=== PATIENT | male | born 1935 | race Caucasian/White ===

== ENCOUNTER 2016-06-04 06:52 | Inpatient (IN) | payer MEDICARE, BC ==
--- NOTE | 2016-06-04 07:16 | ED ---
General Adult HPI - General Chief complaint: Recheck/Abnormal Lab/Rx Stated complaint: Pacemaker going off Time Seen by Provider: 06/04/16 07:00 Source: patient, RN notes reviewed Mode of arrival: ambulatory Limitations: no limitations - History of Present Illness Initial comments: This is a 80-year-old male who presents emergency Department complaining that his pacemaker defibrillator to 3 seconds 3 times earlier this morning. Patient denies any symptoms. Patient remains symptomatically. Patient denies headache patient denies numbness weakness. Patient denies any recent fever chills or cough per patient denies chest pain palpitations difficulty breathing or shortness of breath per patient denies abdominal pain patient denies nausea vomiting diarrhea. Patient denies any recent injury or trauma. - Related Data Home Medications Medication Instructions Recorded Confirmed Atorvastatin [Lipitor] 20 mg PO DAILY 07/07/15 06/04/16 Dorzolamide HCl/Timolol Maleat 1 drop BOTH EYES BID 07/07/15 06/04/16 [Cosopt Eye Drops] Insulin Detemir [Levemir] 22 unit SQ HS 07/07/15 06/04/16 Isosorbide Mononitrate ER [Imdur] 60 mg PO BID 07/07/15 06/04/16 amLODIPine [Norvasc] 10 mg PO BID 07/07/15 06/04/16 metFORMIN HCL 1,000 mg PO BID 07/07/15 06/04/16 Brimonidine Tartrate [Alphagan P 1 drops BOTH EYES BID 06/04/16 06/04/16 0.1% Ophth Soln] Carvedilol [Coreg] 25 mg PO BID 06/04/16 06/04/16 Donepezil [Aricept] 10 mg PO DAILY 06/04/16 06/04/16 Flecainide [Tambocor] 50 mg PO Q12HR 06/04/16 06/04/16 Lisinopril-Hctz 20-25 mg 1 tab PO DAILY 06/04/16 06/04/16 [Zestoretic 20-25] Pantoprazole Sodium 40 mg PO DAILY 06/04/16 06/04/16 Allergies Allergy/AdvReac Type Severity Reaction Status Date / Time No Known Allergies Allergy Verified 06/04/16 09:34 Review of Systems ROS Statement: Those systems with pertinent positive or pertinent negative responses have been documented in the HPI. ROS Other: All systems not noted in ROS Statement are negative. Past Medical History Past Medical History: Diabetes Mellitus, Eye Disorder Additional Past Medical History / Comment(s): SEE DR CELIS'S H&P History of Any Multi-Drug Resistant Organisms: None Reported Past Surgical History: Cholecystectomy, Coronary Bypass/CABG, Hernia Repair Additional Past Surgical History / Comment(s): CABG X2, STATES TOTAL OF 5 BYPASSES, BIBI LEGS "VEIN SX" BIBI CATARACT, pacemaker/defib Past Anesthesia/Blood Transfusion Reactions: No Reported Reaction Past Psychological History: No Psychological Hx Reported Smoking Status: Former smoker Past Alcohol Use History: None Reported Additional Past Alcohol Use History / Comment(s): STARTED SMOKING AGE 18 (1951) , QUIT SMOKING 1978, SMOKED 1PPD Past Drug Use History: None Reported - Past Family History Son(s) Family Medical History: Cancer Additional Family Medical History / Comment(s): LUNG General Exam - General Exam Comments Initial Comments: GENERAL: Patient is well-developed and well-nourished. Patient is nontoxic and well- hydrated and is in no acute distress. ENT: Neck is soft and supple. No significant lymphadenopathy is noted. Oropharynx is clear. Moist mucous membranes. Neck has full range of motion without eliciting any pain. EYES: The sclera were anicteric and conjunctiva were pink and moist. Extraocular movements were intact and pupils were equal round and reactive to light. Eyelids were unremarkable. PULMONARY: Unlabored respirations. Good breath sounds bilaterally. No audible rales rhonchi or wheezing was noted. CARDIOVASCULAR: There is a regular rate and rhythm without any murmurs gallops or rubs. ABDOMEN: Soft and nontender with normal bowel sounds. No palpable organomegaly was noted. There is no palpable pulsatile mass. SKIN: Skin is clear with no lesions or rashes and otherwise unremarkable. NEUROLOGIC: Patient is alert and oriented x3. Cranial nerves II through XII are grossly intact. Motor and sensory are also intact. Normal speech, volume and content. Symmetrical smile. MUSCULOSKELETAL: Normal extremities with adequate strength and full range of motion. No lower extremity swelling or edema. No calf tenderness. LYMPHATICS: No significant lymphadenopathy is noted PSYCHIATRIC: Normal psychiatric evaluation. Limitations: no limitations Course Vital Signs 06/04/16 06/04/16 06:54 08:48 Temperature 98.0 F Pulse Rate 61 55 L Respiratory 18 18 Rate Blood Pressure 131/75 130/60 O2 Sat by Pulse 98 99 Oximetry Medical Decision Making - Medical Decision Making EKG shows sinus bradycardia with first-degree AV block at 53 bpm. It was 216 QRS is 148 QT interval 490 QTC is 459. Patient's EKG shows no ST segment elevation. Patient's potassium came back elevated so I repeated it was elevated secondary to give the patient Kayexalate and D50 and insulin sodium bicarb and calcium chloride. Because he elevated potassium as well as a pacemaker malfunction I admitted the patient spoke with .he agreed to admission I consult cardiology - Lab Data Result diagrams: 06/04/16 07:35 06/04/16 08:45 Lab Results 06/04/16 06/04/16 06/04/16 Range/Units 07:35 07:35 07:35 WBC 12.3 H (3.8-10.6) k/uL RBC 4.21 L (4.30-5.90) m/uL Hgb 12.6 L (13.0-17.5) gm/dL Hct 38.6 L (39.0-53.0) % MCV 91.5 (80.0-100.0) fL MCH 29.9 (25.0-35.0) pg MCHC 32.7 (31.0-37.0) g/dL RDW 13.1 (11.5-15.5) % Plt Count 326 (150-450) k/uL Neutrophils % 89 % Lymphocytes % 7 % Monocytes % 3 % Eosinophils % 0 % Basophils % 0 % Neutrophils # 11.0 H (1.3-7.7) k/uL Lymphocytes # 0.8 L (1.0-4.8) k/uL Monocytes # 0.4 (0-1.0) k/uL Eosinophils # 0.0 (0-0.7) k/uL Basophils # 0.0 (0-0.2) k/uL PT (9.0-12.0) sec INR (<1.1) APTT (22.0-30.0) sec Sodium 141 (137-145) mmol/L Potassium 6.1 H (3.5-5.1) mmol/L Chloride 105 (98-107) mmol/L Carbon Dioxide 18 L (22-30) mmol/L Anion Gap 18 mmol/L BUN 37 H (9-20) mg/dL Creatinine 2.10 H (0.66-1.25) mg/dL Est GFR (MDRD) Af Amer 37 (>60 ml/min/1.73 sqM) Est GFR (MDRD) Non-Af 31 (>60 ml/min/1.73 sqM) Glucose 255 H (74-99) mg/dL Calcium 9.8 (8.4-10.2) mg/dL Magnesium 1.6 (1.6-2.3) mg/dL Total Bilirubin 0.5 (0.2-1.3) mg/dL AST 27 (17-59) U/L ALT 31 (21-72) U/L Alkaline Phosphatase 84 (38-126) U/L Total Creatine Kinase 170 (55-170) U/L CK-MB (CK-2) 4.1 H* (0.0-2.4) ng/mL CK-MB (CK-2) Rel Index 2.4 Troponin I 0.115 H* (0.000-0.034) ng/mL Total Protein 7.9 (6.3-8.2) g/dL Albumin 4.6 (3.5-5.0) g/dL 06/04/16 06/04/16 Range/Units 07:35 08:45 WBC (3.8-10.6) k/uL RBC (4.30-5.90) m/uL Hgb (13.0-17.5) gm/dL Hct (39.0-53.0) % MCV (80.0-100.0) fL MCH (25.0-35.0) pg MCHC (31.0-37.0) g/dL RDW (11.5-15.5) % Plt Count (150-450) k/uL Neutrophils % % Lymphocytes % % Monocytes % % Eosinophils % % Basophils % % Neutrophils # (1.3-7.7) k/uL Lymphocytes # (1.0-4.8) k/uL Monocytes # (0-1.0) k/uL Eosinophils # (0-0.7) k/uL Basophils # (0-0.2) k/uL PT 11.2 (9.0-12.0) sec INR 1.1 (<1.1) APTT 23.3 (22.0-30.0) sec Sodium (137-145) mmol/L Potassium 6.2 H* (3.5-5.1) mmol/L Chloride (98-107) mmol/L Carbon Dioxide (22-30) mmol/L Anion Gap mmol/L BUN (9-20) mg/dL Creatinine (0.66-1.25) mg/dL Est GFR (MDRD) Af Amer (>60 ml/min/1.73 sqM) Est GFR (MDRD) Non-Af (>60 ml/min/1.73 sqM) Glucose (74-99) mg/dL Calcium (8.4-10.2) mg/dL Magnesium (1.6-2.3) mg/dL Total Bilirubin (0.2-1.3) mg/dL AST (17-59) U/L ALT (21-72) U/L Alkaline Phosphatase (38-126) U/L Total Creatine Kinase (55-170) U/L CK-MB (CK-2) (0.0-2.4) ng/mL CK-MB (CK-2) Rel Index Troponin I (0.000-0.034) ng/mL Total Protein (6.3-8.2) g/dL Albumin (3.5-5.0) g/dL Critical Care Time Critical Care Time: Yes Total Critical Care Time: 35 Disposition Clinical Impression: Hyperkalemia, Pacemaker malfunction, Elevated troponin Disposition: ADMITTED IP TO THIS HOSP Referrals: Guillaume Plascencia DO [Primary Care Provider] - 1-2 days Time of Disposition: 09:23
[2016-06-04 07:53] LABS: Basophils % (A) 0 %; CH 30.6; CHCM 33.6; Eosinophils % (A) 0 %; HCT 38.6 % (39.0-53.0); HDW 2.76; HGB 12.6 gm/dL (13.0-17.5); Luc % (Auto) 1; Lymphocytes # (A) 0.8 k/uL (1.0-4.8); Lymphocytes % (A) 7 %; MCH 29.9 pg (25.0-35.0); MCHC 32.7 g/dL (31.0-37.0); MCV 91.5 fL (80.0-100.0); Mean Platelet Volume 6.7; Monocytes # (A) 0.4 k/uL (0-1.0); Monocytes % (A) 3 %; Neutrophils % (A) 89 %; RBC 4.21 m/uL (4.30-5.90); RDW 13.1 % (11.5-15.5); WBC 12.3 k/uL (3.8-10.6); WBC (Perox) 12.66
[2016-06-04 08:02] LABS: INR 1.1 (<1.1); Partial Thromboplastin Time 23.3 sec (22.0-30.0); Prothrombin Time 11.2 sec (9.0-12.0)
[2016-06-04 08:12] LABS: Calcium 9.8 mg/dL (8.4-10.2); Magnesium 1.6 mg/dL (1.6-2.3); Total Bilirubin 0.5 mg/dL (0.2-1.3); Total Protein 7.9 g/dL (6.3-8.2)
[2016-06-04 08:15] LABS: Potassium 6.1 mmol/L (3.5-5.1)
--- NOTE | 2016-06-04 08:27 | XR ---
EXAMINATION TYPE: XR chest 2V DATE OF EXAM: 06/04/2016 8:15 AM COMPARISON: 07/13/2015 HISTORY: 80-year-old male with chest pain, pacemaker malfunctioning TECHNIQUE: PA and lateral views FINDINGS: Left anterior chest wall AICD generator with right atrial and right ventricular leads. Prosthetic car diac valve. Heart is normal size. Atherosclerotic arch calcifications with tortuosity of the lower descending aor ta. Pulmonary vasculature within normal limits. Some strandy atelectasis in the lower lungs. Nodular density at the right base suggests nipple shadow. Tiny high density nodule left apex suggests calcifi ed granuloma. No consolidation or pleural effusion. IMPRESSION: 1. No acute cardiopulmonary process. 2. Nodular density at the right base suspected to represent nipple shadow. Recommend short-term follo w-up with the placement of nipple markers.
[2016-06-04 08:29] LABS: Creatine Kinase MB 4.1 ng/mL (0.0-2.4); Troponin I 0.115 ng/mL (0.000-0.034)
[2016-06-04] MEDS ORDERED: SODIUM POLYSTYRENE SULFONATE 15 GM/60 ML BOTTLE PO STA (09:14)
[2016-06-04] MEDS ORDERED: INSULIN REGULAR 100 UNIT/ML VIAL IV ONE (09:18)
[2016-06-04] MEDS ORDERED: SODIUM BICARB 8.4% 50 ML SYR (1 MEQ/ML) IV STA (09:18)
[2016-06-04] MEDS ORDERED: DEXTROSE 50%-WATER 50 ML SYRINGE IVP STA (09:18)
[2016-06-04] MEDS ORDERED: CALCIUM CHLORIDE 100 MG/ML 10 ML SYRINGE IVP STA (09:19)
[2016-06-04] MEDS ORDERED: SODIUM CHLORIDE 0.9% 1,000 ML IV ONE (09:46)
--- NOTE | 2016-06-04 16:38 | CONS ---
DATE OF CONSULTATION: Mr. Gudino is a 80-year-old male with known history of coronary artery disease, history of ischemic cardiomyopathy, status post coronary artery bypass grafting and redo bypass in 2010 when he received an aortic valve and repeat bypass and he underwent an ICD implantation performed in July of this year. He noted fluttering over the pacemaker device and that he why he came in. He did not feel any shock. He denies any chest pain. His breathing has been stable. He has dyspnea on exertion without change. No PND. No orthopnea. No peripheral edema. No syncope or palpitations. His level of activity is unchanged. He is not very active physically, but does not feel any different than before. His coronary risk factors are remarkable negative for smoking. He is diabetic, hypertensive and hyperlipidemic. His medications include: 1. Metformin 1 gram twice a day. 2. Amlodipine 10 mg daily. 3. Protonix 40 mg daily. 4. Lisinopril HCT 20/25 mg daily. 5. Isosorbide mononitrate 60 mg twice a day. 6. Insulin. 7. Flecainide 50 mg twice a day. 8. Coreg 25 mg twice a day. 9. Aricept. 10. Lipitor 20 mg daily. REVIEW OF SYSTEMS: RESPIRATORY SYSTEM: He has no recent wheezing. No cough. He has history of mild dyspnea on exertion. GI system: No recent GI bleeding. No peptic ulcer disease. system: No dysuria or hematuria. Nervous system: No stroke or seizure. Past surgical history is remarkable for the coronary artery bypass grafting as noted. PHYSICAL EXAMINATION: Blood pressure 132/50 with a heart rate in the 60s. HEAD: Normocephalic. EYES: Sclerae anicteric. NECK: Good upstroke. No bruit. No jugular venous distention. LUNGS: Clear to auscultation. HEART: Regular rate and rhythm. S1, S2, no S3, with systolic murmur, ejection type, heard at the base. No diastolic murmur. No rub. ABDOMEN: Soft, nontender, positive bowel sounds. No organomegaly. EXTREMITIES: No edema. Decreased distal pulses. Lab data: Potassium of 6.1. It was 4.5 during his last admission. BUN and creatinine 37 and 2.1. It is slightly higher than it was during his last admission. His troponin 0.115. Hemoglobin 12.6. White blood cells 12.3. EKG revealed a sinus mechanism, rate of 53, left axis deviation, intraventricular conduction delay. Chest x-ray revealed nodular density at the right base could represent nipple shadow. IMPRESSION: 1. Fluttering at the site of the device. No clear evidence to suggest discharge. I will interrogate the device. 2. History of ischemic cardiomyopathy. 3. History of redo coronary artery bypass grafting and aortic valve replacement. 4. Renal failure. 5. Hyperkalemia. 6. Minimal elevation of troponin. I doubt that it reflects a primary ischemic event. The patient is asymptomatic. RECOMMENDATIONS: From the cardiac standpoint, I will reviewed the interrogation of his device. I will review his medications at home to see if the patient was on Aldactone that could be causing his hyperkalemia. I will hold his flecainide at this time. I will stop his amlodipine and switch him to hydralazine and nitrate in view of his impaired systolic function. We will continue the rest of his medical regimen and depending on his progress, further recommendation will be made. Thank you for this consult. We will follow with you.
[2016-06-04] MEDS ORDERED: HYDROcodone/APAP 5-325MG 1 EACH TAB PO PRN (17:09)
[2016-06-04] MEDS ORDERED: ALPRAZolam 0.25 MG TAB PO PRN (17:09)
[2016-06-04] MEDS ORDERED: TEMAZEPAM 15 MG CAP PO PRN (17:09)
[2016-06-04 17:15] VITALS: BMI 26.6
[2016-06-04 18:15] LABS: Calcium 9.9 mg/dL (8.4-10.2); Potassium 4.9 mmol/L (3.5-5.1)
[2016-06-04] MEDS ORDERED: MAG HYDROX/AL HYDROX/SIMETH 30 ML CUP PO PRN (18:49)
[2016-06-04] MEDS: hydrALAZINE HCL 25 MG TAB PO SCH ×2 (18:56→20:59)
[2016-06-04] MEDS: CARVEDILOL 12.5 MG TAB PO SCH (18:56)
[2016-06-04] MEDS: INSULIN LISPRO (humaLOG) 300 UNIT/3 ML VIAL SQ SCH ×2 (20:59→22:59)
[2016-06-04] MEDS ORDERED: INSULIN DETEMIR 100 UNIT/ML 10 ML VIAL SQ SCH (21:00)
[2016-06-04 21:10] LABS: Glucose,Whole Blood 240 mg/dL (75-99)
[2016-06-04] MEDS: BRIMONIDINE TARTRATE 0.2% DROPS 5 ML BTL BOTH EYES SCH (22:59)
[2016-06-04] MEDS: DORZOLAMIDE-TIMOLOL 2-0.5% DROPS 10 ML BTL BOTH EYES SCH (22:59)
[2016-06-04] MEDS: ISOSORBIDE MONONITRATE ER 60 MG TAB.ER.24H PO SCH (23:00)
[2016-06-05 06:05] VITALS: RESP 18
[2016-06-05 06:14] LABS: Glucose,Whole Blood 50 mg/dL (75-99)
[2016-06-05 06:40] LABS: Glucose,Whole Blood 83 mg/dL (75-99)
[2016-06-05] MEDS: INSULIN LISPRO (humaLOG) 300 UNIT/3 ML VIAL SQ SCH ×2 (06:41→12:11)
[2016-06-05] MEDS: CARVEDILOL 12.5 MG TAB PO SCH (06:47)
[2016-06-05 07:50] LABS: Basophils # (A) 0.1 k/uL (0-0.2); Basophils % (A) 1 %; CH 30.4; Eosinophils # (A) 0.2 k/uL (0-0.7); Eosinophils % (A) 2 %; HCT 36.8 % (39.0-53.0); HDW 2.65; HGB 11.9 gm/dL (13.0-17.5); Luc # (Auto) 0.32; Luc % (Auto) 4; Lymphocytes # (A) 1.8 k/uL (1.0-4.8); Lymphocytes % (A) 20 %; MCHC 32.4 g/dL (31.0-37.0); MCV 92.8 fL (80.0-100.0); Mean Platelet Volume 6.8; Monocytes # (A) 0.8 k/uL (0-1.0); Monocytes % (A) 9 %; Neutrophils # (A) 5.8 k/uL (1.3-7.7); Neutrophils % (A) 65 %; RBC 3.97 m/uL (4.30-5.90); RDW 13.2 % (11.5-15.5); WBC 8.9 k/uL (3.8-10.6); WBC (Perox) 9.55
[2016-06-05 07:54] LABS: Calcium 9.5 mg/dL (8.4-10.2)
--- NOTE | 2016-06-05 08:20 | HP ---
DATE OF ADMISSION: 06/04/2016 CHIEF COMPLAINT: Pacemaker discharge. HISTORY OF PRESENT ILLNESS: This 80-year-old gentleman with a past medical history of multiple medical problems, including diabetes, history of CAD, CABG, ischemic cardiomyopathy, AICD being followed by Dr. Guillaume Plascencia in the outpatient setting was complaining of flutter sensation over the pacemaker area, about 3 seconds three times. The patient came to [facility] and admitted for further evaluation and treatment. There is no history of fever, rigors. No history of headache, loss of consciousness or seizures. Cardiology is evaluating the patient. Pacemaker interrogation also being planned. PAST MEDICAL HISTORY: History of ischemic cardiomyopathy, diabetes mellitus type 2, history of coronary artery disease, coronary artery bypass grafting, cholecystectomy. Medications prior to admission include: 1. Metformin 1000 mg p.o. b.i.d. 2. Norvasc 10 mg p.o. b.i.d. 3. Protonix 40 mg daily. 4. Lisinopril hydrochlorothiazide 1 tablet p.o. b.i.d. 5. Imdur ER 60 mg p.o. b.i.d. 6. Levemir 22 units subcu q.h.s. 7. Tambocor 50 mg p.o. b.i.d. 8. Cosopt one drop both eyes b.i.d. 9. Aricept 10 mg daily. 11. Alphagan 0.1% one drop both eyes b.i.d. 12. Lipitor 20 mg daily. ALLERGIES: None. FAMILY HISTORY: History of lung cancer in the family. SOCIAL HISTORY: Previous history of smoking. No history of current smoking. No alcohol intake. REVIEW OF SYSTEMS: ENT: No diminished hearing or diminished vision. CARDIOVASCULAR: As mentioned earlier. RESPIRATORY: As mentioned earlier. GI: No nausea. : No dysuria. NERVOUS SYSTEM: No numbness. ALLERGY/IMMUNOLOGY: No asthma. MUSCULOSKELETAL: As mentioned earlier. HEMATOLOGY: No history of anemia. ENDOCRINE: As mentioned earlier. CONSTITUTIONAL: As mentioned earlier. DERMATOLOGY: Negative. RHEUMATOLOGY: Negative. PSYCHIATRY: As mentioned earlier. PHYSICAL EXAMINATION: Patient is alert and oriented x3. Pulse 55, blood pressure 136/60, respirations 18, temperature 98 degrees, pulse ox 99% on 2 liters. HEENT: Conjunctivae normal. Oral mucosa moist. NECK: No jugular venous distention. No carotid bruit. No lymph node enlargement. CARDIOVASCULAR: S1 and S2, muffled. No S3, no S4. No murmur. RESPIRATORY: Breath sounds diminished at the bases. No rhonchi, no crackles. ABDOMEN: Soft, nontender. No mass palpable. LEGS: No edema, no swelling. NERVOUS SYSTEM: Higher function as mentioned. Moves all four limbs. No focal motor deficits. LYMPHATIC: No lymphadenopathy in the neck, axillae or groin. SKIN: No ulcer, rash or bleeding. LABS: WBC 12.3, hemoglobin 12.6 and potassium 6.1, creatinine is 2.10, troponin 0.115. ASSESSMENT: 1. Fluttering over pacemaker site, rule out pacemaker discharge and cardiac arrhythmia 2. Hyperkalemia. 3. Acute on chronic renal failure. 4. Troponin 0.115, indeterminate, rule out acute non-ST segment elevation myocardial infarction. 5. Increased WBC, possibly reactive. 6. Anemia, normocytic, possibly anemia of chronic disease. 7. History of diabetes mellitus type 2. 8. History of coronary artery disease, coronary artery bypass grafting. 9. History of ischemic cardiomyopathy. 10. History of cholecystectomy. 11. History of hernia repair. 12. Remote history of nicotine dependence. 13. FULL CODE. RECOMMENDATIONS AND DISCUSSION: In this 80-year-old gentleman who presented with multiple complex medical issues, will monitor the patient closely. Continue the current medications and symptomatic treatment. Otherwise at this time I recommend continue with the current medications. Repeat electrolytes. Otherwise, closely follow with Cardiology. Monitor telemetry. Nephrology consultation. Repeat labs. Prognosis guarded because of multiple complex medical issues. Further recommendations to follow. Copy of dictation forwarded to Dr. Guillaume Plascencia who is the primary physician. F F [facility] HOSPITALSamantha
[2016-06-05] MEDS: hydrALAZINE HCL 25 MG TAB PO SCH (08:54)
[2016-06-05] MEDS: ISOSORBIDE MONONITRATE ER 60 MG TAB.ER.24H PO SCH (08:55)
[2016-06-05] MEDS: DORZOLAMIDE-TIMOLOL 2-0.5% DROPS 10 ML BTL BOTH EYES SCH (08:55)
[2016-06-05] MEDS: BRIMONIDINE TARTRATE 0.2% DROPS 5 ML BTL BOTH EYES SCH (08:56)
[2016-06-05] MEDS ORDERED: ATORVASTATIN 40 MG TAB PO SCH (09:00)
[2016-06-05] MEDS ORDERED: LISINOPRIL-HCTZ 20-25 MG 1 EACH TAB PO SCH (09:00)
[2016-06-05] MEDS ORDERED: DONEPEZIL 10 MG TAB PO SCH (09:00)
[2016-06-05] MEDS ORDERED: PANTOPRAZOLE 40 MG TABLET PO SCH (09:00)
[2016-06-05 11:39] LABS: Glucose,Whole Blood 144 mg/dL (75-99)
[2016-06-05 12:17] VITALS: BP 147/72; PULSE 77; TEMP 97
[2016-06-05 12:23] LABS: Hemoglobin A1C 7.5 % (4.2-6.1)
--- NOTE | 2016-06-05 20:21 | CONS ---
DATE OF CONSULTATION: REASON FOR CONSULTATION: Renal failure. HISTORY OF PRESENT ILLNESS: Patient is a 80-year-old white male who was admitted to the hospital with abnormal function of his pacemaker/AICD. Patient's pacemaker was checked. He denies any prior history of kidney diseases. He has also been evaluated by Cardiology. Serum creatinine was at 2.1 mg/dL on initial admission. It is down to 1.6 now. Review of previous labs shows a serum creatinine of 1.5 on 07/12/2015. No history of use of NSAIDs. Blood pressure has been within range. PAST MEDICAL HISTORY: Hypertension, ischemic cardiomyopathy, type 2 diabetes, coronary artery disease. PAST SURGICAL HISTORY: Coronary artery bypass surgery, cholecystectomy. Medications are reviewed. ALLERGIES: None. SOCIAL HISTORY: Negative for smoking, drug abuse or alcohol abuse. The patient is an ex-smoker. REVIEW OF SYSTEMS: As per HPI. Other systems negative. On examination, blood pressure is 132/61, heart rate 62 per minute. The patient is afebrile. Examination of the heart: S1, S2. Examination of the lungs: Bilateral breath sounds are heard. Abdomen is soft, nontender. Examination of lower extremities shows no evidence of edema. DIRECTOR [employer]KEEPING exam is grossly intact. Labs show sodium 142, potassium 4.0, BUN 29, serum creatinine 1.6. Hemoglobin 11.9 g/dL. ASSESSMENT: 1. Acute kidney injury, most likely prerenal currently improved. Patient's baseline creatinine is about 1.5 in July 2005; therefore, currently he not far from his baseline. 2. 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 Patient is advised to follow up as outpatient for chronic kidney disease. 3. Coronary artery disease and ischemic cardiomyopathy with a pacemaker/AICD placement. 4. Hyperkalemia on initial admission, status post Kayexalate. Serum potassium has now improved. Etiology is acute kidney injury. Patient had been on MILLIE inhibitors prior to admission. PLAN: Follow up as outpatient for chronic kidney disease monitoring. We will need to adjust the dose of MILLIE inhibitors and perhaps use loop diuretics along with MILLIE inhibitors to help with the hyperkalemia. Patient should also be maintained on low potassium diet.
--- NOTE | 2016-06-05 21:59 | PN ---
Mr. Gudino is a 80-year-old male with known history of coronary artery disease, status post redo coronary artery bypass grafting and aortic valve replacement as well history of ischemic cardiomyopathy and ICD implantation, who felt fluttering over the pacemaker device site. He had interrogation of the device that revealed no evident of malfunction. He is doing well this morning. He has no chest pain. His breathing has been stable. He denies any dizziness, palpitation. He denies any nausea. On the monitor, he is in sinus mechanism with no evidence of tachy or bradyarrhythmia. He continues to be at this time on Lipitor 40 mg daily, Coreg 25 mg twice a day, Aricept, insulin, isosorbide mononitrate 60 mg twice a day, Lisinopril HCT 20/25 mg daily, hydralazine 25 mg twice a day. PHYSICAL EXAMINATION: Blood pressure running in the 120s with a heart in the 60s. LUNGS: Clear. HEART: Regular rate rhythm. S1, S2, no S3, no rub with a systolic murmur. ABDOMEN: Soft, nontender. EXTREMITIES: No edema. Lab data revealed BUN and creatinine 29 and1.6. Potassium 4.0. IMPRESSION: 1. Feeling of fluttering covert the device with no evidence of discharge or malfunction. 2. History of ischemic cardiomyopathy. 3. Status post redo coronary artery bypass grafting and aortic valve replacement. 4. Renal failure. RECOMMENDATION: From the cardiac standpoint, he should be able to be discharged home today and followed as an outpatient with Dr. Ayers.
--- NOTE | 2016-06-06 20:30 | DS ---
DATE OF ADMISSION: 06/04/2016 DATE OF DISCHARGE: 06/05/2016 FINAL DIAGNOSES: 1. Fluttering over the pacemaker site with no evidence of pacemaker discharge or any cardiac arrhythmia. 2. Hyperkalemia, improved. 3. Acute on chronic renal failure. 4. Troponin 0.115, indeterminate. 5. Increased white count, possibly reactive. 6. Anemia, normocytic, possibly anemia of chronic disease. 7. History of diabetes mellitus, type 2. 8. History of coronary artery disease, coronary artery bypass graft. 9. History of ischemic cardiomyopathy. 10. History of cholecystectomy. 11. History of hernia repair. 12. Remote history of nicotine dependence. 13. FULL CODE. DISCHARGE DISPOSITION: The patient will be discharged in stable condition with guarded prognosis. Discharge cleared by Cardiology and Nephrology. HISTORY OF PRESENT ILLNESS: This 80-year-old gentleman with a past medical history of multiple medical problems, as mentioned above, had fluttering over the pacemaker, and the patient was monitored closely. Cardiology cleared the patient for discharge. Interrogation revealed no evidence of malfunction. Dr. Stewart saw the patient and medications were adjusted. Potassium is 4 at this time. The patient will be discharged in stable condition with following advice and medications: On exam, vitals are stable. CARDIOVASCULAR SYSTEM: S1, S2 muffled. RESPIRATORY SYSTEM: Breath sounds diminished at the bases. ABDOMEN: Soft. NERVOUS SYSTEM: No focal deficit. DISCHARGE ADVICE AND MEDICATIONS: 1. Diet is cardiac. 2. Activity limited until followup. 3. Follow up with Dr. Abdelrahman Ledesma in 2 to 3 days. 4. Follow up with Cardiology as recommended. 5. Lipitor 20 mg p.o. daily. 6. Alphagan eyedrops drop both eyes daily. 7. Coreg 25 mg p.o. b.i.d. 8. Aricept 10 mg p.o. daily. 9. Dorzolamide/Timolol eye drops 1 drop both eyes daily. 10. Levemir 22 units subcutaneously at bedtime. 11. Imdur ER 60 mg p.o. b.i.d. 12. Zestoretic 1 tablet p.o. daily. 13. Protonix 40 mg p.o. daily. 14. Apresoline 25 mg p.o. b.i.d.
== END 2016-06-05 16:15 | disposition home or self-care (01) | DRG 641 ==
LOC: EC 06:52 → 6SEL 09:48
PROVIDERS: ADMIT Internal Medicine; ATTEND Internal Medicine
PROC: 4A02XFZ Measurement of Cardiac Rhythm, External Approach (ICD-10-PCS; principal; 2016-06-04)
DX: E87.5 Hyperkalemia (principal); N17.9 Acute kidney failure, unspecified; E11.22 Type 2 diabetes mellitus with diabetic chronic kidney disease; I25.5 Ischemic cardiomyopathy; D63.8 Anemia in other chronic diseases classified elsewhere; I25.10 Atherosclerotic heart disease of native coronary artery without angina pectoris; N18.3 Chronic kidney disease, stage 3 (moderate); I44.0 Atrioventricular block, first degree; E78.5 Hyperlipidemia, unspecified; I12.9 Hypertensive chronic kidney disease with stage 1 through stage 4 chronic kidney disease, or unspecified chronic kidney disease; Z95.810 Presence of automatic (implantable) cardiac defibrillator; Z95.1 Presence of aortocoronary bypass graft; Z90.49 Acquired absence of other specified parts of digestive tract; Z87.891 Personal history of nicotine dependence; Z95.2 Presence of prosthetic heart valve; Z98.42 Cataract extraction status, left eye; Z98.41 Cataract extraction status, right eye; Z79.4 Long term (current) use of insulin; Z79.899 Other long term (current) drug therapy
CPT/HCPCS: 36415; 71020; 80048; 80053; 82550; 82553; 83036; 83735; 84132; 84484; 85025; 85610; 85730; 93005; 94760; 96374; 96375; 99291

== ENCOUNTER 2016-09-14 10:38 | Emergency (ER) | payer MEDICARE, BC ==
[2016-09-14 11:01] VITALS: RESP 16
[2016-09-14 12:02] VITALS: PULSE 60
--- NOTE | 2016-09-14 12:10 | ED ---
General Adult HPI - General Chief complaint: Upper Respiratory Infection Stated complaint: Congestion Time Seen by Provider: 09/14/16 11:56 Source: patient, RN notes reviewed Mode of arrival: wheelchair Limitations: no limitations - History of Present Illness Initial comments: Patient is a pleasant 81-year-old male presenting to the emergency Department with complaints of congestion. Patient has had nasal drainage and congestion for several days. Patient feels he also has congestion in his chest. Patient states he may be somewhat short of breath however treats this to the congestion. No chest pain. Mild cough. No fevers. - Related Data Home Medications Medication Instructions Recorded Confirmed Atorvastatin [Lipitor] 20 mg PO DAILY 07/07/15 09/14/16 Dorzolamide HCl/Timolol Maleat 1 drop BOTH EYES BID 07/07/15 09/14/16 [Cosopt Eye Drops] Insulin Detemir [Levemir] 22 unit SQ HS 07/07/15 09/14/16 Isosorbide Mononitrate ER [Imdur] 60 mg PO BID 07/07/15 09/14/16 Brimonidine Tartrate [Alphagan P 1 drops BOTH EYES BID 06/04/16 09/14/16 0.1% Ophth Soln] Carvedilol [Coreg] 25 mg PO BID 06/04/16 09/14/16 Donepezil [Aricept] 10 mg PO DAILY 06/04/16 09/14/16 Pantoprazole Sodium 40 mg PO BID 06/04/16 09/14/16 Flecainide [Tambocor] 50 mg PO BID 09/14/16 09/14/16 hydrALAZINE HCL [Apresoline] 25 mg PO DAILY 09/14/16 09/14/16 metFORMIN HCL 1,000 mg PO BID 09/14/16 09/14/16 Previous Rx's Medication Instructions Recorded Amoxicillin 500 mg PO Q8H #30 capsule 09/14/16 Allergies Allergy/AdvReac Type Severity Reaction Status Date / Time prednisone AdvReac SUGAR GOES Verified 09/14/16 12:14 UP Review of Systems ROS Statement: Those systems with pertinent positive or pertinent negative responses have been documented in the HPI. ROS Other: All systems not noted in ROS Statement are negative. Constitutional: Denies: fever Eyes: Denies: eye pain ENT: Reports: congestion. Denies: ear pain Respiratory: Reports: cough (Mild), dyspnea (Congestion) Cardiovascular: Denies: chest pain, palpitations Endocrine: Denies: fatigue Gastrointestinal: Denies: abdominal pain Genitourinary: Denies: dysuria Musculoskeletal: Denies: back pain Skin: Denies: rash Neurological: Denies: weakness Past Medical History Past Medical History: Diabetes Mellitus, Eye Disorder Additional Past Medical History / Comment(s): SEE DR CELIS'S H&P History of Any Multi-Drug Resistant Organisms: None Reported Past Surgical History: Cholecystectomy, Coronary Bypass/CABG, Hernia Repair, Pacemaker Additional Past Surgical History / Comment(s): CABG X2, STATES TOTAL OF 5 BYPASSES, BIBI LEGS "VEIN SX" BIBI CATARACT, pacemaker/defib Past Anesthesia/Blood Transfusion Reactions: No Reported Reaction Type of Cardiac Device: Permanent Pacemaker Device Placement Date:: JUL 2015 Past Psychological History: No Psychological Hx Reported Smoking Status: Former smoker Past Alcohol Use History: None Reported Additional Past Alcohol Use History / Comment(s): STARTED SMOKING AGE 18 (1951) , QUIT SMOKING 1978, SMOKED 1PPD Past Drug Use History: None Reported - Past Family History Son(s) Family Medical History: Cancer Additional Family Medical History / Comment(s): LUNG Mother Family Medical History: Chest Pain / Angina, Congestive Heart Failure (CHF), Diabetes Mellitus General Exam Limitations: no limitations General appearance: alert, in no apparent distress Head exam: Present: atraumatic Eye exam: Present: normal appearance, PERRL ENT exam: Present: other (Mild pharyngeal cobblestoning. Tenderness over the frontal and ethmoid and maxillary sinuses.) Neck exam: Present: normal inspection Respiratory exam: Present: normal lung sounds bilaterally. Absent: respiratory distress, wheezes, rales, rhonchi, decreased breath sounds Cardiovascular Exam: Present: bradycardia GI/Abdominal exam: Present: soft. Absent: tenderness Extremities exam: Present: normal inspection. Absent: pedal edema, calf tenderness Neurological exam: Present: alert Psychiatric exam: Present: normal affect, normal mood Skin exam: Absent: rash Course Vital Signs 09/14/16 09/14/16 10:58 12:00 Temperature 97.4 F L 97.5 F L Pulse Rate 53 L 60 Respiratory 16 16 Rate Blood Pressure 185/77 171/80 O2 Sat by Pulse 98 99 Oximetry - Reevaluation(s) Reevaluation #1: 09/14/16 12:09 Patient was offered blood work however does not feels symptoms are bad enough for this and refuses this. Medical Decision Making - Radiology Data Radiology results: image reviewed (Chest x-ray shows no acute process) Disposition Clinical Impression: Sinusitis Disposition: HOME SELF-CARE Condition: Stable Instructions: Sinusitis (ED) Additional Instructions: Please follow-up with primary care physician in the next day or 2 for recheck. Return for difficulty breathing, chest pain, fevers, worsening symptoms or other concerns. Prescriptions: Amoxicillin 500 mg PO Q8H #30 capsule Referrals: Guillaume Plascencia DO [Primary Care Provider] - 1-2 days
--- NOTE | 2016-09-14 12:34 | XR ---
EXAMINATION TYPE: XR chest 2V DATE OF EXAM: 09/14/2016 12:30 PM COMPARISON: 06/04/2016 HISTORY: Shortness of breath TECHNIQUE: Frontal and lateral views of the chest are obtained. FINDINGS: Scattered senescent parenchymal changes noted. Hyperinflation compatible with COPD. No evidence for infiltrate. No evidence for atelectasis. Heart size is stable. Mediastinal structures are stable and grossly unremarkable. No evidence for hilar prominence. Degenerative changes dorsal spine. IMPRESSION: 1. No evidence for acute pulmonary disease.
[2016-09-14 14:27] VITALS: BP 192/88; TEMP 97.7
== END 2016-09-14 14:32 | disposition home or self-care (01) ==
LOC: EC 10:38
DX: J32.9 Chronic sinusitis, unspecified (principal); E11.9 Type 2 diabetes mellitus without complications; Z87.891 Personal history of nicotine dependence; Z79.4 Long term (current) use of insulin; Z79.899 Other long term (current) drug therapy; Z88.8 Allergy status to other drugs, medicaments and biological substances
CPT/HCPCS: 71020; 99283

== ENCOUNTER 2017-01-10 02:50 | Inpatient (IN) | payer MEDICARE, BC ==
[2017-01-10] MEDS ORDERED: SODIUM CHLORIDE 0.9% 1,000 ML IV STA (03:00)
[2017-01-10 03:26] LABS: Basophils % (A) 0 %; CH 28.6; CHCM 32.6; Eosinophils % (A) 0 %; HCT 41.7 % (39.0-53.0); HDW 2.65; HGB 13.7 gm/dL (13.0-17.5); Luc # (Auto) 0.08; Luc % (Auto) 1; Lymphocytes # (A) 0.8 k/uL (1.0-4.8); Lymphocytes % (A) 9 %; MCH 29.1 pg (25.0-35.0); MCV 88.3 fL (80.0-100.0); Mean Platelet Volume 7.3; Monocytes # (A) 0.4 k/uL (0-1.0); Monocytes % (A) 5 %; Neutrophils # (A) 8.2 k/uL (1.3-7.7); Neutrophils % (A) 86 %; RBC 4.72 m/uL (4.30-5.90); RDW 14.8 % (11.5-15.5); WBC 9.6 k/uL (3.8-10.6); WBC (Perox) 9.56
[2017-01-10 03:31] LABS: INR 1.1 (<1.2); Prothrombin Time 11.4 sec (9.0-12.0)
[2017-01-10 03:34] LABS: Calcium 9.9 mg/dL (8.4-10.2); Magnesium 1.5 mg/dL (1.6-2.3); Potassium 5.3 mmol/L (3.5-5.1); Total Bilirubin 0.7 mg/dL (0.2-1.3)
--- NOTE | 2017-01-10 03:42 | XR ---
EXAM: XR Chest, 2 Views CLINICAL HISTORY: Reason: Chest Pain TECHNIQUE: Frontal and lateral views of the chest. COMPARISON: 09/14/16 FINDINGS: Lungs: Stable chronic changes in the lung bases. No focal consolidation. Pleural space: Unremarkable. No pneumothorax. Heart: Unremarkable. No cardiomegaly. Mediastinum: Unremarkable. Bones/joints: Degenerative changes of the spine. Other: Stable left chest wall pacemaker, sternotomy, prosthetic heart valve. IMPRESSION: No evidence of acute cardiopulmonary disease. No significant interval change
--- NOTE | 2017-01-10 03:43 | ED ---
General Adult HPI - General Chief complaint: Chest Pain Stated complaint: chest pain Time Seen by Provider: 01/10/17 02:57 Source: patient, RN notes reviewed, old records reviewed Mode of arrival: ambulatory Limitations: no limitations - History of Present Illness Initial comments: This is a 81-year-old male to the ER for evaluation. Patient is today for evaluation regarding testing. Chest changes a prior heart attack. Patient does have history of heart disease history of prior heart attacks. Patient's pain started earlier today was mowing the grass, patient has pain is persistent tonight unable to sleep and coming here for evaluation. No diaphoresis no shortness of breath - Related Data Home Medications Medication Instructions Recorded Confirmed Atorvastatin [Lipitor] 20 mg PO DAILY 07/07/15 09/14/16 Dorzolamide HCl/Timolol Maleat 1 drop BOTH EYES BID 07/07/15 09/14/16 [Cosopt Eye Drops] Insulin Detemir [Levemir] 22 unit SQ HS 07/07/15 09/14/16 Isosorbide Mononitrate ER [Imdur] 60 mg PO BID 07/07/15 09/14/16 Brimonidine Tartrate [Alphagan P 1 drops BOTH EYES BID 06/04/16 09/14/16 0.1% Ophth Soln] Carvedilol [Coreg] 25 mg PO BID 06/04/16 09/14/16 Donepezil [Aricept] 10 mg PO DAILY 06/04/16 09/14/16 Pantoprazole Sodium 40 mg PO BID 06/04/16 09/14/16 Flecainide [Tambocor] 50 mg PO BID 09/14/16 09/14/16 hydrALAZINE HCL [Apresoline] 25 mg PO DAILY 09/14/16 09/14/16 metFORMIN HCL 1,000 mg PO BID 09/14/16 09/14/16 Previous Rx's Medication Instructions Recorded Amoxicillin 500 mg PO Q8H #30 capsule 09/14/16 Allergies Allergy/AdvReac Type Severity Reaction Status Date / Time prednisone AdvReac SUGAR GOES Verified 09/14/16 12:14 UP Review of Systems ROS Statement: Those systems with pertinent positive or pertinent negative responses have been documented in the HPI. ROS Other: All systems not noted in ROS Statement are negative. Past Medical History Past Medical History: Diabetes Mellitus, Eye Disorder Additional Past Medical History / Comment(s): SEE DR CELIS'S H&P History of Any Multi-Drug Resistant Organisms: None Reported Past Surgical History: Cholecystectomy, Coronary Bypass/CABG, Hernia Repair, Pacemaker Additional Past Surgical History / Comment(s): CABG X2, STATES TOTAL OF 5 BYPASSES, BIBI LEGS "VEIN SX" BIBI CATARACT, pacemaker/defib Past Anesthesia/Blood Transfusion Reactions: No Reported Reaction Type of Cardiac Device: Permanent Pacemaker Device Placement Date:: JUL 2015 Past Psychological History: No Psychological Hx Reported Smoking Status: Former smoker Past Alcohol Use History: None Reported Past Drug Use History: None Reported - Past Family History Son(s) Family Medical History: Cancer Additional Family Medical History / Comment(s): LUNG Mother Family Medical History: Chest Pain / Angina, Congestive Heart Failure (CHF), Diabetes Mellitus General Exam Limitations: no limitations General appearance: alert, in no apparent distress Head exam: Present: atraumatic, normocephalic, normal inspection Eye exam: Present: normal appearance, PERRL, EOMI. Absent: scleral icterus, conjunctival injection, periorbital swelling ENT exam: Present: normal exam, mucous membranes moist Neck exam: Present: normal inspection. Absent: tenderness, meningismus, lymphadenopathy Respiratory exam: Present: normal lung sounds bilaterally. Absent: respiratory distress, wheezes, rales, rhonchi, stridor Cardiovascular Exam: Present: regular rate, normal rhythm, normal heart sounds. Absent: systolic murmur, diastolic murmur, rubs, gallop, clicks GI/Abdominal exam: Present: soft, normal bowel sounds. Absent: distended, tenderness, guarding, rebound, rigid Extremities exam: Present: normal inspection, full ROM, normal capillary refill. Absent: tenderness, pedal edema, joint swelling, calf tenderness Back exam: Present: normal inspection Neurological exam: Present: alert, oriented X3, CN II-XII intact Psychiatric exam: Present: normal affect, normal mood Skin exam: Present: warm, dry, intact, normal color. Absent: rash Course Vital Signs 01/10/17 01/10/17 02:59 03:58 Temperature 97.2 F L 98.0 F Pulse Rate 88 90 Respiratory 20 18 Rate Blood Pressure 186/88 189/97 O2 Sat by Pulse 99 91 L Oximetry - Reevaluation(s) Reevaluation #1: 01/10/17 04:12 Patient remains chest pain EKG Findings - EKG Comments: EKG Findings:: EKG shows sinus of 86, pO2 42, QRS 174, QTC 514 Medical Decision Making - Medical Decision Making Phenergan really chest pain, elevated troponin not non-ST elevated MA, patient will be admitted for cardiac observation, serial troponins, cardiac evaluation - Lab Data Result diagrams: 01/10/17 03:11 01/10/17 03:11 Lab Results 01/10/17 01/10/17 01/10/17 Range/Units 03:11 03:11 03:11 WBC 9.6 (3.8-10.6) k/uL RBC 4.72 (4.30-5.90) m/uL Hgb 13.7 (13.0-17.5) gm/dL Hct 41.7 (39.0-53.0) % MCV 88.3 (80.0-100.0) fL MCH 29.1 (25.0-35.0) pg MCHC 33.0 (31.0-37.0) g/dL RDW 14.8 (11.5-15.5) % Plt Count 291 (150-450) k/uL Neutrophils % 86 % Lymphocytes % 9 % Monocytes % 5 % Eosinophils % 0 % Basophils % 0 % Neutrophils # 8.2 H (1.3-7.7) k/uL Lymphocytes # 0.8 L (1.0-4.8) k/uL Monocytes # 0.4 (0-1.0) k/uL Eosinophils # 0.0 (0-0.7) k/uL Basophils # 0.0 (0-0.2) k/uL PT (9.0-12.0) sec INR (<1.2) APTT (22.0-30.0) sec Sodium 136 L (137-145) mmol/L Potassium 5.3 H (3.5-5.1) mmol/L Chloride 102 (98-107) mmol/L Carbon Dioxide 16 L (22-30) mmol/L Anion Gap 18 mmol/L BUN 38 H (9-20) mg/dL Creatinine 2.10 H (0.66-1.25) mg/dL Est GFR (MDRD) Af Amer 37 (>60 ml/min/1.73 sqM) Est GFR (MDRD) Non-Af 31 (>60 ml/min/1.73 sqM) Glucose 412 H (74-99) mg/dL Calcium 9.9 (8.4-10.2) mg/dL Magnesium 1.5 L (1.6-2.3) mg/dL Total Bilirubin 0.7 (0.2-1.3) mg/dL AST 20 (17-59) U/L ALT 34 (21-72) U/L Alkaline Phosphatase 100 (38-126) U/L Total Creatine Kinase 96 (55-170) U/L CK-MB (CK-2) 3.6 H* (0.0-2.4) ng/mL CK-MB (CK-2) Rel Index 3.8 Troponin I 0.113 H* (0.000-0.034) ng/mL Total Protein 8.0 (6.3-8.2) g/dL Albumin 4.8 (3.5-5.0) g/dL Lipase 160 (23-300) U/L 01/10/17 Range/Units 03:11 WBC (3.8-10.6) k/uL RBC (4.30-5.90) m/uL Hgb (13.0-17.5) gm/dL Hct (39.0-53.0) % MCV (80.0-100.0) fL MCH (25.0-35.0) pg MCHC (31.0-37.0) g/dL RDW (11.5-15.5) % Plt Count (150-450) k/uL Neutrophils % % Lymphocytes % % Monocytes % % Eosinophils % % Basophils % % Neutrophils # (1.3-7.7) k/uL Lymphocytes # (1.0-4.8) k/uL Monocytes # (0-1.0) k/uL Eosinophils # (0-0.7) k/uL Basophils # (0-0.2) k/uL PT 11.4 (9.0-12.0) sec INR 1.1 (<1.2) APTT 23.0 (22.0-30.0) sec Sodium (137-145) mmol/L Potassium (3.5-5.1) mmol/L Chloride (98-107) mmol/L Carbon Dioxide (22-30) mmol/L Anion Gap mmol/L BUN (9-20) mg/dL Creatinine (0.66-1.25) mg/dL Est GFR (MDRD) Af Amer (>60 ml/min/1.73 sqM) Est GFR (MDRD) Non-Af (>60 ml/min/1.73 sqM) Glucose (74-99) mg/dL Calcium (8.4-10.2) mg/dL Magnesium (1.6-2.3) mg/dL Total Bilirubin (0.2-1.3) mg/dL AST (17-59) U/L ALT (21-72) U/L Alkaline Phosphatase (38-126) U/L Total Creatine Kinase (55-170) U/L CK-MB (CK-2) (0.0-2.4) ng/mL CK-MB (CK-2) Rel Index Troponin I (0.000-0.034) ng/mL Total Protein (6.3-8.2) g/dL Albumin (3.5-5.0) g/dL Lipase (23-300) U/L - Radiology Data Radiology results: report reviewed (Chest x-ray is negative for acute disease), image reviewed Critical Care Time Critical Care Time: Yes Total Critical Care Time: 31 Disposition Clinical Impression: Acute non-ST segment elevation myocardial infarction (STEMI) following previous myocardial infarction Disposition: ADMITTED IP TO THIS [facility] Condition: Serious Referrals: Vince Jane MD [Primary Care Provider] - 1-2 days
[2017-01-10] MEDS ORDERED: MORPHINE SULFATE 4 MG/ML SYRINGE IVP STA (03:54)
[2017-01-10 03:55] LABS: Creatine Kinase MB 3.6 ng/mL (0.0-2.4); Troponin I 0.113 ng/mL (0.000-0.034)
[2017-01-10] MEDS ORDERED: NITROGLYCERIN SL TABS 0.4 MG TAB SUBLINGUAL PRN (04:04)
[2017-01-10] MEDS ORDERED: HEPARIN SODIUM,PORCINE 5,000 UNIT/ML 1 ML VIAL IV PRN (04:04)
[2017-01-10] MEDS ORDERED: ASPIRIN 81 MG CHEW PO STA (04:04)
[2017-01-10] MEDS ORDERED: HEPARIN SODIUM,PORCINE 5,000 UNIT/ML 1 ML VIAL IV ONE (04:04)
[2017-01-10] MEDS: HEPARIN SODIUM,PORCINE/D5W PMX 25,000 UNIT in DEXTROSE/WATER 1 500ML.BAG IV SCH (05:04)
[2017-01-10] MEDS: MORPHINE SULFATE 4 MG/ML SYRINGE IV PRN ×2 (06:50→08:24)
[2017-01-10] MEDS: SODIUM CHLORIDE 0.9% 1,000 ML IV SCH (08:59)
--- NOTE | 2017-01-10 09:54 | P.CRDCN ---
History of Present Illness Consult date: 01/10/17 Chief complaint: Chest pain History of present illness: This is a pleasant 81-year-old gentleman with a past medical history significant for CAD with a prior CABG and redo CABG along with aortic valve replacement as well as multiple comorbid conditions including diabetes, hypertension, dyslipidemia presented to the hospital complaining of chest discomfort The patient was in his usual state of health where he was mowing the lawn yesterday when he started experiencing chest discomfort over the left side of the chest with radiation to left arm. The discomfort was severe enough for the patient to come to the emergency room. No associated symptoms of shortness of breath, dizziness or lightheadedness, or sweating. The EKG showed sinus rhythm with LBBB. The cardiac enzymes were checked and came in to be slightly abnormal with only 1 set of troponin. I will obtain the previous medical records from the office. Follow-up with the serial cardiac enzymes. Obtain echocardiogram was Doppler. On follow-up with the patient. Past Medical History Past Medical History: Diabetes Mellitus, Eye Disorder Additional Past Medical History / Comment(s): SEE DR CELIS'S H&P History of Any Multi-Drug Resistant Organisms: None Reported Past Surgical History: Cholecystectomy, Coronary Bypass/CABG, Hernia Repair, Pacemaker Additional Past Surgical History / Comment(s): CABG X2, STATES TOTAL OF 5 BYPASSES, BIBI LEGS "VEIN SX" BIBI CATARACT, pacemaker/defib Past Anesthesia/Blood Transfusion Reactions: No Reported Reaction Type of Cardiac Device: Permanent Pacemaker Device Placement Date:: JUL 2015 Past Psychological History: No Psychological Hx Reported Smoking Status: Former smoker Past Alcohol Use History: None Reported Past Drug Use History: None Reported - Past Family History Son(s) Family Medical History: Cancer Additional Family Medical History / Comment(s): LUNG Mother Family Medical History: Chest Pain / Angina, Congestive Heart Failure (CHF), Diabetes Mellitus Medications and Allergies Home Medications Medication Instructions Recorded Confirmed Type Atorvastatin [Lipitor] 20 mg PO DAILY 07/07/15 01/10/17 History Dorzolamide HCl/Timolol Maleat 1 drop BOTH EYES BID 07/07/15 01/10/17 History [Cosopt Eye Drops] Insulin Detemir [Levemir] 22 unit SQ HS 07/07/15 01/10/17 History Brimonidine Tartrate [Alphagan P 1 drops BOTH EYES BID 06/04/16 01/10/17 History 0.1% Ophth Soln] Carvedilol [Coreg] 25 mg PO BID 06/04/16 01/10/17 History Pantoprazole Sodium 40 mg PO DAILY 06/04/16 01/10/17 History Flecainide [Tambocor] 50 mg PO BID 09/14/16 01/10/17 History hydrALAZINE HCL [Apresoline] 25 mg PO BID 09/14/16 01/10/17 History metFORMIN HCL 1,000 mg PO DAILY 09/14/16 01/10/17 History Isosorbide Mononitrate ER [Imdur] 30 mg PO BID 01/10/17 01/10/17 History Lisinopril-Hctz 20-25 mg 1 tab PO DAILY 01/10/17 01/10/17 History [Zestoretic 20-25] Allergies Allergy/AdvReac Type Severity Reaction Status Date / Time prednisone AdvReac SUGAR GOES Verified 01/10/17 07:18 UP Physical Exam Vitals: Vital Signs Temp Pulse Pulse Resp BP Pulse Ox 01/10/17 08:14 71 01/10/17 07:24 81 18 186/86 96 01/10/17 06:52 83 20 192/96 94 L 01/10/17 05:06 101 H 20 197/97 91 L 01/10/17 04:48 90 L 01/10/17 04:39 95 22 167/86 94 L 01/10/17 03:58 98.0 F 90 18 189/97 91 L 01/10/17 02:59 97.2 F L 88 20 186/88 99 Intake and Output 01/09/17 01/10/17 01/10/17 22:59 06:59 14:59 Other: Weight 77.111 kg - Constitutional General appearance: no acute distress - Respiratory Respiratory: bilateral: diminished - Cardiovascular Rhythm: regular Heart sounds: normal: S1, S2 Abnormal Heart Sounds: systolic murmur Results 01/10/17 03:11 01/10/17 03:11 Cardiac Enzymes 01/10/17 01/10/17 Range/Units 03:11 03:11 AST 20 (17-59) U/L CK-MB (CK-2) 3.6 H* (0.0-2.4) ng/mL Troponin I 0.113 H* (0.000-0.034) ng/mL Coagulation 01/10/17 Range/Units 03:11 PT 11.4 (9.0-12.0) sec APTT 23.0 (22.0-30.0) sec CBC 01/10/17 Range/Units 03:11 WBC 9.6 (3.8-10.6) k/uL RBC 4.72 (4.30-5.90) m/uL Hgb 13.7 (13.0-17.5) gm/dL Hct 41.7 (39.0-53.0) % Plt Count 291 (150-450) k/uL Comprehensive Metabolic Panel 01/10/17 Range/Units 03:11 Sodium 136 L (137-145) mmol/L Potassium 5.3 H (3.5-5.1) mmol/L Chloride 102 (98-107) mmol/L Carbon Dioxide 16 L (22-30) mmol/L BUN 38 H (9-20) mg/dL Creatinine 2.10 H (0.66-1.25) mg/dL Glucose 412 H (74-99) mg/dL Calcium 9.9 (8.4-10.2) mg/dL AST 20 (17-59) U/L ALT 34 (21-72) U/L Alkaline Phosphatase 100 (38-126) U/L Total Protein 8.0 (6.3-8.2) g/dL Albumin 4.8 (3.5-5.0) g/dL Current Medications Generic Name Dose Route Start Last Admin Trade Name Freq PRN Reason Stop Dose Admin Aspirin 325 mg 01/11/17 09:00 Aspirin PO DAILY TEDDY Heparin Sodium (Porcine) 0 unit 01/10/17 04:04 Heparin IV Q6HR PRN Low PTT Protocol Sodium Chloride 1,000 mls @ 100 mls/hr 01/10/17 03:00 01/10/17 03:18 Saline 0.9% IV 01/10/17 12:59 100 mls/hr .Q10H STA Administration Heparin Sodium/Dextrose 25,000 500 mls @ 18.5 mls/hr 01/10/17 04:15 01/10/17 05:04 unit/ IV Solution IV 12 units/kg/hr .Q24H TEDDY 18.5 mls/hr Protocol Administration 12 UNITS/KG/HR Sodium Chloride 1,000 mls @ 20 mls/hr 01/10/17 04:15 01/10/17 08:59 Saline 0.9% IV 20 mls/hr .Q24H TEDDY Administration Morphine Sulfate 4 mg 01/10/17 04:04 01/10/17 08:24 Morphine Sulfate (Inj) IV 4 mg Q5M PRN Administration Chest Pain Nitroglycerin 0.4 mg 01/10/17 04:04 01/10/17 05:03 Nitrostat SUBLINGUAL 0.4 mg Q5M PRN Administration Chest Pain Intake and Output 01/09/17 01/10/17 01/10/17 22:59 06:59 14:59 Other: Weight 77.111 kg 01/10/17 03:11 01/10/17 03:11 Assessment and Plan Plan: This is a pleasant 81-year-old gentleman with a known CAD and prior revascularization who presented to the hospital was a chest discomfort. Currently he is pain-free. One set of cardiac enzymes came in to be abnormal. The EKG showed sinus rhythm with LBBB. We'll follow-up with the serial cardiac enzymes. Obtain echocardiogram was Doppler. And follow-up with the patient. Thank you for allowing us but spitting his care
[2017-01-10 10:26] LABS: Mean Platelet Volume 7.7
[2017-01-10] MEDS ORDERED: HEPARIN SODIUM 1,000 UN/ML (10ML VL) ONE (11:13)
[2017-01-10 11:24] LABS: Glucose,Whole Blood 216 mg/dL (75-99)
[2017-01-10 11:29] LABS: Creatine Kinase MB 46.3 ng/mL (0.0-2.4); Troponin I 46.8 ng/mL (0.000-0.034)
--- NOTE | 2017-01-10 11:36 | NM ---
EXAMINATION TYPE: NM pul vent and perfuse DATE OF EXAM: 01/10/2017 COMPARISON: Chest radiograph same day HISTORY: 81-year-old male evaluate for PE. Patient with chest pain and difficulty breathing TECHNIQUE: Utilizing inhalation of 66.8 mCi Tc 99m DTPA aerosol and intravenous injection of 5.5 mCi of Tc 99m MAA, ventilation and perfusion images are acquired post injection in multiple projections. FINDINGS: There is mild heterogeneity of ventilation and perfusion. No mismatched perfusion defects seen. IMPRESSION: Low probability for pulmonary embolus.
[2017-01-10] MEDS: INSULIN LISPRO (humaLOG) 300 UNIT/3 ML VIAL SQ SCH ×2 (12:02→17:07)
[2017-01-10] MEDS: metFORMIN 500 MG TAB PO SCH ×2 (12:13→17:08)
[2017-01-10] MEDS: FLECAINIDE 50 MG TAB PO SCH ×2 (12:13→21:23)
[2017-01-10] MEDS: CARVEDILOL 12.5 MG TAB PO SCH ×2 (12:13→17:08)
[2017-01-10] MEDS: ISOSORBIDE MONONITRATE ER 30 MG TAB.ER.24H PO SCH ×2 (12:13→21:23)
[2017-01-10] MEDS: hydrALAZINE HCL 25 MG TAB PO SCH ×2 (12:13→21:23)
[2017-01-10 13:55] LABS: Hemoglobin A1C 8.6 % (4.2-6.1)
[2017-01-10] MEDS: INSULIN DETEMIR 100 UNIT/ML 10 ML VIAL SQ SCH ×3 (14:50→21:24)
[2017-01-10 16:20] LABS: Creatine Kinase MB 51.8 ng/mL (0.0-2.4)
[2017-01-10 17:04] LABS: Glucose,Whole Blood 191 mg/dL (75-99)
--- NOTE | 2017-01-10 17:53 | P.HPIM ---
History of Present Illness H&P Date: 01/10/17 Chief Complaint: Chest pain History of presenting complaint: This is a 81-year-old patient of Dr. Jane. Other extensive medical history including coronary artery disease, CHF, dementia, diabetes, GERD, hyperlipidemia , hypertension, or stroke status, ischemic artery myopathy, chronic kidney disease. As patient presents with chest pressure going across the chest for some time no shortness of breath no perspiration. This happened while patient is mowing grass felt tired and run down and presented to the hospital. Since presentation patient has rolled into an acute myocardial infarction. Feels a bit weak and tired GEN.: Tired EYES: None HEENT: Decreased hearing] NECK: None RESPIRATORY: Mild shortness of breath] CARDIOVASCULAR: As above GASTROINTESTINAL: None GENITOURINARY: None MUSCULOSKELETAL: Pain in some joints LYMPHATICS: None HEMATOLOGICAL: None PSYCHIATRY: [Bit forgetful NEUROLOGICAL: None Past medical history: Coronary artery disease, CHF, dementia, diabetes, GERD, hyperlipidemia, hypertension, osteoarthritis, ischemic cardio myopathy, chronic kidney disease Past surgical history: AICD, cholecystectomy, coronary bypass, hernia repair, pacemaker, bilateral fem- pop bypass, permanent pacemaker Social history: Lives alone. Smoked for 25 years stop in [id number] alcohol rarely Family history: Lung cancer and a son who was a smoker Home medications, R: Reviewed in the computer ALLERGIES: Prednisone VITAL SIGNS: 97.2, 88, 20, 186/88, 99% room air upon presentation GENERAL: Average built, sitting up, eating. EYES: Pupils equal. Conjunctiva normal. HEENT: External appearance of nose and ears normal, oral cavity grossly normal. Decreased hearing NECK: JVD not raised; masses not palpable. HEART: First and second heart sounds are normal; no edema. LUNGS: Respiratory rate normal; clear to auscultation. ABDOMEN: Soft, nontender, liver spleen not palpable, no masses palpable. LYMPHATICS: No lymph nodes palpable in the axilla and neck. PSYCH: Alert and oriented x3; mood and affect normal. NEUROLOGICAL: Cranial nerves grossly intact; no facial asymmetry, power and sensation grossly intact. Investigations: White count 9.6, hemoglobin 30.7, platelets 291, potassium 5.3, BNP 38, creatinine 2.10. 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 Cardiology was consulted. Care was discussed with the patient Past Medical History Past Medical History: Coronary Artery Disease (CAD), Heart Failure, COPD, Dementia, Diabetes Mellitus, Eye Disorder, GERD/Reflux, Hyperlipidemia, Hypertension, Osteoarthritis (OA), Pneumonia, Renal Disease, Vascular Disorder Additional Past Medical History / Comment(s): Ischemic cardiomyopathy, cardiac murmur, glaucoma bilateral eyes, CKD, normocytic anemia, PVD, past R great toe wound, past R upper leg cellulitis, varicosities, DJD. History of Any Multi-Drug Resistant Organisms: None Reported Past Surgical History: AICD, Cholecystectomy, Coronary Bypass/CABG, Hernia Repair, Pacemaker Additional Past Surgical History / Comment(s): CABG performed twice STATES TOTAL OF 5 BYPASSES, bilateral fempop bypasses, BIBI CATARACT, EGD/COLONOSCOPY, picc line insertion/removed. Past Anesthesia/Blood Transfusion Reactions: No Reported Reaction Type of Cardiac Device: Permanent Pacemaker, AICD Device Placement Date:: JUL 2015 Smoking Status: Former smoker - Past Family History Son(s) Family Medical History: Cancer Additional Family Medical History / Comment(s): LUNG CANCER. SON WAS A SMOKER. Mother Family Medical History: Chest Pain / Angina, Congestive Heart Failure (CHF), Diabetes Mellitus Additional Family Medical History / Comment(s): Mother in her 70's Medications and Allergies Home Medications Medication Instructions Recorded Confirmed Type Atorvastatin [Lipitor] 20 mg PO DAILY 07/07/15 01/10/17 History Dorzolamide HCl/Timolol Maleat 1 drop BOTH EYES BID 07/07/15 01/10/17 History [Cosopt Eye Drops] Insulin Detemir [Levemir] 22 unit SQ HS 07/07/15 01/10/17 History Brimonidine Tartrate [Alphagan P 1 drops BOTH EYES BID 06/04/16 01/10/17 History 0.1% Ophth Soln] Carvedilol [Coreg] 25 mg PO BID 06/04/16 01/10/17 History Pantoprazole Sodium 40 mg PO DAILY 06/04/16 01/10/17 History Flecainide [Tambocor] 50 mg PO BID 09/14/16 01/10/17 History hydrALAZINE HCL [Apresoline] 25 mg PO BID 09/14/16 01/10/17 History metFORMIN HCL 1,000 mg PO DAILY 09/14/16 01/10/17 History Isosorbide Mononitrate ER [Imdur] 30 mg PO BID 01/10/17 01/10/17 History Lisinopril-Hctz 20-25 mg 1 tab PO DAILY 01/10/17 01/10/17 History [Zestoretic 20-25] Allergies Allergy/AdvReac Type Severity Reaction Status Date / Time prednisone AdvReac SUGAR GOES Verified 01/10/17 07:18 UP Results CBC & Chem 7: 01/10/17 09:43 01/10/17 03:11
[2017-01-10 20:40] LABS: Glucose,Whole Blood 224 mg/dL (75-99)
[2017-01-10] MEDS: CLOBETASOL PROP 0.05% CR 15GM TOPICAL SCH (21:23)
[2017-01-10] MEDS: DONEPEZIL 10 MG TAB PO SCH (21:23)
[2017-01-10] MEDS: ATORVASTATIN 20 MG TAB PO SCH (21:23)
[2017-01-10] MEDS: DORZOLAMIDE-TIMOLOL 2-0.5% DROPS 10 ML BTL BOTH EYES SCH (23:13)
[2017-01-10] MEDS: BRIMONIDINE TARTRATE 0.2% DROPS 5 ML BTL BOTH EYES SCH (23:13)
[2017-01-11] MEDS: HEPARIN SODIUM,PORCINE/D5W PMX 25,000 UNIT in DEXTROSE/WATER 1 500ML.BAG IV SCH (03:27)
[2017-01-11 05:44] LABS: Glucose,Whole Blood 107 mg/dL (75-99)
[2017-01-11] MEDS: SODIUM CHLORIDE 0.9% 1,000 ML IV SCH ×3 (05:47→20:13)
[2017-01-11] MEDS: INSULIN LISPRO (humaLOG) 300 UNIT/3 ML VIAL SQ SCH ×3 (05:47→17:40)
[2017-01-11 05:48] LABS: Mean Platelet Volume 7.6
[2017-01-11 06:05] LABS: Cholesterol 135 mg/dL (<200); HDL Cholesterol 47 mg/dL (40-60)
[2017-01-11] MEDS: PANTOPRAZOLE 40 MG TABLET PO SCH (06:34)
[2017-01-11] MEDS: CARVEDILOL 12.5 MG TAB PO SCH ×2 (06:34→17:38)
--- NOTE | 2017-01-11 07:32 | ECHOF ---
Referral Reason:elevTrop MEASUREMENTS -------- HEIGHT: 170.2 cm WEIGHT: 77.1 kg BP: 192/96 RVIDd: 3.7 cm (< 3.3) IVSd: 1.5 cm (0.6 - 1.1) LVIDd: 4.5 cm (3.9 - 5.3) LVPWd: 1.4 cm (0.6 - 1.1) IVSs: 1.9 cm LVIDs: 4.2 cm LVPWs: 1.9 cm LA Diam: 4.5 cm (2.7 - 3.8) LAESV Index (A-L): 27.49 ml/m Ao Diam: 3.8 cm (2.0 - 3.7) AV Cusp: 1.7 cm (1.5 - 2.6) MV EXCURSION: 12.148 mm (> 18.000) MV EF SLOPE: 25 mm/s (70 - 150) EPSS: 1.5 cm MV E Negrito: 0.87 m/s MV DecT: 148 ms MV A Negrito: 1.32 m/s MV E/A Ratio: 0.66 AV maxP.25 mmHg AV meanP.02 mmHg RAP: 5.00 mmHg RVSP: 56.83 mmHg FINDINGS -------- Sinus rhythm. This was a technically good study. The left ventricular size is normal. There is moderate concentric left ventricular hypertrophy. Overall left ventricular systolic function is severely impaired with, an EF between 20 - 25 %. Apical anterior LV wall motion is hypokinetic. Apical lateral LV wall motion is hypokinetic. Apical inferior LV wall motion is hypokinetic. Apical septum LV wall motion is hypokinetic. The right ventricle is mildly enlarged. Normal LA size by volume 22+/-6 ml/m2. The right atrium is normal in size. Peak/mean gradient across the Aortic Valve is 10.25mmHg / 4.02mmHg. Normally functioning bioprosthetic valve. Mild mitral annular calcification present. Mild mitral regurgitation is present. Mild tricuspid regurgitation present. There is moderate to severe pulmonary hypertension. The right ventricular systolic pressure, as measured by Doppler, is 56.83mmHg. Trace/mild (physiologic) pulmonic regurgitation. The aortic root is dilated measuring 3.8cm. Normal inferior vena cava with normal inspiratory collapse consistent with estimated right atrial pressure of 5 mmHg. There is no pericardial effusion. CONCLUSIONS -------- 1. Sinus rhythm. 2. Normal LA size by volume 22+/-6 ml/m2. 3. The right atrium is normal in size. 4. Peak/mean gradient across the Aortic Valve is 10.25mmHg / 4.02mmHg. 5. Normally functioning bioprosthetic valve. 6. Mild mitral annular calcification present. 7. Mild mitral regurgitation is present. 8. Mild tricuspid regurgitation present. 9. There is moderate to severe pulmonary hypertension. 10. The right ventricular systolic pressure, as measured by Doppler, is 56.83mmHg. 11. Trace/mild (physiologic) pulmonic regurgitation. 12. This was a technically good study. 13. The aortic root is dilated measuring 3.8cm. 14. Normal inferior vena cava with normal inspiratory collapse consistent with estimated right atrial pressure of 5 mmHg. 15. There is no pericardial effusion. 16. The left ventricular size is normal. 17. There is moderate concentric left ventricular hypertrophy. 18. Apical anterior LV wall motion is hypokinetic. 19. Apical lateral LV wall motion is hypokinetic. 20. Apical inferior LV wall motion is hypokinetic. 21. Apical septum LV wall motion is hypokinetic. 22. The right ventricle is mildly enlarged. COURT SUPERVISOR: Malou Harman RDCS
[2017-01-11] MEDS: CLOBETASOL PROP 0.05% CR 15GM TOPICAL SCH ×2 (09:12→20:02)
[2017-01-11] MEDS: DORZOLAMIDE-TIMOLOL 2-0.5% DROPS 10 ML BTL BOTH EYES SCH ×2 (09:12→20:09)
[2017-01-11] MEDS: ASPIRIN 325 MG TAB PO SCH (09:12)
[2017-01-11] MEDS: BRIMONIDINE TARTRATE 0.2% DROPS 5 ML BTL BOTH EYES SCH ×2 (09:12→20:02)
[2017-01-11] MEDS: ISOSORBIDE MONONITRATE ER 30 MG TAB.ER.24H PO SCH ×2 (09:13→20:08)
[2017-01-11] MEDS: metFORMIN 500 MG TAB PO SCH ×2 (09:13→17:38)
[2017-01-11] MEDS: FLECAINIDE 50 MG TAB PO SCH ×2 (09:13→20:08)
[2017-01-11] MEDS: hydrALAZINE HCL 25 MG TAB PO SCH ×2 (09:13→20:08)
--- NOTE | 2017-01-11 09:15 | P.PN ---
Subjective Principal diagnosis: Acute non-STEMI This is a pleasant 81-year-old gentleman with a past medical history significant for CAD with a prior CABG and redo CABG along with aortic valve replacement as well as multiple comorbid conditions including diabetes, hypertension, dyslipidemia presented to the hospital complaining of chest discomfort The patient was in his usual state of health where he was mowing the lawn yesterday when he started experiencing chest discomfort over the left side of the chest with radiation to left arm. The discomfort was severe enough for the patient to come to the emergency room. No associated symptoms of shortness of breath, dizziness or lightheadedness, or sweating. The EKG showed sinus rhythm with LBBB. the cardiac enzymes were checked and came in to be significantly abnormal with troponin of 100. The patient was ruled in for acute non-ST elevation myocardial infarction. Objective - Vital Signs Vital signs: Vital Signs Temp 97.7 F 01/11/17 03:47 Pulse 61 01/11/17 03:47 Resp 20 01/11/17 03:47 BP 126/94 01/11/17 03:47 Pulse Ox 94 L 01/11/17 03:47 Intake & Output 01/10/17 01/11/17 01/11/17 18:59 06:59 18:59 Intake Total 496.990 377.908 Balance 496.990 377.908 Weight 76.4 kg Intake: Intake, IV Titration 256.990 377.908 Amount Heparin Sodium,Porcine/ 256.990 177.908 D5w Pmx 25,000 unit In Dextrose/Water 1 500ml. bag @ 12 UNITS/KG/HR 18.5 mls/hr IV .Q24H [facility] Rx#: [id number] Sodium Chloride 0.9% 1, 100 000 ml @ 100 mls/hr IV . Q10H [facility] Rx#:[id number] Sodium Chloride 0.9% 1, 100 000 ml @ 20 mls/hr IV . Q24H [facility] Rx#:[id number] Oral 240 Other: Voiding Method Toilet Urinal # Voids 1 1 - Constitutional General appearance: Present: no acute distress - Respiratory Respiratory: bilateral: CTA - Cardiovascular Rhythm: regular Heart sounds: normal: S1, S2 - Labs CBC & Chem 7: 01/11/17 05:31 01/10/17 03:11 Labs: Abnormal Lab Results - Last 24 Hours (Table) 01/10/17 01/10/17 01/10/17 Range/Units 03:11 09:43 09:43 APTT 43.9 H (22.0-30.0) sec POC Glucose (mg/dL) (75-99) mg/dL Hemoglobin A1c 8.6 H (4.2-6.1) % Total Creatine Kinase 1041 H (55-170) U/L CK-MB (CK-2) 46.3 H* (0.0-2.4) ng/mL Troponin I 46.800 H* (0.000-0.034) ng/mL 01/10/17 01/10/17 01/10/17 Range/Units 11:21 14:56 16:48 APTT (22.0-30.0) sec POC Glucose (mg/dL) 216 H 191 H (75-99) mg/dL Hemoglobin A1c (4.2-6.1) % Total Creatine Kinase 1020 H (55-170) U/L CK-MB (CK-2) 51.8 H* (0.0-2.4) ng/mL Troponin I 102.000 H* (0.000-0.034) ng/mL 01/10/17 01/10/17 01/10/17 Range/Units 16:53 20:39 23:45 APTT 83.5 H 55.5 H (22.0-30.0) sec POC Glucose (mg/dL) 224 H (75-99) mg/dL Hemoglobin A1c (4.2-6.1) % Total Creatine Kinase (55-170) U/L CK-MB (CK-2) (0.0-2.4) ng/mL Troponin I (0.000-0.034) ng/mL 01/11/17 01/11/17 Range/Units 05:31 05:41 APTT 51.8 H (22.0-30.0) sec POC Glucose (mg/dL) 107 H (75-99) mg/dL Hemoglobin A1c (4.2-6.1) % Total Creatine Kinase (55-170) U/L CK-MB (CK-2) (0.0-2.4) ng/mL Troponin I (0.000-0.034) ng/mL Assessment and Plan Plan: This is a pleasant 81-year-old gentleman with a known CAD and prior revascularization who presented to the hospital was a chest discomfort. Currently he is pain-free. He was ruled in for acute non-ST patient myocardial infarction. The patient needs to have a coronary angiogram. Unfortunately the creatinine is a slightly worse yesterday and we will obtain repeat kidney function today. Continue the current medical treatment with aspirin and statin and beta [place]. Add Plavix to the current medical treatment. Obtain echocardiogram was Doppler.
[2017-01-11 09:43] LABS: Calcium 9.1 mg/dL (8.4-10.2); Potassium 4.8 mmol/L (3.5-5.1)
[2017-01-11] MEDS ORDERED: SODIUM CHLORIDE 0.9% 1,000 ML in EMPTY BAG 1 BAG IV ONE (10:05)
[2017-01-11] MEDS ORDERED: NITROGLYCERIN SL TABS 0.4 MG TAB SUBLINGUAL PRN (10:05)
[2017-01-11] MEDS ORDERED: ALPRAZolam 0.5 MG TAB PO PRN (10:05)
[2017-01-11] MEDS ORDERED: ASPIRIN 325 MG TAB PO STA (10:05)
[2017-01-11] MEDS ORDERED: ATORVASTATIN 80 MG TAB PO STA (10:05)
[2017-01-11] MEDS ORDERED: ALPRAZolam 0.25 MG TAB PO PRN (10:05)
[2017-01-11 11:53] LABS: Glucose,Whole Blood 167 mg/dL (75-99)
[2017-01-11] MEDS ORDERED: LIDOCAINE 2% INJ 20 MG/ML (20 ML MDV) ONE (14:27)
[2017-01-11] MEDS ORDERED: MIDAZOLAM 2 MG/2 ML VIAL ONE (14:27)
[2017-01-11] MEDS ORDERED: MIDAZOLAM 2 MG/2 ML VIAL IV ONE (14:40)
[2017-01-11] MEDS ORDERED: hydrALAZINE HCL 20 MG/ML 1 ML VIAL ONE (14:40)
[2017-01-11] MEDS ORDERED: hydrALAZINE HCL 20 MG/ML 1 ML VIAL IV ONE (14:42)
[2017-01-11] MEDS ORDERED: LIDOCAINE 2% INJ 20 MG/ML SQ ONE (14:44)
[2017-01-11] MEDS ORDERED: SODIUM CHLORIDE 0.9% 1,000 ML IV ONE (14:45)
[2017-01-11] MEDS ORDERED: IODIXANOL 320 MG/ML 100 ML INTRAARTER ONE (15:27)
[2017-01-11] MEDS ORDERED: RX INFO: IV CONTRAST WAS GIVEN 1 EACH MISC MISCELLANE PRN (15:37)
[2017-01-11] MEDS ORDERED: SODIUM CHLORIDE 0.9% 1,000 ML IV SCH (15:45)
[2017-01-11 17:03] LABS: Glucose,Whole Blood 150 mg/dL (75-99)
[2017-01-11] MEDS: ATORVASTATIN 20 MG TAB PO SCH (20:08)
[2017-01-11] MEDS: DONEPEZIL 10 MG TAB PO SCH (20:08)
--- NOTE | 2017-01-11 20:44 | P.PN ---
Subjective pt was admitted with chest pressure, was noted to have some typical features, due to kidney dysfunction, pt was being monitered Pt had a troponin in excess of 100, and hence taken back for a angiogram symptom free at this time, take back for intervention stephanie. Objective - Vital Signs Vital signs: Vital Signs Temp 97 F L 01/11/17 11:42 Pulse 58 L 01/11/17 11:42 Resp 16 01/11/17 18:22 BP 109/62 01/11/17 18:22 Pulse Ox 95 01/11/17 18:22 Intake & Output 01/11/17 01/11/17 01/12/17 06:59 18:59 06:59 Intake Total 377.908 100 Output Total 400 Balance 377.908 100 -400 Weight 76.4 kg Intake: IV 100 Intake, IV Titration 377.908 Amount Heparin Sodium,Porcine/ 177.908 D5w Pmx 25,000 unit In Dextrose/Water 1 500ml. bag @ 12 UNITS/KG/HR 18.5 mls/hr IV .Q24H [facility] Rx#: [id number] Sodium Chloride 0.9% 1, 100 000 ml @ 100 mls/hr IV . Q10H [facility] Rx#:[id number] Sodium Chloride 0.9% 1, 100 000 ml @ 50 mls/hr IV . Q20H [facility] Rx#:[id number] Output: Urine 400 Other: Voiding Method Toilet Toilet Urinal Urinal # Voids 1 1 - Constitutional General appearance: Present: no acute distress - EENT Eyes: Present: PERRLA - Respiratory Respiratory: bilateral: CTA, negative: dullness, rales, rhonchi - Cardiovascular Rhythm: regular Heart sounds: normal: S1, S2 Abnormal Heart Sounds: Absent: systolic murmur - Gastrointestinal General gastrointestinal: Present: normal bowel sounds, soft. Absent: organomegaly - Neurologic Neurologic: Present: CNII-XII intact. Absent: focal deficits - Psychiatric Psychiatric: Present: A&O x's 3 - Labs CBC & Chem 7: 01/11/17 05:31 01/11/17 05:31 Labs: Abnormal Lab Results - Last 24 Hours (Table) 01/10/17 01/11/17 01/11/17 Range/Units 23:45 05:31 05:31 APTT 55.5 H 51.8 H (22.0-30.0) sec BUN 38 H (9-20) mg/dL Creatinine 1.85 H (0.66-1.25) mg/dL POC Glucose (mg/dL) (75-99) mg/dL 01/11/17 01/11/17 01/11/17 Range/Units 05:41 11:38 16:45 APTT (22.0-30.0) sec BUN (9-20) mg/dL Creatinine (0.66-1.25) mg/dL POC Glucose (mg/dL) 107 H 167 H 150 H (75-99) mg/dL Assessment and Plan Plan: -Acute non-Q-wave myocardial infarction in a pt with previous CAD and CABG -Chronic congestive heart failure EF not known -Alzheimer's dementia late onset type -Diabetes mellitus type 2 on oral hypoglycemic -GERD -Hyperlipidemia -Essential hypertension with urgency -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
[2017-01-11 21:03] LABS: Glucose,Whole Blood 185 mg/dL (75-99)
[2017-01-12 05:55] LABS: Glucose,Whole Blood 171 mg/dL (75-99)
[2017-01-12 06:03] LABS: Mean Platelet Volume 7.8
[2017-01-12] MEDS: ISOSORBIDE MONONITRATE ER 30 MG TAB.ER.24H PO SCH ×2 (06:12→19:40)
[2017-01-12] MEDS: INSULIN LISPRO (humaLOG) 300 UNIT/3 ML VIAL SQ SCH ×3 (06:12→17:11)
[2017-01-12] MEDS: hydrALAZINE HCL 25 MG TAB PO SCH ×2 (06:12→19:40)
[2017-01-12] MEDS: PANTOPRAZOLE 40 MG TABLET PO SCH (06:13)
[2017-01-12] MEDS: FLECAINIDE 50 MG TAB PO SCH ×2 (06:13→19:40)
[2017-01-12] MEDS: ASPIRIN 325 MG TAB PO SCH (06:13)
[2017-01-12] MEDS: CARVEDILOL 12.5 MG TAB PO SCH ×2 (06:13→17:10)
[2017-01-12] MEDS: BRIMONIDINE TARTRATE 0.2% DROPS 5 ML BTL BOTH EYES SCH ×2 (06:16→19:40)
[2017-01-12] MEDS: DORZOLAMIDE-TIMOLOL 2-0.5% DROPS 10 ML BTL BOTH EYES SCH ×2 (06:16→19:40)
[2017-01-12] MEDS: CLOBETASOL PROP 0.05% CR 15GM TOPICAL SCH ×2 (06:16→19:40)
[2017-01-12 08:10] LABS: Calcium 8.6 mg/dL (8.4-10.2); Potassium 4.7 mmol/L (3.5-5.1)
[2017-01-12] MEDS: metFORMIN 500 MG TAB PO SCH ×2 (08:19→17:00)
[2017-01-12] MEDS: CLOPIDOGREL 75 MG TAB PO SCH (08:21)
[2017-01-12 12:10] LABS: Glucose,Whole Blood 166 mg/dL (75-99)
--- NOTE | 2017-01-12 14:42 | P.PN ---
Subjective Principal diagnosis: Non-STEMI This is 81-year-old gentleman with known history of coronary artery disease and prior bypass surgery, as well as redo bypass with aortic valve replacement, ischemic cardiomyopathy with prior AICD implantation, hypertension , diabetes, hyperlipidemia, who presented to the hospital with a non-ST elevation myocardial infarction. Taken to the cardiac catheterization lab yesterday by Dr. Strong and was found to have 80% left main, 100% RCA, 100% circumflex, 80% proximal LAD, saphenous vein graft to the RCA was patent, medical therapy is advised at this time, patient will undergo a redo cardiac catheterization next week after being gently hydrated for the next days. Patient seen and examined this morning, denies any chest pain or difficulty in breathing. Hemodynamically stable. Objective - Vital Signs Vital signs: Vital Signs Temp 97 F L 01/12/17 08:00 Pulse 58 L 01/12/17 12:00 Resp 16 01/12/17 12:00 BP 123/58 01/12/17 12:00 Pulse Ox 96 01/12/17 12:00 Intake & Output 01/11/17 01/12/17 01/12/17 18:59 06:59 18:59 Intake Total 100 0 Output Total 400 200 Balance 100 -400 -200 Weight 75.1 kg Intake: IV 100 Oral 0 Output: Urine 400 200 Other: Voiding Method Toilet Toilet Urinal Urinal # Voids 1 1 - Exam PHYSICAL EXAMINATION: HEENT: Head is atraumatic, normocephalic. Pupils equal, round. Neck is supple. There is no elevated jugular venous pressure. HEART EXAMINATION: Heart S1 and S2 systolic murmur is heard. CHEST EXAMINATION: Lungs reveal diminished air entry to bilateral bases. ABDOMEN: Soft, nontender. Bowel sounds are heard. No organomegaly noted. Right groin soft, no evidence of any hematoma. EXTREMITIES: 2+ peripheral pulses with no evidence of peripheral edema and no calf tenderness noted. NEUROLOGIC patient is awake, alert and oriented -3. . - Labs CBC & Chem 7: 01/12/17 05:23 01/12/17 05:23 Labs: Abnormal Lab Results - Last 24 Hours (Table) 01/11/17 01/11/17 01/12/17 Range/Units 16:45 21:00 05:23 Carbon Dioxide (22-30) mmol/L BUN (9-20) mg/dL Creatinine (0.66-1.25) mg/dL Glucose (74-99) mg/dL POC Glucose (mg/dL) 150 H 185 H (75-99) mg/dL Magnesium 1.5 L (1.6-2.3) mg/dL 01/12/17 01/12/17 01/12/17 Range/Units 05:23 05:53 11:39 Carbon Dioxide 21 L (22-30) mmol/L BUN 32 H (9-20) mg/dL Creatinine 1.62 H (0.66-1.25) mg/dL Glucose 165 H (74-99) mg/dL POC Glucose (mg/dL) 171 H 166 H (75-99) mg/dL Magnesium (1.6-2.3) mg/dL Assessment and Plan (1) S/P cardiac cath Status: Acute (2) HTN (hypertension) Status: Acute (3) Hyperlipemia Status: Acute (4) Diabetes Status: Acute (5) Hx of CABG Status: Acute (6) History of automatic internal cardiac defibrillator (AICD) Status: Acute (7) Ischemic cardiomyopathy Status: Acute (8) Acute non-ST segment elevation myocardial infarction (STEMI) following previous myocardial infarction Status: Acute Plan: From cardiology's perspective, at this point we will continue current maximal medical therapy. Patient may undergo repeat cardiac catheterization next week after being gently hydrated next few days. DNP note has been reviewed, I agree with a documented findings and plan of care. Patient was seen and examined.
[2017-01-12 17:07] LABS: Glucose,Whole Blood 163 mg/dL (75-99)
[2017-01-12] MEDS ORDERED: Magnesium Replacement Protocol 1 EACH MISC MISCELLANE PRN (19:16)
[2017-01-12] MEDS: MAGNESIUM SULFATE-D5W PMX 1 GM in DEXTROSE/WATER 1 100ML.BAG IVPB SCH ×2 (19:39→20:58)
[2017-01-12] MEDS: SODIUM CHLORIDE 0.9% 1,000 ML IV SCH (19:39)
[2017-01-12] MEDS: DONEPEZIL 10 MG TAB PO SCH (19:40)
[2017-01-12] MEDS: ATORVASTATIN 20 MG TAB PO SCH (19:40)
[2017-01-12 20:58] LABS: Glucose,Whole Blood 179 mg/dL (75-99)
[2017-01-12] MEDS: INSULIN DETEMIR 100 UNIT/ML 10 ML VIAL SQ SCH (20:58)
[2017-01-13 05:30] LABS: Glucose,Whole Blood 132 mg/dL (75-99)
[2017-01-13] MEDS: CARVEDILOL 12.5 MG TAB PO SCH ×2 (06:18→16:33)
[2017-01-13] MEDS: INSULIN LISPRO (humaLOG) 300 UNIT/3 ML VIAL SQ SCH ×3 (06:19→17:55)
[2017-01-13] MEDS: PANTOPRAZOLE 40 MG TABLET PO SCH (06:19)
[2017-01-13] MEDS: ISOSORBIDE MONONITRATE ER 30 MG TAB.ER.24H PO SCH ×2 (08:00→22:26)
[2017-01-13] MEDS: CLOBETASOL PROP 0.05% CR 15GM TOPICAL SCH ×2 (08:00→22:20)
[2017-01-13] MEDS: BRIMONIDINE TARTRATE 0.2% DROPS 5 ML BTL BOTH EYES SCH ×2 (08:00→22:20)
[2017-01-13] MEDS: FLECAINIDE 50 MG TAB PO SCH ×2 (08:00→22:18)
[2017-01-13] MEDS: hydrALAZINE HCL 25 MG TAB PO SCH ×3 (08:00→22:18)
[2017-01-13] MEDS: CLOPIDOGREL 75 MG TAB PO SCH (08:00)
[2017-01-13] MEDS: ASPIRIN 325 MG TAB PO SCH (08:00)
[2017-01-13] MEDS: DORZOLAMIDE-TIMOLOL 2-0.5% DROPS 10 ML BTL BOTH EYES SCH ×2 (08:00→22:17)
[2017-01-13 11:49] LABS: Glucose,Whole Blood 157 mg/dL (75-99)
--- NOTE | 2017-01-13 12:39 | P.PN ---
Subjective Principal diagnosis: Acute non-STEMI This is a pleasant 81-year-old gentleman with a past medical history significant for CAD with a prior CABG and redo CABG along with aortic valve replacement as well as multiple comorbid conditions including diabetes, hypertension, dyslipidemia presented to the hospital complaining of chest discomfort The patient was in his usual state of health where he was mowing the lawn yesterday when he started experiencing chest discomfort over the left side of the chest with radiation to left arm. The discomfort was severe enough for the patient to come to the emergency room. No associated symptoms of shortness of breath, dizziness or lightheadedness, or sweating. The EKG showed sinus rhythm with LBBB. the cardiac enzymes were checked and came in to be significantly abnormal with troponin of 100. The patient was ruled in for acute non-ST elevation myocardial infarction. He underwent a heart catheterization and I was unable to opacify the graft to left circumflex which is likely closed which is likely the culprit for him. The echocardiogram showed severe cardiomyopathy. Objective - Vital Signs Vital signs: Vital Signs Temp 97.2 F L 01/13/17 11:45 Pulse 54 L 01/13/17 11:45 Resp 16 01/13/17 11:45 BP 154/78 01/13/17 11:45 Pulse Ox 95 01/13/17 11:45 Intake & Output 01/12/17 01/13/17 01/13/17 18:59 06:59 18:59 Intake Total 360 300 Output Total 200 575 Balance 160 -275 Weight 74.9 kg Intake: Intake, IV Titration 300 Amount Sodium Chloride 0.9% 1, 300 000 ml @ 50 mls/hr IV . Q20H [facility] Rx#:[id number] Oral 360 Output: Urine 200 575 Other: Voiding Method Toilet Urinal # Voids 1 - Constitutional General appearance: Present: no acute distress - Respiratory Respiratory: bilateral: CTA - Cardiovascular Rhythm: regular Heart sounds: normal: S1, S2 Abnormal Heart Sounds: Present: systolic murmur - Labs CBC & Chem 7: 01/12/17 05:23 01/12/17 05:23 Labs: Abnormal Lab Results - Last 24 Hours (Table) 01/12/17 01/12/17 01/13/17 Range/Units 16:45 20:57 05:28 POC Glucose (mg/dL) 163 H 179 H 132 H (75-99) mg/dL 01/13/17 Range/Units 11:42 POC Glucose (mg/dL) 157 H (75-99) mg/dL Assessment and Plan Plan: This is a pleasant 81-year-old gentleman with a known CAD and prior revascularization who presented to the hospital was a chest discomfort. Currently he is pain-free. The patient continues to be asymptomatic from the cardiovascular standpoint of view. The echocardiogram showed severe cardiomyopathy. I will continue the current medical treatment. Add lisinopril and Aldactone. Follow-up with the patient.
[2017-01-13] MEDS: SODIUM CHLORIDE 0.9% 1,000 ML IV SCH (12:46)
--- NOTE | 2017-01-13 14:28 | PN ---
DATE OF SERVICE: 01/12/2017 This 81-year-old gentleman admitted with chest pressure underwent cardiac catheterization with showed features of acute non-Q wave ST segment elevation myocardial infarction. The official cardiac cath report is not available. Patient also had pulmonary perfusion imaging which showed low probability for pulmonary embolism. The Cardiology is recommending repeat cardiac cath. SVG to RCA was found to be patent. Patient also had ischemic cardiomyopathy as well. PAST MEDICAL HISTORY: Reviewed. REVIEW OF SYSTEMS: CARDIOVASCULAR: No angina. RESPIRATORY: As mentioned earlier. GI: As mentioned. : No dysuria. NERVOUS SYSTEM: No numbness or weakness. Medications prior to admission include home medications: 1. Xanax 0.5 q.6 p.r.n 2. Aspirin 325 mg daily. 3. Lipitor 20 mg q.h.s 4. Alphagan 5. Coreg 25 mg. 6. Plavix. 7. Aricept 8. Cosopt. 9. Tambocor. 10. Apresoline. 11. Levemir. 12. Imdur. 13. Glucophage. 14. Nitrostat. PHYSICAL EXAMINATION: The patient is alert and oriented x3. Pulse 64, blood pressure 150/86, respirations 16, temperature is normal, pulse ox 98% on room air. HEENT: Conjunctivae normal. NECK: No jugular venous distention. CARDIOVASCULAR: S1, S2. RESPIRATORY: Breath sounds diminished at the bases. A few scattered rhonchi and crackles. ABDOMEN: Soft, nontender. LEGS: No edema, no swelling. NERVOUS SYSTEM: No focal deficits. LABS: Creatinine 1.62. Troponin 102. ASSESSMENT: 1. Chest pain, possibly acute non-ST elevation myocardial infarction, status post cardiac catheterization. 2. Ischemic cardiomyopathy. 3. Increased creatinine with chronic kidney disease stage III. 4. Hypertension. 5. Hyperlipidemia. 6. History of gastroesophageal reflux disease. 7. History of dementia. 8. Primary DJD in multiple joints. RECOMMENDATIONS AND DISCUSSION: I recommend to continue the current medications, continue monitoring, continue symptomatic treatment. Otherwise closely follow with cardiology. Antiplatelet agents. Monitor creatinine closely. Hydration. See orders for details. Guarded prognosis. Further recommendations to follow. MTDD
[2017-01-13 17:03] LABS: Glucose,Whole Blood 184 mg/dL (75-99)
[2017-01-13 21:09] LABS: Glucose,Whole Blood 229 mg/dL (75-99)
[2017-01-13] MEDS: ATORVASTATIN 20 MG TAB PO SCH (22:18)
[2017-01-13] MEDS: INSULIN DETEMIR 100 UNIT/ML 10 ML VIAL SQ SCH (22:18)
[2017-01-13] MEDS: DONEPEZIL 10 MG TAB PO SCH (22:18)
[2017-01-14 06:17] LABS: Glucose,Whole Blood 117 mg/dL (75-99)
[2017-01-14] MEDS: INSULIN LISPRO (humaLOG) 300 UNIT/3 ML VIAL SQ SCH ×3 (06:23→17:05)
[2017-01-14] MEDS: CARVEDILOL 12.5 MG TAB PO SCH ×2 (06:39→17:06)
[2017-01-14] MEDS: PANTOPRAZOLE 40 MG TABLET PO SCH (06:39)
[2017-01-14 06:49] LABS: Basophils % (A) 0 %; CH 28.9; CHCM 32.6; Eosinophils # (A) 0.3 k/uL (0-0.7); Eosinophils % (A) 3 %; HCT 36.9 % (39.0-53.0); HDW 2.65; Luc % (Auto) 3; Lymphocytes # (A) 1.2 k/uL (1.0-4.8); Lymphocytes % (A) 13 %; MCHC 32.6 g/dL (31.0-37.0); Mean Platelet Volume 7.4; Monocytes # (A) 0.6 k/uL (0-1.0); Monocytes % (A) 7 %; Neutrophils # (A) 6.3 k/uL (1.3-7.7); Neutrophils % (A) 72 %; RBC 4.14 m/uL (4.30-5.90); RDW 14.8 % (11.5-15.5); WBC 8.7 k/uL (3.8-10.6)
[2017-01-14 06:56] LABS: Anion Gap 8 mmol/L; Blood Urea Nitrogen 18 mg/dL (9-20); Calcium 8.8 mg/dL (8.4-10.2); Carbon Dioxide 24 mmol/L (22-30); Chloride 109 mmol/L (98-107); Glucose 100 mg/dL (74-99); Non-African American GFR(MDRD) 50 (>60 ml/min/1.73 sqM); Potassium 4.2 mmol/L (3.5-5.1); Sodium 141 mmol/L (137-145)
[2017-01-14] MEDS: DORZOLAMIDE-TIMOLOL 2-0.5% DROPS 10 ML BTL BOTH EYES SCH ×2 (07:55→22:01)
[2017-01-14] MEDS: ASPIRIN 325 MG TAB PO SCH (07:55)
[2017-01-14] MEDS: BRIMONIDINE TARTRATE 0.2% DROPS 5 ML BTL BOTH EYES SCH ×2 (07:55→22:00)
[2017-01-14] MEDS: LISINOPRIL 2.5 MG TAB PO SCH (07:56)
[2017-01-14] MEDS: ISOSORBIDE MONONITRATE ER 30 MG TAB.ER.24H PO SCH ×2 (07:56→22:01)
[2017-01-14] MEDS: hydrALAZINE HCL 25 MG TAB PO SCH (07:56)
[2017-01-14] MEDS: CLOBETASOL PROP 0.05% CR 15GM TOPICAL SCH ×2 (07:56→22:00)
[2017-01-14] MEDS: SPIRONOLACTONE 25 MG TAB PO SCH (07:56)
[2017-01-14] MEDS: FLECAINIDE 50 MG TAB PO SCH ×2 (07:56→22:01)
[2017-01-14] MEDS: SODIUM CHLORIDE 0.9% 1,000 ML IV SCH (07:56)
[2017-01-14] MEDS: CLOPIDOGREL 75 MG TAB PO SCH (07:56)
--- NOTE | 2017-01-14 12:00 | P.PN ---
Subjective Principal diagnosis: Acute non-STEMI This is a pleasant 81-year-old gentleman with a past medical history significant for CAD with a prior CABG and redo CABG along with aortic valve replacement as well as multiple comorbid conditions including diabetes, hypertension, dyslipidemia presented to the hospital complaining of chest discomfort The patient was in his usual state of health where he was mowing the lawn yesterday when he started experiencing chest discomfort over the left side of the chest with radiation to left arm. The discomfort was severe enough for the patient to come to the emergency room. No associated symptoms of shortness of breath, dizziness or lightheadedness, or sweating. The EKG showed sinus rhythm with LBBB. the cardiac enzymes were checked and came in to be significantly abnormal with troponin of 100. The patient was ruled in for acute non-ST elevation myocardial infarction. He underwent a heart catheterization and I was unable to opacify the graft to left circumflex which is likely closed which is likely the culprit for him. The echocardiogram showed severe cardiomyopathy. Objective - Vital Signs Vital signs: Vital Signs Temp 96.8 F L 01/14/17 08:00 Pulse 55 L 01/14/17 08:00 Resp 16 01/14/17 08:00 BP 187/81 01/14/17 08:00 Pulse Ox 97 01/14/17 08:00 Intake & Output 01/13/17 01/14/17 01/14/17 18:59 06:59 18:59 Intake Total 240 Output Total 300 625 200 Balance -60 -625 -200 Weight 74.9 kg Intake: Oral 240 Output: Urine 300 625 200 Other: # Voids 2 1 - Constitutional General appearance: Present: no acute distress - Respiratory Respiratory: bilateral: CTA - Cardiovascular Rhythm: regular Heart sounds: normal: S1, S2 - Labs CBC & Chem 7: 01/14/17 06:04 01/14/17 06:04 Labs: Abnormal Lab Results - Last 24 Hours (Table) 01/13/17 01/13/17 01/14/17 Range/Units 16:51 21:07 06:04 RBC 4.14 L (4.30-5.90) m/uL Hgb 12.0 L (13.0-17.5) gm/dL Hct 36.9 L (39.0-53.0) % Chloride (98-107) mmol/L Creatinine (0.66-1.25) mg/dL Glucose (74-99) mg/dL POC Glucose (mg/dL) 184 H 229 H (75-99) mg/dL 01/14/17 01/14/17 Range/Units 06:04 06:16 RBC (4.30-5.90) m/uL Hgb (13.0-17.5) gm/dL Hct (39.0-53.0) % Chloride 109 H (98-107) mmol/L Creatinine 1.37 H (0.66-1.25) mg/dL Glucose 100 H (74-99) mg/dL POC Glucose (mg/dL) 117 H (75-99) mg/dL Assessment and Plan Plan: This is a pleasant 81-year-old gentleman with a known CAD and prior revascularization who presented to the hospital was a chest discomfort. Currently he is pain-free. The patient continues to be asymptomatic from the cardiovascular standpoint of view. The echocardiogram showed severe cardiomyopathy. The blood pressure continues to be not well-controlled. I will continue the current medical treatment, increase the dose of hydralazine for better blood pressure control, and follow-up with the patient. Possible discharge home tomorrow morning.
[2017-01-14 12:16] LABS: Glucose,Whole Blood 134 mg/dL (75-99)
[2017-01-14 17:04] LABS: Glucose,Whole Blood 195 mg/dL (75-99)
[2017-01-14] MEDS: hydrALAZINE HCL 50 MG TAB PO SCH ×2 (17:06→22:11)
[2017-01-14 21:57] LABS: Glucose,Whole Blood 227 mg/dL (75-99)
[2017-01-14] MEDS: INSULIN DETEMIR 100 UNIT/ML 10 ML VIAL SQ SCH (21:59)
[2017-01-14] MEDS: ATORVASTATIN 20 MG TAB PO SCH (22:00)
[2017-01-14] MEDS: DONEPEZIL 10 MG TAB PO SCH (22:01)
--- NOTE | 2017-01-14 22:34 | PN ---
DATE OF SERVICE: 01/13/17 This 81-year-old gentleman who was admitted with chest pain, also had cardiac catheterization. Dr. Pierson has recommended medical treatment. Repeat cardiac catheterization is not being planned at this time. No chest pain. No palpitations. No fever. REVIEW OF SYSTEMS: .Cardiology: No angina or palpitations. Respiratory: As mentioned earlier. GI: As mentioned earlier. : No dysuria. Nervous system: No numbness, weakness. The current medications are reviewed and include: Current medications include: 1. Xanax 0.5 q.i.d. 2. Aspirin 320 mg. 3. Lipitor 20 mg. 4. Alphagan. 5. Coreg. 6. Temovate. 7. Plavix. 8. Tambocor. 9. Levemir. 10. Imdur. 11. Zestril. 12. Glucophage. 13. Nitrostat. PHYSICAL EXAMINATION: On exam, the patient is alert and oriented times three. Pulse 54. Blood pressure 150/78. Respiratory rate 16. Temperature 97.24. Pulse ox 94% on room air. HEENT: Conjunctivae normal. NECK: no JVD. No carotid bruit. No lymph node enlargement. CARDIOVASCULAR: S1, S2 muffled. RESPIRATORY: Breath sounds diminished at the bases. A few scattered rhonchi and crackles. Abdomen is soft. Nontender. No mass palpable. Legs no edema. No swelling. Nervous system: Higher functions as mentioned earlier. Moves all four limbs. Lymphatics: No lymph nodes palpable in the neck, axilla or groin. Skin: No ulcer, rash or bleeding. LABS: Accu-Cheks 157, 184, Creatinine 1.62. ASSESSMENT: 1. Chest pain, possible acute non-ST segment myocardial infarction status post cardiac catheterization and diffuse coronary artery disease. 2. Ischemic cardiomyopathy. 3. Increased creatinine with chronic kidney disease Stage III. 4. Hypertension. 5. Hyperlipidemia. RECOMMENDATIONS AND DISCUSSION: Recommend to continue the current medications. Continue with monitoring and symptomatic treatment. I had fa detailed discussion with the patient and family as well as Dr. Pierson. Dr. Pierson recommended continue the medical treatment. Monitor blood sugars closely. Extremely guarded prognosis because of multiple medical problems. Discussed with the patient. See orders for further details. Further recommendations to follow. MTDD
[2017-01-15 06:12] LABS: Glucose,Whole Blood 154 mg/dL (75-99)
[2017-01-15 06:18] LABS: Basophils % (A) 0 %; CH 29.8; Eosinophils # (A) 0.2 k/uL (0-0.7); Eosinophils % (A) 2 %; HCT 38.2 % (39.0-53.0); HGB 12.4 gm/dL (13.0-17.5); Luc # (Auto) 0.29; Luc % (Auto) 3; Lymphocytes # (A) 1.1 k/uL (1.0-4.8); Lymphocytes % (A) 11 %; MCH 29.5 pg (25.0-35.0); MCHC 32.5 g/dL (31.0-37.0); MCV 90.8 fL (80.0-100.0); Mean Platelet Volume 8.1; Monocytes # (A) 0.7 k/uL (0-1.0); Monocytes % (A) 7 %; Neutrophils # (A) 7.5 k/uL (1.3-7.7); Neutrophils % (A) 76 %; RBC 4.21 m/uL (4.30-5.90); RDW 15.7 % (11.5-15.5); WBC 9.9 k/uL (3.8-10.6); WBC (Perox) 10.28
[2017-01-15 06:19] VITALS: RESP 17
[2017-01-15 06:31] LABS: Anion Gap 11 mmol/L; Blood Urea Nitrogen 21 mg/dL (9-20); Calcium 9.4 mg/dL (8.4-10.2); Carbon Dioxide 22 mmol/L (22-30); Chloride 106 mmol/L (98-107); Glucose 168 mg/dL (74-99); Magnesium 1.4 mg/dL (1.6-2.3); Non-African American GFR(MDRD) 51 (>60 ml/min/1.73 sqM); Potassium 4.3 mmol/L (3.5-5.1); Sodium 139 mmol/L (137-145)
[2017-01-15] MEDS: CARVEDILOL 12.5 MG TAB PO SCH (06:33)
[2017-01-15] MEDS: PANTOPRAZOLE 40 MG TABLET PO SCH (06:33)
[2017-01-15] MEDS: INSULIN LISPRO (humaLOG) 300 UNIT/3 ML VIAL SQ SCH ×2 (06:33→12:59)
[2017-01-15] MEDS ORDERED: Magnesium Replacement Protocol 1 EACH MISC MISCELLANE PRN (06:57)
[2017-01-15] MEDS: MAGNESIUM SULFATE-D5W PMX 1 GM in DEXTROSE/WATER 1 100ML.BAG IVPB SCH ×3 (08:33→15:00)
[2017-01-15] MEDS: ASPIRIN 325 MG TAB PO SCH (08:33)
[2017-01-15] MEDS: BRIMONIDINE TARTRATE 0.2% DROPS 5 ML BTL BOTH EYES SCH (08:33)
[2017-01-15] MEDS: DORZOLAMIDE-TIMOLOL 2-0.5% DROPS 10 ML BTL BOTH EYES SCH (08:34)
[2017-01-15] MEDS: FLECAINIDE 50 MG TAB PO SCH (08:34)
[2017-01-15] MEDS: hydrALAZINE HCL 50 MG TAB PO SCH (08:34)
[2017-01-15] MEDS: CLOBETASOL PROP 0.05% CR 15GM TOPICAL SCH (08:34)
[2017-01-15] MEDS: CLOPIDOGREL 75 MG TAB PO SCH (08:34)
[2017-01-15] MEDS: ISOSORBIDE MONONITRATE ER 30 MG TAB.ER.24H PO SCH (08:35)
[2017-01-15] MEDS: LISINOPRIL 2.5 MG TAB PO SCH (08:35)
[2017-01-15] MEDS: SPIRONOLACTONE 25 MG TAB PO SCH (08:35)
[2017-01-15 08:41] VITALS: TEMP 97
--- NOTE | 2017-01-15 11:14 | PN ---
DATE OF SERVICE: 01/14/2017 This 81-year-old gentleman who was admitted with coronary artery disease is to have medical treatment per cardiology. Blood pressure is elevated. No chest pain, no palpitation, no fever. On exam, alert and oriented x3, pulse 55, blood pressure 187/81, respirations 16 , temperature 97.8, pulse ox 97% on room air. HEENT: Conjunctivae normal. NECK: No JVD. CARDIOVASCULAR: S1/S2. RESPIRATORY: Diminished breath sounds, especially at the bases. A few scattered rhonchi. ABDOMEN: Soft, nontender . LEGS: No edema. NERVOUS: No focal deficits. LABS: White count 8.6, hemoglobin 12. ASSESSMENT: 1. Chest pain, possible acute non ST elevation myocardial infarction status post cardiac catheterization on medical treatment. 2. Ischemic cardiomyopathy. 3. Hypertension. 4. Increased creatinine with chronic kidney disease, stage 3. RECOMMENDATIONS AND DISCUSSION: Recommend to continue current medication, continue to monitor, continue symptomatic treatment. Otherwise, at this time closely follow with cardiology. Guarded prognosis because of multiple complex medical issues. Guarded prognosis because of multiple complex medical issues. Further recommendations to follow. MTDD
[2017-01-15 12:24] LABS: Glucose,Whole Blood 176 mg/dL (75-99)
--- NOTE | 2017-01-15 12:46 | P.PN ---
Subjective Principal diagnosis: Non-STEMI This is 81-year-old gentleman with known history of coronary artery disease and prior bypass surgery, as well as redo bypass with aortic valve replacement, ischemic cardiomyopathy with prior AICD implantation, hypertension , diabetes, hyperlipidemia, who presented to the hospital with a non-ST elevation myocardial infarction. Taken to the cardiac catheterization lab yesterday by Dr. Strong and was found to have 80% left main, 100% RCA, 100% circumflex, 80% proximal LAD, saphenous vein graft to the RCA was patent, medical therapy is advised at this time, patient will undergo a redo cardiac catheterization next week after being gently hydrated for the next days. Patient seen and examined this morning, denies any chest pain or difficulty in breathing. Hemodynamically stable. 01/15/2017 Patient seen and examined this morning, denies chest pain, no shortness of breath. Blood pressure 150/70 this morning prior to his medication administration. Recheck of his blood pressure came back to be 180 systolic. We will increase his nitrates to 60 twice a day. He may be able to be discharged home today from cardiology's perspective. We will make him a follow- up appointment to see Dr. Strong in the office post discharge. Objective - Vital Signs Vital signs: Vital Signs Temp 97.0 F L 01/15/17 08:00 Pulse 57 L 01/15/17 08:00 Resp 17 01/15/17 04:00 BP 151/74 01/15/17 08:00 Pulse Ox 97 01/15/17 08:00 Intake & Output 01/14/17 01/15/17 01/15/17 18:59 06:59 18:59 Intake Total 240 960 240 Output Total 200 1025 Balance 40 -65 240 Weight 74.8 kg Intake: Oral 240 960 240 Output: Urine 200 1025 Other: Voiding Method Toilet Urinal # Voids 2 1 1 - Exam PHYSICAL EXAMINATION: HEENT: Head is atraumatic, normocephalic. Pupils equal, round. Neck is supple. There is no elevated jugular venous pressure. HEART EXAMINATION: Heart S1 and S2 systolic murmur is heard. CHEST EXAMINATION: Lungs reveal diminished air entry to bilateral bases. ABDOMEN: Soft, nontender. Bowel sounds are heard. No organomegaly noted. Right groin soft, no evidence of any hematoma. EXTREMITIES: 2+ peripheral pulses with no evidence of peripheral edema and no calf tenderness noted. NEUROLOGIC patient is awake, alert and oriented -3. . - Labs CBC & Chem 7: 01/15/17 05:17 01/15/17 05:17 Labs: Abnormal Lab Results - Last 24 Hours (Table) 01/14/17 01/14/17 01/15/17 Range/Units 16:56 21:55 05:17 RBC 4.21 L (4.30-5.90) m/uL Hgb 12.4 L (13.0-17.5) gm/dL Hct 38.2 L (39.0-53.0) % RDW 15.7 H (11.5-15.5) % BUN (9-20) mg/dL Creatinine (0.66-1.25) mg/dL Glucose (74-99) mg/dL POC Glucose (mg/dL) 195 H 227 H (75-99) mg/dL Magnesium (1.6-2.3) mg/dL 01/15/17 01/15/17 01/15/17 Range/Units 05:17 06:09 12:02 RBC (4.30-5.90) m/uL Hgb (13.0-17.5) gm/dL Hct (39.0-53.0) % RDW (11.5-15.5) % BUN 21 H (9-20) mg/dL Creatinine 1.35 H (0.66-1.25) mg/dL Glucose 168 H (74-99) mg/dL POC Glucose (mg/dL) 154 H 176 H (75-99) mg/dL Magnesium 1.4 L (1.6-2.3) mg/dL Assessment and Plan (1) S/P cardiac cath Status: Acute (2) HTN (hypertension) Status: Acute (3) Hyperlipemia Status: Acute (4) Diabetes Status: Acute (5) Hx of CABG Status: Acute (6) History of automatic internal cardiac defibrillator (AICD) Status: Acute (7) Ischemic cardiomyopathy Status: Acute (8) Acute non-ST segment elevation myocardial infarction (STEMI) following previous myocardial infarction Status: Acute Plan: From cardiology's perspective, at this point we will continue current maximal medical therapy. He may be able to be discharged home today from cardiology's perspective and we will make him a follow-up appointment to see Dr. Strong in the office post discharge. DNP note has been reviewed, I agree with a documented findings and plan of care. Patient was seen and examined.
--- NOTE | 2017-01-15 14:38 | CDI ---
In responding to this query, please exercise your independent professional judgment. The [facility] Coding Staff and Clinical Documentation Specialists appreciate your assistance in clarifying documentation, maintaining compliance with coding guidelines, accurately documenting patients condition and capturing severity of illness. The fact that a question is asked does not imply that any particular answer is desired or expected. Communication forms are a method of clarifying documentation and are not made part of the Legal Health Record. Thank you in advance for your clarification. Last Revision, August 2016 Kaitlin Silver [address] [place] [address] Documentation Clarification Form Date: 01/15/2017 2:29:00 PM From: Re Leung RN, CCDS Admit Date: 01/10/2017 4:04:00 AM Patient Name: Dakotah Gudino Visit Number: [id number] Dr. Kelsey Chronic CHF, EF unknown is documented in the H&P and Attending Progress Notes. History/Risk Factors: Ischemic cardiomyopathy, NSTEMI this admission, CKD stage 3 Clinical Indicators: VS/Pulse OX: temp 97.2, HR 88, RR 20, B/P 186/88, Spo2 99% ra BNP: not done 01/10 Echocardiogram Results: 20-25%, severe pulmonary HTN, Anterior LV Wall Hypokinesis Chest X Ray: - Treatment: Consults: Cardiology Aldactone 25 mg PO QD In your professional opinion, can you please clarify the acuity and type of CHF if known? Systolic Heart Failure: Acute Chronic Acute on Chronic Diastolic Heart Failure: Acute Chronic Acute on Chronic Systolic & Diastolic Heart Failure: Acute Chronic Acute on Chronic Unable to determine Other, please specify Please document in your progress notes and discharge summary in order to capture severity of illness and risk of mortality. Include clinical findings that support your diagnosis. FYI: Press F11 to launch patient chart. Place X here if this finding has no clinical significance, is not applicable or if you are not able to provide any additional documentation. ENDERD
[2017-01-15 15:22] VITALS: BP 183/88; PULSE 58
--- NOTE | 2017-01-15 19:20 | P.DS ---
Providers Date of admission: 01/10/17 04:04 Attending physician: Guy Noriega Consults: 01/10/17 04:04 Consult Physician Urgent Consulting Provider: Milan Louis Consult Reason/Comments: nstemi Do you want consulting provider notified?: Yes Primary care physician: [facility] Course: This 81-year-old gentleman was admitted with the chest pain and possibly acute non-ST segment elevation myocardial infarction to [facility]. Cardiology performed a cardiac cath. Cardiac showed diffuse coronary disease. Medications are adjusted. Patient also had ischemic cardiomyopathy. On exam vitals are stable S1-S2 normal. Breath sounds normal. Abdomen soft nontender. Nervous system no focal deficit. Final diagnosis 1. Chest pain possible acute non-ST segment elevation myocardial infarction status post cardiac On medical treatment 2. Ischemic cardiomyopathy 3. Hypertension 4. Increased creatinine with chronic kidney disease stage III Total time taken 35 minutes cardiology. The patient will discharge recommended close follow-up with the primary physician and as well as cardiology. Prognosis extremely guarded because of the above-mentioned multiple complex medical issues. Patient Condition at Discharge: Serious Plan - Discharge Summary New Discharge Prescriptions: New Aspirin 325 mg PO DAILY #30 tab Clopidogrel [Plavix] 75 mg PO DAILY #30 tab Donepezil [Aricept] 10 mg PO HS #30 tab hydrALAZINE HCL [Apresoline] 50 mg PO TID #90 tab Isosorbide Mononitrate ER [Imdur] 60 mg PO BID #60 tab Lisinopril [Zestril] 2.5 mg PO DAILY #30 tab Nitroglycerin Sl Tabs [Nitrostat] 0.4 mg SUBLINGUAL Q5M PRN #20 tab PRN Reason: Chest Pain Spironolactone [Aldactone] 25 mg PO DAILY #30 tab Continue Insulin Detemir [Levemir] 22 unit SQ HS Dorzolamide HCl/Timolol Maleat [Cosopt Eye Drops] 1 drop BOTH EYES BID Atorvastatin [Lipitor] 20 mg PO DAILY Pantoprazole Sodium 40 mg PO DAILY Carvedilol [Coreg] 25 mg PO BID Brimonidine Tartrate [Alphagan P 0.1% Ophth Soln] 1 drops BOTH EYES BID Flecainide [Tambocor] 50 mg PO BID Changed metFORMIN HCL 1,000 mg PO BID #60 Discontinued hydrALAZINE HCL [Apresoline] 25 mg PO BID Lisinopril-Hctz 20-25 mg [Zestoretic 20-25] 1 tab PO DAILY Isosorbide Mononitrate ER [Imdur] 30 mg PO BID Discharge Medication List Atorvastatin [Lipitor] 20 mg PO DAILY 07/07/15 [History] Dorzolamide HCl/Timolol Maleat [Cosopt Eye Drops] 1 drop BOTH EYES BID 07/07/15 [History] Insulin Detemir [Levemir] 22 unit SQ HS 07/07/15 [History] Brimonidine Tartrate [Alphagan P 0.1% Ophth Soln] 1 drops BOTH EYES BID [History] Carvedilol [Coreg] 25 mg PO BID 06/04/16 [History] Pantoprazole Sodium 40 mg PO DAILY 06/04/16 [History] Flecainide [Tambocor] 50 mg PO BID 09/14/16 [History] Aspirin 325 mg PO DAILY #30 tab 01/15/17 [Rx] Clopidogrel [Plavix] 75 mg PO DAILY #30 tab 01/15/17 [Rx] Donepezil [Aricept] 10 mg PO HS #30 tab 01/15/17 [Rx] Isosorbide Mononitrate ER [Imdur] 60 mg PO BID #60 tab 01/15/17 [Rx] Lisinopril [Zestril] 2.5 mg PO DAILY #30 tab 01/15/17 [Rx] Nitroglycerin Sl Tabs [Nitrostat] 0.4 mg SUBLINGUAL Q5M PRN #20 tab 01/15/17 [Rx ] Spironolactone [Aldactone] 25 mg PO DAILY #30 tab 01/15/17 [Rx] hydrALAZINE HCL [Apresoline] 50 mg PO TID #90 tab 01/15/17 [Rx] metFORMIN HCL 1,000 mg PO BID #60 01/15/17 [Rx] Follow up Appointment(s)/Referral(s): Bruce Pierson MD [STAFF PHYSICIAN] - 01/23/17 3:00 pm Vince Jane MD [Primary Care Provider] - 1-2 days Ambulatory/Diagnostic Orders: Complete Blood Count w/diff [LAB.AMB] Location: Determined By Patient Patient Instructions/Handouts: *Surgery [facility] - After Heart Catheterization - Equal Opportunity Assistant Instructions Activity/Diet/Wound Care/Special Instructions: diet cardiac act limited till f/u Discharge Disposition: HOME SELF-CARE
[2017-01-15] MEDS ORDERED: ISOSORBIDE MONONITRATE ER 60 MG TAB.ER.24H PO SCH (21:00)
[2017-01-17] MEDS ORDERED: metFORMIN 500 MG TAB PO SCH (08:00)
--- NOTE | 2017-01-19 18:34 | DS ---
ADDENDUM: Please add to FINAL DIAGNOSIS: Congestive heart failure with chronic systolic dysfunction with ejection fraction 20-25%. MTDD
--- NOTE | 2017-01-28 13:41 | PN ---
ADDENDUM: CHF with chronic systolic dysfunction, ejection fraction 20 to 25%. MTDD
== END 2017-01-15 16:40 | disposition home or self-care (01) | DRG 281 ==
LOC: EC 02:50 → 6SEL 04:04 → 2CATHESU 09:56 → 6SEL 13:48
PROVIDERS: ADMIT Hospitalist; ATTEND Hospitalist
DX: I21.4 Non-ST elevation (NSTEMI) myocardial infarction (principal); I13.0 Hypertensive heart and chronic kidney disease with heart failure and stage 1 through stage 4 chronic kidney disease, or unspecified chronic kidney disease; E11.21 Type 2 diabetes mellitus with diabetic nephropathy; I50.22 Chronic systolic (congestive) heart failure; G30.1 Alzheimer's disease with late onset; F02.80 Dementia in other diseases classified elsewhere, unspecified severity, without behavioral disturbance, psychotic disturbance, mood disturbance, and anxiety; E11.22 Type 2 diabetes mellitus with diabetic chronic kidney disease; E78.5 Hyperlipidemia, unspecified; H40.9 Unspecified glaucoma; I25.10 Atherosclerotic heart disease of native coronary artery without angina pectoris; I25.2 Old myocardial infarction; I25.5 Ischemic cardiomyopathy; I44.7 Left bundle-branch block, unspecified; I73.9 Peripheral vascular disease, unspecified; J44.9 Chronic obstructive pulmonary disease, unspecified; K21.9 Gastro-esophageal reflux disease without esophagitis; M15.9 Polyosteoarthritis, unspecified; N18.3 Chronic kidney disease, stage 3 (moderate); Z79.4 Long term (current) use of insulin; Z79.899 Other long term (current) drug therapy; Z80.1 Family history of malignant neoplasm of trachea, bronchus and lung; Z82.49 Family history of ischemic heart disease and other diseases of the circulatory system; Z83.3 Family history of diabetes mellitus; Z87.891 Personal history of nicotine dependence; Z95.1 Presence of aortocoronary bypass graft; Z95.2 Presence of prosthetic heart valve; Z95.810 Presence of automatic (implantable) cardiac defibrillator; I16.0 Hypertensive urgency
CPT/HCPCS: 36415; 71020; 78582; 80048; 80053; 80061; 82550; 82553; 83036; 83690; 83735; 84484; 85025; 85049; 85610; 85730; 93005; 93306; 93455; 94760

== ENCOUNTER 2017-01-28 17:28 | Inpatient (IN) | payer MEDICARE, BC ==
[2017-01-28 18:12] LABS: Basophils # (A) 0.1 k/uL (0-0.2); Basophils % (A) 1 %; CH 29.1; CHCM 33.3; Eosinophils # (A) 0.2 k/uL (0-0.7); Eosinophils % (A) 3 %; HCT 40.1 % (39.0-53.0); HGB 13.5 gm/dL (13.0-17.5); Luc # (Auto) 0.29; Luc % (Auto) 4; Lymphocytes # (A) 1.7 k/uL (1.0-4.8); Lymphocytes % (A) 21 %; MCH 29.6 pg (25.0-35.0); MCHC 33.8 g/dL (31.0-37.0); MCV 87.8 fL (80.0-100.0); Mean Platelet Volume 7.3; Monocytes # (A) 0.6 k/uL (0-1.0); Monocytes % (A) 7 %; Neutrophils # (A) 5.2 k/uL (1.3-7.7); Neutrophils % (A) 65 %; RBC 4.56 m/uL (4.30-5.90); RDW 14.8 % (11.5-15.5); WBC (Perox) 8.01
[2017-01-28 18:17] LABS: Appearance,Urine Clear (Clear); Bilirubin,Urine Negative (Negative); Glucose,Urine (UA) Negative (Negative); Ketones,Urine Negative (Negative); Leukocyte Esterase,Urine Negative (Negative); Nitrite,Urine Negative (Negative); Particle Count 638; Protein,Urine 1+ (Negative); UA Billing (MACRO vs. MICRO) MICRO; Urobilinogen,Urine <2.0 mg/dL (<2.0); WBC,Urine <1 /hpf (0-5)
--- NOTE | 2017-01-28 18:17 | XR ---
EXAMINATION TYPE: XR chest 2V DATE OF EXAM: 01/28/2017 COMPARISON: NONE HISTORY: Weakness TECHNIQUE: Frontal and lateral views of the chest are obtained. FINDINGS: There is no focal air space opacity, pleural effusion, or pneumothorax seen. Minimal left basilar subsegmental atelectasis is noted. Multi lead left-sided cardiac device, sternotomy, and pro sthetic cardiac valve are again seen. The cardiac silhouette size is within normal limits. The osse ous structures are intact. Mild degenerative changes are appreciated of the osseous structures. IMPRESSION: Minimal subsegmental left basilar atelectasis with no focal consolidation.
[2017-01-28 18:23] LABS: Calcium 10.3 mg/dL (8.4-10.2); Magnesium 1.7 mg/dL (1.6-2.3); Phosphorous 5.3 mg/dL (2.5-4.5); Potassium 5.5 mmol/L (3.5-5.1); Total Bilirubin 0.4 mg/dL (0.2-1.3); Total Protein 7.8 g/dL (6.3-8.2)
--- NOTE | 2017-01-28 18:30 | ED ---
General Adult HPI - General Chief complaint: Chest Pain Stated complaint: chest pain Time Seen by Provider: 01/28/17 17:48 Source: patient, RN notes reviewed, old records reviewed Mode of arrival: wheelchair Limitations: no limitations - History of Present Illness Initial comments: This is a 81-year-old male to the ED for chest pain. Patient has significant history of heart disease, chest. This pain since this morning. Progressively worsening. Patient has significant chest pain to today, recent hospital admission for chest pain cardiac disease. No modifying factors for. Home, no fevers cough or congestion, does admit to shortness of breath - Related Data Home Medications Medication Instructions Recorded Confirmed Atorvastatin [Lipitor] 20 mg PO DAILY 07/07/15 01/28/17 Dorzolamide HCl/Timolol Maleat 1 drop BOTH EYES BID 07/07/15 01/28/17 [Cosopt Eye Drops] Insulin Detemir [Levemir] 22 unit SQ HS 07/07/15 01/28/17 Brimonidine Tartrate [Alphagan P 1 drops BOTH EYES BID 06/04/16 01/28/17 0.1% Ophth Soln] Carvedilol [Coreg] 25 mg PO BID 06/04/16 01/28/17 Pantoprazole Sodium 40 mg PO DAILY 06/04/16 01/28/17 Flecainide [Tambocor] 50 mg PO BID 09/14/16 01/28/17 Previous Rx's Medication Instructions Recorded Aspirin 325 mg PO DAILY #30 tab 01/15/17 Clopidogrel [Plavix] 75 mg PO DAILY #30 tab 01/15/17 Donepezil [Aricept] 10 mg PO HS #30 tab 01/15/17 Isosorbide Mononitrate ER [Imdur] 60 mg PO BID #60 tab 01/15/17 Lisinopril [Zestril] 2.5 mg PO DAILY #30 tab 01/15/17 Nitroglycerin Sl Tabs [Nitrostat] 0.4 mg SUBLINGUAL Q5M PRN #20 tab 01/15/17 Spironolactone [Aldactone] 25 mg PO DAILY #30 tab 01/15/17 hydrALAZINE HCL [Apresoline] 50 mg PO TID #90 tab 01/15/17 metFORMIN HCL 1,000 mg PO BID #60 01/15/17 Allergies Allergy/AdvReac Type Severity Reaction Status Date / Time prednisone AdvReac SUGAR GOES Verified 01/28/17 17:33 UP Review of Systems ROS Statement: Those systems with pertinent positive or pertinent negative responses have been documented in the HPI. ROS Other: All systems not noted in ROS Statement are negative. Past Medical History Past Medical History: Coronary Artery Disease (CAD), Heart Failure, COPD, Dementia, Diabetes Mellitus, Eye Disorder, GERD/Reflux, Hyperlipidemia, Hypertension, Osteoarthritis (OA), Pneumonia, Renal Disease, Vascular Disorder Additional Past Medical History / Comment(s): Ischemic cardiomyopathy, cardiac murmur, glaucoma bilateral eyes, CKD, normocytic anemia, PVD, past R great toe wound, past R upper leg cellulitis, varicosities, DJD. History of Any Multi-Drug Resistant Organisms: None Reported Past Surgical History: AICD, Cholecystectomy, Coronary Bypass/CABG, Heart Catheterization With Stent, Hernia Repair, Pacemaker Additional Past Surgical History / Comment(s): CABG performed twice STATES TOTAL OF 5 BYPASSES, bilateral fempop bypasses, BIBI CATARACT, EGD/COLONOSCOPY, picc line insertion/removed. Past Anesthesia/Blood Transfusion Reactions: No Reported Reaction Type of Cardiac Device: Permanent Pacemaker, AICD Device Placement Date:: JUL 2015 Past Psychological History: No Psychological Hx Reported Smoking Status: Former smoker Past Alcohol Use History: None Reported Past Drug Use History: None Reported - Past Family History Son(s) Family Medical History: Cancer Additional Family Medical History / Comment(s): LUNG CANCER. SON WAS A SMOKER. Mother Family Medical History: Chest Pain / Angina, Congestive Heart Failure (CHF), Diabetes Mellitus Additional Family Medical History / Comment(s): Mother in her 70's General Exam Limitations: no limitations General appearance: alert, in no apparent distress Head exam: Present: atraumatic, normocephalic, normal inspection Eye exam: Present: normal appearance, PERRL, EOMI. Absent: scleral icterus, conjunctival injection, periorbital swelling ENT exam: Present: normal exam, mucous membranes moist Neck exam: Present: normal inspection. Absent: tenderness, meningismus, lymphadenopathy Respiratory exam: Present: normal lung sounds bilaterally. Absent: respiratory distress, wheezes, rales, rhonchi, stridor Cardiovascular Exam: Present: regular rate, normal rhythm, normal heart sounds. Absent: systolic murmur, diastolic murmur, rubs, gallop, clicks GI/Abdominal exam: Present: soft, normal bowel sounds. Absent: distended, tenderness, guarding, rebound, rigid Extremities exam: Present: normal inspection, full ROM, normal capillary refill. Absent: tenderness, pedal edema, joint swelling, calf tenderness Back exam: Present: normal inspection Neurological exam: Present: alert, oriented X3, CN II-XII intact Psychiatric exam: Present: normal affect, normal mood Skin exam: Present: warm, dry, intact, normal color. 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 ] Respiratory 18 18 Rate Blood Pressure 228/96 217/98 O2 Sat by Pulse 96 96 Oximetry - Reevaluation(s) Reevaluation #1: 01/28/17 18:51 Patient's chest at this time, blood pressure is improving EKG Findings - EKG Comments: EKG Findings:: EKG shows sinus rhythm at 62, pO2 12, QRS 168, QTC 475 Medical Decision Making - Medical Decision Making 81 female to the Er for evaluation for chest pain patient's continued chest pain recent cardiac catheterization and non-ST elevated VT, patient be admitted for cardiac observation and anticoagulation - Lab Data Result diagrams: 01/28/17 17:57 01/28/17 17:57 Lab Results 01/28/17 01/28/17 01/28/17 Range/Units 17:57 17:57 17:57 WBC 8.0 (3.8-10.6) k/uL RBC 4.56 (4.30-5.90) m/uL Hgb 13.5 (13.0-17.5) gm/dL Hct 40.1 (39.0-53.0) % MCV 87.8 (80.0-100.0) fL MCH 29.6 (25.0-35.0) pg MCHC 33.8 (31.0-37.0) g/dL RDW 14.8 (11.5-15.5) % Plt Count 418 (150-450) k/uL Neutrophils % 65 % Lymphocytes % 21 % Monocytes % 7 % Eosinophils % 3 % Basophils % 1 % Neutrophils # 5.2 (1.3-7.7) k/uL Lymphocytes # 1.7 (1.0-4.8) k/uL Monocytes # 0.6 (0-1.0) k/uL Eosinophils # 0.2 (0-0.7) k/uL Basophils # 0.1 (0-0.2) k/uL Sodium 137 (137-145) mmol/L Potassium 5.5 H (3.5-5.1) mmol/L Chloride 106 (98-107) mmol/L Carbon Dioxide 16 L (22-30) mmol/L Anion Gap 15 mmol/L BUN 37 H (9-20) mg/dL Creatinine 2.00 H (0.66-1.25) mg/dL Est GFR (MDRD) Af Amer 39 (>60 ml/min/1.73 sqM) Est GFR (MDRD) Non-Af 32 (>60 ml/min/1.73 sqM) Glucose 170 H (74-99) mg/dL Calcium 10.3 H (8.4-10.2) mg/dL Phosphorus 5.3 H (2.5-4.5) mg/dL Magnesium 1.7 (1.6-2.3) mg/dL Total Bilirubin 0.4 (0.2-1.3) mg/dL AST 25 (17-59) U/L ALT 42 (21-72) U/L Alkaline Phosphatase 91 (38-126) U/L Total Creatine Kinase 56 (55-170) U/L CK-MB (CK-2) 1.8 (0.0-2.4) ng/mL CK-MB (CK-2) Rel Index 3.2 Troponin I 0.040 H* (0.000-0.034) ng/mL Total Protein 7.8 (6.3-8.2) g/dL Albumin 4.6 (3.5-5.0) g/dL Urine Color Urine Appearance (Clear) Urine pH (5.0-8.0) Ur Specific [place] (1.001-1.035) Urine Protein (Negative) Urine Glucose (UA) (Negative) Urine Ketones (Negative) Urine Blood (Negative) Urine Nitrite (Negative) Urine Bilirubin (Negative) Urine Urobilinogen (<2.0) mg/dL Ur Leukocyte Esterase (Negative) Urine WBC (0-5) /hpf 01/28/17 Range/Units 17:57 WBC (3.8-10.6) k/uL RBC (4.30-5.90) m/uL Hgb (13.0-17.5) gm/dL Hct (39.0-53.0) % MCV (80.0-100.0) fL MCH (25.0-35.0) pg MCHC (31.0-37.0) g/dL RDW (11.5-15.5) % Plt Count (150-450) k/uL Neutrophils % % Lymphocytes % % Monocytes % % Eosinophils % % Basophils % % Neutrophils # (1.3-7.7) k/uL Lymphocytes # (1.0-4.8) k/uL Monocytes # (0-1.0) k/uL Eosinophils # (0-0.7) k/uL Basophils # (0-0.2) k/uL Sodium (137-145) mmol/L Potassium (3.5-5.1) mmol/L Chloride (98-107) mmol/L Carbon Dioxide (22-30) mmol/L Anion Gap mmol/L BUN (9-20) mg/dL Creatinine (0.66-1.25) mg/dL Est GFR (MDRD) Af Amer (>60 ml/min/1.73 sqM) Est GFR (MDRD) Non-Af (>60 ml/min/1.73 sqM) Glucose (74-99) mg/dL Calcium (8.4-10.2) mg/dL Phosphorus (2.5-4.5) mg/dL Magnesium (1.6-2.3) mg/dL Total Bilirubin (0.2-1.3) mg/dL AST (17-59) U/L ALT (21-72) U/L Alkaline Phosphatase (38-126) U/L Total Creatine Kinase (55-170) U/L CK-MB (CK-2) (0.0-2.4) ng/mL CK-MB (CK-2) Rel Index Troponin I (0.000-0.034) ng/mL Total Protein (6.3-8.2) g/dL Albumin (3.5-5.0) g/dL Urine Color Yellow Urine Appearance Clear (Clear) Urine pH 5.0 (5.0-8.0) Ur Specific [place] 1.010 (1.001-1.035) Urine Protein 1+ H (Negative) Urine Glucose (UA) Negative (Negative) Urine Ketones Negative (Negative) Urine Blood Negative (Negative) Urine Nitrite Negative (Negative) Urine Bilirubin Negative (Negative) Urine Urobilinogen <2.0 (<2.0) mg/dL Ur Leukocyte Esterase Negative (Negative) Urine WBC <1 (0-5) /hpf - Radiology Data Radiology results: report reviewed (Chest x-ray is negative for acute disease), image reviewed Critical Care Time Critical Care Time: Yes Total Critical Care Time: 31 Disposition Clinical Impression: Chest pain, Acute non-ST segment elevation myocardial infarction (STEMI) following previous myocardial infarction, Elevated troponin Disposition: ADMITTED IP TO THIS [facility] Condition: Serious Referrals: Vince Jane MD [Primary Care Provider] - 1-2 days
[2017-01-28 18:35] LABS: Creatine Kinase MB 1.8 ng/mL (0.0-2.4)
[2017-01-28 18:39] LABS: Troponin I 0.04 ng/mL (0.000-0.034)
[2017-01-28] MEDS ORDERED: LABETALOL 5 MG/ML VIAL MDV IVP STA (18:44)
[2017-01-28] MEDS ORDERED: ASPIRIN 81 MG CHEW PO STA (18:44)
[2017-01-28] MEDS ORDERED: MORPHINE SULFATE 4 MG/ML SYRINGE IV PRN (18:44)
[2017-01-28] MEDS ORDERED: HEPARIN SODIUM,PORCINE 5,000 UNIT/ML 1 ML VIAL IV ONE (18:44)
[2017-01-28] MEDS ORDERED: MORPHINE SULFATE 4 MG/ML SYRINGE IVP STA (18:44)
[2017-01-28] MEDS ORDERED: HEPARIN SODIUM,PORCINE 5,000 UNIT/ML 1 ML VIAL IV PRN (18:44)
[2017-01-28] MEDS ORDERED: HEPARIN SODIUM,PORCINE/D5W PMX 25,000 UNIT in DEXTROSE/WATER 1 500ML.BAG IV SCH (18:45)
[2017-01-28] MEDS: SODIUM CHLORIDE 0.9% 1,000 ML IV SCH (18:49)
[2017-01-28] MEDS ORDERED: NITROGLYCERIN SL TABS 0.4 MG TAB SUBLINGUAL PRN (19:16)
[2017-01-28] MEDS: ISOSORBIDE MONONITRATE ER 60 MG TAB.ER.24H PO SCH (20:25)
[2017-01-28] MEDS: hydrALAZINE HCL 50 MG TAB PO SCH (20:25)
[2017-01-28] MEDS: FLECAINIDE 50 MG TAB PO SCH (20:25)
[2017-01-28] MEDS: DONEPEZIL 10 MG TAB PO SCH (20:25)
[2017-01-28] MEDS: CARVEDILOL 12.5 MG TAB PO SCH (20:25)
[2017-01-28] MEDS: INSULIN DETEMIR 100 UNIT/ML 10 ML VIAL SQ SCH (20:31)
[2017-01-28] MEDS: DORZOLAMIDE-TIMOLOL 2-0.5% DROPS 10 ML BTL BOTH EYES SCH (20:32)
[2017-01-28] MEDS: BRIMONIDINE TARTRATE 0.2% DROPS 5 ML BTL BOTH EYES SCH (20:32)
[2017-01-28] MEDS ORDERED: METOPROLOL TARTRATE 50 MG TAB PO SCH (21:00)
[2017-01-28 21:06] LABS: Glucose,Whole Blood 166 mg/dL (75-99)
[2017-01-29 01:48] LABS: Creatine Kinase MB 1.7 ng/mL (0.0-2.4)
[2017-01-29 01:54] LABS: Troponin I 0.064 ng/mL (0.000-0.034)
[2017-01-29 05:47] LABS: Glucose,Whole Blood 84 mg/dL (75-99)
[2017-01-29] MEDS: PANTOPRAZOLE 40 MG TABLET PO SCH (06:35)
[2017-01-29] MEDS: hydrALAZINE HCL 50 MG TAB PO SCH ×3 (06:46→20:38)
[2017-01-29 06:59] LABS: Basophils # (A) 0.1 k/uL (0-0.2); Basophils % (A) 1 %; CH 29.7; CHCM 32.6; Eosinophils # (A) 0.2 k/uL (0-0.7); Eosinophils % (A) 2 %; HCT 42.3 % (39.0-53.0); HDW 2.63; HGB 13.3 gm/dL (13.0-17.5); Luc # (Auto) 0.25; Luc % (Auto) 3; Lymphocytes # (A) 1.4 k/uL (1.0-4.8); Lymphocytes % (A) 18 %; MCH 28.8 pg (25.0-35.0); MCHC 31.5 g/dL (31.0-37.0); MCV 91.5 fL (80.0-100.0); Mean Platelet Volume 7.2; Monocytes # (A) 0.5 k/uL (0-1.0); Monocytes % (A) 6 %; Neutrophils # (A) 5.6 k/uL (1.3-7.7); Neutrophils % (A) 70 %; RBC 4.62 m/uL (4.30-5.90); RDW 15.4 % (11.5-15.5); WBC (Perox) 8.25
[2017-01-29 07:48] LABS: Creatine Kinase MB 2.3 ng/mL (0.0-2.4)
[2017-01-29] MEDS: NITROGLYCERIN SL TABS 0.4 MG TAB SUBLINGUAL PRN ×2 (07:50→07:55)
[2017-01-29 07:55] LABS: Troponin I 0.063 ng/mL (0.000-0.034)
[2017-01-29] MEDS: ISOSORBIDE MONONITRATE ER 60 MG TAB.ER.24H PO SCH ×2 (08:00→20:37)
[2017-01-29] MEDS: ATORVASTATIN 20 MG TAB PO SCH (08:01)
[2017-01-29] MEDS: CLOPIDOGREL 75 MG TAB PO SCH (08:01)
[2017-01-29] MEDS: FLECAINIDE 50 MG TAB PO SCH (08:01)
[2017-01-29] MEDS: CARVEDILOL 12.5 MG TAB PO SCH ×2 (08:01→17:23)
[2017-01-29] MEDS: TERBINAFINE 250 MG TAB PO SCH (08:02)
[2017-01-29] MEDS: BRIMONIDINE TARTRATE 0.2% DROPS 5 ML BTL BOTH EYES SCH ×2 (08:02→20:36)
[2017-01-29 08:14] LABS: Calcium 9.8 mg/dL (8.4-10.2)
--- NOTE | 2017-01-29 08:52 | P.CRDCN ---
History of Present Illness Consult date: 01/29/17 Requesting physician: Guy Noriega Consult reason: chest pain, hypertension Chief complaint: Chest pain History of present illness: This is a pleasant 81-year-old gentleman who follows regularly with Dr. Strong in the office. He has a known history of coronary artery disease with prior coronary artery bypass grafting surgery as well as redo bypass, patient also had aortic valve replacement and underwent AICD for ischemic cardiomyopathy. Patient has history of diabetes, hypertension, hyperlipidemia, acute on chronic renal insufficiency, paroxysmal atrial fibrillation he is a nonsmoker. He was in the hospital earlier this month ruled in for non-Q-wave myocardial infarction. The decision at that time was made to maximize medical therapy, primarily because of his abnormal renal function. He presents to the hospital on this occasion with symptoms of midsternal chest pressure and heaviness. He also states that his blood pressure has been significantly elevated at home. He did have another episode of chest discomfort this morning , relieved with 2 sublingual nitroglycerin. His EKG on arrival here showed a normal sinus rhythm with a left bundle-branch block pattern and ST-T wave changes in the lateral leads. EKG performed this morning showed a normal sinus rhythm with left bundle branch block pattern and lateral ST-T wave changes. Chest x-ray revealed minimal subsegmental left basilar atelectasis. Blood pressure on arrival 228/96, heart rate in the 50s. Blood pressure this morning 194/80 with a heart rate in the 60s. CBC normal. Potassium on admission 5.5, 5.0 this morning. BUN 37 and 2.0 creatinine on admission, 37 and 2.3 this morning. Magnesium level I.7. Troponins 0.040, 0.064, 0.063. At the time of my examination this morning, patient is currently chest pain-free after receiving 2 sublingual nitroglycerin. His home medications include Lipitor 20 mg daily, Coreg 25 mg twice a day, Plavix 75 mg daily, flecainide 50 mg twice a day, Imdur 60 twice a day, Zestril 2-1/2 mg daily, Aldactone 25 mg daily, and hydralazine 50 mg one tablet by mouth 3 times a day. We will hold the patient' s Aldactone and MILLIE inhibitor because of the elevated potassium and abnormal renal function. Past Medical History Past Medical History: Coronary Artery Disease (CAD), Heart Failure, COPD, Dementia, Diabetes Mellitus, Eye Disorder, GERD/Reflux, Hyperlipidemia, Hypertension, Osteoarthritis (OA), Pneumonia, Renal Disease, Vascular Disorder Additional Past Medical History / Comment(s): Ischemic cardiomyopathy, cardiac murmur, glaucoma bilateral eyes, CKD, normocytic anemia, PVD, past R great toe wound, past R upper leg cellulitis, varicosities, DJD. History of Any Multi-Drug Resistant Organisms: None Reported Past Surgical History: AICD, Cholecystectomy, Coronary Bypass/CABG, Heart Catheterization With Stent, Hernia Repair, Pacemaker Additional Past Surgical History / Comment(s): CABG performed twice STATES TOTAL OF 5 BYPASSES, bilateral fempop bypasses, BIBI CATARACT, EGD/COLONOSCOPY, picc line insertion/removed. Past Anesthesia/Blood Transfusion Reactions: No Reported Reaction Date of Last Stent Placement:: unknow Type of Cardiac Device: Permanent Pacemaker, AICD Device Placement Date:: JUL 2015 Past Psychological History: No Psychological Hx Reported Additional Psychological History / Comment(s): Pt resides alone. He is independent. Smoking Status: Former smoker Past Alcohol Use History: None Reported Additional Past Alcohol Use History / Comment(s): STARTED SMOKING AGE 18 (1951) , QUIT SMOKING 1978, SMOKED 1PPD Past Drug Use History: None Reported - Past Family History Son(s) Family Medical History: Cancer Additional Family Medical History / Comment(s): LUNG CANCER. SON WAS A SMOKER. Mother Family Medical History: Chest Pain / Angina, Congestive Heart Failure (CHF), Diabetes Mellitus Additional Family Medical History / Comment(s): Mother in her 70's Medications and Allergies Home Medications Medication Instructions Recorded Confirmed Type Atorvastatin [Lipitor] 20 mg PO DAILY 07/07/15 01/28/17 History Dorzolamide HCl/Timolol Maleat 1 drop BOTH EYES BID 07/07/15 01/28/17 History [Cosopt Eye Drops] Insulin Detemir [Levemir] 22 unit SQ HS 07/07/15 01/28/17 History Brimonidine Tartrate [Alphagan P 1 drops BOTH EYES BID 06/04/16 01/28/17 History 0.1% Ophth Soln] Carvedilol [Coreg] 25 mg PO BID 06/04/16 01/28/17 History Pantoprazole Sodium 40 mg PO DAILY 06/04/16 01/28/17 History Flecainide [Tambocor] 50 mg PO BID 09/14/16 01/28/17 History Allergies Allergy/AdvReac Type Severity Reaction Status Date / Time prednisone AdvReac SUGAR GOES Verified 01/28/17 17:33 UP Physical Exam Vitals: Vital Signs Temp Pulse Pulse Resp BP BP Pulse Ox 01/29/17 08:28 194/81 01/29/17 08:00 97 F L 69 18 230/95 97 01/29/17 06:48 193/86 01/29/17 04:00 98.0 F 54 L 17 193/87 98 01/29/17 00:00 97.7 F 51 L 18 107/56 97 01/28/17 20:00 98.3 F 52 L 16 175/79 96 01/28/17 19:02 97.7 F 01/28/17 18:59 98.3 F 52 L 16 175/79 96 01/28/17 18:58 60 18 198/85 98 01/28/17 18:23 61 18 217/98 96 01/28/17 17:54 68 01/28/17 17:31 98.2 F 58 L 18 228/96 96 Intake and Output 01/28/17 01/29/17 01/29/17 22:59 06:59 14:59 Intake Total 308 Output Total 500 Balance -192 Intake: IV 308 Heparin Sodium,Porcine/ 148 D5w Pmx 25,000 unit In Dextrose/Water 1 500ml. bag @ 12 UNITS/KG/HR 18.5 mls/hr IV .Q24H TEDDY Rx#: [id number] Sodium Chloride 0.9% 1, 160 000 ml @ 20 mls/hr IV . Q24H TEDDY Rx#:[id number] Output: Urine 500 Other: Voiding Method Toilet Toilet # Voids 1 Weight 77.111 kg 73.2 kg PHYSICAL EXAMINATION: HEENT: Head is atraumatic, normocephalic. Pupils equal, round. Neck is supple. There is no elevated jugular venous pressure. HEART EXAMINATION: Heart S1 and S2 systolic murmur is heard. CHEST EXAMINATION: Lungs are clear to auscultation and precussion. No chest wall tenderness is noted on palpation or with deep breathing. ABDOMEN: Soft, nontender. Bowel sounds are heard. No organomegaly noted. EXTREMITIES: 1+ peripheral pulses with no evidence of peripheral edema and no calf tenderness noted. NEUROLOGIC patient is awake, alert and oriented -3. . Results 01/29/17 06:41 01/29/17 06:41 Cardiac Enzymes 01/28/17 01/28/17 01/29/17 Range/Units 17:57 17:57 00:29 AST 25 (17-59) U/L CK-MB (CK-2) 1.8 1.7 (0.0-2.4) ng/mL Troponin I 0.040 H* 0.064 H* (0.000-0.034) ng/mL 01/29/17 Range/Units 06:41 AST (17-59) U/L CK-MB (CK-2) 2.3 (0.0-2.4) ng/mL Troponin I 0.063 H* (0.000-0.034) ng/mL Coagulation 01/29/17 01/29/17 Range/Units 00:29 06:41 APTT 51.7 H 58.9 H (22.0-30.0) sec Lipids 01/29/17 Range/Units 06:41 Triglycerides 126 (<150) mg/dL Cholesterol 157 (<200) mg/dL HDL Cholesterol 44 (40-60) mg/dL CBC 01/28/17 01/29/17 Range/Units 17:57 06:41 WBC 8.0 8.0 (3.8-10.6) k/uL RBC 4.56 4.62 (4.30-5.90) m/uL Hgb 13.5 13.3 (13.0-17.5) gm/dL Hct 40.1 42.3 (39.0-53.0) % Plt Count 418 411 (150-450) k/uL Comprehensive Metabolic Panel 01/28/17 01/29/17 Range/Units 17:57 06:41 Sodium 137 141 (137-145) mmol/L Potassium 5.5 H 5.0 (3.5-5.1) mmol/L Chloride 106 105 (98-107) mmol/L Carbon Dioxide 16 L 22 (22-30) mmol/L BUN 37 H 37 H (9-20) mg/dL Creatinine 2.00 H 2.30 H (0.66-1.25) mg/dL Glucose 170 H 71 L (74-99) mg/dL Calcium 10.3 H 9.8 (8.4-10.2) mg/dL AST 25 (17-59) U/L ALT 42 (21-72) U/L Alkaline Phosphatase 91 (38-126) U/L Total Protein 7.8 (6.3-8.2) g/dL Albumin 4.6 (3.5-5.0) g/dL Current Medications Generic Name Dose Route Start Last Admin Trade Name Freq PRN Reason Stop Dose Admin Aspirin 325 mg 01/29/17 09:00 01/29/17 08:01 Aspirin PO 325 mg DAILY TEDDY Administration Atorvastatin Calcium 20 mg 01/29/17 09:00 01/29/17 08:01 Lipitor PO 20 mg DAILY TEDDY Administration Brimonidine Tartrate 1 drops 01/28/17 21:00 01/29/17 08:02 Alphagan P 0.2% Ophth Soln BOTH EYES 1 drops BID TEDDY Administration Carvedilol 25 mg 01/28/17 21:00 01/29/17 08:01 Coreg PO 25 mg BID TEDDY Administration Clopidogrel Bisulfate 75 mg 01/29/17 09:00 01/29/17 08:01 Plavix PO 75 mg DAILY TEDDY Administration Donepezil HCl 10 mg 01/28/17 21:00 01/28/17 20:25 Aricept PO 10 mg HS TEDDY Administration Dorzolamide/Timolol 1 drops 01/28/17 21:00 01/28/17 20:32 Cosopt BOTH EYES 1 drops BID TEDDY Administration Flecainide Acetate 50 mg 01/28/17 21:00 01/29/17 08:01 Tambocor PO 50 mg BID TEDDY Administration Heparin Sodium (Porcine) 0 unit 01/28/17 18:44 Heparin IV Q6HR PRN Low PTT Protocol Hydralazine HCl 50 mg 01/28/17 22:00 01/29/17 06:46 Apresoline PO 50 mg TID TEDDY Administration Heparin Sodium/Dextrose 25,000 500 mls @ 18.5 mls/hr 01/28/17 18:45 01/28/17 18:54 unit/ IV Solution IV 12 units/kg/hr .Q24H TEDDY 18.5 mls/hr Protocol Administration 12 UNITS/KG/HR Sodium Chloride 1,000 mls @ 20 mls/hr 01/28/17 18:45 01/28/17 18:49 Saline 0.9% IV 20 mls/hr .Q24H TEDDY Administration Insulin Detemir 22 unit 01/28/17 21:00 01/28/17 20:31 Levemir SQ 22 unit HS TEDDY Administration Isosorbide Mononitrate 60 mg 01/28/17 21:00 01/29/17 08:00 Imdur PO 60 mg BID TEDDY Administration Lisinopril 2.5 mg 01/29/17 09:00 01/29/17 08:00 Zestril PO 2.5 mg DAILY TEDDY Administration Morphine Sulfate 4 mg 01/28/17 18:44 Morphine Sulfate (Inj) IV Q5M PRN Chest Pain Nitroglycerin 0.4 mg 01/28/17 18:44 01/29/17 07:55 Nitrostat SUBLINGUAL 0.4 mg Q5M PRN Administration Chest Pain Pantoprazole Sodium 40 mg 01/29/17 07:30 01/29/17 06:35 Protonix PO 40 mg [id number] TEDDY Administration Spironolactone 25 mg 01/29/17 09:00 01/29/17 08:01 Aldactone PO 25 mg DAILY TEDDY Administration Terbinafine HCl 250 mg 01/29/17 09:00 01/29/17 08:02 Lamisil PO 01/31/17 09:01 250 mg DAILY TEDDY Administration Intake and Output 01/28/17 01/29/17 01/29/17 22:59 06:59 14:59 Intake Total 308 Output Total 500 Balance -192 Intake: IV 308 Heparin Sodium,Porcine/ 148 D5w Pmx 25,000 unit In Dextrose/Water 1 500ml. bag @ 12 UNITS/KG/HR 18.5 mls/hr IV .Q24H TEDDY Rx#: [id number] Sodium Chloride 0.9% 1, 160 000 ml @ 20 mls/hr IV . Q24H TEDDY Rx#:[id number] Output: Urine 500 Other: Voiding Method Toilet Toilet # Voids 1 Weight 77.111 kg 73.2 kg 01/29/17 06:41 01/29/17 06:41 EKG Interpretations (text) EKG shows a normal sinus rhythm with left bundle branch block pattern and nonspecific ST-T wave changes in the lateral leads. Assessment and Plan Plan: Assessment and plan #1 chest discomfort, suggestive of angina. Patient was in the hospital earlier this month with a non-Q-wave myocardial infarction, axilla medical therapy advised at that time. Troponins 0.04, 0.06, 0.06. Not consistent with acute coronary syndrome. EKG shows a normal sinus rhythm with left bundle branch block pattern and nonspecific ST-T wave changes #2 accelerated hypertension #3 known history of coronary artery disease with prior bypass surgery and stent placements #4 ischemic cardiomyopathy with prior AICD # 5 acute on chronic renal failure #6 hyperkalemia #7 hypertension #8 diabetes #9 hyperlipidemia Plan We will discontinue the MILLIE inhibitor and Aldactone because of the elevated potassium and creatinine. We will increase the patient's dose of Coreg to 50 mg one tablet by mouth twice a day. Decrease aspirin to 81 mg daily. Discontinue flecainide as the patient has an ejection fraction of 20%. Add Norvasc. Continue hydralazine, Imdur 60 twice a day, discontinue when necessary labetalol. Maximize the patient's medication for optimal blood pressure control. Further recommendations we've a 70s findings and the patient' s clinical course. Most recent echocardiogram with Doppler study was performed earlier this month which revealed an ejection fraction of 20-25%. Moderate to severe pulmonary hypertension. Apical anterior, lateral, inferior, and septal hypokinesia. We'll not repeat an echo on this admission. DNP note has been reviewed, I agree with a documented findings and plan of care. Patient was seen and examined.
[2017-01-29] MEDS ORDERED: LISINOPRIL 2.5 MG TAB PO SCH (09:00)
[2017-01-29] MEDS ORDERED: SPIRONOLACTONE 25 MG TAB PO SCH (09:00)
[2017-01-29] MEDS ORDERED: CARVEDILOL 12.5 MG TAB PO ONE (09:00)
[2017-01-29] MEDS ORDERED: ASPIRIN 325 MG TAB PO SCH (09:00)
[2017-01-29] MEDS ORDERED: amLODIPine 5 MG TAB PO SCH (09:15)
[2017-01-29] MEDS: DORZOLAMIDE-TIMOLOL 2-0.5% DROPS 10 ML BTL BOTH EYES SCH ×2 (09:46→20:37)
[2017-01-29] MEDS: amLODIPine 10 MG TAB PO SCH (09:55)
[2017-01-29 11:44] LABS: Glucose,Whole Blood 115 mg/dL (75-99)
--- NOTE | 2017-01-29 13:09 | P.CRDCN ---
History of Present Illness History of present illness: Please see full dictation by Dr. barraza. Patient interviewed and examined Patient admitted with chest discomfort, medical management for multivessel CAD, patient Dr. Pierson. Hypertensive. Elevated potassium and increasing BUN and creatinine hence agenesis of the blockers and spironolactone were discontinued. Coreg was increased to 50 g twice daily and Norvasc 10 mg by mouth daily for hypertension management Past Medical History Past Medical History: Coronary Artery Disease (CAD), Heart Failure, COPD, Dementia, Diabetes Mellitus, Eye Disorder, GERD/Reflux, Hyperlipidemia, Hypertension, Osteoarthritis (OA), Pneumonia, Renal Disease, Vascular Disorder Additional Past Medical History / Comment(s): Ischemic cardiomyopathy, cardiac murmur, glaucoma bilateral eyes, CKD, normocytic anemia, PVD, past R great toe wound, past R upper leg cellulitis, varicosities, DJD. History of Any Multi-Drug Resistant Organisms: None Reported Past Surgical History: AICD, Cholecystectomy, Coronary Bypass/CABG, Heart Catheterization With Stent, Hernia Repair, Pacemaker Additional Past Surgical History / Comment(s): CABG performed twice STATES TOTAL OF 5 BYPASSES, bilateral fempop bypasses, BIBI CATARACT, EGD/COLONOSCOPY, picc line insertion/removed. Past Anesthesia/Blood Transfusion Reactions: No Reported Reaction Date of Last Stent Placement:: unknow Type of Cardiac Device: Permanent Pacemaker, AICD Device Placement Date:: JUL 2015 Past Psychological History: No Psychological Hx Reported Additional Psychological History / Comment(s): Pt resides alone. He is independent. Smoking Status: Former smoker Past Alcohol Use History: None Reported Additional Past Alcohol Use History / Comment(s): STARTED SMOKING AGE 18 (1951) , QUIT SMOKING 1978, SMOKED 1PPD Past Drug Use History: None Reported - Past Family History Son(s) Family Medical History: Cancer Additional Family Medical History / Comment(s): LUNG CANCER. SON WAS A SMOKER. Mother Family Medical History: Chest Pain / Angina, Congestive Heart Failure (CHF), Diabetes Mellitus Additional Family Medical History / Comment(s): Mother in her 70's Medications and Allergies Home Medications Medication Instructions Recorded Confirmed Type Atorvastatin [Lipitor] 20 mg PO DAILY 07/07/15 01/28/17 History Dorzolamide HCl/Timolol Maleat 1 drop BOTH EYES BID 07/07/15 01/28/17 History [Cosopt Eye Drops] Insulin Detemir [Levemir] 22 unit SQ HS 07/07/15 01/28/17 History Brimonidine Tartrate [Alphagan P 1 drops BOTH EYES BID 06/04/16 01/28/17 History 0.1% Ophth Soln] Carvedilol [Coreg] 25 mg PO BID 06/04/16 01/28/17 History Pantoprazole Sodium 40 mg PO DAILY 06/04/16 01/28/17 History Flecainide [Tambocor] 50 mg PO BID 09/14/16 01/28/17 History Allergies Allergy/AdvReac Type Severity Reaction Status Date / Time prednisone AdvReac SUGAR GOES Verified 01/28/17 17:33 UP Physical Exam Vitals: Vital Signs Temp Pulse Pulse Pulse Resp BP BP 01/29/17 11:52 53 L 17 101/50 01/29/17 08:28 194/81 01/29/17 08:00 97 F L 69 18 230/95 01/29/17 06:48 193/86 01/29/17 04:00 98.0 F 54 L 17 193/87 01/29/17 00:00 97.7 F 51 L 18 107/56 01/28/17 20:00 98.3 F 52 L 16 175/79 01/28/17 19:02 97.7 F 01/28/17 18:59 98.3 F 52 L 16 175/79 01/28/17 18:58 60 18 198/85 01/28/17 18:23 61 18 217/98 01/28/17 17:54 68 01/28/17 17:31 98.2 F 58 L 18 228/96 Pulse Ox 01/29/17 11:52 98 01/29/17 08:28 01/29/17 08:00 97 01/29/17 06:48 01/29/17 04:00 98 01/29/17 00:00 97 01/28/17 20:00 96 01/28/17 19:02 01/28/17 18:59 96 01/28/17 18:58 98 01/28/17 18:23 96 01/28/17 17:54 01/28/17 17:31 96 Intake and Output 01/28/17 01/29/17 01/29/17 22:59 06:59 14:59 Intake Total 308 160 Output Total 500 500 Balance -192 -340 Intake: IV 308 160 Heparin Sodium,Porcine/ 148 60 D5w Pmx 25,000 unit In Dextrose/Water 1 500ml. bag @ 12 UNITS/KG/HR 18.5 mls/hr IV .Q24H [facility] Rx#: [id number] Sodium Chloride 0.9% 1, 160 100 000 ml @ 20 mls/hr IV . Q24H [facility] Rx#:[id number] Oral 0 Output: Urine 500 500 Other: Voiding Method Toilet Toilet # Voids 1 Weight 77.111 kg 73.2 kg Results 01/29/17 06:41 01/29/17 06:41 Cardiac Enzymes 01/28/17 01/28/17 01/29/17 Range/Units 17:57 17:57 00:29 AST 25 (17-59) U/L CK-MB (CK-2) 1.8 1.7 (0.0-2.4) ng/mL Troponin I 0.040 H* 0.064 H* (0.000-0.034) ng/mL 01/29/17 Range/Units 06:41 AST (17-59) U/L CK-MB (CK-2) 2.3 (0.0-2.4) ng/mL Troponin I 0.063 H* (0.000-0.034) ng/mL Coagulation 01/29/17 01/29/17 Range/Units 00:29 06:41 APTT 51.7 H 58.9 H (22.0-30.0) sec Lipids 01/29/17 Range/Units 06:41 Triglycerides 126 (<150) mg/dL Cholesterol 157 (<200) mg/dL HDL Cholesterol 44 (40-60) mg/dL CBC 01/28/17 01/29/17 Range/Units 17:57 06:41 WBC 8.0 8.0 (3.8-10.6) k/uL RBC 4.56 4.62 (4.30-5.90) m/uL Hgb 13.5 13.3 (13.0-17.5) gm/dL Hct 40.1 42.3 (39.0-53.0) % Plt Count 418 411 (150-450) k/uL Comprehensive Metabolic Panel 01/28/17 01/29/17 Range/Units 17:57 06:41 Sodium 137 141 (137-145) mmol/L Potassium 5.5 H 5.0 (3.5-5.1) mmol/L Chloride 106 105 (98-107) mmol/L Carbon Dioxide 16 L 22 (22-30) mmol/L BUN 37 H 37 H (9-20) mg/dL Creatinine 2.00 H 2.30 H (0.66-1.25) mg/dL Glucose 170 H 71 L (74-99) mg/dL Calcium 10.3 H 9.8 (8.4-10.2) mg/dL AST 25 (17-59) U/L ALT 42 (21-72) U/L Alkaline Phosphatase 91 (38-126) U/L Total Protein 7.8 (6.3-8.2) g/dL Albumin 4.6 (3.5-5.0) g/dL Current Medications Generic Name Dose Route Start Last Admin Trade Name Freq PRN Reason Stop Dose Admin Amlodipine Besylate 10 mg 01/29/17 09:15 01/29/17 09:55 Norvasc PO 10 mg DAILY [facility] Administration Aspirin 81 mg 01/30/17 09:00 Aspirin PO DAILY [facility] Atorvastatin Calcium 20 mg 01/29/17 09:00 01/29/17 08:01 Lipitor PO 20 mg DAILY [facility] Administration Brimonidine Tartrate 1 drops 01/28/17 21:00 01/29/17 08:02 Alphagan P 0.2% Ophth Soln BOTH EYES 1 drops BID [facility] Administration Carvedilol 50 mg 01/29/17 17:30 Coreg PO BID-W/MEALS [facility] Clopidogrel Bisulfate 75 mg 01/29/17 09:00 01/29/17 08:01 Plavix PO 75 mg DAILY [facility] Administration Donepezil HCl 10 mg 01/28/17 21:00 01/28/17 20:25 Aricept PO 10 mg HS [facility] Administration Dorzolamide/Timolol 1 drops 01/28/17 21:00 01/29/17 09:46 Cosopt BOTH EYES 1 drops BID [facility] Administration Hydralazine HCl 50 mg 01/28/17 22:00 01/29/17 06:46 Apresoline PO 50 mg TID [facility] Administration Sodium Chloride 1,000 mls @ 20 mls/hr 01/28/17 18:45 01/28/17 18:49 Saline 0.9% IV 20 mls/hr .Q24H [facility] Administration Insulin Detemir 22 unit 01/28/17 21:00 01/28/17 20:31 Levemir SQ 22 unit HS [facility] Administration Isosorbide Mononitrate 60 mg 01/28/17 21:00 01/29/17 08:00 Imdur PO 60 mg BID [facility] Administration Morphine Sulfate 4 mg 01/28/17 18:44 Morphine Sulfate (Inj) IV Q5M PRN Chest Pain Nitroglycerin 0.4 mg 01/28/17 18:44 01/29/17 07:55 Nitrostat SUBLINGUAL 0.4 mg Q5M PRN Administration Chest Pain Pantoprazole Sodium 40 mg 01/29/17 07:30 01/29/17 06:35 Protonix PO 40 mg AC-BRKFST [facility] Administration Terbinafine HCl 250 mg 01/29/17 09:00 01/29/17 08:02 Lamisil PO 01/31/17 09:01 250 mg DAILY [facility] Administration Intake and Output 01/28/17 01/29/17 01/29/17 22:59 06:59 14:59 Intake Total 308 160 Output Total 500 500 Balance -192 -340 Intake: IV 308 160 Heparin Sodium,Porcine/ 148 60 D5w Pmx 25,000 unit In Dextrose/Water 1 500ml. bag @ 12 UNITS/KG/HR 18.5 mls/hr IV .Q24H [facility] Rx#: [id number] Sodium Chloride 0.9% 1, 160 100 000 ml @ 20 mls/hr IV . Q24H [facility] Rx#:[id number] Oral 0 Output: Urine 500 500 Other: Voiding Method Toilet Toilet # Voids 1 Weight 77.111 kg 73.2 kg 01/29/17 06:41 01/29/17 06:41
[2017-01-29 17:01] LABS: Glucose,Whole Blood 149 mg/dL (75-99)
[2017-01-29] MEDS: SODIUM CHLORIDE 0.9% 1,000 ML IV SCH (17:33)
[2017-01-29 20:30] LABS: Glucose,Whole Blood 185 mg/dL (75-99)
[2017-01-29] MEDS: INSULIN DETEMIR 100 UNIT/ML 10 ML VIAL SQ SCH (20:37)
[2017-01-29] MEDS: DONEPEZIL 10 MG TAB PO SCH (20:37)
--- NOTE | 2017-01-29 21:56 | HP ---
DATE OF ADMISSION: 01/28/2017 PRESENTING COMPLAINT: Chest pain. HISTORY OF PRESENTING COMPLAINT: This is a 81-year-old patient of Dr. Jane with extensive medical history including coronary artery disease with recent stent showing severe disease, CHF with EF 20%, dementia, diabetes, GERD, hyperlipidemia, hypertension, chronic kidney disease. Patient presents with chest pain central, off and on, dull in nature. Nitro did help. No sweating, no perspiration, no radiation. Appetite is fair. Patient's recent admission earlier in the month, patient had an acute WI. REVIEW OF SYSTEMS: CONSTITUTIONAL: Tired. EYES: None. HENT: Decreased hearing. RESPIRATORY: Some shortness of breath. CARDIOVASCULAR: As above. GASTROINTESTINAL: None. GENITOURINARY: None. MUSCULOSKELETAL: Pain in the joints. LYMPHATICS: None. HEMATOLOGIC: None. PSYCHIATRIC: Sometimes forgetful. NEUROLOGIC: None. PAST MEDICAL HISTORY: Coronary artery disease, CHF, EF 20%, secondary pulmonary hypertension, dementia, diabetes, GERD, hyperlipidemia, hypertension, osteoarthritis, chronic kidney disease. PAST SURGICAL HISTORY: AICD, cholecystectomy, coronary bypass, hernia repair, pacemaker, bilateral fem-pop bypass, permanent pacemaker. SOCIAL HISTORY: Lives alone, smoked for 25 years, stopped in 1978. Alcohol rarely. FAMILY HISTORY: Lung cancer in a son who was a smoker. HOME MEDICATIONS: 1. Metformin 1000 mg p.o. b.i.d. 2. Hydralazine 50 mg p.o. t.i.d. 3. Melatonin 25 mg daily. 4. Protonix 40 mg p.o. daily. 5. Nitrostat 0.4 sublingual q5 p.r.n. 6. Zestril 2.5 mg p.o. daily. 7. Imdur ER 50 mg p.o. b.i.d. 8. Levemir 22 units subcu q h.s. 9. Flecainide 50 mg p.o. b.i.d. 10. Cosopt eye drops, one drop to both eyes b.i.d. 11. Aricept 10 mg p.o. q.h.s. 12. Plavix 75 mg p.o. daily. 13. Coreg 25 mg p.o. b.i.d. 14. Alphagan 0.1% drop, one drop to both eyes b.i.d. 15. Lipitor 20 mg p.o. daily. 16. Aspirin 325 p.o. daily. ALLERGIES: PREDNISONE, no true allergy. On examination, vital signs on presentation: Temperature 98.2, pulse 58, respirations 18, blood pressure 228/76, pulse ox 96% on room air. GENERAL APPEARANCE: Elderly, lying in bed, tired appearing. EYES: Pupils equal. Conjunctivae normal. HEENT: Oral cavity normal. NECK: JVD not raised. Mass not palpable. RESPIRATORY EFFORT: Prolonged. LUNGS: Diminished breath sounds. CARDIOVASCULAR: First and second normal. No edema. ABDOMEN: Soft, nontender. Liver and spleen not palpable. LYMPHATICS: No lymph node in neck or axilla. PSYCHIATRY: Alert and oriented x3. Mood and affect are normal. NEUROLOGIC: Power and sensation grossly intact. INVESTIGATIONS: Troponin 0.04, 0.06. EKG - left bundle branch block pattern. ASSESSMENT: 1. Unstable angina in a patient with known triple vessel coronary artery disease with prior history of bypass. 2. Chronic congestive heart failure from systolic dysfunction, ejection fraction 20-25% with additional diastolic dysfunction, underlying coronary artery disease. 3. Coronary artery disease with diffuse disease and a prior bypass. 4. Accelerated malignant hypertension present on admission. 5. Alzheimer's dementia, late onset type. 6. Diabetes mellitus type 2, chronically on oral hypoglycemic. 7. Hyperlipidemia. 8. Primary osteoarthritis in multiple joints bilaterally. 9. Chronic kidney disease, stage 3 from diabetic nephropathy and hypertensive nephrosclerosis. 10. Pacemaker in place. 11. Peripheral arterial disease. PLAN: Home medications resumed. Cardiology was consulted. Accu-Cheks will be followed. Given that the patient's GFR is hovering close to 30, we will discontinue the patient's metformin for right now. Overall prognosis is guarded. Blood pressure medications will be adjusted. MTDD
[2017-01-30 05:58] LABS: Mean Platelet Volume 7.8
[2017-01-30 06:16] LABS: Calcium 9.3 mg/dL (8.4-10.2); Potassium 5.4 mmol/L (3.5-5.1)
[2017-01-30 06:24] LABS: Glucose,Whole Blood 119 mg/dL (75-99)
[2017-01-30] MEDS: CARVEDILOL 12.5 MG TAB PO SCH ×2 (06:28→17:15)
[2017-01-30] MEDS: PANTOPRAZOLE 40 MG TABLET PO SCH (06:28)
[2017-01-30] MEDS: BRIMONIDINE TARTRATE 0.2% DROPS 5 ML BTL BOTH EYES SCH ×2 (08:40→20:46)
[2017-01-30] MEDS: TERBINAFINE 250 MG TAB PO SCH (08:40)
[2017-01-30] MEDS: DORZOLAMIDE-TIMOLOL 2-0.5% DROPS 10 ML BTL BOTH EYES SCH ×2 (08:40→20:45)
[2017-01-30] MEDS: CLOPIDOGREL 75 MG TAB PO SCH (08:40)
[2017-01-30] MEDS: amLODIPine 10 MG TAB PO SCH (08:41)
[2017-01-30] MEDS: ISOSORBIDE MONONITRATE ER 60 MG TAB.ER.24H PO SCH ×2 (08:41→20:46)
[2017-01-30] MEDS: hydrALAZINE HCL 50 MG TAB PO SCH ×3 (08:41→20:46)
[2017-01-30] MEDS: ASPIRIN 81 MG CHEW PO SCH (08:41)
[2017-01-30] MEDS: ATORVASTATIN 20 MG TAB PO SCH (08:42)
[2017-01-30 12:07] LABS: Glucose,Whole Blood 168 mg/dL (75-99)
--- NOTE | 2017-01-30 14:28 | P.PN ---
Subjective This is a pleasant 81-year-old gentleman who follows regularly with Dr. Strong in the office. He has a known history of coronary artery disease with prior coronary artery bypass grafting surgery as well as redo bypass, patient also had aortic valve replacement and underwent AICD for ischemic cardiomyopathy. Patient has history of diabetes, hypertension, hyperlipidemia, acute on chronic renal insufficiency, paroxysmal atrial fibrillation he is a nonsmoker. He was in the hospital earlier this month ruled in for non-Q-wave myocardial infarction. The decision at that time was made to maximize medical therapy, primarily because of his abnormal renal function. He presents to the hospital on this occasion with symptoms of midsternal chest pressure and heaviness. He also states that his blood pressure has been significantly elevated at home. He did have another episode of chest discomfort this morning , relieved with 2 sublingual nitroglycerin. His EKG on arrival here showed a normal sinus rhythm with a left bundle-branch block pattern and ST-T wave changes in the lateral leads. EKG performed this morning showed a normal sinus rhythm with left bundle branch block pattern and lateral ST-T wave changes. Chest x-ray revealed minimal subsegmental left basilar atelectasis. Blood pressure on arrival 228/96, heart rate in the 50s. Blood pressure this morning 194/80 with a heart rate in the 60s. CBC normal. Potassium on admission 5.5, 5.0 this morning. BUN 37 and 2.0 creatinine on admission, 37 and 2.3 this morning. Magnesium level I.7. Troponins 0.040, 0.064, 0.063. At the time of my examination this morning, patient is currently chest pain-free after receiving 2 sublingual nitroglycerin. His home medications include Lipitor 20 mg daily, Coreg 25 mg twice a day, Plavix 75 mg daily, flecainide 50 mg twice a day, Imdur 60 twice a day, Zestril 2-1/2 mg daily, Aldactone 25 mg daily, and hydralazine 50 mg one tablet by mouth 3 times a day. We will hold the patient' s Aldactone and MILLIE inhibitor because of the elevated potassium and abnormal renal function. 01/30/2017 Patient seen and examined this morning, denies any further chest discomfort. Overall he states he is feeling better today. Creatinine today is 2.9 potassium 5.4. We will continue to hold the Aldactone and MILLIE inhibitor. Recommend consultation with nephrology. Objective - Vital Signs Vital signs: Vital Signs Temp 96.8 F L 01/30/17 08:00 Pulse 50 L 01/30/17 12:00 Resp 17 01/30/17 12:00 BP 104/55 01/30/17 12:00 Pulse Ox 98 01/30/17 12:00 Intake & Output 01/29/17 01/30/17 01/30/17 18:59 06:59 18:59 Intake Total 460 330 360 Output Total 500 Balance -40 330 360 Weight 73.6 kg Intake: IV 160 120 Heparin Sodium,Porcine/ 60 D5w Pmx 25,000 unit In Dextrose/Water 1 500ml. bag @ 12 UNITS/KG/HR 18.5 mls/hr IV .Q24H [facility] Rx#: [id number] Sodium Chloride 0.9% 1, 100 120 000 ml @ 20 mls/hr IV . Q24H [facility] Rx#:[id number] Oral 300 210 360 Output: Urine 500 Other: Voiding Method Toilet # Voids 2 - Exam PHYSICAL EXAMINATION: HEENT: Head is atraumatic, normocephalic. Pupils equal, round. Neck is supple. There is no elevated jugular venous pressure. HEART EXAMINATION: S1 and S2 systolic murmur is heard. CHEST EXAMINATION: Lungs are clear to auscultation and precussion. No chest wall tenderness is noted on palpation or with deep breathing.] ABDOMEN: [ Soft, nontender. Bowel sounds are heard. No organomegaly noted]. EXTREMITIES:[1+ peripheral pulses with no evidence of peripheral edema and no calf tenderness noted]. NEUROLOGIC [patient is awake, alert and oriented -3.] . - Labs CBC & Chem 7: 01/30/17 05:37 01/30/17 05:37 Labs: Abnormal Lab Results - Last 24 Hours (Table) 01/29/17 01/29/17 01/30/17 Range/Units 16:41 20:28 05:37 Sodium 136 L (137-145) mmol/L Potassium 5.4 H (3.5-5.1) mmol/L Carbon Dioxide 21 L (22-30) mmol/L BUN 43 H (9-20) mg/dL Creatinine 2.90 H (0.66-1.25) mg/dL Glucose 117 H (74-99) mg/dL POC Glucose (mg/dL) 149 H 185 H (75-99) mg/dL 01/30/17 01/30/17 Range/Units 06:22 11:42 Sodium (137-145) mmol/L Potassium (3.5-5.1) mmol/L Carbon Dioxide (22-30) mmol/L BUN (9-20) mg/dL Creatinine (0.66-1.25) mg/dL Glucose (74-99) mg/dL POC Glucose (mg/dL) 119 H 168 H (75-99) mg/dL Assessment and Plan Plan: Assessment and plan #1 chest discomfort, suggestive of angina. Patient was in the hospital earlier this month with a non-Q-wave myocardial infarction, axilla medical therapy advised at that time. Troponins 0.04, 0.06, 0.06. Not consistent with acute coronary syndrome. EKG shows a normal sinus rhythm with left bundle branch block pattern and nonspecific ST-T wave changes #2 accelerated hypertension #3 known history of coronary artery disease with prior bypass surgery and stent placements #4 ischemic cardiomyopathy with prior AICD # 5 acute on chronic renal failure #6 hyperkalemia #7 hypertension #8 diabetes #9 hyperlipidemia Plan We will continue to hold the MILLIE inhibitor and Aldactone. We have also requested that nephrology see the patient. If creatinine improves and patient remained stable he may be able to be discharged within the next 24 hours. DNP note has been reviewed, I agree with a documented findings and plan of care. Patient was seen and examined.
--- NOTE | 2017-01-30 14:34 | P.PN ---
<Vickie Mathur - Last Filed: 01/30/17 15:01> Progress Note - Text DATE OF SERVICE: 01/30/2017 PRESENTING COMPLAINT: Chest pain HISTORY OF PRESENT ILLNESS: 81-year-old patient with coronary artery disease recent stent placement showed severe disease, CHF with an EF 20% presented with central chest pain, history significant for acute NM earlier this month. INTERVAL HISTORY: 01/30/2017: Patient lying in bed appears comfortable. No complaints of any further chest pain. IV heparin infusing. Kidney function is on the rise BUN and creatinine today 43/2.90 respectively and potassium is 5.4. MILLIE inhibitor and Aldactone have both been stopped. Cardiology making adjustments to his cardiac for optimal function. Nephrology has been consulted. REVIEW OF SYSTEMS: Done for constitutional ,cardiovascular, GI, pulmonary with relevant findings as above. CURRENT MEDICATIONS Aspirin, Lipitor, Coreg, Plavix, Aricept, hydralazine, Levemir, Protonix, Imdur. PHYSICAL EXAM VITAL SIGNS: Temperature 96.8, pulse 56, respiratory rate 18, blood pressure 110/51, oxygen saturation 98% on room air. GENERAL APPEARANCE: Lying in bed, not in distress. EYES: Pupils equal. Conjunctiva normal. NECK: JVD not raised. Mass not palpable. RESPIRATORY: Respiratory effort normal. Lungs diminished to auscultation. CARDIOVASCULAR: First and second sounds normal. No edema. ABDOMEN: Soft. Liver and spleen not palpable. No tenderness. No mass palpable. PSYCHIATRY: Alert and oriented x3. Mood and affect normal. INVESTIGATIONS: Sodium 136, potassium 5.4, BUN 43, creatinine 2.90. Accu-Cheks noted. ASSESSMENT: -Unstable angina patient with known triple-vessel coronary artery disease with prior history of bypass. -Chronic congestive heart failure from systolic dysfunction ejection fraction 20 -25% with additional diastolic dysfunction underlying coronary artery disease. -Coronary artery disease with diffuse disease and prior bypass. 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 -Alzheimer's dementia, late onset type. -Diabetes mellitus type 2 chronically on oral hypoglycemics. -Hyperlipidemia. -Primary osteoarthritis of multiple joints bilaterally. 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 -Pacemaker in place. -Peripheral arterial disease. PLAN: Cardiology adjusting medications for greater optimization nephrology consulted for rising BUN and creatinine. Metformin MILLIE inhibitor and Aldactone AND stopped in light of rising labs. Plan of care discussed with the patient at the bedside he is in agreement. We'll continue to follow closely. ON LINE CSR statement: Patient was seen and examined by nurse practitioner Vickie Mathur and all elements of the case discussed with attending Dr. Noriega <Guy Noriega - Last Filed: 01/30/17 20:57> Progress Note - Text Attending note. Date of service-January 30: This patient was seen and examined by me . Discussed the patient with my nurse practitioner Ms. Mathur. Feeling would better. Tired. Has known triple-vessel disease. Admitted with unstable angina. On examination: Lungs-decreased breath sounds, cardio vascular first seconds are normal Investigations: BUN 43, creatinine 2.90 Assessment and plan: Acute renal failure-could be ATN with a component of prerenal/drug-induced Unstable angina in a patient with known carotid artery disease/blood pressure controlled Nephrology was consulted. MILLIE inhibitor and Aldactone held off. Keep a close and electrolytes
[2017-01-30 16:56] LABS: Glucose,Whole Blood 181 mg/dL (75-99)
[2017-01-30] MEDS: SODIUM CHLORIDE 0.9% 1,000 ML IV SCH (18:04)
[2017-01-30] MEDS: DONEPEZIL 10 MG TAB PO SCH (20:46)
[2017-01-30] MEDS: INSULIN DETEMIR 100 UNIT/ML 10 ML VIAL SQ SCH (20:51)
[2017-01-30 20:59] LABS: Glucose,Whole Blood 163 mg/dL (75-99)
[2017-01-31 06:01] LABS: Glucose,Whole Blood 131 mg/dL (75-99)
[2017-01-31 06:23] LABS: Mean Platelet Volume 7.5
[2017-01-31 06:28] LABS: Calcium 9.5 mg/dL (8.4-10.2); Potassium 5.4 mmol/L (3.5-5.1)
[2017-01-31] MEDS: CARVEDILOL 12.5 MG TAB PO SCH ×2 (06:28→15:15)
[2017-01-31] MEDS: PANTOPRAZOLE 40 MG TABLET PO SCH (06:28)
[2017-01-31] MEDS: hydrALAZINE HCL 50 MG TAB PO SCH ×3 (08:32→19:53)
[2017-01-31] MEDS: ASPIRIN 81 MG CHEW PO SCH (08:33)
[2017-01-31] MEDS: TERBINAFINE 250 MG TAB PO SCH (08:33)
[2017-01-31] MEDS: CLOPIDOGREL 75 MG TAB PO SCH (08:33)
[2017-01-31] MEDS: amLODIPine 10 MG TAB PO SCH (08:33)
[2017-01-31] MEDS: ISOSORBIDE MONONITRATE ER 60 MG TAB.ER.24H PO SCH ×2 (08:33→19:53)
[2017-01-31] MEDS: DORZOLAMIDE-TIMOLOL 2-0.5% DROPS 10 ML BTL BOTH EYES SCH ×2 (08:33→19:52)
[2017-01-31] MEDS: ATORVASTATIN 20 MG TAB PO SCH (08:33)
[2017-01-31] MEDS: BRIMONIDINE TARTRATE 0.2% DROPS 5 ML BTL BOTH EYES SCH ×2 (08:33→19:52)
--- NOTE | 2017-01-31 09:47 | CONS ---
REASON FOR CONSULT: Renal failure. HISTORY OF PRESENT ILLNESS Patient is a 81-year-old who was admitted to the hospital with complaints of chest pain, which started a few hours prior to admission. Patient states he recently had a cardiac catheterization and did not need any intervention. Upon review of his records, it appears that he may have had the cath on 01/22/2017, the notes are not available at this time. Patient denies any prior history of kidney diseases. His serum creatinine was 1.35 on 01/15/2017. It was at 2.3 and it did go up to 2.9 mg/dL yesterday. Today, it is down to 2.1. Apparently, the patient had been on MILLIE inhibitors. he was also on Aldactone. Potassium was elevated at 5.4 and currently MILLIE inhibitors and spironolactone are on hold. Patient is currently not on any IV fluids. He has been voiding well. His blood pressure has been slightly on a lower side with systolic around 110 and 104 mmHg yesterday. On initial admission, it was as high as 175 mmHg systolic. PAST MEDICAL HISTORY Hypertension, coronary artery disease, some degree of dementia, COPD, diabetes, osteoarthritis, peripheral vascular disease, hyperlipidemia, ischemic cardiomyopathy with ejection fraction on echocardiogram on 01/10/2017 to not noted to be low. Patient had moderate concentric LVH. He has moderate to severe hypertension as well. PAST SURGICAL HISTORY Recent cardiac catheterization, surgery for wound on right great toe, coronary artery bypass surgery, cholecystectomy, hernia repair, pacemaker placement, EGD , colonoscopy, cataract surgery. SOCIAL HISTORY Patient is a former smoker. No history of drug abuse or alcohol abuse. REVIEW OF SYSTEMS As per HPI, other systems negative. MEDICATIONS Medications at home prior to admission include Lipitor, insulin, Coreg, pantoprazole, Tambocor. ALLERGIES: Allergies include PREDNISONE. PHYSICAL EXAMINATION On examination, the patient is comfortable, awake, alert, oriented x3, not in any acute distress. Blood pressure is 117/53 earlier this morning and the 150/69 , heart rate 94 per minute. He is afebrile. EXAMINATION OF THE HEART: S1 and S2. EXAMINATION OF THE LUNGS: Bilateral breath sounds are heard. Abdomen is soft, nontender. Examination of the lower extremities shows no significant edema. [employer]ER exam is grossly intact. LABS Labs show sodium 138, potassium 5.4, BUN 38, serum creatinine 2.1. ASSESSMENT: 1. Acute kidney injury most likely acute tubular necrosis from contrast nephropathy. UA is completely benign except for 1+ protein. Serum creatinine is decreasing. Patient is off of MILLIE inhibitors and there are no other nephrotoxic agents noted on board. 2. Hyperkalemia associated with acute kidney injury and use of MILLIE inhibitors and potassium sparing diuretics. Spironolactone is currently on hold. Potassium is at 5.4. Patient will be maintained on a low potassium diet. He is advised to avoid use of NSAIDs and we will continue to hold off on MILLIE inhibitors/ angiotensin receptor blockers for now. 3. Hypertension, currently controlled. Continue with Norvasc and hydralazine. Avoid hypotension. 4. Rule out chronic kidney disease. Patient does have proteinuria and he will need further workup and evaluation down the road. This can be done as outpatient as well. Need to rule out underlying diabetic nephropathy. PLAN: Maintain patient on low potassium diet and continue off of MILLIE inhibitor/ angiotensin receptor blockers and spironolactone and repeat labs in a.m. Possible discharge by tomorrow. Thank you for this consultation. Will continue to follow the patient with you during his hospitalization. JEREMY
--- NOTE | 2017-01-31 12:30 | P.PN ---
Subjective This is a pleasant 81-year-old gentleman who follows regularly with Dr. Strong in the office. He has a known history of coronary artery disease with prior coronary artery bypass grafting surgery as well as redo bypass, patient also had aortic valve replacement and underwent AICD for ischemic cardiomyopathy. Patient has history of diabetes, hypertension, hyperlipidemia, acute on chronic renal insufficiency, paroxysmal atrial fibrillation he is a nonsmoker. He was in the hospital earlier this month ruled in for non-Q-wave myocardial infarction. The decision at that time was made to maximize medical therapy, primarily because of his abnormal renal function. He presents to the hospital on this occasion with symptoms of midsternal chest pressure and heaviness. He also states that his blood pressure has been significantly elevated at home. He did have another episode of chest discomfort this morning , relieved with 2 sublingual nitroglycerin. His EKG on arrival here showed a normal sinus rhythm with a left bundle-branch block pattern and ST-T wave changes in the lateral leads. EKG performed this morning showed a normal sinus rhythm with left bundle branch block pattern and lateral ST-T wave changes. Chest x-ray revealed minimal subsegmental left basilar atelectasis. Blood pressure on arrival 228/96, heart rate in the 50s. Blood pressure this morning 194/80 with a heart rate in the 60s. CBC normal. Potassium on admission 5.5, 5.0 this morning. BUN 37 and 2.0 creatinine on admission, 37 and 2.3 this morning. Magnesium level I.7. Troponins 0.040, 0.064, 0.063. At the time of my examination this morning, patient is currently chest pain-free after receiving 2 sublingual nitroglycerin. His home medications include Lipitor 20 mg daily, Coreg 25 mg twice a day, Plavix 75 mg daily, flecainide 50 mg twice a day, Imdur 60 twice a day, Zestril 2-1/2 mg daily, Aldactone 25 mg daily, and hydralazine 50 mg one tablet by mouth 3 times a day. We will hold the patient' s Aldactone and MILLIE inhibitor because of the elevated potassium and abnormal renal function. 01/30/2017 Patient seen and examined this morning, denies any further chest discomfort. Overall he states he is feeling better today. Creatinine today is 2.9 potassium 5.4. We will continue to hold the Aldactone and MILLIE inhibitor. Recommend consultation with nephrology. 01/31/2017 Patient seen and examined this morning, blood pressure 118/54, heart rate in the 80s. Feeling much better overall. Potassium 5.4, BUN 38, creatinine 2.1. Mary was 2.9 yesterday. MILLIE inhibitor and Aldactone continue to be on hold. Objective - Vital Signs Vital signs: Vital Signs Temp 97.4 F L 01/31/17 12:00 Pulse 80 01/31/17 12:00 Resp 16 01/31/17 12:00 BP 118/54 01/31/17 12:00 Pulse Ox 95 01/31/17 12:00 Intake & Output 01/30/17 01/31/17 01/31/17 18:59 06:59 18:59 Intake Total 500 180 Output Total 250 300 Balance 250 -300 180 Weight 73.2 kg Intake: IV 140 Sodium Chloride 0.9% 1, 140 000 ml @ 20 mls/hr IV . Q24H TEDDY Rx#:[id number] Oral 360 180 Output: Urine 250 300 Other: Voiding Method Toilet Urinal # Voids 0 1 - Exam PHYSICAL EXAMINATION: HEENT: Head is atraumatic, normocephalic. Pupils equal, round. Neck is supple. There is no elevated jugular venous pressure. HEART EXAMINATION: S1 and S2 systolic murmur is heard. CHEST EXAMINATION: Lungs are clear to auscultation and precussion. No chest wall tenderness is noted on palpation or with deep breathing.] ABDOMEN: [ Soft, nontender. Bowel sounds are heard. No organomegaly noted]. EXTREMITIES:[1+ peripheral pulses with no evidence of peripheral edema and no calf tenderness noted]. NEUROLOGIC [patient is awake, alert and oriented -3.] . - Labs CBC & Chem 7: 01/31/17 05:22 01/31/17 05:22 Labs: Abnormal Lab Results - Last 24 Hours (Table) 01/30/17 01/30/17 01/31/17 Range/Units 16:45 20:51 05:22 Potassium 5.4 H (3.5-5.1) mmol/L Carbon Dioxide 21 L (22-30) mmol/L BUN 38 H (9-20) mg/dL Creatinine 2.10 H (0.66-1.25) mg/dL Glucose 127 H (74-99) mg/dL POC Glucose (mg/dL) 181 H 163 H (75-99) mg/dL 01/31/17 Range/Units 06:00 Potassium (3.5-5.1) mmol/L Carbon Dioxide (22-30) mmol/L BUN (9-20) mg/dL Creatinine (0.66-1.25) mg/dL Glucose (74-99) mg/dL POC Glucose (mg/dL) 131 H (75-99) mg/dL Assessment and Plan Plan: Assessment and plan #1 chest discomfort, suggestive of angina. Patient was in the hospital earlier this month with a non-Q-wave myocardial infarction, axilla medical therapy advised at that time. Troponins 0.04, 0.06, 0.06. Not consistent with acute coronary syndrome. EKG shows a normal sinus rhythm with left bundle branch block pattern and nonspecific ST-T wave changes #2 accelerated hypertension #3 known history of coronary artery disease with prior bypass surgery and stent placements #4 ischemic cardiomyopathy with prior AICD # 5 acute on chronic renal failure #6 hyperkalemia #7 hypertension #8 diabetes #9 hyperlipidemia Plan We will continue to hold the MILLIE inhibitor and Aldactone. Appreciate nephrology consultation. Creatinine is improving. Possible discharge home in the morning. DNP note has been reviewed, I agree with a documented findings and plan of care. Patient was seen and examined.
[2017-01-31 14:07] LABS: Glucose,Whole Blood 185 mg/dL (75-99)
[2017-01-31] MEDS: SODIUM CHLORIDE 0.9% 1,000 ML IV SCH (15:18)
[2017-01-31 16:39] LABS: Glucose,Whole Blood 186 mg/dL (75-99)
--- NOTE | 2017-01-31 16:59 | P.PN ---
<Vickie Mathur - Last Filed: 01/31/17 16:37> Progress Note - Text DATE OF SERVICE: 01/31/2017 PRESENTING COMPLAINT: Chest pain HISTORY OF PRESENT ILLNESS: 81-year-old patient with coronary artery disease recent stent placement showed severe disease, CHF with an EF 20% presented with central chest pain, history significant for acute AK earlier this month. INTERVAL HISTORY: 01/31/2017: Patient lying in bed appears comfortable. No further complaints of chest pain. IV heparin infusing. Kidney function improving. Nephrology to see the patient. Cardiology adjusting medication in light of the increased to his kidney function. Tolerating his diet eating 50-75% of his meals, ambulatory in the room, moving his bowels. 01/30/2017: Patient lying in bed appears comfortable. No complaints of any further chest pain. IV heparin infusing. Kidney function is on the rise BUN and creatinine today 43/2.90 respectively and potassium is 5.4. MILLIE inhibitor and Aldactone have both been stopped. Cardiology making adjustments to his cardiac for optimal function. Nephrology has been consulted. REVIEW OF SYSTEMS: Done for constitutional ,cardiovascular, GI, pulmonary with relevant findings as above. CURRENT MEDICATIONS Aspirin, Lipitor, Coreg, Plavix, Aricept, hydralazine, Levemir, Protonix, Imdur. PHYSICAL EXAM VITAL SIGNS: Temperature 97.2 pulse 74 respiratory rate 16, blood pressure 123/58, oxygen saturation 96% on room air. GENERAL APPEARANCE: Lying in bed, not in distress. EYES: Pupils equal. Conjunctiva normal. NECK: JVD not raised. Mass not palpable. RESPIRATORY: Respiratory effort normal. Lungs diminished to auscultation. CARDIOVASCULAR: First and second sounds normal. No edema. ABDOMEN: Soft. Liver and spleen not palpable. No tenderness. No mass palpable. PSYCHIATRY: Alert and oriented x3. Mood and affect normal. INVESTIGATIONS: Sodium 138, potassium 5.4, BUN 38, creatinine 2.10, Accu-Cheks noted. ASSESSMENT: -Unstable angina patient with known triple-vessel coronary artery disease with prior history of bypass. -Acute Non-Q wave myocardial infarction on 01/10/2017, not this admission -Chronic congestive heart failure from systolic dysfunction ejection fraction 20 -25% with additional diastolic dysfunction underlying coronary artery disease. -Acute kidney injury most likely acute tubular necrosis from contrast nephropathy -Hyperkalemia associated with acute kidney injury and MILLIE inhibitor use, potassium sparing diuretics. -Coronary artery disease with diffuse disease and prior bypass. 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 -Alzheimer's dementia, late onset type. -Diabetes mellitus type 2 chronically on oral hypoglycemics. -Hyperlipidemia. -Primary osteoarthritis of multiple joints bilaterally. 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 -Pacemaker in place. -Peripheral arterial disease. PLAN: Serum creatinine improving, per nephrology, off MILLIE inhibitor as well as his Aldactone held, maintain on a low potassium diet. Has proteinuria for which he can follow-up with nephrology outpatient. Discharge planning in the next 24-48 hours. Plan of care discussed with the patient at the bedside is in agreement. We'll follow closely [facility] statement: Patient was seen and examined by nurse practitioner Vickie Mathur and all elements of the case discussed with attending Dr. Noriega <Guy Noriega - Last Filed: 01/31/17 18:22> Progress Note - Text Attending note. Date of service-01/31/2017 This patient was seen and examined by me . Discussed the patient with my nurse practitioner Ms. Mathur. Feeling better. Been up in the hallway. No more chest pain. Renal function has been off. Awaiting input from nephrology. On examination: Lungs-creased breath sounds, cardiovascular first seconds are normal. Blood pressure 102/51 Investigations: BUN 38, creatinine 2.10 Assessment and plan: Acute renal failure likely ATN could be drug-induced/contrast nephropathy, improving Unstable angina improved. Repeat labs in the morning. Hopefully can be discharged tomorrow care discussed with the patient.
[2017-01-31] MEDS: NITROGLYCERIN SL TABS 0.4 MG TAB SUBLINGUAL PRN ×3 (18:14→18:25)
[2017-01-31] MEDS ORDERED: NITROGLYCERIN-D5W PMX 50 MG in DEXTROSE/WATER 1 250ML.BAG IV SCH (18:45)
[2017-01-31] MEDS ORDERED: HYDROmorphone 1 MG/ML 1 ML SYRINGE IVP STA (18:46)
[2017-01-31] MEDS: DONEPEZIL 10 MG TAB PO SCH (19:53)
[2017-01-31] MEDS: ACETAMINOPHEN TAB 325 MG TAB PO PRN (20:21)
[2017-01-31 21:10] LABS: Glucose,Whole Blood 261 mg/dL (75-99)
[2017-01-31] MEDS: INSULIN DETEMIR 100 UNIT/ML 10 ML VIAL SQ SCH (21:20)
[2017-02-01 06:04] LABS: Glucose,Whole Blood 137 mg/dL (75-99)
[2017-02-01] MEDS: PANTOPRAZOLE 40 MG TABLET PO SCH (06:16)
[2017-02-01] MEDS: CARVEDILOL 12.5 MG TAB PO SCH ×2 (06:16→17:11)
[2017-02-01 06:59] LABS: Basophils % (A) 1 %; CH 29.7; CHCM 33.7; Eosinophils % (A) 0 %; HCT 37.3 % (39.0-53.0); HGB 12.1 gm/dL (13.0-17.5); Luc # (Auto) 0.09; Luc % (Auto) 2; Lymphocytes # (A) 0.3 k/uL (1.0-4.8); Lymphocytes % (A) 8 %; MCH 28.8 pg (25.0-35.0); MCHC 32.5 g/dL (31.0-37.0); MCV 88.5 fL (80.0-100.0); Mean Platelet Volume 7.7; Monocytes # (A) 0.3 k/uL (0-1.0); Monocytes % (A) 6 %; Neutrophils # (A) 3.4 k/uL (1.3-7.7); Neutrophils % (A) 82 %; RBC 4.22 m/uL (4.30-5.90); RDW 15.4 % (11.5-15.5); WBC 4.1 k/uL (3.8-10.6); WBC (Perox) 4.17
[2017-02-01 07:09] LABS: Potassium 5.1 mmol/L (3.5-5.1)
[2017-02-01] MEDS: ATORVASTATIN 20 MG TAB PO SCH (08:12)
[2017-02-01] MEDS: amLODIPine 10 MG TAB PO SCH (08:12)
[2017-02-01] MEDS: ASPIRIN 81 MG CHEW PO SCH (08:12)
[2017-02-01] MEDS: hydrALAZINE HCL 50 MG TAB PO SCH ×2 (08:13→17:10)
[2017-02-01] MEDS: DORZOLAMIDE-TIMOLOL 2-0.5% DROPS 10 ML BTL BOTH EYES SCH ×2 (08:13→21:23)
[2017-02-01] MEDS: BRIMONIDINE TARTRATE 0.2% DROPS 5 ML BTL BOTH EYES SCH ×2 (08:13→21:23)
[2017-02-01] MEDS: CLOPIDOGREL 75 MG TAB PO SCH (08:13)
[2017-02-01] MEDS: ISOSORBIDE MONONITRATE ER 60 MG TAB.ER.24H PO SCH ×2 (08:13→21:26)
--- NOTE | 2017-02-01 11:10 | P.PN ---
Subjective This is a pleasant 81-year-old gentleman who follows regularly with Dr. Strong in the office. He has a known history of coronary artery disease with prior coronary artery bypass grafting surgery as well as redo bypass, patient also had aortic valve replacement and underwent AICD for ischemic cardiomyopathy. Patient has history of diabetes, hypertension, hyperlipidemia, acute on chronic renal insufficiency, paroxysmal atrial fibrillation he is a nonsmoker. He was in the hospital earlier this month ruled in for non-Q-wave myocardial infarction. The decision at that time was made to maximize medical therapy, primarily because of his abnormal renal function. He presents to the hospital on this occasion with symptoms of midsternal chest pressure and heaviness. He also states that his blood pressure has been significantly elevated at home. He did have another episode of chest discomfort this morning , relieved with 2 sublingual nitroglycerin. His EKG on arrival here showed a normal sinus rhythm with a left bundle-branch block pattern and ST-T wave changes in the lateral leads. EKG performed this morning showed a normal sinus rhythm with left bundle branch block pattern and lateral ST-T wave changes. Chest x-ray revealed minimal subsegmental left basilar atelectasis. Blood pressure on arrival 228/96, heart rate in the 50s. Blood pressure this morning 194/80 with a heart rate in the 60s. CBC normal. Potassium on admission 5.5, 5.0 this morning. BUN 37 and 2.0 creatinine on admission, 37 and 2.3 this morning. Magnesium level I.7. Troponins 0.040, 0.064, 0.063. At the time of my examination this morning, patient is currently chest pain-free after receiving 2 sublingual nitroglycerin. His home medications include Lipitor 20 mg daily, Coreg 25 mg twice a day, Plavix 75 mg daily, flecainide 50 mg twice a day, Imdur 60 twice a day, Zestril 2-1/2 mg daily, Aldactone 25 mg daily, and hydralazine 50 mg one tablet by mouth 3 times a day. We will hold the patient' s Aldactone and MILLIE inhibitor because of the elevated potassium and abnormal renal function. 01/30/2017 Patient seen and examined this morning, denies any further chest discomfort. Overall he states he is feeling better today. Creatinine today is 2.9 potassium 5.4. We will continue to hold the Aldactone and MILLIE inhibitor. Recommend consultation with nephrology. 01/31/2017 Patient seen and examined this morning, blood pressure 118/54, heart rate in the 80s. Feeling much better overall. Potassium 5.4, BUN 38, creatinine 2.1. Creatinine was 2.9 yesterday. MILLIE inhibitor and Aldactone continue to be on hold. 02/01/2017 Patient seen and examined this morning, he did have an episode of chest discomfort through the night last night relieved with 3 sublingual nitroglycerin and is currently on nitroglycerin drip. EKG shows a sinus bradycardia with right bundle branch block pattern and nonspecific ST-T wave changes. At the time of our examination this morning, he is currently chest pain-free. Dr. Nuñez did have a lengthy discussion with the patient and the family regarding the risk of injuring the kidneys by doing cardiac catheterization. We will repeat the troponin, if there is a rise in troponin, we will discuss with Dr. Strong regarding possible cardiac catheterization. Patient and family do understand the risks with the kidneys. Blood pressure this morning 98/58, heart rate in the 70s. Potassium 5.1, creatinine 1.9 today. Objective - Vital Signs Vital signs: Vital Signs Temp 97.6 F 02/01/17 08:19 Pulse 76 02/01/17 08:19 Resp 16 02/01/17 08:19 BP 99/58 02/01/17 08:19 Pulse Ox 97 02/01/17 08:19 Intake & Output 01/31/17 02/01/17 02/01/17 18:59 06:59 18:59 Intake Total 180 420 120 Output Total 600 200 Balance 180 -180 -80 Weight 73 kg Intake: Oral 180 420 120 Output: Urine 600 200 Other: Voiding Method Toilet Urinal # Voids 1 - Exam PHYSICAL EXAMINATION: HEENT: Head is atraumatic, normocephalic. Pupils equal, round. Neck is supple. There is no elevated jugular venous pressure. HEART EXAMINATION: S1 and S2 systolic murmur is heard. CHEST EXAMINATION: Lungs are clear w fine crackles to the bases. No chest wall tenderness is noted on palpation or with deep breathing.] ABDOMEN: [ Soft, nontender. Bowel sounds are heard. No organomegaly noted]. EXTREMITIES:[1+ peripheral pulses with no evidence of peripheral edema and no calf tenderness noted]. NEUROLOGIC [patient is awake, alert and oriented -3.] . - Labs CBC & Chem 7: 02/01/17 06:11 02/01/17 06:11 Labs: Abnormal Lab Results - Last 24 Hours (Table) 01/31/17 01/31/17 01/31/17 Range/Units 11:39 16:27 21:09 RBC (4.30-5.90) m/uL Hgb (13.0-17.5) gm/dL Hct (39.0-53.0) % Lymphocytes # (1.0-4.8) k/uL BUN (9-20) mg/dL Creatinine (0.66-1.25) mg/dL Glucose (74-99) mg/dL POC Glucose (mg/dL) 185 H 186 H 261 H (75-99) mg/dL 02/01/17 02/01/17 02/01/17 Range/Units 06:02 06:11 06:11 RBC 4.22 L (4.30-5.90) m/uL Hgb 12.1 L (13.0-17.5) gm/dL Hct 37.3 L (39.0-53.0) % Lymphocytes # 0.3 L (1.0-4.8) k/uL BUN 33 H (9-20) mg/dL Creatinine 1.94 H (0.66-1.25) mg/dL Glucose 134 H (74-99) mg/dL POC Glucose (mg/dL) 137 H (75-99) mg/dL Assessment and Plan Plan: Assessment and plan #1 chest discomfort, suggestive of angina. Patient was in the hospital earlier this month with a non-Q-wave myocardial infarction, axilla medical therapy advised at that time. Troponins 0.04, 0.06, 0.06. Not consistent with acute coronary syndrome. EKG shows a normal sinus rhythm with left bundle branch block pattern and nonspecific ST-T wave changes #2 accelerated hypertension #3 known history of coronary artery disease with prior bypass surgery and stent placements #4 ischemic cardiomyopathy with prior AICD # 5 acute on chronic renal failure #6 hyperkalemia #7 hypertension #8 diabetes #9 hyperlipidemia Plan We will continue to hold the MILLIE inhibitor and Aldactone. Patient did have an episode of chest discomfort through the night, relieved with 3 sublingual nitroglycerin. He is currently on IV nitroglycerin drip. We will obtain a stat troponin, it is been explained to the patient and family in detail that he may need to undergo cardiac catheterization in spite of the wrist to his kidneys. Further recommendations to follow. DNP note has been reviewed, I agree with a documented findings and plan of care. Patient was seen and examined.
[2017-02-01 11:44] LABS: Glucose,Whole Blood 133 mg/dL (75-99)
--- NOTE | 2017-02-01 14:30 | CDI ---
In responding to this query, please exercise your independent professional judgment. The [facility] Coding Staff and Clinical Documentation Specialists appreciate your assistance in clarifying documentation, maintaining compliance with coding guidelines, accurately documenting patients condition and capturing severity of illness. The fact that a question is asked does not imply that any particular answer is desired or expected. Communication forms are a method of clarifying documentation and are not made part of the Legal Health Record. Thank you in advance for your clarification. Last Revision, April 2015 Kaitlin Silver [address] [place] [address] Documentation Clarification Form Date: 02/01/2017 1:41:00 PM From: Denita Fairbanks Admit Date: 01/28/2017 6:44:00 PM Patient Name: Dakotah Gudino Visit Number: [id number] Discharge Date: Dr. Guy Noriega/Vickie Mathur NP-C Accelerated malignant hypertension is documented in your H&P and progress notes, Patient history/risk factors: Coronary artery disease Systolic CHF, Pulmonary hypertension Diabetes, Chronic kidney disease stage III, [place] 01/10/17 Clinical Indicators: Patient presents with chest pain central, off and on dull in nature Lab findings: BUN 37, CR 2.00, Troponin 0.040, 0.064, 0.063 Vital Signs on admission: 228/96 58 18 98.2, 217/98 61 18, 198.85 60 18 Treatment Nitrostat SL Lopressor PO Labetalol HCL IVP x1 Apresoline PO Morphine IV PRN In your professional opinion, can you please further clarify if the accelerated malignant hypertension (Essential Hypertension) meets the criteria for? Hypertensive Urgency Hypertensive Crisis Hypertensive Emergency Other Unable to determine Please document in your progress notes and discharge summary in order to capture severity of illness and risk of mortality. Include clinical findings that support your diagnosis. FYI: Press F11 to launch patient chart. JEREMY
--- NOTE | 2017-02-01 16:04 | P.PN ---
<Vickie Mathur - Last Filed: 02/01/17 15:48> Progress Note - Text DATE OF SERVICE: 02/01/2017 PRESENTING COMPLAINT: Chest pain HISTORY OF PRESENT ILLNESS: 81-year-old patient with coronary artery disease recent stent placement showed severe disease, CHF with an EF 20% presented with central chest pain, history significant for acute AR earlier this month. INTERVAL HISTORY: 02/01/2017: Patient sitting up at the bedside appears anxious. Had an episode of chest pain yesterday during the late afternoon and was relieved with sublingual nitroglycerin. Cardiology placed patient on nitroglycerin drip. Continues on nitroglycerin drip and MILLIE inhibitor and Aldactone on hold. Troponin drawn and was elevated. May need to undergo cardiac catheterization to obtain relief. BUN and creatinine have returned to admission levels. Potassium level improved Continues on low potassium diet. 01/31/2017: Patient lying in bed appears comfortable. No further complaints of chest pain. IV heparin infusing. Kidney function improving. Nephrology to see the patient. Cardiology adjusting medication in light of the increased to his kidney function. Tolerating his diet eating 50-75% of his meals, ambulatory in the room, moving his bowels. 01/30/2017: Patient lying in bed appears comfortable. No complaints of any further chest pain. IV heparin infusing. Kidney function is on the rise BUN and creatinine today 43/2.90 respectively and potassium is 5.4. MILLIE inhibitor and Aldactone have both been stopped. Cardiology making adjustments to his cardiac for optimal function. Nephrology has been consulted. REVIEW OF SYSTEMS: Done for constitutional ,cardiovascular, GI, pulmonary with relevant findings as above. CURRENT MEDICATIONS Aspirin, Lipitor, Coreg, Plavix, Aricept, hydralazine, Levemir, Protonix, Imdur. PHYSICAL EXAM VITAL SIGNS: Temperature 97.6, pulse 76, respiratory rate 16, blood pressure 106/55, oxygen saturation 97% on room air. GENERAL APPEARANCE: Lying in bed, anxious appearing. EYES: Pupils equal. Conjunctiva normal. NECK: JVD not raised. Mass not palpable. RESPIRATORY: Respiratory effort normal. Lungs diminished to auscultation. CARDIOVASCULAR: First and second sounds normal. No edema. ABDOMEN: Soft. Liver and spleen not palpable. No tenderness. No mass palpable. PSYCHIATRY: Alert and oriented x3. Mood and affect anxious appearing. INVESTIGATIONS: Hemoglobin 12.1, BUN 33, creatinine 1.94, troponin 0.049. Accu-Cheks noted. ASSESSMENT: -Unstable angina patient with known triple-vessel coronary artery disease with prior history of bypass. -Acute Non-Q wave myocardial infarction on 01/10/2017, not this admission -Chronic congestive heart failure from systolic dysfunction ejection fraction 20 -25% with additional diastolic dysfunction underlying coronary artery disease. -Acute kidney injury most likely acute tubular necrosis from contrast nephropathy/drug-induced, improving -Hyperkalemia associated with acute kidney injury and MILLIE inhibitor use, potassium sparing diuretics. -Coronary artery disease with diffuse disease and prior bypass. 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 -Alzheimer's dementia, late onset type. -Diabetes mellitus type 2 chronically on oral hypoglycemics. -Hyperlipidemia. -Primary osteoarthritis of multiple joints bilaterally. 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 -Pacemaker in place. -Peripheral arterial disease. PLAN: Serum creatinine improving, off MILLIE inhibitor as well as his Aldactone held, maintain on a low potassium diet. Potassium level improved today. Had an episode of chest pain lately day yesterday relieved with nitro currently on a nitro drip cardiology is evaluating the possibility of doing a cardiac catheterization although concerns for damage done from contrast. Will await input from cardiology. Discussion had with the patient at the bedside regarding CODE STATUS as patient is currently full code, patient agreement that he does not want to be resuscitated or placed on the ventilator should his heart stop. CODE STATUS will be changed to DO NOT RESUSCITATE Plan of care discussed with the patient at the bedside is in agreement. We'll follow closely PRICING ANALYST statement: Patient was seen and examined by nurse practitioner Vickie Mathur and all elements of the case discussed with attending Dr. Noriega <Guy Noriega - Last Filed: 02/01/17 17:54> Progress Note - Text Attending note. Date of service-02/01/2017 This patient was seen and examined by me . Discussed the patient with my nurse practitioner Ms. Mathur. Patient had further episodes of chest pain. Put on nitroglycerin drip by cardiology. Eating his meals. On examination: Lungs-decreased breath sounds, cardiovascular first seconds are normal Investigations: Troponin 0.049 Assessment and plan: Unstable angina in a patient with known coronary artery disease and chronic kidney disease. Patient really does not want to have a cardiac Cause of his renal function. He is not a good surgical candidate. Advanced care planning: Had a talk to the patient about his end-of-life care. Discussed regarding his poor cardiac status and multiple other problems that he has. Patient was to be a DO NOT RESUSCITATE. We will continue to treat the patient. This in addition to the progress note took about 20 minutes
[2017-02-01 16:48] LABS: Glucose,Whole Blood 152 mg/dL (75-99)
[2017-02-01] MEDS: ACETAMINOPHEN TAB 325 MG TAB PO PRN (17:10)
[2017-02-01] MEDS: RANOLAZINE 500 MG TAB.ER.12H PO SCH (17:10)
[2017-02-01] MEDS: SODIUM CHLORIDE 0.9% 1,000 ML IV SCH (17:12)
[2017-02-01 20:57] LABS: Glucose,Whole Blood 158 mg/dL (75-99)
[2017-02-01] MEDS: DONEPEZIL 10 MG TAB PO SCH (21:23)
[2017-02-01] MEDS: INSULIN DETEMIR 100 UNIT/ML 10 ML VIAL SQ SCH (21:32)
[2017-02-02] MEDS: hydrALAZINE HCL 50 MG TAB PO SCH ×3 (02:21→21:05)
[2017-02-02] MEDS: RANOLAZINE 500 MG TAB.ER.12H PO SCH ×3 (02:23→21:05)
[2017-02-02 03:28] LABS: Appearance,Urine Clear (Clear); Bilirubin,Urine Negative (Negative); Glucose,Urine (UA) Negative (Negative); Ketones,Urine Negative (Negative); Leukocyte Esterase,Urine Negative (Negative); Mucus,Urine Rare /hpf; Nitrite,Urine Negative (Negative); Particle Count 2434; Protein,Urine 1+ (Negative); RBC,Urine 1 /hpf (0-5); Specific Gravity,Urine 1.012 (1.001-1.035); Squamous Epithelial Cell,Urine <1 /hpf (0-4); UA Billing (MACRO vs. MICRO) MICRO; Urobilinogen,Urine <2.0 mg/dL (<2.0); WBC,Urine <1 /hpf (0-5)
[2017-02-02 06:10] LABS: Glucose,Whole Blood 126 mg/dL (75-99)
[2017-02-02 06:59] LABS: Calcium 8.9 mg/dL (8.4-10.2); Potassium 4.9 mmol/L (3.5-5.1)
[2017-02-02] MEDS: CARVEDILOL 12.5 MG TAB PO SCH ×2 (07:24→17:12)
[2017-02-02] MEDS: PANTOPRAZOLE 40 MG TABLET PO SCH (07:25)
[2017-02-02] MEDS ORDERED: AMINOPHYLLINE 500 MG/20 ML VIAL IV PRN (08:07)
[2017-02-02] MEDS ORDERED: REGADENOSON 0.4 MG/5 ML SYRINGE IV ONE (08:07)
[2017-02-02] MEDS: ASPIRIN 81 MG CHEW PO SCH (08:20)
[2017-02-02] MEDS: ISOSORBIDE MONONITRATE ER 60 MG TAB.ER.24H PO SCH ×2 (08:20→21:06)
[2017-02-02] MEDS: amLODIPine 10 MG TAB PO SCH (08:20)
[2017-02-02] MEDS: BRIMONIDINE TARTRATE 0.2% DROPS 5 ML BTL BOTH EYES SCH ×2 (08:21→21:04)
[2017-02-02] MEDS: DORZOLAMIDE-TIMOLOL 2-0.5% DROPS 10 ML BTL BOTH EYES SCH ×2 (08:21→21:05)
[2017-02-02] MEDS: ATORVASTATIN 20 MG TAB PO SCH (08:21)
[2017-02-02] MEDS: CLOPIDOGREL 75 MG TAB PO SCH (08:22)
--- NOTE | 2017-02-02 08:58 | PN ---
PROGRESS NOTE Date of Service: HISTORY: The patient is seen for followup for acute kidney injury which appears to be mainly ATN from contrast nephropathy. The patient's previous creatinine was 1.35 on 01/15/2017, it went up to 2.0 and 2.9 mg/dL. Creatinine is down to 1.9, however, he had chest pains last night and is consideration for possible repeat cardiac catheterization. Currently patient denies any chest pain. PHYSICAL EXAMINATION: Blood pressure is 106/55, heart rate 70 per minute. He is afebrile. Examination of the heart S1 and S2. No S3. Lungs bilateral breath sounds decreased. Heart sounds are heard. Abdomen is soft, nontender. No edema is noted in the lower extremities. LABS: Serum creatinine 1.94, sodium 137, potassium 5.1. ASSESSMENT: 1. Acute kidney injury, acute tubular necrosis, from contrast nephropathy as well as possibly related to hypotension, hypoperfusion. Currently off of MILLIE inhibitors. Renal function slightly improved, however, there is increased risk of further injury if the patient has a repeat cardiac catheterization. The patient has had recurrent chest pain and therefore I have discussed with the patient and his that if we need to proceed with cardiac catheterization, we will need to go ahead and we will maintain him on IV fluids. He is currently not on any other nephrotoxic agents. I will discuss this further with Cardiology. 2. Hypertension, currently controlled. Blood pressure is not elevated. The patient is maintained on Norvasc. 3. Rule out chronic kidney disease from diabetic nephropathy. 4. Hyperkalemia, currently improved. PLAN: We will discuss with Cardiology. If cardiac cath is absolutely indicated we will need to proceed with consideration for increased risk of further kidney injury. We will maintain him on IV fluids if the catheterization is planned. MMODL / IJN: [id number] /
--- NOTE | 2017-02-02 11:41 | NM ---
EXAMINATION TYPE: NM stress lexiscan cardiolite DATE OF EXAM: 02/02/2017 COMPARISON: NONE HISTORY: Chest pain TECHNIQUE: After the intravenous administration of 10.89 mCi Tc 99m Sestamibi - Cardiolite resting S PECT images acquired 45 minutes post injection. The patient received 0.4mg Lexiscan, 27.1 mCi Tc 99m Sestamibi - Stress images obtained [address] injection FINDINGS: Gated analysis shows normal wall motion with an estimated left ventricular ejection fraction of 29 %. This is very low, normal greater than 50%, wall motion is severely hypokinetic. There is diminished radiotracer accumulation along the anterior wall and along the lateral wall on th e stress images. The anterior wall has some improvement radiotracer compared to the stress images. Po lar maps suggest the lateral wall reversibility as well. IMPRESSION: 1. Severe stress-induced ischemic changes anterior and lateral claudio with a low ejection fraction 29% . 2. Fixed defect infarct not identified.
[2017-02-02 11:55] LABS: Glucose,Whole Blood 138 mg/dL (75-99)
[2017-02-02] MEDS ORDERED: ATORVASTATIN 80 MG TAB PO STA (12:25)
[2017-02-02] MEDS ORDERED: NITROGLYCERIN SL TABS 0.4 MG TAB SUBLINGUAL PRN (12:25)
[2017-02-02] MEDS ORDERED: ALPRAZolam 0.25 MG TAB PO PRN (12:25)
[2017-02-02] MEDS ORDERED: ASPIRIN 325 MG TAB PO STA (12:25)
[2017-02-02] MEDS ORDERED: SODIUM CHLORIDE 0.9% 1,000 ML in EMPTY BAG 1 BAG IV ONE (12:25)
--- NOTE | 2017-02-02 14:24 | P.PN ---
Subjective This is a pleasant 81-year-old gentleman who follows regularly with Dr. Strong in the office. He has a known history of coronary artery disease with prior coronary artery bypass grafting surgery as well as redo bypass, patient also had aortic valve replacement and underwent AICD for ischemic cardiomyopathy. Patient has history of diabetes, hypertension, hyperlipidemia, acute on chronic renal insufficiency, paroxysmal atrial fibrillation he is a nonsmoker. He was in the hospital earlier this month ruled in for non-Q-wave myocardial infarction. The decision at that time was made to maximize medical therapy, primarily because of his abnormal renal function. He presents to the hospital on this occasion with symptoms of midsternal chest pressure and heaviness. He also states that his blood pressure has been significantly elevated at home. He did have another episode of chest discomfort this morning , relieved with 2 sublingual nitroglycerin. His EKG on arrival here showed a normal sinus rhythm with a left bundle-branch block pattern and ST-T wave changes in the lateral leads. EKG performed this morning showed a normal sinus rhythm with left bundle branch block pattern and lateral ST-T wave changes. Chest x-ray revealed minimal subsegmental left basilar atelectasis. Blood pressure on arrival 228/96, heart rate in the 50s. Blood pressure this morning 194/80 with a heart rate in the 60s. CBC normal. Potassium on admission 5.5, 5.0 this morning. BUN 37 and 2.0 creatinine on admission, 37 and 2.3 this morning. Magnesium level I.7. Troponins 0.040, 0.064, 0.063. At the time of my examination this morning, patient is currently chest pain-free after receiving 2 sublingual nitroglycerin. His home medications include Lipitor 20 mg daily, Coreg 25 mg twice a day, Plavix 75 mg daily, flecainide 50 mg twice a day, Imdur 60 twice a day, Zestril 2-1/2 mg daily, Aldactone 25 mg daily, and hydralazine 50 mg one tablet by mouth 3 times a day. We will hold the patient' s Aldactone and MILLIE inhibitor because of the elevated potassium and abnormal renal function. 01/30/2017 Patient seen and examined this morning, denies any further chest discomfort. Overall he states he is feeling better today. Creatinine today is 2.9 potassium 5.4. We will continue to hold the Aldactone and MILLIE inhibitor. Recommend consultation with nephrology. 01/31/2017 Patient seen and examined this morning, blood pressure 118/54, heart rate in the 80s. Feeling much better overall. Potassium 5.4, BUN 38, creatinine 2.1. Creatinine was 2.9 yesterday. MILLIE inhibitor and Aldactone continue to be on hold. 02/01/2017 Patient seen and examined this morning, he did have an episode of chest discomfort through the night last night relieved with 3 sublingual nitroglycerin and is currently on nitroglycerin drip. EKG shows a sinus bradycardia with right bundle branch block pattern and nonspecific ST-T wave changes. At the time of our examination this morning, he is currently chest pain-free. Dr. Nuñez did have a lengthy discussion with the patient and the family regarding the risk of injuring the kidneys by doing cardiac catheterization. We will repeat the troponin, if there is a rise in troponin, we will discuss with Dr. Strong regarding possible cardiac catheterization. Patient and family do understand the risks with the kidneys. Blood pressure this morning 98/58, heart rate in the 70s. Potassium 5.1, creatinine 1.9 today. 02/02/2017 Patient seen and examined this morning, no further chest pain. Lexiscan performed today revealed severe stress-induced ischemia in the anterior and lateral claudio with a low ejection fraction of 29%. Creatinine 2.09 today, BUN 34, potassium 4.9. Because of the abnormality of the stress test along with the non-Q wave myocardial infarction patient has been advised to undergo cardiac catheterization tomorrow. He does understand the risks to his kidneys. We will speak with Dr. Stewart as well prior. Objective - Vital Signs Vital signs: Vital Signs Temp 97.0 F L 02/02/17 08:00 Pulse 63 02/02/17 08:00 Resp 16 02/02/17 08:00 BP 108/48 02/02/17 08:00 Pulse Ox 97 02/02/17 08:00 Intake & Output 02/01/17 02/02/17 02/02/17 18:59 06:59 18:59 Intake Total 310 336 Output Total 600 350 Balance -290 -350 336 Weight 72.5 kg Intake: Oral 310 336 Output: Urine 600 350 Other: Voiding Method Toilet Urinal # Voids 1 1 1 - Exam PHYSICAL EXAMINATION: HEENT: Head is atraumatic, normocephalic. Pupils equal, round. Neck is supple. There is no elevated jugular venous pressure. HEART EXAMINATION: S1 and S2 systolic murmur is heard. CHEST EXAMINATION: Lungs are clear w fine crackles to the bases. No chest wall tenderness is noted on palpation or with deep breathing.] ABDOMEN: [ Soft, nontender. Bowel sounds are heard. No organomegaly noted]. EXTREMITIES:[1+ peripheral pulses with no evidence of peripheral edema and no calf tenderness noted]. NEUROLOGIC [patient is awake, alert and oriented -3.] . - Labs CBC & Chem 7: 02/01/17 06:11 02/02/17 06:02 Labs: Abnormal Lab Results - Last 24 Hours (Table) 02/01/17 02/01/17 02/01/17 Range/Units 03:00 16:46 20:54 Sodium (137-145) mmol/L Carbon Dioxide (22-30) mmol/L BUN (9-20) mg/dL Creatinine (0.66-1.25) mg/dL Glucose (74-99) mg/dL POC Glucose (mg/dL) 152 H 158 H (75-99) mg/dL Urine Protein 1+ H (Negative) Urine Mucus Rare H (None) /hpf 02/02/17 02/02/17 02/02/17 Range/Units 06:02 06:08 11:52 Sodium 136 L (137-145) mmol/L Carbon Dioxide 21 L (22-30) mmol/L BUN 34 H (9-20) mg/dL Creatinine 2.09 H (0.66-1.25) mg/dL Glucose 135 H (74-99) mg/dL POC Glucose (mg/dL) 126 H 138 H (75-99) mg/dL Urine Protein (Negative) Urine Mucus (None) /hpf Assessment and Plan Plan: Assessment and plan #1 chest discomfort, suggestive of angina. Patient was in the hospital earlier this month on January 10 2017, with a non-Q-wave myocardial infarction, axilla medical therapy advised at that time. Troponins 0.04, 0.06, 0.06. Not consistent with acute coronary syndrome. EKG shows a normal sinus rhythm with left bundle branch block pattern and nonspecific ST-T wave changes #2 accelerated hypertension #3 known history of coronary artery disease with prior bypass surgery and stent placements #4 ischemic cardiomyopathy with prior AICD # 5 acute on chronic renal failure #6 hyperkalemia #7 hypertension #8 diabetes #9 hyperlipidemia Plan Patient has been advised to undergo cardiac catheterization tomorrow. The risks and the benefits were explained to the patient in detail as well as a significant risk to his kidneys. He is willing to proceed. Further recommendations will be based on these findings. DNP note has been reviewed, I agree with a documented findings and plan of care. Patient was seen and examined.
[2017-02-02] MEDS ORDERED: SODIUM CHLORIDE 0.9% 1,000 ML IV SCH (15:00)
[2017-02-02] MEDS: LOPERAMIDE 2 MG CAP PO SCH ×2 (15:54→21:05)
[2017-02-02 16:46] LABS: Glucose,Whole Blood 155 mg/dL (75-99)
--- NOTE | 2017-02-02 18:08 | P.PN ---
<Vickie Mathur Chriss - Last Filed: 02/02/17 17:32> Progress Note - Text DATE OF SERVICE: 02/02/2017 PRESENTING COMPLAINT: Chest pain HISTORY OF PRESENT ILLNESS: 81-year-old patient with coronary artery disease recent stent placement showed severe disease, CHF with an EF 20% presented with central chest pain, history significant for acute CT earlier this month. INTERVAL HISTORY: 02/02/2017: Lying in the bed appears comfortable. No further episodes chest pain. Medication changes include nitroglycerin IV stopped and Ranexa was added per cardiology. Stress test completed today with severe stress-induced ischemic changes anterior and lateral claudio with a low ejection fraction 29% BUN and creatinine elevated. Patient will undergo cardiac catheterization tomorrow and patient is aware of the risk to his kidneys. Tolerating his diet eating about 50-60% of his meals, ambulatory to and from the bathroom, last BM 02/02/2017. 02/01/2017: Patient sitting up at the bedside appears anxious. Had an episode of chest pain yesterday during the late afternoon and was relieved with sublingual nitroglycerin. Cardiology placed patient on nitroglycerin drip. Continues on nitroglycerin drip and MILLIE inhibitor and Aldactone on hold. Troponin drawn and was elevated. May need to undergo cardiac catheterization to obtain relief. BUN and creatinine have returned to admission levels. Potassium level improved Continues on low potassium diet. 01/31/2017: Patient lying in bed appears comfortable. No further complaints of chest pain. IV heparin infusing. Kidney function improving. Nephrology to see the patient. Cardiology adjusting medication in light of the increased to his kidney function. Tolerating his diet eating 50-75% of his meals, ambulatory in the room, moving his bowels. 01/30/2017: Patient lying in bed appears comfortable. No complaints of any further chest pain. IV heparin infusing. Kidney function is on the rise BUN and creatinine today 43/2.90 respectively and potassium is 5.4. MILLIE inhibitor and Aldactone have both been stopped. Cardiology making adjustments to his cardiac for optimal function. Nephrology has been consulted. REVIEW OF SYSTEMS: Done for constitutional ,cardiovascular, GI, pulmonary with relevant findings as above. CURRENT MEDICATIONS Aspirin, Lipitor, Coreg, Plavix, Aricept, hydralazine, Levemir, Protonix, Imdur , Ranexa. PHYSICAL EXAM VITAL SIGNS: Temperature 97.0, pulse 63, respiratory rate 16, blood pressure 108/48, oxygen saturation 97% on room air. GENERAL APPEARANCE: Lying in bed, anxious appearing. EYES: Pupils equal. Conjunctiva normal. NECK: JVD not raised. Mass not palpable. RESPIRATORY: Respiratory effort normal. Lungs diminished to auscultation. CARDIOVASCULAR: First and second sounds normal. No edema. ABDOMEN: Soft. Liver and spleen not palpable. No tenderness. No mass palpable. PSYCHIATRY: Alert and oriented x3. Mood and affect anxious appearing. INVESTIGATIONS: Sodium 136, potassium 4.9, BUN 34, creatinine 2.09. ASSESSMENT: -Unstable angina patient with known triple-vessel coronary artery disease and chronic kidney disease with prior history of bypass. -Acute Non-Q wave myocardial infarction on 01/10/2017, not this admission -Chronic congestive heart failure from systolic dysfunction ejection fraction 20 -25% with additional diastolic dysfunction underlying coronary artery disease. -Acute kidney injury most likely acute tubular necrosis from contrast nephropathy/drug-induced, improving -Hyperkalemia associated with acute kidney injury and MILLIE inhibitor use, potassium sparing diuretics. -Coronary artery disease with diffuse disease and prior bypass. 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 -Alzheimer's dementia, late onset type. -Diabetes mellitus type 2 chronically on oral hypoglycemics. -Hyperlipidemia. -Primary osteoarthritis of multiple joints bilaterally. 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 -Pacemaker in place. -Peripheral arterial disease. -CODE STATUS: DO NOT RESUSCITATE PLAN: Serum creatinine improving, off MILLIE inhibitor as well as his Aldactone held, maintain on a low potassium diet. Underwent a stress test positive for ischemic changes, will be taken to the cardiac [facility] tomorrow and patient understands there is a risk for damage to his kidneys and wishes to proceed. Plan of care discussed with the patient at the bedside is in agreement. We'll follow closely. STERNMAN statement: Patient was seen and examined by nurse practitioner Vickie Mathur and all elements of the case discussed with attending Dr. Noriega <Guy Noriega - Last Filed: 02/02/17 21:40> Progress Note - Text Attending note. Date of service-02/02/2017 This patient was seen and examined by me . Discussed the patient with my nurse practitioner Ms. Mathur. Patient had another episode of chest pain. On examination: Lungs-decreased breath sounds, cardiovascular-first seconds are normal Investigations: Nuclear stress test-reversible ischemia seen, creatinine 2.79 Assessment and plan: Unstable angina in a patient with known coronary artery disease-uncontrolled. Cardiology is proceeding with a cardiac cath. Nephrology is on the case. Patient does understand is a renal risk involved with a cardiac cath.
--- NOTE | 2017-02-02 19:09 | CONS ---
CONSULTATION The patient is seen for followup for acute kidney injury. Renal function has been improving. There was concern for possible repeat cardiac catheterization. However it does not appear that this is being planned. Patient is chest pain-free. His creatinine is pending from today. On examination, blood pressure is 109/62, heart rate 62 per minute. He is afebrile. Examination of the heart S1 and S2. Examination of the lungs bilateral breath sounds are heard. Her abdomen is soft, nontender. Examination of lower extremities shows no significant edema. [employer] exam is grossly intact. Patient moving all 4 extremities. LAB: Pending from today. Serum creatinine was 1.94 yesterday. ASSESSMENT: 1. Acute kidney injury. Most likely acute tubular necrosis from contrast nephropathy from recent cardiac catheterization. Slowly improving. Blood pressure is on the lower side. I will decrease the hydralazine to twice a day. 2. Coronary artery disease. Currently chest pain free. 3. Hypertension. Maintained on Norvasc and hydralazine. 4. Hyperkalemia currently improved. PLAN: Decrease hydralazine. Repeat labs. MMODL / IJN: [id number] /
--- NOTE | 2017-02-02 20:16 | EST ---
EXERCISE STRESS The test is being done to evaluate cardiac status. Baseline EKG showed sinus rhythm with evidence of left bundle branch block pattern with poor R wave progression anteriorly suggestive of possible anteroseptal VT. Blood pressure at rest is 108/51, pulse rate of 52. A standard dose of Lexiscan was infused. EKG was taken during and after and did not reveal any significant changes from baseline. The patient had a hypertensive response to infusion but came down to normal range in the post exercise period. FINAL IMPRESSION: 1. Nondiagnostic Lexiscan stress test. 2 Report on nuclear portion to be given by radiologist.. MMODL / IJN: [id number] / MTDD
[2017-02-02 20:51] LABS: Glucose,Whole Blood 229 mg/dL (75-99)
[2017-02-02] MEDS: DONEPEZIL 10 MG TAB PO SCH (21:04)
[2017-02-02] MEDS: INSULIN DETEMIR 100 UNIT/ML 10 ML VIAL SQ SCH (21:11)
[2017-02-02] MEDS: NITROGLYCERIN SL TABS 0.4 MG TAB SUBLINGUAL PRN ×2 (22:05→22:14)
[2017-02-03] MEDS: ASPIRIN 81 MG CHEW PO SCH (06:01)
[2017-02-03] MEDS: ATORVASTATIN 20 MG TAB PO SCH (06:01)
[2017-02-03] MEDS: CARVEDILOL 12.5 MG TAB PO SCH ×2 (06:03→17:07)
[2017-02-03] MEDS: hydrALAZINE HCL 50 MG TAB PO SCH ×2 (06:03→21:24)
[2017-02-03] MEDS: ISOSORBIDE MONONITRATE ER 60 MG TAB.ER.24H PO SCH ×2 (06:03→21:24)
[2017-02-03] MEDS: LOPERAMIDE 2 MG CAP PO SCH ×4 (06:04→21:24)
[2017-02-03] MEDS: CLOPIDOGREL 75 MG TAB PO SCH (06:04)
[2017-02-03] MEDS: RANOLAZINE 500 MG TAB.ER.12H PO SCH ×2 (06:04→21:24)
[2017-02-03] MEDS: PANTOPRAZOLE 40 MG TABLET PO SCH (06:04)
[2017-02-03] MEDS: amLODIPine 10 MG TAB PO SCH (06:04)
[2017-02-03 06:10] LABS: Glucose,Whole Blood 113 mg/dL (75-99)
[2017-02-03 06:20] LABS: Calcium 9.2 mg/dL (8.4-10.2); Potassium 4.1 mmol/L (3.5-5.1)
[2017-02-03] MEDS: BRIMONIDINE TARTRATE 0.2% DROPS 5 ML BTL BOTH EYES SCH ×2 (08:39→21:25)
[2017-02-03] MEDS: DORZOLAMIDE-TIMOLOL 2-0.5% DROPS 10 ML BTL BOTH EYES SCH ×2 (08:40→21:25)
--- NOTE | 2017-02-03 10:05 | P.PN ---
Subjective This is a 81-year-old male seen in consultation because of acute kidney injury and chronic kidney disease. He has severe coronary artery disease has had bypass graft in the past and multiple stents. He has an ejection fraction of 20 %. He came in with chest pain and had been recently admitted for acute MN and discharged with the an attempt at maximizing medical treatment. His most recent stress test is positive for ischemic changes. On today's exam he is comfortable pain free denies any shortness of breath on lying down but minimally short of breath on walking. Denies any dizziness He has some loose stools yesterday about 4-5 but none today. Appetite is fair. He is scheduled for cardiac catheterization this morning and is waiting for this. Currently on IV normal saline 50 mL an hour. Objective - Vital Signs Vital signs: Vital Signs Temp 96.7 F L 02/03/17 08:00 Pulse 54 L 02/03/17 08:00 Resp 18 02/03/17 08:00 BP 85/54 02/03/17 08:00 Pulse Ox 97 02/03/17 08:54 Intake & Output 02/02/17 02/03/17 02/03/17 18:59 06:59 18:59 Intake Total 556 725 Output Total 850 Balance 556 -125 Weight 72.5 kg 73.4 kg Intake: Intake, IV Titration 725 Amount Sodium Chloride 0.9% 1, 725 000 ml @ 50 mls/hr IV . Q20H [facility] Rx#:[id number] Oral 556 Output: Urine 850 Other: Voiding Method Toilet Urinal # Voids 1 1 # Bowel Movements 5 On examination he is comfortable lying down and sitting up HEENT exam no JVP neck is supple no facial asymmetry Lungs are clear to auscultation percussion good air entry bilaterally Heart sounds are unremarkable for any murmur rub gallop Abdomen soft nontender Extremity exam was no edema Awake alert oriented warm to touch no focal motor deficit - Labs CBC & Chem 7: 02/01/17 06:11 02/03/17 05:37 Labs: Abnormal Lab Results - Last 24 Hours (Table) 02/02/17 02/02/17 02/02/17 Range/Units 11:52 16:43 20:49 Sodium (137-145) mmol/L Carbon Dioxide (22-30) mmol/L BUN (9-20) mg/dL Creatinine (0.66-1.25) mg/dL Glucose (74-99) mg/dL POC Glucose (mg/dL) 138 H 155 H 229 H (75-99) mg/dL 02/03/17 02/03/17 Range/Units 05:37 06:08 Sodium 136 L (137-145) mmol/L Carbon Dioxide 21 L (22-30) mmol/L BUN 32 H (9-20) mg/dL Creatinine 2.10 H (0.66-1.25) mg/dL Glucose 112 H (74-99) mg/dL POC Glucose (mg/dL) 113 H (75-99) mg/dL Assessment and Plan Plan: Impression 1. Acute kidney injury, secondary to prerenal, creatinine creatinine peaked at 2.9 as of 01/30/2017, improved to 1.94 as of 02/01/2017 2 days ago and currently is 2.1 this morning. 2. chronic kidney disease, nephrosclerosis with baseline creatinine of 1.35 as of 01/15/2017. He has 1+ proteinuria on urinalysis this admission. 3. Recent acute MN earlier last month. 4. Severe coronary artery disease status post CABG in the past and stents in the past. 5. Not sure of the recent cardiac catheterization 6. Mild non-gap acidosis. Bicarb 21. Etiology is acute kidney injury 7. Mild hyponatremia sodium is 136 Recommendation. I'll increase IV fluids to 75 an hour and check orthostatic changes. On room ensure adequate hydration given his acute kidney injury is not completely resolved and the creatinine is not back to baseline. Given the urgency for cardiac cath is cleared with the qualification that there is risk for acute kidney injury with exposure to dye. We'll keep a close watch on his eyes and O' s and hydration status, he has poor ejection fraction and might go into heart failure.
[2017-02-03 11:49] LABS: Glucose,Whole Blood 118 mg/dL (75-99)
[2017-02-03] MEDS: SODIUM CHLORIDE 0.9% 1,000 ML IV SCH ×2 (12:31→22:41)
--- NOTE | 2017-02-03 15:52 | P.PN ---
<Vickie Mathur Chriss - Last Filed: 02/03/17 15:39> Progress Note - Text DATE OF SERVICE: 02/02/2017 PRESENTING COMPLAINT: Chest pain HISTORY OF PRESENT ILLNESS: 81-year-old patient with coronary artery disease recent stent placement showed severe disease, CHF with an EF 20% presented with central chest pain, history significant for acute WI earlier this month. INTERVAL HISTORY: 02/03/2017: Lying in bed appears comfortable yet somewhat anxious, no further episodes of chest pain, nephrology saw the patient today in follow-up and addressed concerns regarding cardiac catheterization and the effect on its his kidneys. Patient is cleared by nephrology for cardiac catheterization with the caveat regarding the risk for Acute kidney injury and exposure to dye. Catheterization is expected today or possibly tomorrow. Tolerating his diet eating roughly 50-75% of his meals, ambulatory to and from the bathroom, last BM 02/02/2017. 02/02/2017: Lying in the bed appears comfortable. No further episodes chest pain. Medication changes include nitroglycerin IV stopped and Ranexa was added per cardiology. Stress test completed today with severe stress-induced ischemic changes anterior and lateral claudio with a low ejection fraction 29% BUN and creatinine elevated. Patient will undergo cardiac catheterization tomorrow and patient is aware of the risk to his kidneys. Tolerating his diet eating about 50-60% of his meals, ambulatory to and from the bathroom, last BM 02/02/2017. 02/01/2017: Patient sitting up at the bedside appears anxious. Had an episode of chest pain yesterday during the late afternoon and was relieved with sublingual nitroglycerin. Cardiology placed patient on nitroglycerin drip. Continues on nitroglycerin drip and MILLIE inhibitor and Aldactone on hold. Troponin drawn and was elevated. May need to undergo cardiac catheterization to obtain relief. BUN and creatinine have returned to admission levels. Potassium level improved Continues on low potassium diet. 01/31/2017: Patient lying in bed appears comfortable. No further complaints of chest pain. IV heparin infusing. Kidney function improving. Nephrology to see the patient. Cardiology adjusting medication in light of the increased to his kidney function. Tolerating his diet eating 50-75% of his meals, ambulatory in the room, moving his bowels. 01/30/2017: Patient lying in bed appears comfortable. No complaints of any further chest pain. IV heparin infusing. Kidney function is on the rise BUN and creatinine today 43/2.90 respectively and potassium is 5.4. MILLIE inhibitor and Aldactone have both been stopped. Cardiology making adjustments to his cardiac for optimal function. Nephrology has been consulted. REVIEW OF SYSTEMS: Done for constitutional ,cardiovascular, GI, pulmonary with relevant findings as above. CURRENT MEDICATIONS Aspirin, Lipitor, Coreg, Plavix, Aricept, hydralazine, Levemir, Protonix, Imdur , Ranexa. PHYSICAL EXAM VITAL SIGNS: Temperature 97.5, pulse 52, blood pressure 87/40, oxygen saturation 96% on room air. GENERAL APPEARANCE: Lying in bed, anxious appearing. EYES: Pupils equal. Conjunctiva normal. NECK: JVD not raised. Mass not palpable. RESPIRATORY: Respiratory effort normal. Lungs diminished to auscultation. CARDIOVASCULAR: First and second sounds normal. No edema. ABDOMEN: Soft. Liver and spleen not palpable. No tenderness. No mass palpable. PSYCHIATRY: Alert and oriented x3. Mood and affect anxious appearing. INVESTIGATIONS: Sodium 136 potassium 4.1, BUN 32, creatinine 2.10, Accu-Cheks noted. ASSESSMENT: -Unstable angina patient with known triple-vessel coronary artery disease and chronic kidney disease with prior history of bypass. -Acute Non-Q wave myocardial infarction on 01/10/2017, not this admission -Chronic congestive heart failure from systolic dysfunction ejection fraction 20 -25% with additional diastolic dysfunction underlying coronary artery disease. -Acute kidney injury most likely acute tubular necrosis from contrast nephropathy/drug-induced, improving -Hyperkalemia associated with acute kidney injury and MILLIE inhibitor use, potassium sparing diuretics. -Coronary artery disease with diffuse disease and prior bypass. 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 -Alzheimer's dementia, late onset type. -Diabetes mellitus type 2 chronically on oral hypoglycemics. -Hyperlipidemia. -Primary osteoarthritis of multiple joints bilaterally. 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 -Pacemaker in place. -Peripheral arterial disease. -CODE STATUS: DO NOT RESUSCITATE PLAN: Serum creatinine improving, nephrology provided risk assessment for cardiac catheterization for this patient. Cardiac catheterization plan for either today or tomorrow. Plan of care discussed with the patient at the bedside he is in agreement. We'll follow closely. GEAR REPAIRER statement: Patient was seen and examined by nurse practitioner Vickie Mathur and all elements of the case discussed with attending Dr. Noriega <Guy Noriega - Last Filed: 02/03/17 21:41> Progress Note - Text Attending note. Date of service-02/03/2017 This patient was seen and examined by me . Discussed the patient with my nurse practitioner Ms. aMthur. Patient unstable angina. Headache due to the episode of chest pain. Patient was scheduled for cardiac cath today.-Not being done today. On examination: Lungs-increased breath sounds, cardiovascular-first seconds are normal Investigations: (32, creatinine 2.10 Assessment and plan: Unstable angina in a patient with known coronary artery disease awaiting cardiac catheterization. Chronic kidney disease. Continue current medication treatment plan. Cardiac cath per cardiology. Care discussed with the patient.
[2017-02-03 17:15] LABS: Glucose,Whole Blood 148 mg/dL (75-99)
[2017-02-03 21:12] LABS: Glucose,Whole Blood 137 mg/dL (75-99)
[2017-02-03] MEDS: DONEPEZIL 10 MG TAB PO SCH (21:24)
[2017-02-03] MEDS: INSULIN DETEMIR 100 UNIT/ML 10 ML VIAL SQ SCH (21:34)
[2017-02-04] MEDS: LOPERAMIDE 2 MG CAP PO SCH ×4 (06:16→21:51)
[2017-02-04] MEDS: amLODIPine 10 MG TAB PO SCH (06:19)
[2017-02-04] MEDS: CARVEDILOL 12.5 MG TAB PO SCH ×2 (06:19→17:02)
[2017-02-04] MEDS: ISOSORBIDE MONONITRATE ER 60 MG TAB.ER.24H PO SCH ×2 (06:19→23:40)
[2017-02-04] MEDS: ASPIRIN 81 MG CHEW PO SCH (06:19)
[2017-02-04] MEDS: RANOLAZINE 500 MG TAB.ER.12H PO SCH ×2 (06:20→21:51)
[2017-02-04] MEDS: ATORVASTATIN 20 MG TAB PO SCH (06:20)
[2017-02-04] MEDS: hydrALAZINE HCL 50 MG TAB PO SCH ×2 (06:20→21:51)
[2017-02-04] MEDS: PANTOPRAZOLE 40 MG TABLET PO SCH (06:20)
[2017-02-04] MEDS: CLOPIDOGREL 75 MG TAB PO SCH (06:20)
[2017-02-04 06:30] LABS: Glucose,Whole Blood 91 mg/dL (75-99)
[2017-02-04 06:31] LABS: Potassium 4.7 mmol/L (3.5-5.1)
[2017-02-04 06:32] LABS: Aty Lym Flag Slight; CH 29.8; CHCM 33.6; HCT 37.1 % (39.0-53.0); HDW 2.91; HGB 12.5 gm/dL (13.0-17.5); MCHC 33.6 g/dL (31.0-37.0); MCV 89.2 fL (80.0-100.0); Mean Platelet Volume 8.3; RBC 4.16 m/uL (4.30-5.90); RDW 15.7 % (11.5-15.5); WBC 3.9 k/uL (3.8-10.6); WBC (Perox) 4.03
[2017-02-04 07:13] LABS: Add Differential Manual Differential
[2017-02-04 07:22] LABS: Manual Review Performed; Myelocytes % 1 %; Nucleated Red Blood Cells 0 /100 WBC (0-0); Total Cells Counted 200
[2017-02-04] MEDS ORDERED: LIDOCAINE 2% INJ 20 MG/ML (20 ML MDV) ONE (07:31)
[2017-02-04] MEDS ORDERED: MIDAZOLAM 2 MG/2 ML VIAL ONE (07:31)
[2017-02-04] MEDS ORDERED: ASPIRIN 81 MG CHEW ONE (07:40)
[2017-02-04] MEDS ORDERED: ASPIRIN 81 MG CHEW PO ONE (07:45)
[2017-02-04] MEDS ORDERED: IV FLUID CONTINUATION 850 ML IV ONE (07:48)
[2017-02-04] MEDS ORDERED: MIDAZOLAM 2 MG/2 ML VIAL IVP ONE (07:52)
[2017-02-04] MEDS ORDERED: LIDOCAINE 2% INJ 20 MG/ML SQ ONE (08:00)
[2017-02-04] MEDS ORDERED: IODIXANOL 320 MG/ML 100 ML INTRAARTER ONE (08:46)
[2017-02-04] MEDS ORDERED: RX INFO: IV CONTRAST WAS GIVEN 1 EACH MISC MISCELLANE PRN (08:53)
[2017-02-04] MEDS ORDERED: SODIUM CHLORIDE 0.9% 1,000 ML IV SCH (09:00)
[2017-02-04] MEDS: DORZOLAMIDE-TIMOLOL 2-0.5% DROPS 10 ML BTL BOTH EYES SCH ×2 (09:40→21:51)
[2017-02-04] MEDS: BRIMONIDINE TARTRATE 0.2% DROPS 5 ML BTL BOTH EYES SCH ×2 (09:40→21:51)
--- NOTE | 2017-02-04 09:42 | P.PN ---
Subjective This is a 81-year-old male seen in consultation because of acute kidney injury and chronic kidney disease. He has severe coronary artery disease has had bypass graft in the past and multiple stents. He has an ejection fraction of 20 %. He was readmitted with chest pain after having been recently admitted with acute TX and discharged with the an attempt at maximizing medical treatment. His most recent stress test is positive for ischemic changes. This morning on 02/04/2017 he had a heart catheterization without any statin as per patient he is going for a stent tomorrow. He is being maintained on 75 mL of normal saline. He has no shortness of breath chest pain since 2 days. He has no appetite no nausea vomiting though. No abdominal pain no pain in his feet after the cardiac catheterization. Arteriotomy was performed via right groin. Objective - Vital Signs Vital signs: Vital Signs Temp 96.8 F L 02/04/17 09:23 Pulse 50 L 02/04/17 09:23 Resp 18 02/04/17 09:23 BP 100/55 02/04/17 09:23 Pulse Ox 93 L 02/04/17 09:28 Intake & Output 02/03/17 02/04/17 02/04/17 18:59 06:59 18:59 Intake Total 360 850 50 Output Total 400 Balance -40 850 50 Weight 84.5 kg Intake: IV 850 50 Sodium Chloride 0.9% 1, 100 000 ml @ 50 mls/hr IV . Q20H [facility] Rx#:[id number] Sodium Chloride 0.9% 1, 750 000 ml @ 75 mls/hr IV . [id number] [facility] Rx#:[id number] Oral 360 Output: Urine 400 Other: Voiding Method Toilet # Voids 2 1 On examination he is awake alert oriented comfortable somewhat hard of hearing. HEENT exam no JVP neck is supple no facial asymmetry. Lungs are clear to auscultation percussion good air entry bilaterally Heart sounds are unremarkable for any murmur rub gallop Abdomen soft nontender no organomegaly ascites masses Extremity examination was no evidence of any petechiae or cyanosis. Warm to touch. Neurologically awake alert oriented but hard of hearing moves all his limbs - Labs CBC & Chem 7: 02/04/17 05:46 02/04/17 05:46 Labs: Abnormal Lab Results - Last 24 Hours (Table) 02/03/17 02/03/1702/03/17 Range/Units 11:43 16:53 21:10 RBC (4.30-5.90) m/uL Hgb (13.0-17.5) gm/dL Hct (39.0-53.0) % RDW (11.5-15.5) % Myelocytes # (Manual) (0) k/uL BUN (9-20) mg/dL Creatinine (0.66-1.25) mg/dL POC Glucose (mg/dL) 118 H 148 H 137 H (75-99) mg/dL 02/04/17 02/04/17 Range/Units 05:46 05:46 RBC 4.16 L (4.30-5.90) m/uL Hgb 12.5 L (13.0-17.5) gm/dL Hct 37.1 L (39.0-53.0) % RDW 15.7 H (11.5-15.5) % Myelocytes # (Manual) 0.04 H (0) k/uL BUN 26 H (9-20) mg/dL Creatinine 1.83 H (0.66-1.25) mg/dL POC Glucose (mg/dL) (75-99) mg/dL Assessment and Plan Plan: Impression 1. Acute kidney injury, secondary to prerenal, creatinine creatinine peaked at 2.9 as of 01/30/2017, improved to 1.94 as of 02/01/2017, 3 days ago and currently is 1.83 this morning. He had a heart catheterization this morning, dated 02/04/2070. And he is going to be going for a stent tomorrow 02/05/2070 2. chronic kidney disease, nephrosclerosis with baseline creatinine of 1.35 as of 01/15/2017. He has 1+ proteinuria on urinalysis this admission. 3. Recent acute TX earlier last month. 4. Severe coronary artery disease status post CABG in the past and stents in the past. 5. Not sure of the recent cardiac catheterization 6. Mild non-gap acidosis. Bicarb 21. Etiology is acute kidney injury 7. Mild hyponatremia sodium secondary to acute kidney injury, sodium was 136, improved to 140 this morning Recommendation. Continue to maintain IV fluids to 75 an hour. I have again explained to him the risk of ATN although small and because of the urgency of his cardiac status he should proceed with the stent placement tomorrow. He agrees with the recommendation. Watch as he is on IV fluid and has poor ejection fraction and might go into heart failure. Monitor labs tomorrow and after
[2017-02-04] MEDS: SODIUM CHLORIDE 0.9% 1,000 ML IV SCH ×2 (12:02→21:51)
[2017-02-04 12:11] LABS: Glucose,Whole Blood 83 mg/dL (75-99)
[2017-02-04] MEDS ORDERED: HEPARIN SODIUM,PORCINE 5,000 UNIT/ML 1 ML VIAL IV ONE (12:51)
[2017-02-04] MEDS ORDERED: HEPARIN SODIUM,PORCINE 5,000 UNIT/ML 1 ML VIAL IV PRN (12:51)
[2017-02-04] MEDS: HEPARIN SODIUM,PORCINE/D5W PMX 25,000 UNIT in DEXTROSE/WATER 1 500ML.BAG IV SCH (14:04)
[2017-02-04 17:41] LABS: Glucose,Whole Blood 76 mg/dL (75-99)
--- NOTE | 2017-02-04 18:52 | P.PN ---
<Vickie Mathur Chriss - Last Filed: 02/04/17 18:34> Progress Note - Text DATE OF SERVICE: 02/04/2017 PRESENTING COMPLAINT: Chest pain HISTORY OF PRESENT ILLNESS: 81-year-old patient with coronary artery disease recent stent placement showed severe disease, CHF with an EF 20% presented with central chest pain, history significant for acute LA earlier this month. INTERVAL HISTORY: 02/04/2017: Lying in bed appears comfortable somewhat anxious. Status post cardiac catheterization right femoral approach with stent placement to the LAD. No further episodes of chest pain overnight. Fluids increased due to renal status. Tolerating his diet eating about 50-75% of his meals, currently on bed rest but is usually ambulatory to and from the bathroom, last BM 02/02/2017. 02/03/2017: Lying in bed appears comfortable yet somewhat anxious, no further episodes of chest pain, nephrology saw the patient today in follow-up and addressed concerns regarding cardiac catheterization and the effect on its his kidneys. Patient is cleared by nephrology for cardiac catheterization with the caveat regarding the risk for Acute kidney injury and exposure to dye. Catheterization is expected today or possibly tomorrow. Tolerating his diet eating roughly 50-75% of his meals, ambulatory to and from the bathroom, last BM 02/02/2017. 02/02/2017: Lying in the bed appears comfortable. No further episodes chest pain. Medication changes include nitroglycerin IV stopped and Ranexa was added per cardiology. Stress test completed today with severe stress-induced ischemic changes anterior and lateral claudio with a low ejection fraction 29% BUN and creatinine elevated. Patient will undergo cardiac catheterization tomorrow and patient is aware of the risk to his kidneys. Tolerating his diet eating about 50-60% of his meals, ambulatory to and from the bathroom, last BM 02/02/2017. 02/01/2017: Patient sitting up at the bedside appears anxious. Had an episode of chest pain yesterday during the late afternoon and was relieved with sublingual nitroglycerin. Cardiology placed patient on nitroglycerin drip. Continues on nitroglycerin drip and MILLIE inhibitor and Aldactone on hold. Troponin drawn and was elevated. May need to undergo cardiac catheterization to obtain relief. BUN and creatinine have returned to admission levels. Potassium level improved Continues on low potassium diet. 01/31/2017: Patient lying in bed appears comfortable. No further complaints of chest pain. IV heparin infusing. Kidney function improving. Nephrology to see the patient. Cardiology adjusting medication in light of the increased to his kidney function. Tolerating his diet eating 50-75% of his meals, ambulatory in the room, moving his bowels. 01/30/2017: Patient lying in bed appears comfortable. No complaints of any further chest pain. IV heparin infusing. Kidney function is on the rise BUN and creatinine today 43/2.90 respectively and potassium is 5.4. MILLIE inhibitor and Aldactone have both been stopped. Cardiology making adjustments to his cardiac for optimal function. Nephrology has been consulted. REVIEW OF SYSTEMS: Done for constitutional ,cardiovascular, GI, pulmonary with relevant findings as above. CURRENT MEDICATIONS Aspirin, Lipitor, Coreg, Plavix, Aricept, hydralazine, Levemir, Protonix, Imdur , Ranexa. PHYSICAL EXAM VITAL SIGNS: Temperature 96.9, heart rate 52, respiratory rate 18, blood pressure 124/66, oxygen saturation 97% on room air. GENERAL APPEARANCE: Lying in bed, anxious appearing. EYES: Pupils equal. Conjunctiva normal. NECK: JVD not raised. Mass not palpable. RESPIRATORY: Respiratory effort normal. Lungs diminished to auscultation. CARDIOVASCULAR: First and second sounds normal. No edema. ABDOMEN: Soft. Liver and spleen not palpable. No tenderness. No mass palpable. PSYCHIATRY: Alert and oriented x3. Mood and affect anxious appearing. INVESTIGATIONS: Hemoglobin 12.5, BUN 26 creatinine 1.83 ASSESSMENT: -Unstable angina patient with known triple-vessel coronary artery disease and chronic kidney disease with prior history of bypass, now with angioplasty and stent to LAD. -Acute Non-Q wave myocardial infarction on 01/10/2017, not this admission -Chronic congestive heart failure from systolic dysfunction ejection fraction 20 -25% with additional diastolic dysfunction underlying coronary artery disease. -Acute kidney injury most likely acute tubular necrosis from contrast nephropathy/drug-induced, improving -Hyperkalemia associated with acute kidney injury and MILLIE inhibitor use, potassium sparing diuretics. -Coronary artery disease with diffuse disease and prior bypass. 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 -Alzheimer's dementia, late onset type. -Diabetes mellitus type 2 chronically on oral hypoglycemics. -Hyperlipidemia. -Primary osteoarthritis of multiple joints bilaterally. 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 -Pacemaker in place. -Peripheral arterial disease. -CODE STATUS: DO NOT RESUSCITATE PLAN: Serum creatinine improving, increased IV fluids to rid the kidney's of dye. Cardiac catheterization plan for tomorrow for 2 more stents to be placed. Plan of care discussed with the patient at the bedside he is in agreement. We'll follow closely. NETWORK PROJECT MANAGER statement: Patient was seen and examined by nurse practitioner Vickie Mathur and all elements of the case discussed with attending Dr. Noriega <Guy Noriega - Last Filed: 02/04/17 20:08> Progress Note - Text Attending note. Date of service-02/02/2017 This patient was seen and examined by me . Discussed the patient with my nurse practitioner Ms. Mathur. Had cardiac cath and stent to the LAD. Tired On examination: Lungs have decreased breath sounds, cardiovascular first seconds are normal Investigations: Creatinine 1.83 Assessment and plan: Coronary artery disease with stent to the LAD. Dr. Pierson is planning to take the patient back for another stent to [facility] to . Care was discussed with the patient. Keep a close eye on the renal function.
--- NOTE | 2017-02-04 19:06 | CC ---
CARDIAC CATHETERIZATION REPORT DATE OF SERVICE: 02/04/17. PERFORMING PHYSICIAN: Bruce Pierson M.D. entry level marketing assistant. PROCEDURE PERFORMED: 1. Selective right and left coronary angiogram. 2. SVG to RCA angiogram. 3. SVG to OM angiogram. 4. Left internal mammary artery angiogram. 5. Aortic root angiogram. INDICATION: This is a pleasant 81-year-old gentleman who is known to have CAD with prior coronary artery bypass grafting, was admitted to the hospital with chest discomfort and ruled in for acute non ST elevation myocardial infarction. He was brought today to undergo a heart catheterization. APPROACH: Right common femoral artery. COMPLICATION: None. LEVEL OF SEDATION: Moderate with sedation length of 55 minutes. PROCEDURE: Description after obtaining informed consent, the patient was brought to the cardiac sugar laboratory assistant. The right common femoral artery was cannulated using micropuncture technique, the micropuncture wire passed easily. Then I placed a 6-Palestinian 23 cm sheath in the right common femoral artery. After that, I did selective right and left coronary angiogram using JL4 and Greg right catheter. An SVG to RCA and SVG to OM, angiogram was performed using an Amplatzer 1 for the SVG to RCA and Amplatzer 2 for the SVG to OM. Left internal mammary artery angiogram was performed using an IM catheter. The aortic root angiogram was performed using a 6-Palestinian pigtail catheter. The procedure was completed without any complication. SELECTIVE CORONARY ANGIOGRAM: 1. Left main is heavily calcified and subtotally occluded. 2. The left circumflex is 100% occluded from the ostium. 3. The LAD is subtotally occluded in the proximal portion as well. 4. The right coronary artery is totally occluded in the proximal portion. CORONARY BYPASS ANGIOGRAM: 1. The EDWARDS to LAD is patent. 2. SVG to RCA is patent. 3. The SVG to OM had severe lesion in the ostium. Aortic root angiogram was performed in the FAROESE projection using a power injection. The aortic root appeared to be mildly dilated. It was heavily calcified. CONCLUSION: 1. Severe triple-vessel coronary artery disease with occluded right coronary artery, occluded left circumflex, and occluded left anterior descending coronary artery. 2. Patent saphenous vein graft to right coronary artery. 3. Patent left internal mammary artery to left anterior descending coronary artery. 4. Severe disease involving the saphenous vein graft to obtuse marginal in the ostium. POSTPROCEDURE MANAGEMENT: The patient will be brought tomorrow to undergo stenting of that SVG to OM. We did not do it today because we reached the maximal contrast allowed which is 108 mL. At the meantime we will hydrate the patient and bring him tomorrow for intervention on the SVG to OM. JOSE MIGUEL / RENETTA: [id number] /
[2017-02-04 21:18] LABS: Glucose,Whole Blood 152 mg/dL (75-99)
[2017-02-04] MEDS: INSULIN DETEMIR 100 UNIT/ML 10 ML VIAL SQ SCH (21:51)
[2017-02-04] MEDS: DONEPEZIL 10 MG TAB PO SCH (21:51)
[2017-02-05 05:55] LABS: Glucose,Whole Blood 73 mg/dL (75-99)
[2017-02-05] MEDS: LOPERAMIDE 2 MG CAP PO SCH ×4 (06:02→20:38)
[2017-02-05] MEDS: ISOSORBIDE MONONITRATE ER 60 MG TAB.ER.24H PO SCH ×2 (06:05→23:30)
[2017-02-05] MEDS: PANTOPRAZOLE 40 MG TABLET PO SCH (06:05)
[2017-02-05] MEDS: hydrALAZINE HCL 50 MG TAB PO SCH ×2 (06:05→20:52)
[2017-02-05] MEDS: CLOPIDOGREL 75 MG TAB PO SCH (06:05)
[2017-02-05] MEDS: ATORVASTATIN 20 MG TAB PO SCH (06:05)
[2017-02-05] MEDS: CARVEDILOL 12.5 MG TAB PO SCH ×2 (06:05→17:37)
[2017-02-05] MEDS: RANOLAZINE 500 MG TAB.ER.12H PO SCH ×2 (06:06→20:53)
[2017-02-05] MEDS: ASPIRIN 81 MG CHEW PO SCH (06:06)
[2017-02-05] MEDS: amLODIPine 10 MG TAB PO SCH (06:06)
[2017-02-05 06:36] LABS: Aty Lym Flag Slight; CH 29.8; CHCM 33.7; HCT 37.6 % (39.0-53.0); HDW 2.96; HGB 12.2 gm/dL (13.0-17.5); MCH 28.8 pg (25.0-35.0); MCHC 32.4 g/dL (31.0-37.0); Mean Platelet Volume 8.3; RBC 4.23 m/uL (4.30-5.90); RDW 15.8 % (11.5-15.5); WBC 4.8 k/uL (3.8-10.6); WBC (Perox) 4.57
[2017-02-05 06:50] LABS: Calcium 9.1 mg/dL (8.4-10.2); Potassium 4.2 mmol/L (3.5-5.1)
[2017-02-05 07:45] LABS: Add Differential Manual Differential
[2017-02-05 07:46] LABS: Nucleated Red Blood Cells 0 /100 WBC (0-0); Polychromasia Present; Total Cells Counted 100
[2017-02-05] MEDS ORDERED: IV FLUID CONTINUATION 1,000 ML IV ONE (09:50)
[2017-02-05] MEDS ORDERED: LIDOCAINE 2% INJ 20 MG/ML (20 ML MDV) ONE (09:55)
[2017-02-05] MEDS ORDERED: MIDAZOLAM 2 MG/2 ML VIAL ONE (10:12)
[2017-02-05] MEDS ORDERED: niCARdipine 25 MG/10 ML VIAL ONE (10:13)
[2017-02-05] MEDS ORDERED: MIDAZOLAM 2 MG/2 ML VIAL IV ONE (10:18)
[2017-02-05] MEDS ORDERED: LIDOCAINE 2% INJ 20 MG/ML SQ ONE (10:19)
[2017-02-05] MEDS ORDERED: BIVALIRUDIN BOLUS 250 MG/50 ML IV ONE (10:27)
[2017-02-05] MEDS ORDERED: BIVALIRUDIN 250 MG in SODIUM CHLORIDE 0.9% 50 ML IV ONE (10:28)
[2017-02-05] MEDS ORDERED: niCARdipine Syringe (1,000 mcg/10 mL) INTRACORON ONE (11:23)
[2017-02-05] MEDS ORDERED: CLOPIDOGREL 75 MG TAB ONE (11:25)
[2017-02-05] MEDS ORDERED: IODIXANOL 320 MG/ML 100 ML INTRAARTER ONE (11:27)
[2017-02-05] MEDS ORDERED: CLOPIDOGREL 75 MG TAB PO ONE (11:27)
[2017-02-05] MEDS ORDERED: ZOLPIDEM 5 MG TAB PO PRN (11:32)
[2017-02-05] MEDS ORDERED: ATROPINE SULFATE 0.1 MG/ML 10ML SYRINGE IV PRN (11:32)
[2017-02-05] MEDS ORDERED: NITROGLYCERIN SL TABS 0.4 MG TAB SUBLINGUAL PRN (11:32)
[2017-02-05] MEDS ORDERED: MAG HYDROX/AL HYDROX/SIMETH 30 ML CUP PO PRN (11:32)
[2017-02-05] MEDS ORDERED: RX INFO: IV CONTRAST WAS GIVEN 1 EACH MISC MISCELLANE PRN (11:32)
[2017-02-05] MEDS ORDERED: SODIUM CHLORIDE 0.9% 1,000 ML IV SCH (11:45)
[2017-02-05 12:10] LABS: Glucose,Whole Blood 87 mg/dL (75-99)
[2017-02-05] MEDS: SODIUM CHLORIDE 0.9% 1,000 ML IV SCH ×2 (14:54→14:57)
[2017-02-05] MEDS: DORZOLAMIDE-TIMOLOL 2-0.5% DROPS 10 ML BTL BOTH EYES SCH ×2 (14:57→20:53)
[2017-02-05] MEDS: BRIMONIDINE TARTRATE 0.2% DROPS 5 ML BTL BOTH EYES SCH ×2 (14:57→20:53)
[2017-02-05 16:46] LABS: Glucose,Whole Blood 74 mg/dL (75-99)
[2017-02-05] MEDS: HEPARIN SODIUM,PORCINE/D5W PMX 25,000 UNIT in DEXTROSE/WATER 1 500ML.BAG IV SCH (17:31)
[2017-02-05] MEDS: ALPRAZolam 0.5 MG TAB PO PRN (17:37)
[2017-02-05 19:42] LABS: ABG Base Excess -8.4 mmol/L; ABG HCO3 15 mmol/L (21-25); ABG PCO2 25 mmHg (35-45); ABG PH 7.41 (7.35-7.45); ABG PO2 63 mmHg (83-108); ABG TCO2 16 mmol/L (19-24)
[2017-02-05 19:44] LABS: Glucose,Whole Blood 101 mg/dL (75-99)
--- NOTE | 2017-02-05 20:34 | XR ---
EXAMINATION TYPE: XR chest 1V portable DATE OF EXAM: 02/05/2017 COMPARISON: January 28, 2017. HISTORY: Chest pain TECHNIQUE: Single frontal view of the chest is obtained. FINDINGS: There is been a previous sternotomy. Postoperative changes are again noted. Implantable ca rdiac device with 2 leads in the heart. No pneumothorax or pleural effusion is identified. Calcificat ions aortic arch are again noted. Previously described nodule at the right lung base is again identif ied. IMPRESSION: No change in appearance of the chest, no acute abnormality identified.
[2017-02-05] MEDS: DONEPEZIL 10 MG TAB PO SCH (20:53)
[2017-02-05] MEDS: INSULIN DETEMIR 100 UNIT/ML 10 ML VIAL SQ SCH (23:37)
[2017-02-05 23:52] LABS: Glucose,Whole Blood 148 mg/dL (75-99)
[2017-02-06 06:22] LABS: Glucose,Whole Blood 125 mg/dL (75-99)
[2017-02-06] MEDS: IPRATROPIUM-ALBUTEROL 3 ML NEB INHALATION SCH ×4 (06:22→20:18)
[2017-02-06 06:27] LABS: Basophils # (A) 0.1 k/uL (0-0.2); Basophils % (A) 1 %; CH 29.8; CHCM 33.9; Eosinophils % (A) 1 %; HCT 35.3 % (39.0-53.0); HDW 3.03; HGB 11.9 gm/dL (13.0-17.5); Luc # (Auto) 0.22; Luc % (Auto) 4; Lymphocytes # (A) 0.9 k/uL (1.0-4.8); Lymphocytes % (A) 16 %; MCH 29.6 pg (25.0-35.0); MCHC 33.6 g/dL (31.0-37.0); MCV 88.2 fL (80.0-100.0); Monocytes # (A) 0.5 k/uL (0-1.0); Monocytes % (A) 8 %; Neutrophils # (A) 4.1 k/uL (1.3-7.7); Neutrophils % (A) 71 %; RDW 15.9 % (11.5-15.5); WBC 5.7 k/uL (3.8-10.6); WBC (Perox) 6.13
[2017-02-06] MEDS: CARVEDILOL 12.5 MG TAB PO SCH ×2 (06:57→17:11)
[2017-02-06] MEDS: PANTOPRAZOLE 40 MG TABLET PO SCH (06:57)
--- NOTE | 2017-02-06 08:00 | NM ---
EXAMINATION TYPE: NM pul vent and perfuse DATE OF EXAM: 02/05/2017 COMPARISON: Previous exam 01/30/2017 HISTORY: Hypoxemia TECHNIQUE: Utilizing inhalation of 71.1 mCi Tc 99m DTPA aerosol and intravenous injection of 5.3 mCi of Tc 99m MAA, ventilation and perfusion images are acquired post injection in multiple projections. FINDINGS: Exam is essentially stable. There are no evident ventilation/perfusion mismatches. Relative homogenou s radio pharmaceutical uptake present in ventilation and perfusion scanning. IMPRESSION: Low probability for pulmonary embolism.
[2017-02-06] MEDS: RANOLAZINE 500 MG TAB.ER.12H PO SCH ×2 (09:05→21:40)
[2017-02-06] MEDS: amLODIPine 10 MG TAB PO SCH (09:06)
[2017-02-06] MEDS: DORZOLAMIDE-TIMOLOL 2-0.5% DROPS 10 ML BTL BOTH EYES SCH ×2 (09:06→21:42)
[2017-02-06] MEDS: ATORVASTATIN 20 MG TAB PO SCH (09:06)
[2017-02-06] MEDS: ISOSORBIDE MONONITRATE ER 60 MG TAB.ER.24H PO SCH ×2 (09:07→21:40)
[2017-02-06] MEDS: BRIMONIDINE TARTRATE 0.2% DROPS 5 ML BTL BOTH EYES SCH ×2 (09:09→21:40)
[2017-02-06] MEDS: CLOPIDOGREL 75 MG TAB PO SCH (09:09)
[2017-02-06] MEDS: ASPIRIN 81 MG CHEW PO SCH (09:10)
[2017-02-06] MEDS: hydrALAZINE HCL 50 MG TAB PO SCH ×2 (09:10→21:40)
[2017-02-06] MEDS: LOPERAMIDE 2 MG CAP PO SCH ×4 (09:11→20:52)
--- NOTE | 2017-02-06 09:11 | CC ---
CARDIAC CATHETERIZATION REPORT After that, I did wire using a whisper wire. I advanced 2.5 x 12 mm balloon and I did balloon angioplasty of that SVG graft but there was wasting on the balloon and the balloon was not fully inflated. So I decided to use an AngioSculpt balloon. I did take a 3.0 x 10 mm AngioSculpt balloon and I tried to advance the wound but the balloon will not cross the lesion in the ostial SVG to OM. At that point, I decided to go ahead and use a noncompliant balloon which it was initially 3.0 and then 3.75 NC balloon which was again advanced over the whisper wire through the ostial SVG graft and inflated under 18 atmospheres for about 30 seconds x2. After that, I tried to advance a 3.5 x 60 mm PROMUS 3 drug-eluting stent but the stent will not cross the lesion in spite of using shannon wire with run through with the previous whisper wire. At that point, I decided to use a Godzilla to help me deliver the stent bu the Godzilla was not able to cross the ostial SVG. At that point, I decided to use a shannon wire using a stiffer wire, which was iron wire. So I did wire the SVG using the ironman in addition to the whisper wire. Finally I was able to cross the lesion with the stent over the whisper wire and then I pulled the ironman out which was the shannon wire. The stent was positioned under fluoroscopy guidance and deployed under 12 atmospheres for 30 seconds. The following angiogram showed excellent angiographic results. The procedure was completed without any complication. POSTPROCEDURE MANAGEMENT: 1. Dual antiplatelet therapy. 2. Risk factor modification. 3. Follow up with the patient. MMODL / IJN: [id number] /
--- NOTE | 2017-02-06 10:09 | P.PN ---
Subjective This is a pleasant 81-year-old gentleman who follows regularly with Dr. Strong in the office. He has a known history of coronary artery disease with prior coronary artery bypass grafting surgery as well as redo bypass, patient also had aortic valve replacement and underwent AICD for ischemic cardiomyopathy. Patient has history of diabetes, hypertension, hyperlipidemia, acute on chronic renal insufficiency, paroxysmal atrial fibrillation he is a nonsmoker. He was in the hospital earlier this month ruled in for non-Q-wave myocardial infarction. The decision at that time was made to maximize medical therapy, primarily because of his abnormal renal function. He presents to the hospital on this occasion with symptoms of midsternal chest pressure and heaviness. He also states that his blood pressure has been significantly elevated at home. He did have another episode of chest discomfort this morning , relieved with 2 sublingual nitroglycerin. His EKG on arrival here showed a normal sinus rhythm with a left bundle-branch block pattern and ST-T wave changes in the lateral leads. EKG performed this morning showed a normal sinus rhythm with left bundle branch block pattern and lateral ST-T wave changes. Chest x-ray revealed minimal subsegmental left basilar atelectasis. Blood pressure on arrival 228/96, heart rate in the 50s. Blood pressure this morning 194/80 with a heart rate in the 60s. CBC normal. Potassium on admission 5.5, 5.0 this morning. BUN 37 and 2.0 creatinine on admission, 37 and 2.3 this morning. Magnesium level I.7. Troponins 0.040, 0.064, 0.063. At the time of my examination this morning, patient is currently chest pain-free after receiving 2 sublingual nitroglycerin. His home medications include Lipitor 20 mg daily, Coreg 25 mg twice a day, Plavix 75 mg daily, flecainide 50 mg twice a day, Imdur 60 twice a day, Zestril 2-1/2 mg daily, Aldactone 25 mg daily, and hydralazine 50 mg one tablet by mouth 3 times a day. We will hold the patient' s Aldactone and MILLIE inhibitor because of the elevated potassium and abnormal renal function. 01/30/2017 Patient seen and examined this morning, denies any further chest discomfort. Overall he states he is feeling better today. Creatinine today is 2.9 potassium 5.4. We will continue to hold the Aldactone and MILLIE inhibitor. Recommend consultation with nephrology. 01/31/2017 Patient seen and examined this morning, blood pressure 118/54, heart rate in the 80s. Feeling much better overall. Potassium 5.4, BUN 38, creatinine 2.1. Creatinine was 2.9 yesterday. MILLIE inhibitor and Aldactone continue to be on hold. 02/01/2017 Patient seen and examined this morning, he did have an episode of chest discomfort through the night last night relieved with 3 sublingual nitroglycerin and is currently on nitroglycerin drip. EKG shows a sinus bradycardia with right bundle branch block pattern and nonspecific ST-T wave changes. At the time of our examination this morning, he is currently chest pain-free. Dr. Nuñez did have a lengthy discussion with the patient and the family regarding the risk of injuring the kidneys by doing cardiac catheterization. We will repeat the troponin, if there is a rise in troponin, we will discuss with Dr. Strong regarding possible cardiac catheterization. Patient and family do understand the risks with the kidneys. Blood pressure this morning 98/58, heart rate in the 70s. Potassium 5.1, creatinine 1.9 today. 02/02/2017 Patient seen and examined this morning, no further chest pain. Lexiscan performed today revealed severe stress-induced ischemia in the anterior and lateral claudio with a low ejection fraction of 29%. Creatinine 2.09 today, BUN 34, potassium 4.9. Because of the abnormality of the stress test along with the non-Q wave myocardial infarction patient has been advised to undergo cardiac catheterization tomorrow. He does understand the risks to his kidneys. We will speak with Dr. Stewart as well prior. 02/06/2017 Patient underwent angioplasty with stenting of the saphenous vein graft to the OM by Dr. Strong. Last evening patient had an episode where he became quite short of breath, he denied any chest discomfort. Chest x-ray normal. VQ scan low probability for PE. Temperature 100.3. 96% on 50% high flow. Let pressure 110/50. EKG from this morning shows a normal sinus rhythm with LVH. Creatinine 1.6. Objective - Vital Signs Vital signs: Vital Signs Temp 100.3 F H 02/06/17 07:40 Pulse 63 02/06/17 07:40 Resp 24 02/06/17 07:40 BP 111/53 02/06/17 07:40 Pulse Ox 96 02/06/17 09:07 Intake & Output 02/05/17 02/06/17 02/06/17 18:59 06:59 18:59 Intake Total 990 Output Total 200 240 Balance 790 -240 Weight 73.2 kg Intake: IV 790 Sodium Chloride 0.9% 1, 600 000 ml @ 75 mls/hr IV . [id number] TEDDY Rx#:[id number] Oral 200 Output: Urine 200 240 Other: Voiding Method Urinal # Voids 1 - Exam PHYSICAL EXAMINATION: HEENT: Head is atraumatic, normocephalic. Pupils equal, round. Neck is supple. There is no elevated jugular venous pressure. HEART EXAMINATION: S1 and S2 systolic murmur is heard. CHEST EXAMINATION: Lungs are clear w fine crackles to the bases. No chest wall tenderness is noted on palpation or with deep breathing.] ABDOMEN: [ Soft, nontender. Bowel sounds are heard. No organomegaly noted]. Right groin soft, no evidence of any hematoma. EXTREMITIES:[1+ peripheral pulses with no evidence of peripheral edema and no calf tenderness noted]. NEUROLOGIC [patient is awake, alert and oriented -3.] . - Labs CBC & Chem 7: 02/06/17 05:35 02/06/17 05:35 Labs: Abnormal Lab Results - Last 24 Hours (Table) 02/05/17 02/05/17 02/05/17 Range/Units 16:42 19:23 19:31 RBC (4.30-5.90) m/uL Hgb (13.0-17.5) gm/dL Hct (39.0-53.0) % RDW (11.5-15.5) % Lymphocytes # (1.0-4.8) k/uL ABG pCO2 25 L (35-45) mmHg ABG pO2 63 L (83-108) mmHg ABG HCO3 15 L (21-25) mmol/L ABG Total CO2 16 L (19-24) mmol/L ABG O2 Saturation 92.0 L (94-97) % Creatinine (0.66-1.25) mg/dL POC Glucose (mg/dL) 74 L 101 H (75-99) mg/dL 02/05/17 02/06/17 02/06/17 Range/Units 23:32 05:35 05:35 RBC 4.00 L (4.30-5.90) m/uL Hgb 11.9 L (13.0-17.5) gm/dL Hct 35.3 L (39.0-53.0) % RDW 15.9 H (11.5-15.5) % Lymphocytes # 0.9 L (1.0-4.8) k/uL ABG pCO2 (35-45) mmHg ABG pO2 (83-108) mmHg ABG HCO3 (21-25) mmol/L ABG Total CO2 (19-24) mmol/L ABG O2 Saturation (94-97) % Creatinine 1.60 H (0.66-1.25) mg/dL POC Glucose (mg/dL) 148 H (75-99) mg/dL 02/06/17 Range/Units 06:17 RBC (4.30-5.90) m/uL Hgb (13.0-17.5) gm/dL Hct (39.0-53.0) % RDW (11.5-15.5) % Lymphocytes # (1.0-4.8) k/uL ABG pCO2 (35-45) mmHg ABG pO2 (83-108) mmHg ABG HCO3 (21-25) mmol/L ABG Total CO2 (19-24) mmol/L ABG O2 Saturation (94-97) % Creatinine (0.66-1.25) mg/dL POC Glucose (mg/dL) 125 H (75-99) mg/dL Assessment and Plan Plan: Assessment and plan #1 chest discomfort, suggestive of angina. Patient was in the hospital earlier this month on January 10 2017, with a non-Q-wave myocardial infarction, axilla medical therapy advised at that time. Patient underwent angioplasty with stenting of the saphenous vein graft to the OM. #2 accelerated hypertension #3 known history of coronary artery disease with prior bypass surgery and stent placements #4 ischemic cardiomyopathy with prior AICD # 5 acute on chronic renal failure #6 hyperkalemia #7 hypertension #8 diabetes #9 hyperlipidemia Plan From cardiology's perspective we will continue the patient on aspirin, Coreg, Plavix, Lipitor, Norvasc, Imdur, and Ranexa. Pulmonary consultation has been requested. DNP note has been reviewed, I agree with a documented findings and plan of care. Patient was seen and examined.
--- NOTE | 2017-02-06 11:26 | PN ---
PROGRESS NOTE DATE OF SERVICE: 02/05/2017. PRESENT COMPLAINT: Chest pain. INTERVAL HISTORY: This is a patient with coronary artery disease, CHF, EF of 20%. He did undergo a stent of the LAD. The patient was seen by me yesterday on February 05, 2017. The patient did go back to the label printer again today, I do not know the exact details of the intervention. The patient is tired, lying in bed. No further chest pain. The patient is also being followed for renal function. REVIEW OF SYSTEMS: Done for constitutional, cardiovascular, GI, pulmonary; relevant findings as above. MEDICATIONS: Current medications are reviewed. PHYSICAL EXAMINATION: On examination, temperature 97, respirations 18, blood pressure 134/63, pulse of 95%. GENERAL APPEARANCE: Lying in bed, comfortable. HEENT: Pupils equal. Conjunctivae normal. NECK: JVD not raised. LUNGS: Respiratory effort normal. Diminished breath sounds. CARDIOVASCULAR: 1st and 2nd heart sounds. No edema. ABDOMEN: Soft, nontender. Liver and spleen not palpable. PSYCHIATRY: Alert, oriented x3. Mood and affect normal. INVESTIGATIONS: White count 4.8, hemoglobin 12.2, potassium 4.2, creatinine 1.74. ASSESSMENT: 1. Unstable angina. Patient with known triple-vessel coronary artery disease and chronic kidney disease with prior history of coronary bypass and history of stent to the left anterior descending, with further intervention today. 2. Acute non-Q-wave myocardial infarction on 01/10/2017, not on this admission. 3. Chronic congestive heart failure from systolic dysfunction, ejection fraction of 20% to 25% with diastolic dysfunction from underlying coronary disease. 4. Acute kidney injury. Most likely acute tubular necrosis from contrast nephropathy, drug-induced, improved. 5. Hyperkalemia associated with acute kidney injury. On MILLIE inhibitor. 6. Accelerated malignant hypertension present on admission. 7. Alzheimer's dementia, late onset type. 8. Diabetes mellitus type 2, chronically on oral hypoglycemics. 9. Hyperlipidemia. 10.Primary osteoarthritis of multiple joints bilateral. 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 12.Pacemaker placed. 13.Peripheral artery disease. 14.Acute hypoxic respiratory failure. 15.CODE STATUS, DO NOT RESUSCITATE. PLAN: Continue current medications. Keep a close eye on patient's fluids. Care was discussed with the patient. EVENT NOTE: A nurse called me later in the evening/night, that the patient had become short of breath. Pulse ox was dropping. The nurse could not hear any significant wheezing. Hence, I ordered blood gases. ABGs did show the patient to be hypoxic. I told them to keep the oxygen on. I also told them to contact Cardiology and see if it is okay to put the patient on IV heparin, in case of underlying PE. Also to check with Cardiology if we should do a CT angio, however, because of concerns about the kidney function should we do a V/Q scan. V/Q scan was ordered. I also ordered a chest x-ray. I also ordered a chest x-ray, PE is a probability. Cardiology has been informed. We will see how this goes and take it from here. [id number] / IJN: [id number] /
[2017-02-06 11:33] LABS: Glucose,Whole Blood 103 mg/dL (75-99)
--- NOTE | 2017-02-06 14:30 | P.CNPUL ---
History of Present Illness Consult date: 02/06/17 Requesting physician: Guy Noriega Reason for consult: COPD, other (Chest pain) Chief complaint: Chest pain History of present illness: This is a 81-year-old white male with history of coronary artery disease, previous CABG and redo bypass surgery, history of aortic valve replacement, previous AICD placement for ischemic cardiomyopathy and LV dysfunction, history of multiple medical problems including hypertension, chronic renal failure, diabetes, paroxysmal atrial fibrillation, patient presented to the hospital mostly with midsternal chest pressure and heaviness. This was on 01/29/2017. EKG showed a left bundle branch block pattern and ST and T-wave changes in the lateral leads. Chest x-ray showed minimal subsegmental left basilar atelectasis. His labs were relatively unremarkable except for slightly elevated potassium, elevated BUN of 37 creatinine of 2.0, troponins were slightly elevated, his pain responded to 2 sublingual nitroglycerin tablets. On 02/2017, patient underwent cardiac catheterization, and angioplasty with stenting of the saphenous vein graft to the obtuse marginal. In the evening of 02/05/2017, patient developed shortness of breath, but no chest pain, chest x-ray showed mostly evidence of pulmonary vascular congestion, VQ scan was low probability for pulmonary embolism. Hence this consult was initiated. Agent is presently on AIR VO2, asymptomatic, denies any cough no wheezing no shortness of breath and no chest pain. I reviewed the chest x-ray again it showed cardiomegaly and some component of CHF. I reviewed the VQ scan at it again showed low probably for pulmonary embolism. Patient is asymptomatic today on 02/06/2017. Review of Systems 12 point review of systems were obtained, please refer to pertinent positives and negatives in HPI. Past Medical History Past Medical History: Coronary Artery Disease (CAD), Heart Failure, COPD, Dementia, Diabetes Mellitus, Eye Disorder, GERD/Reflux, Hyperlipidemia, Hypertension, Osteoarthritis (OA), Pneumonia, Renal Disease, Vascular Disorder Additional Past Medical History / Comment(s): Ischemic cardiomyopathy, cardiac murmur, glaucoma bilateral eyes, CKD, normocytic anemia, PVD, past R great toe wound, past R upper leg cellulitis, varicosities, DJD. History of Any Multi-Drug Resistant Organisms: None Reported Past Surgical History: AICD, Cholecystectomy, Coronary Bypass/CABG, Heart Catheterization With Stent, Hernia Repair, Pacemaker Additional Past Surgical History / Comment(s): CABG performed twice STATES TOTAL OF 5 BYPASSES, bilateral fempop bypasses, BIBI CATARACT, EGD/COLONOSCOPY, picc line insertion/removed. Past Anesthesia/Blood Transfusion Reactions: No Reported Reaction Date of Last Stent Placement:: unknow Type of Cardiac Device: Permanent Pacemaker, AICD Device Placement Date:: JUL 2015 Past Psychological History: No Psychological Hx Reported Additional Psychological History / Comment(s): Pt resides alone. He is independent. Smoking Status: Former smoker Past Alcohol Use History: None Reported Additional Past Alcohol Use History / Comment(s): STARTED SMOKING AGE 18 (1951) , QUIT SMOKING 1978, SMOKED 1PPD Past Drug Use History: None Reported - Past Family History Son(s) Family Medical History: Cancer Additional Family Medical History / Comment(s): LUNG CANCER. SON WAS A SMOKER. Mother Family Medical History: Chest Pain / Angina, Congestive Heart Failure (CHF), Diabetes Mellitus Additional Family Medical History / Comment(s): Mother in her 70's Medications and Allergies Home Medications Medication Instructions Recorded Confirmed Type Atorvastatin [Lipitor] 20 mg PO DAILY 07/07/15 01/28/17 History Dorzolamide HCl/Timolol Maleat 1 drop BOTH EYES BID 07/07/15 01/28/17 History [Cosopt Eye Drops] Insulin Detemir [Levemir] 22 unit SQ HS 07/07/15 01/28/17 History Brimonidine Tartrate [Alphagan P 1 drops BOTH EYES BID 06/04/16 01/28/17 History 0.1% Ophth Soln] Carvedilol [Coreg] 25 mg PO BID 06/04/16 01/28/17 History Pantoprazole Sodium 40 mg PO DAILY 06/04/16 01/28/17 History Flecainide [Tambocor] 50 mg PO BID 09/14/16 01/28/17 History Aspirin 325 mg PO DAILY #30 tab 01/15/17 01/28/17 Rx Clopidogrel [Plavix] 75 mg PO DAILY #30 tab 01/15/17 01/28/17 Rx Donepezil [Aricept] 10 mg PO HS #30 tab 01/15/17 01/28/17 Rx Isosorbide Mononitrate ER [Imdur] 60 mg PO BID #60 tab 01/15/17 01/28/17 Rx Lisinopril [Zestril] 2.5 mg PO DAILY #30 tab 01/15/17 01/28/17 Rx Nitroglycerin Sl Tabs [Nitrostat] 0.4 mg SUBLINGUAL Q5M PRN #20 tab 01/15/17 Rx Spironolactone [Aldactone] 25 mg PO DAILY #30 tab 01/15/17 01/28/17 Rx hydrALAZINE HCL [Apresoline] 50 mg PO TID #90 tab 01/15/17 01/28/17 Rx metFORMIN HCL 1,000 mg PO BID #60 01/15/17 01/28/17 Rx Allergies Allergy/AdvReac Type Severity Reaction Status Date / Time prednisone AdvReac SUGAR GOES Verified 01/28/17 17:33 UP Physical Exam Vitals: Vital Signs Temp Pulse Pulse Resp BP BP Pulse Ox 02/06/17 11:13 58 L 02/06/17 11:02 58 L 98 02/06/17 09:07 96 02/06/17 07:40 100.3 F H 63 24 111/53 95 02/06/17 07:21 96 02/06/17 06:32 69 02/06/17 06:22 72 02/06/17 04:00 69 17 98/50 94 L 02/06/17 00:00 97.8 F 53 L 17 122/69 92 L 02/05/17 20:00 97.8 F 53 L 17 117/61 98 02/05/17 18:34 99.1 F 64 20 155/68 86 L 02/05/17 17:36 53 L 18 141/66 86 L 02/05/17 16:36 60 18 126/61 94 L 02/05/17 16:06 56 L 18 128/56 93 L 02/05/17 16:00 52 L 18 118/52 88 L 02/05/17 15:36 54 L 20 127/51 92 L 02/05/17 15:21 52 L 124/58 02/05/17 15:06 52 L 20 118/52 02/05/17 14:42 135/64 93 L 02/05/17 14:40 54 L 135/63 02/05/17 14:39 52 L 132/62 02/05/17 14:37 52 L 129/61 02/05/17 14:35 137/63 02/05/17 14:29 54 L 128/61 02/05/17 14:26 55 L 114/58 02/05/17 14:20 54 L 16 123/60 95 Intake and Output 02/05/17 02/06/17 02/06/17 22:59 06:59 14:59 Intake Total 700 Output Total 240 Balance 700 -240 Intake: IV 600 Sodium Chloride 0.9% 1, 600 000 ml @ 75 mls/hr IV . [id number] [facility] Rx#:[id number] Oral 100 Output: Urine 240 Other: Voiding Method Toilet Urinal # Voids 1 Weight 73.2 kg Physical examination revealed a 81-year-old in no form of respiratory distress. HEENT: Head is atraumatic, normocephalic. Pupils equal, round. Neck is supple. There is no elevated jugular venous pressure. HEART EXAMINATION: Heart S1 and S2 systolic murmur is heard. CHEST EXAMINATION: Lungs are clear to auscultation and precussion. No chest wall tenderness is noted on palpation or with deep breathing. ABDOMEN: Soft, nontender. Bowel sounds are heard. No organomegaly noted. EXTREMITIES: 1+ peripheral pulses with no evidence of peripheral edema and no calf tenderness noted. NEUROLOGIC patient is awake, alert and oriented -3. . Results - Laboratory Findings CBC and BMP: 02/06/17 05:35 02/06/17 05:35 ABG ABG pH 7.41 (7.35-7.45) 02/05/17 19:23 ABG pCO2 25 mmHg (35-45) L 02/05/17 19:23 ABG pO2 63 mmHg (83-108) L 02/05/17 19:23 ABG O2 Saturation 92.0 % (94-97) L 02/05/17 19:23 Abnormal lab findings: Abnormal Labs 01/28/17 01/28/17 01/28/17 17:57 17:57 17:57 RBC Hgb Hct RDW Lymphocytes # Myelocytes # (Manual) APTT ABG pCO2 ABG pO2 ABG HCO3 ABG Total CO2 ABG O2 Saturation Sodium Potassium 5.5 H Carbon Dioxide 16 L BUN 37 H Creatinine 2.00 H Glucose 170 H POC Glucose (mg/dL) Calcium 10.3 H Phosphorus 5.3 H Total Creatine Kinase Troponin I 0.040 H* Urine Protein 1+ H Urine Mucus 01/28/17 01/29/17 01/29/17 20:53 00:29 00:29 RBC Hgb Hct RDW Lymphocytes # Myelocytes # (Manual) APTT 51.7 H ABG pCO2 ABG pO2 ABG HCO3 ABG Total CO2 ABG O2 Saturation Sodium Potassium Carbon Dioxide BUN Creatinine Glucose POC Glucose (mg/dL) 166 H Calcium Phosphorus Total Creatine Kinase 45 L Troponin I 0.064 H* Urine Protein Urine Mucus 01/29/17 01/29/17 01/29/17 06:41 06:41 06:41 RBC Hgb Hct RDW Lymphocytes # Myelocytes # (Manual) APTT 58.9 H ABG pCO2 ABG pO2 ABG HCO3 ABG Total CO2 ABG O2 Saturation Sodium Potassium Carbon Dioxide BUN 37 H Creatinine 2.30 H Glucose 71 L POC Glucose (mg/dL) Calcium Phosphorus Total Creatine Kinase Troponin I 0.063 H* Urine Protein Urine Mucus 01/29/17 01/29/17 01/29/17 11:42 16:41 20:28 RBC Hgb Hct RDW Lymphocytes # Myelocytes # (Manual) APTT ABG pCO2 ABG pO2 ABG HCO3 ABG Total CO2 ABG O2 Saturation Sodium Potassium Carbon Dioxide BUN Creatinine Glucose POC Glucose (mg/dL) 115 H 149 H 185 H Calcium Phosphorus Total Creatine Kinase Troponin I Urine Protein Urine Mucus 01/30/17 01/30/17 01/30/17 05:37 06:22 11:42 RBC Hgb Hct RDW Lymphocytes # Myelocytes # (Manual) APTT ABG pCO2 ABG pO2 ABG HCO3 ABG Total CO2 ABG O2 Saturation Sodium 136 L Potassium 5.4 H Carbon Dioxide 21 L BUN 43 H Creatinine 2.90 H Glucose 117 H POC Glucose (mg/dL) 119 H 168 H Calcium Phosphorus Total Creatine Kinase Troponin I Urine Protein Urine Mucus 01/30/17 01/30/17 01/31/17 16:45 20:51 05:22 RBC Hgb Hct RDW Lymphocytes # Myelocytes # (Manual) APTT ABG pCO2 ABG pO2 ABG HCO3 ABG Total CO2 ABG O2 Saturation Sodium Potassium 5.4 H Carbon Dioxide 21 L BUN 38 H Creatinine 2.10 H Glucose 127 H POC Glucose (mg/dL) 181 H 163 H Calcium Phosphorus Total Creatine Kinase Troponin I Urine Protein Urine Mucus 01/31/17 01/31/17 01/31/17 06:00 11:39 16:27 RBC Hgb Hct RDW Lymphocytes # Myelocytes # (Manual) APTT ABG pCO2 ABG pO2 ABG HCO3 ABG Total CO2 ABG O2 Saturation Sodium Potassium Carbon Dioxide BUN Creatinine Glucose POC Glucose (mg/dL) 131 H 185 H 186 H Calcium Phosphorus Total Creatine Kinase Troponin I Urine Protein Urine Mucus 01/31/17 02/01/17 02/01/17 21:09 03:00 06:02 RBC Hgb Hct RDW Lymphocytes # Myelocytes # (Manual) APTT ABG pCO2 ABG pO2 ABG HCO3 ABG Total CO2 ABG O2 Saturation Sodium Potassium Carbon Dioxide BUN Creatinine Glucose POC Glucose (mg/dL) 261 H 137 H Calcium Phosphorus Total Creatine Kinase Troponin I Urine Protein 1+ H Urine Mucus Rare H 02/01/17 02/01/17 02/01/17 06:11 06:11 11:01 RBC 4.22 L Hgb 12.1 L Hct 37.3 L RDW Lymphocytes # 0.3 L Myelocytes # (Manual) APTT ABG pCO2 ABG pO2 ABG HCO3 ABG Total CO2 ABG O2 Saturation Sodium Potassium Carbon Dioxide BUN 33 H Creatinine 1.94 H Glucose 134 H POC Glucose (mg/dL) Calcium Phosphorus Total Creatine Kinase Troponin I 0.049 H* Urine Protein Urine Mucus 02/01/17 02/01/17 02/01/17 11:42 16:46 20:54 RBC Hgb Hct RDW Lymphocytes # Myelocytes # (Manual) APTT ABG pCO2 ABG pO2 ABG HCO3 ABG Total CO2 ABG O2 Saturation Sodium Potassium Carbon Dioxide BUN Creatinine Glucose POC Glucose (mg/dL) 133 H 152 H 158 H Calcium Phosphorus Total Creatine Kinase Troponin I Urine Protein Urine Mucus 02/02/17 02/02/17 02/02/17 06:02 06:08 11:52 RBC Hgb Hct RDW Lymphocytes # Myelocytes # (Manual) APTT ABG pCO2 ABG pO2 ABG HCO3 ABG Total CO2 ABG O2 Saturation Sodium 136 L Potassium Carbon Dioxide 21 L BUN 34 H Creatinine 2.09 H Glucose 135 H POC Glucose (mg/dL) 126 H 138 H Calcium Phosphorus Total Creatine Kinase Troponin I Urine Protein Urine Mucus 02/02/17 02/02/17 02/03/17 16:43 20:49 05:37 RBC Hgb Hct RDW Lymphocytes # Myelocytes # (Manual) APTT ABG pCO2 ABG pO2 ABG HCO3 ABG Total CO2 ABG O2 Saturation Sodium 136 L Potassium Carbon Dioxide 21 L BUN 32 H Creatinine 2.10 H Glucose 112 H POC Glucose (mg/dL) 155 H 229 H Calcium Phosphorus Total Creatine Kinase Troponin I Urine Protein Urine Mucus 02/03/17 02/03/17 02/03/17 06:08 11:43 16:53 RBC Hgb Hct RDW Lymphocytes # Myelocytes # (Manual) APTT ABG pCO2 ABG pO2 ABG HCO3 ABG Total CO2 ABG O2 Saturation Sodium Potassium Carbon Dioxide BUN Creatinine Glucose POC Glucose (mg/dL) 113 H 118 H 148 H Calcium Phosphorus Total Creatine Kinase Troponin I Urine Protein Urine Mucus 02/03/17 02/04/17 02/04/17 21:10 05:46 05:46 RBC 4.16 L Hgb 12.5 L Hct 37.1 L RDW 15.7 H Lymphocytes # Myelocytes # (Manual) 0.04 H APTT ABG pCO2 ABG pO2 ABG HCO3 ABG Total CO2 ABG O2 Saturation Sodium Potassium Carbon Dioxide BUN 26 H Creatinine 1.83 H Glucose POC Glucose (mg/dL) 137 H Calcium Phosphorus Total Creatine Kinase Troponin I Urine Protein Urine Mucus 02/04/17 02/04/17 02/05/17 19:52 21:15 05:47 RBC 4.23 L Hgb 12.2 L Hct 37.6 L RDW 15.8 H Lymphocytes # Myelocytes # (Manual) APTT 49.3 H ABG pCO2 ABG pO2 ABG HCO3 ABG Total CO2 ABG O2 Saturation Sodium Potassium Carbon Dioxide BUN Creatinine Glucose POC Glucose (mg/dL) 152 H Calcium Phosphorus Total Creatine Kinase Troponin I Urine Protein Urine Mucus 02/05/17 02/05/17 02/05/17 05:47 05:47 05:53 RBC Hgb Hct RDW Lymphocytes # Myelocytes # (Manual) APTT 50.6 H ABG pCO2 ABG pO2 ABG HCO3 ABG Total CO2 ABG O2 Saturation Sodium Potassium Carbon Dioxide 21 L BUN Creatinine 1.74 H Glucose 66 L POC Glucose (mg/dL) 73 L Calcium Phosphorus Total Creatine Kinase Troponin I Urine Protein Urine Mucus 02/05/17 02/05/17 02/05/17 16:42 19:23 19:31 RBC Hgb Hct RDW Lymphocytes # Myelocytes # (Manual) APTT ABG pCO2 25 L ABG pO2 63 L ABG HCO3 15 L ABG Total CO2 16 L ABG O2 Saturation 92.0 L Sodium Potassium Carbon Dioxide BUN Creatinine Glucose POC Glucose (mg/dL) 74 L 101 H Calcium Phosphorus Total Creatine Kinase Troponin I Urine Protein Urine Mucus 02/05/17 02/06/17 02/06/17 23:32 05:35 05:35 RBC 4.00 L Hgb 11.9 L Hct 35.3 L RDW 15.9 H Lymphocytes # 0.9 L Myelocytes # (Manual) APTT ABG pCO2 ABG pO2 ABG HCO3 ABG Total CO2 ABG O2 Saturation Sodium Potassium Carbon Dioxide BUN Creatinine 1.60 H Glucose POC Glucose (mg/dL) 148 H Calcium Phosphorus Total Creatine Kinase Troponin I Urine Protein Urine Mucus 02/06/17 02/06/17 06:17 11:31 RBC Hgb Hct RDW Lymphocytes # Myelocytes # (Manual) APTT ABG pCO2 ABG pO2 ABG HCO3 ABG Total CO2 ABG O2 Saturation Sodium Potassium Carbon Dioxide BUN Creatinine Glucose POC Glucose (mg/dL) 125 H 103 H Calcium Phosphorus Total Creatine Kinase Troponin I Urine Protein Urine Mucus - Diagnostic Findings Chest x-ray: image reviewed (Postoperative changes, previous sternotomy, implantable cardiac device with 2 leads in the heart, pulmonary vascular congestion was noted.) Assessment and Plan Plan: Impression: 1 acute coronary syndrome, significant coronary artery disease and previous CABG , recent non-Q-wave myocardial infarction. 2 shortness of breath secondary to LV dysfunction, and suspect chronic congestive heart failure. 3 possible underlying component of COPD however that is to be addressed on an outpatient basis. 4 history of multiple comorbidities including ischemic cardiomyopathy, chronic renal failure, hypertension, diabetes, hyperlipidemia, 5 status post balloon angioplasty of saphenous vein graft to obtuse marginal. Recommendation: Continue present treatment plan, patient seems to be improving, no reason to be concerned about possible pulmonary embolism at this point, the VQ scan was noted. Continue to titrate FiO2 as tolerated until we can place on 2 L nasal cannula. We will continue to follow. Consider diuretics and cut down her IV fluid once his renal status improves. Follow-up chest x-ray in a.m. , will follow closely. Time with Patient: Greater than 30
[2017-02-06 16:37] LABS: Glucose,Whole Blood 81 mg/dL (75-99)
[2017-02-06] MEDS: HEPARIN SODIUM,PORCINE/D5W PMX 25,000 UNIT in DEXTROSE/WATER 1 500ML.BAG IV SCH (17:08)
[2017-02-06] MEDS: SODIUM CHLORIDE 0.9% 1,000 ML IV SCH (17:09)
[2017-02-06 21:29] LABS: Glucose,Whole Blood 118 mg/dL (75-99)
[2017-02-06] MEDS: INSULIN DETEMIR 100 UNIT/ML 10 ML VIAL SQ SCH (21:39)
[2017-02-06] MEDS: DONEPEZIL 10 MG TAB PO SCH (21:40)
--- NOTE | 2017-02-06 22:10 | PN ---
PROGRESS NOTE DATE OF SERVICE: 02/06/2017 Patient is seen for followup for acute kidney injury, has improved. Patient is status post cardiac catheterization. He was maintained on IV fluids which is still running at about 75 mL an hour. The patient is lying flat. He is comfortable. He is not in any acute distress. On examination, blood pressure is 111/53, heart rate 58 per minute. He did have a temp of 100.3 degrees Fahrenheit. HEART: S1, S2. LUNGS: Bilateral breath sounds are heard. ABDOMEN: Soft, nontender. Lower extremities show no evidence of edema. [employer]: Grossly intact. Lab shows serum creatinine 1.6 from today. ASSESSMENT: 1. Acute kidney injury, acute tubular necrosis, currently slowly improving. There is a component of hypovolemia and prerenal acute kidney injury which also seems to have improved. The patient is maintained on IV fluids which we can continue for now. 2. Coronary artery disease, status post cardiac catheterization and stent placement. 3. Ischemic cardiomyopathy. 4. Hypertension currently improved. PLAN: May continue IV fluids. I will decrease the rate to about 50 mL an hour, given his low ejection fraction. However, currently patient does not appear to be volume depleted. MMODL / IJN: [id number] /
[2017-02-06] MEDS: ALPRAZolam 0.5 MG TAB PO PRN (22:56)
[2017-02-07 06:14] LABS: Basophils % (A) 1 %; CH 29.9; CHCM 34.3; Eosinophils # (A) 0.1 k/uL (0-0.7); Eosinophils % (A) 1 %; HCT 30.8 % (39.0-53.0); HDW 2.98; HGB 10.2 gm/dL (13.0-17.5); Luc # (Auto) 0.25; Luc % (Auto) 4; Lymphocytes # (A) 1.3 k/uL (1.0-4.8); Lymphocytes % (A) 22 %; MCHC 33.1 g/dL (31.0-37.0); MCV 87.7 fL (80.0-100.0); Mean Platelet Volume 8.3; Monocytes # (A) 0.6 k/uL (0-1.0); Monocytes % (A) 10 %; Neutrophils # (A) 3.6 k/uL (1.3-7.7); Neutrophils % (A) 62 %; RBC 3.52 m/uL (4.30-5.90); RDW 15.8 % (11.5-15.5); WBC 5.8 k/uL (3.8-10.6); WBC (Perox) 6.04
[2017-02-07 06:15] LABS: Glucose,Whole Blood 57 mg/dL (75-99)
[2017-02-07] MEDS: PANTOPRAZOLE 40 MG TABLET PO SCH (06:22)
[2017-02-07] MEDS: CARVEDILOL 12.5 MG TAB PO SCH (06:22)
[2017-02-07 06:29] LABS: Glucose,Whole Blood 79 mg/dL (75-99)
[2017-02-07] MEDS: ALPRAZolam 0.5 MG TAB PO PRN ×2 (07:17→16:43)
--- NOTE | 2017-02-07 07:38 | XR ---
EXAMINATION TYPE: XR chest 1V portable DATE OF EXAM: 02/07/2017 COMPARISON: 02/05/2017 INDICATION: CHF TECHNIQUE: Single frontal view of the chest is obtained. FINDINGS: The heart size is enlarged. The pulmonary vasculature is prominent. There is diffuse increased lung markings bilaterally. This is greater in the lower lung bases. Findin gs have increased over the interval. Findings are compatible with congestive heart failure the proper clinical setting. Electronic device overlies left chest. Sternotomy wires are present. EKG leads are present. IMPRESSION: 1. Congestive heart failure, worsening from prior
[2017-02-07] MEDS ORDERED: FUROSEMIDE 10 MG/ML 4 ML VIAL IV STA ×3 (08:40→14:59)
[2017-02-07] MEDS: DORZOLAMIDE-TIMOLOL 2-0.5% DROPS 10 ML BTL BOTH EYES SCH ×2 (08:41→20:53)
[2017-02-07] MEDS: BRIMONIDINE TARTRATE 0.2% DROPS 5 ML BTL BOTH EYES SCH ×2 (08:41→20:53)
[2017-02-07] MEDS: ATORVASTATIN 20 MG TAB PO SCH (08:42)
[2017-02-07] MEDS: ASPIRIN 81 MG CHEW PO SCH (08:42)
[2017-02-07] MEDS: LOPERAMIDE 2 MG CAP PO SCH ×4 (08:42→22:10)
[2017-02-07] MEDS: CLOPIDOGREL 75 MG TAB PO SCH (08:42)
[2017-02-07 08:44] LABS: Calcium 8.4 mg/dL (8.4-10.2); Potassium 4.2 mmol/L (3.5-5.1)
[2017-02-07] MEDS: IPRATROPIUM-ALBUTEROL 3 ML NEB INHALATION SCH ×4 (09:03→20:10)
--- NOTE | 2017-02-07 09:57 | P.PN ---
Subjective This is a pleasant 81-year-old gentleman who follows regularly with Dr. Strong in the office. He has a known history of coronary artery disease with prior coronary artery bypass grafting surgery as well as redo bypass, patient also had aortic valve replacement and underwent AICD for ischemic cardiomyopathy. Patient has history of diabetes, hypertension, hyperlipidemia, acute on chronic renal insufficiency, paroxysmal atrial fibrillation he is a nonsmoker. He was in the hospital earlier this month ruled in for non-Q-wave myocardial infarction. The decision at that time was made to maximize medical therapy, primarily because of his abnormal renal function. He presents to the hospital on this occasion with symptoms of midsternal chest pressure and heaviness. He also states that his blood pressure has been significantly elevated at home. He did have another episode of chest discomfort this morning , relieved with 2 sublingual nitroglycerin. His EKG on arrival here showed a normal sinus rhythm with a left bundle-branch block pattern and ST-T wave changes in the lateral leads. EKG performed this morning showed a normal sinus rhythm with left bundle branch block pattern and lateral ST-T wave changes. Chest x-ray revealed minimal subsegmental left basilar atelectasis. Blood pressure on arrival 228/96, heart rate in the 50s. Blood pressure this morning 194/80 with a heart rate in the 60s. CBC normal. Potassium on admission 5.5, 5.0 this morning. BUN 37 and 2.0 creatinine on admission, 37 and 2.3 this morning. Magnesium level I.7. Troponins 0.040, 0.064, 0.063. At the time of my examination this morning, patient is currently chest pain-free after receiving 2 sublingual nitroglycerin. His home medications include Lipitor 20 mg daily, Coreg 25 mg twice a day, Plavix 75 mg daily, flecainide 50 mg twice a day, Imdur 60 twice a day, Zestril 2-1/2 mg daily, Aldactone 25 mg daily, and hydralazine 50 mg one tablet by mouth 3 times a day. We will hold the patient' s Aldactone and MILLIE inhibitor because of the elevated potassium and abnormal renal function. 01/30/2017 Patient seen and examined this morning, denies any further chest discomfort. Overall he states he is feeling better today. Creatinine today is 2.9 potassium 5.4. We will continue to hold the Aldactone and MILLIE inhibitor. Recommend consultation with nephrology. 01/31/2017 Patient seen and examined this morning, blood pressure 118/54, heart rate in the 80s. Feeling much better overall. Potassium 5.4, BUN 38, creatinine 2.1. Creatinine was 2.9 yesterday. MILLIE inhibitor and Aldactone continue to be on hold. 02/01/2017 Patient seen and examined this morning, he did have an episode of chest discomfort through the night last night relieved with 3 sublingual nitroglycerin and is currently on nitroglycerin drip. EKG shows a sinus bradycardia with right bundle branch block pattern and nonspecific ST-T wave changes. At the time of our examination this morning, he is currently chest pain-free. Dr. Nuñez did have a lengthy discussion with the patient and the family regarding the risk of injuring the kidneys by doing cardiac catheterization. We will repeat the troponin, if there is a rise in troponin, we will discuss with Dr. Strong regarding possible cardiac catheterization. Patient and family do understand the risks with the kidneys. Blood pressure this morning 98/58, heart rate in the 70s. Potassium 5.1, creatinine 1.9 today. 02/02/2017 Patient seen and examined this morning, no further chest pain. Lexiscan performed today revealed severe stress-induced ischemia in the anterior and lateral claudio with a low ejection fraction of 29%. Creatinine 2.09 today, BUN 34, potassium 4.9. Because of the abnormality of the stress test along with the non-Q wave myocardial infarction patient has been advised to undergo cardiac catheterization tomorrow. He does understand the risks to his kidneys. We will speak with Dr. Stewart as well prior. 02/06/2017 Patient underwent angioplasty with stenting of the saphenous vein graft to the OM by Dr. Strong. Last evening patient had an episode where he became quite short of breath, he denied any chest discomfort. Chest x-ray normal. VQ scan low probability for PE. Temperature 100.3. 96% on 50% high flow. Let pressure 110/50. EKG from this morning shows a normal sinus rhythm with LVH. Creatinine 1.6. 02/07/2017 Patient seen and examined this morning, states he became quite short of breath through the night last night. Still mildly short of breath this morning. Repeat chest x-ray revealed worsening congestive cardiac failure. Patient continues to be on high flow, FiO2 of 45, 91% oxygenation. Hemoglobin 10.2, platelet count 181. Potassium 4.2, BUN 20, creatinine 1.5. We'll give the patient one time dose of IV Lasix 40 mg and decrease IV fluids to KVO. This was also discussed with nephrology who concurs. Objective - Vital Signs Vital signs: Vital Signs Temp 98.5 F 02/07/17 08:00 Pulse 60 02/07/17 09:17 Resp 20 02/07/17 09:03 BP 89/57 02/07/17 08:00 Pulse Ox 91 L 02/07/17 08:00 Intake & Output 02/06/17 02/07/17 02/07/17 18:59 06:59 18:59 Intake Total 360 120 Output Total 550 200 Balance -190 -200 120 Intake: IV 160 Sodium Chloride 0.9% 1, 160 000 ml @ 75 mls/hr IV . [id number] [facility] Rx#:[id number] Oral 200 120 Output: Urine 550 200 Other: # Voids 1 - Exam PHYSICAL EXAMINATION: HEENT: Head is atraumatic, normocephalic. Pupils equal, round. Neck is supple. There is no elevated jugular venous pressure. HEART EXAMINATION: S1 and S2 systolic murmur is heard. CHEST EXAMINATION: Lungs reveal bilateral rales. ABDOMEN: [ Soft, nontender. Bowel sounds are heard. No organomegaly noted]. Right groin soft, no evidence of any hematoma. EXTREMITIES:[1+ peripheral pulses with no evidence of peripheral edema and no calf tenderness noted]. NEUROLOGIC [patient is awake, alert and oriented -3.] . - Labs CBC & Chem 7: 02/07/17 05:25 02/07/17 05:25 Labs: Abnormal Lab Results - Last 24 Hours (Table) 02/06/17 02/06/17 02/07/17 Range/Units 11:31 21:24 05:25 RBC 3.52 L (4.30-5.90) m/uL Hgb 10.2 L (13.0-17.5) gm/dL Hct 30.8 L (39.0-53.0) % RDW 15.8 H (11.5-15.5) % Carbon Dioxide (22-30) mmol/L Creatinine (0.66-1.25) mg/dL Glucose (74-99) mg/dL POC Glucose (mg/dL) 103 H 118 H (75-99) mg/dL 02/07/17 02/07/17 Range/Units 05:25 06:09 RBC (4.30-5.90) m/uL Hgb (13.0-17.5) gm/dL Hct (39.0-53.0) % RDW (11.5-15.5) % Carbon Dioxide 20 L (22-30) mmol/L Creatinine 1.59 H (0.66-1.25) mg/dL Glucose 51 L (74-99) mg/dL POC Glucose (mg/dL) 57 L (75-99) mg/dL Assessment and Plan Plan: Assessment and plan #1 chest discomfort, suggestive of angina. Patient was in the hospital earlier this month on January 10 2017, with a non-Q-wave myocardial infarction, axilla medical therapy advised at that time. Patient underwent angioplasty with stenting of the saphenous vein graft to the OM. #2 accelerated hypertension #3 known history of coronary artery disease with prior bypass surgery and stent placements #4 ischemic cardiomyopathy with prior AICD # 5 acute on chronic renal failure #6 hyperkalemia #7 hypertension #8 diabetes #9 hyperlipidemia Plan From cardiology's perspective we will Give the patient one time dose of 40 mg IV Lasix and decrease IV fluids to KVO. check lytes BUN and creatinine in the morning. DNP note has been reviewed, I agree with a documented findings and plan of care. Patient was seen and examined.
--- NOTE | 2017-02-07 11:41 | P.PN ---
Subjective Principal diagnosis: Acute coronary syndrome, chronic congestive heart failure. This is a 81-year-old white male with history of coronary artery disease, previous CABG and redo bypass surgery, history of aortic valve replacement, previous AICD placement for ischemic cardiomyopathy and LV dysfunction, history of multiple medical problems including hypertension, chronic renal failure, diabetes, paroxysmal atrial fibrillation, patient presented to the hospital mostly with midsternal chest pressure and heaviness. This was on 01/29/2017. EKG showed a left bundle branch block pattern and ST and T-wave changes in the lateral leads. Chest x-ray showed minimal subsegmental left basilar atelectasis. His labs were relatively unremarkable except for slightly elevated potassium, elevated BUN of 37 creatinine of 2.0, troponins were slightly elevated, his pain responded to 2 sublingual nitroglycerin tablets. On 02/2017, patient underwent cardiac catheterization, and angioplasty with stenting of the saphenous vein graft to the obtuse marginal. In the evening of 02/05/2017, patient developed shortness of breath, but no chest pain, chest x-ray showed mostly evidence of pulmonary vascular congestion, VQ scan was low probability for pulmonary embolism. Hence this consult was initiated. Agent is presently on AIR VO2, asymptomatic, denies any cough no wheezing no shortness of breath and no chest pain. I reviewed the chest x-ray again it showed cardiomegaly and some component of CHF. I reviewed the VQ scan at it again showed low probably for pulmonary embolism. Patient is asymptomatic today on 02/06/2017. Patient was reevaluated today on 02/07/2017, remains on a high flow O2, via air VO2, patient is actually on 45 L/m. Patient is complaining of some shortness of breath, and his chest x-ray is showing worsening congestive heart failure. This was definitely expected considering the patient was on IV fluids at 100 mL/ h, and was not receiving any diuretics. I believe his diuretics were placed on hold because of his renal failure. At any rate after reviewing the chest x-ray , I recommended that he goes back on Lasix 40 mg IV push every 12 hours, and his IV fluid is down to 50 mL per hour. CBC is relatively normal basic metabolic profile was reviewed BUN is 20 creatinine is 1.59 improved with hydration, but the patient cannot be hydrated any further, needs to actually received diuretics at this point. Objective - Vital Signs Vital signs: Vital Signs Temp 98.5 F 02/07/17 08:00 Pulse 60 02/07/17 09:17 Resp 20 02/07/17 09:03 BP 89/57 02/07/17 08:00 Pulse Ox 91 L 02/07/17 08:00 Intake & Output 02/06/17 02/07/17 02/07/17 18:59 06:59 18:59 Intake Total 360 120 Output Total 550 200 Balance -190 -200 120 Intake: IV 160 Sodium Chloride 0.9% 1, 160 000 ml @ 75 mls/hr IV . [id number] Rx#:[id number] Oral 200 120 Output: Urine 550 200 Other: Voiding Method Urinal # Voids 1 - Exam Physical examination revealed a 81-year-old in no form of respiratory distress. HEENT: Head is atraumatic, normocephalic. Pupils equal, round. Neck is supple. There is no elevated jugular venous pressure. HEART EXAMINATION: Heart S1 and S2 systolic murmur is heard. CHEST EXAMINATION: Minimal crackles at the bases bilaterally, no rhonchi, no wheezes. ABDOMEN: Soft, nontender. Bowel sounds are heard. No organomegaly noted. EXTREMITIES: 1+ peripheral pulses with no evidence of peripheral edema and no calf tenderness noted. NEUROLOGIC patient is awake, alert and oriented -3. - Labs CBC & Chem 7: 02/07/17 05:25 02/07/17 05:25 Labs: Abnormal Lab Results - Last 24 Hours (Table) 02/06/17 02/07/17 02/07/17 Range/Units 21:24 05:25 05:25 RBC 3.52 L (4.30-5.90) m/uL Hgb 10.2 L (13.0-17.5) gm/dL Hct 30.8 L (39.0-53.0) % RDW 15.8 H (11.5-15.5) % Carbon Dioxide 20 L (22-30) mmol/L Creatinine 1.59 H (0.66-1.25) mg/dL Glucose 51 L (74-99) mg/dL POC Glucose (mg/dL) 118 H (75-99) mg/dL 02/07/17 Range/Units 06:09 RBC (4.30-5.90) m/uL Hgb (13.0-17.5) gm/dL Hct (39.0-53.0) % RDW (11.5-15.5) % Carbon Dioxide (22-30) mmol/L Creatinine (0.66-1.25) mg/dL Glucose (74-99) mg/dL POC Glucose (mg/dL) 57 L (75-99) mg/dL Assessment and Plan Plan: Impression: 1 acute coronary syndrome, significant coronary artery disease and previous CABG , recent non-Q-wave myocardial infarction. 2 shortness of breath secondary to LV dysfunction, and suspect chronic congestive heart failure. 3 possible underlying component of COPD however that is to be addressed on an outpatient basis. 4 history of multiple comorbidities including ischemic cardiomyopathy, chronic renal failure, hypertension, diabetes, hyperlipidemia, 5 status post balloon angioplasty of saphenous vein graft to obtuse marginal. 6 acute on chronic congestive heart failure. Recommendation: Cut down IV fluid to 50 mL/h, Lasix was added at 40 mg IV push every 12 hours, continue high flow oxygen, that could be titrated down since his O2 saturation is in the mid and high 90s at times, patient will be monitored closely. We'll continue to follow. Follow-up chest x-ray in a.m. Time with Patient: Less than 30
--- NOTE | 2017-02-07 11:43 | P.PN ---
Progress Note - Text Date of service: 02/07/2017 Interval history: 81-year-old patient with coronary artery disease recent stent placement showed severe disease, CHF with an EF 20% presented with central chest pain, history significant for acute [place] earlier this month. The patient understands admissions has had 2 coronary interventions. The patient had been very short of breath the night before and pulmonary embolism was ruled out. Today patient is short of breath at rest feeling tired and lethargic and does state he is feeling out of sorts. Oral intake decreased Review of systems: Was done for constitutional cardiovascular GI pulmonary neuro, relevant finding as above Current medications are reviewed: Includes DuoNeb, aspirin, Coreg, Plavix, IV Lasix, IV heparin and Ranexa. .VITAL SIGNS: [Afebrile, 60, 20, 89/57, 91% on FiO2 45%] GENERAL APPEARANCE: Propped up in bed tired appearing short of breath high flow oxygen in place. EYES: Pupils equal. Conjunctiva normal. NECK: JVD raised. Mass not palpable. RESPIRATORY: Respiratory effort increased, bilateral basal crackles, decreased breath sounds CARDIOVASCULAR: First and second sounds normal. No edema. ABDOMEN: Soft. Liver and spleen not palpable. No tenderness. No mass palpable. PSYCHIATRY: Awake, very tired appearing lethargic but answers questions Investigations: . White count 5.8, 1110.2, potassium 4.2, BUN 20, creatinine 1.59 Checks [id number] congestive heart failure Assessment: -Unstable angina patient with known triple-vessel coronary artery disease and chronic kidney disease with prior history of bypass, now with angioplasty and stent to LAD. -Acute Non-Q wave myocardial infarction on 01/10/2017, not this admission -Acute on Chronic congestive heart failure from systolic dysfunction ejection fraction 20-25% with additional diastolic dysfunction underlying coronary artery disease. -Acute kidney injury most likely acute tubular necrosis from contrast nephropathy/drug-induced, improving -Hyperkalemia associated with acute kidney injury and MILLIE inhibitor use, potassium sparing diuretics. -Coronary artery disease with diffuse disease and prior bypass. 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 -Alzheimer's dementia, late onset type. -Diabetes mellitus type 2 chronically on oral hypoglycemics. -Hyperlipidemia. -Primary osteoarthritis of multiple joints bilaterally. 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 -Pacemaker in place. -Peripheral arterial disease. -CODE STATUS: DO NOT RESUSCITATE plan: Discussed with Dr. Rivera from oncology. Patient is an active congestive heart failure. Getting IV Lasix. Blood pressure medications be adjusted so that to Judy ameliorate the low blood pressure. prognosis is guarded. Care was discussed with the patient. No family members the bedside.
[2017-02-07 11:46] LABS: Glucose,Whole Blood 140 mg/dL (75-99)
[2017-02-07] MEDS: LISINOPRIL 2.5 MG TAB PO SCH (13:05)
[2017-02-07] MEDS: ISOSORBIDE MONONITRATE ER 60 MG TAB.ER.24H PO SCH ×2 (13:06→21:16)
[2017-02-07] MEDS: hydrALAZINE HCL 50 MG TAB PO SCH ×2 (14:58→20:53)
--- NOTE | 2017-02-07 15:02 | PN ---
PROGRESS NOTE DATE OF SERVICE: 02/07/2017 The patient is seen for followup for acute kidney injury. He was maintained on IV fluids. IV fluids were decreased to 50 mL an hour yesterday. However, this morning, patient developed increased shortness of breath with chest x-ray showing evidence of pulmonary vascular condition. He received a dose of Lasix today and he seems to be doing okay. Currently not significantly short of breath. The IV fluids have been discontinued. Serum creatinine has been staying at about 1.5 mg/dL. PHYSICAL EXAMINATION: Blood pressure is 89/57. This morning previously it was 130/54, heart rate 58 per minute. Patient is afebrile. Examination of the heart, S1, S2. Examination lungs, bilateral breath sounds are heard. Abdomen is soft, nontender. Examination of the lower extremities shows no significant edema. OPERATOR/[employer]SI[employer]ANT [employer]EM[employer] exam is grossly intact. LABS: Sodium 139, potassium 4.2, serum creatinine 1.59, hemoglobin 10.2 g/dL. ASSESSMENT: 1. Acute kidney injury, acute tubular necrosis currently improving. There was a component of hypovolemia, which seems to have improved now. However, patient is in CHF and fluids were discontinued and he is maintained on IV Lasix, which we can continue for now. 2. Congestive heart failure with severe cardiomyopathy. Maintained on Lasix at the current dose. Continue off of IV fluids. 3. Coronary artery disease, status post [id number] myocardial infarction recently and status post cardiac catheterization and coronary stent placement. 4. Obstructive sleep apnea. PLAN: Continue Lasix. Repeat labs in a.m. Recheck blood pressure as it was quite low this morning. I do not see any repeat blood pressures after 8 o'clock this morning. The patient is on the Coreg and hydralazine, which will need to be adjusted if he is still hypotensive. MMODL / IJN: [id number] /
[2017-02-07] MEDS ORDERED: FUROSEMIDE 250 MG in SODIUM CHLORIDE 0.9% 225 ML IVP SCH (15:15)
--- NOTE | 2017-02-07 15:25 | P.PN ---
<Vickie Mathur - Last Filed: 02/07/17 15:25> Progress Note - Text DATE OF SERVICE: 02/06/2017 PRESENTING COMPLAINT: Chest pain HISTORY OF PRESENT ILLNESS: 81-year-old male presented with chest pain has extensive cardiac history EF of 20%. Followed by nephrology for renal function. Status post stenting of the LAD on 02/04/2017, and stents to the SVG to OM on 02/05/2017 INTERVAL HISTORY: 02/06/2017: Overnight patient developed an episode of severe shortness of breath no chest discomfort, chest x-ray was normal, VQ scan low probability for PE, low-grade temperature of 100.3. Pulmonology consult to see the patient. Currently the patient is on high flow oxygen, appears comfortable breathing easily, very tired did not sleep well. Appetite low today eating about 30% of his meals, not enough energy to really ambulate but is capable of ambulating to and from the bathroom, last BM 02/03/2017. REVIEW OF SYSTEMS: Done for constitutional ,cardiovascular, GI, pulmonary with relevant findings as above. CURRENT MEDICATIONS DuoNeb, Xanax, Aminophyllin, Norvasc, aspirin, Coreg, Plavix, Aricept, heparin, Apresoline, Imdur, Protonix, Ranexa, Ambien. PHYSICAL EXAM VITAL SIGNS: Temperature 100.3, pulse 63, respiratory rate 24, blood pressure 111/53, oxygen saturation 95% on 50% high flow GENERAL APPEARANCE: . Lying in bed, tired appearing. EYES: Pupils equal. Conjunctiva normal. NECK: JVD not raised. Mass not palpable. RESPIRATORY: Respiratory effort increased. Lungs diminished bilaterally to auscultation. CARDIOVASCULAR: First and second sounds normal. No edema. ABDOMEN: Soft. Liver and spleen not palpable. No tenderness. No mass palpable. PSYCHIATRY: Alert and oriented x3. Mood and affect lethargic, tired appearing. INVESTIGATIONS: Hemoglobin 11.9, creatinine 1.60, Accu-Cheks noted. ASSESSMENT: -Unstable angina, patient with known triple-vessel disease and chronic kidney disease with prior history of coronary bypass and history of stent to the left anterior descending additional stenting of the LAD on 02/04/2017 and stents to the SVG and OM on 02/05/2017. -Acute non-Q-wave myocardial infarction on 01/10/2017, not on this admission. -Chronic congestive heart failure from systolic dysfunction, ejection fraction of 20-25% with diastolic dysfunction from underlying coronary artery disease. -Acute kidney injury, most likely acute tubular necrosis from contrast nephropathy, drug induced, improved. -Hyperkalemia associated with acute kidney injury, on MILLIE inhibitor. 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 -Alzheimer's dementia, late onset type. -Diabetes mellitus type 2, chronically on oral hypoglycemics. -Hyperlipidemia. -Primary osteoarthritis of multiple joints bilateral. 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 -Pacemaker, placed. -Peripheral arterial disease -Acute hypoxic respiratory failure, on high flow oxygen, improving -CODE STATUS: DO NOT RESUSCITATE. PLAN: Currently on high flow oxygen at 50%, patient doing better, we will titrate FiO2 until we can get the patient back on nasal cannula per pulmonology. Continue diuretics and IV fluids as renal status improves, follow-up chest x- ray in the morning, we'll continue current cardiac medication regimen of aspirin , Coreg, Plavix, Lipitor, Norvasc, Imdur, and Ranexa. We'll continue to monitor patient's status closely, plan of care discussed with the patient and family at the bedside and they are in agreement. PAGINATOR statement: Patient was seen and examined by nurse practitioner Vickie Mathur and all elements of the case discussed with attending Dr. Noriega <Guy Noriega - Last Filed: 02/07/17 15:29> Progress Note - Text Attending note. Date of service-02/06/2017 This patient was seen and examined by me . Discussed the patient with my nurse practitioner Ms. Mathur. Tired. He remains short of breath. Requiring oxygen. Pulmonary embolism ruled out.. On examination: Laying in bed. Tired-appearing. Lungs-decreased breath sounds, cardiovascular first seconds are normal Investigations: VQ scan low probability. Assessment and plan: Acute hypoxic respiratory failure could be early CHF. Pulmonary embolism ruled out. COPD exacerbation could be contributing. Follow with cardio origin pulmonary. Prognosis guarded.
[2017-02-07 15:46] LABS: Glucose,Whole Blood 202 mg/dL (75-99)
[2017-02-07] MEDS ORDERED: FUROSEMIDE 10 MG/ML 4 ML VIAL IV SCH ×2 (16:00→21:00)
[2017-02-07] MEDS: RANOLAZINE 500 MG TAB.ER.12H PO SCH ×2 (16:28→20:53)
[2017-02-07 16:44] LABS: ABG PH 7.47 (7.35-7.45)
[2017-02-07 16:45] LABS: ABG Base Excess -4.7 mmol/L; ABG HCO3 18 mmol/L (21-25); ABG PCO2 26 mmHg (35-45); ABG PO2 56 mmHg (83-108); ABG TCO2 19 mmol/L (19-24)
[2017-02-07] MEDS: CARVEDILOL 6.25 MG TAB PO SCH (16:47)
[2017-02-07] MEDS: DONEPEZIL 10 MG TAB PO SCH (20:53)
[2017-02-07 21:19] LABS: Glucose,Whole Blood 185 mg/dL (75-99)
[2017-02-07] MEDS: INSULIN DETEMIR 100 UNIT/ML 10 ML VIAL SQ SCH (21:21)
[2017-02-08 02:17] LABS: CH 29.8; CHCM 34.4; HCT 32.5 % (39.0-53.0); HDW 2.87; HGB 10.8 gm/dL (13.0-17.5); MCHC 33.3 g/dL (31.0-37.0); MCV 87.1 fL (80.0-100.0); Mean Platelet Volume 8.5; RBC 3.73 m/uL (4.30-5.90); RDW 15.6 % (11.5-15.5); WBC 7.8 k/uL (3.8-10.6)
[2017-02-08 02:27] LABS: Glucose,Whole Blood 119 mg/dL (75-99)
[2017-02-08 02:48] LABS: Calcium 8.2 mg/dL (8.4-10.2); Magnesium 1.5 mg/dL (1.6-2.3); Phosphorous 3.4 mg/dL (2.5-4.5); Potassium 3.8 mmol/L (3.5-5.1)
[2017-02-08] MEDS: MAGNESIUM SULFATE-D5W PMX 1 GM in DEXTROSE/WATER 1 100ML.BAG IVPB SCH ×2 (06:30→07:38)
[2017-02-08] MEDS ORDERED: POTASSIUM CHLORIDE ORAL LIQUID 40 MEQ/30 ML CUP PO ONE (06:59)
[2017-02-08] MEDS: IPRATROPIUM-ALBUTEROL 3 ML NEB INHALATION SCH ×4 (07:02→19:28)
[2017-02-08 07:20] LABS: Glucose,Whole Blood 106 mg/dL (75-99)
[2017-02-08] MEDS: CARVEDILOL 6.25 MG TAB PO SCH (07:22)
--- NOTE | 2017-02-08 07:30 | XR ---
EXAMINATION TYPE: XR chest 1V portable DATE OF EXAM: 02/08/2017 HISTORY: Shortness of breath. COMPARISON: 02/07/2017 TECHNIQUE: Single view of the chest is submitted. FINDINGS: Demonstrated are scattered senescent parenchymal change. Significant improvement in the perihilar infiltrates and pulmonary venous congestion with near comple te resolution identified. The heart is stable. Hilar and mediastinal structures are within normal limits. Degenerative changes are seen of the dorsal spine. IMPRESSION: 1. Significant improvement in the perihilar infiltrates and pulmonary venous congestion with near co mplete resolution identified.
[2017-02-08] MEDS: FUROSEMIDE 10 MG/ML 4 ML VIAL IV SCH ×2 (08:26→16:59)
[2017-02-08] MEDS: PANTOPRAZOLE 40 MG TABLET PO SCH (08:26)
[2017-02-08] MEDS: BRIMONIDINE TARTRATE 0.2% DROPS 5 ML BTL BOTH EYES SCH ×2 (08:28→20:20)
[2017-02-08] MEDS: DORZOLAMIDE-TIMOLOL 2-0.5% DROPS 10 ML BTL BOTH EYES SCH ×2 (08:29→20:19)
[2017-02-08] MEDS: hydrALAZINE HCL 50 MG TAB PO SCH (08:29)
[2017-02-08] MEDS: LISINOPRIL 2.5 MG TAB PO SCH (08:30)
[2017-02-08] MEDS: RANOLAZINE 500 MG TAB.ER.12H PO SCH ×2 (08:30→22:17)
[2017-02-08] MEDS: LOPERAMIDE 2 MG CAP PO SCH (08:30)
[2017-02-08] MEDS: CLOPIDOGREL 75 MG TAB PO SCH (08:41)
[2017-02-08] MEDS: ATORVASTATIN 20 MG TAB PO SCH (08:41)
[2017-02-08] MEDS: ISOSORBIDE MONONITRATE ER 60 MG TAB.ER.24H PO SCH (08:41)
[2017-02-08] MEDS: ASPIRIN 81 MG CHEW PO SCH (08:41)
--- NOTE | 2017-02-08 11:06 | P.PN ---
Subjective Principal diagnosis: Acute coronary syndrome, chronic congestive heart failure. This is a 81-year-old white male with history of coronary artery disease, previous CABG and redo bypass surgery, history of aortic valve replacement, previous AICD placement for ischemic cardiomyopathy and LV dysfunction, history of multiple medical problems including hypertension, chronic renal failure, diabetes, paroxysmal atrial fibrillation, patient presented to the hospital mostly with midsternal chest pressure and heaviness. This was on 01/29/2017. EKG showed a left bundle branch block pattern and ST and T-wave changes in the lateral leads. Chest x-ray showed minimal subsegmental left basilar atelectasis. His labs were relatively unremarkable except for slightly elevated potassium, elevated BUN of 37 creatinine of 2.0, troponins were slightly elevated, his pain responded to 2 sublingual nitroglycerin tablets. On 02/2017, patient underwent cardiac catheterization, and angioplasty with stenting of the saphenous vein graft to the obtuse marginal. In the evening of 02/05/2017, patient developed shortness of breath, but no chest pain, chest x-ray showed mostly evidence of pulmonary vascular congestion, VQ scan was low probability for pulmonary embolism. Hence this consult was initiated. Agent is presently on AIR VO2, asymptomatic, denies any cough no wheezing no shortness of breath and no chest pain. I reviewed the chest x-ray again it showed cardiomegaly and some component of CHF. I reviewed the VQ scan at it again showed low probably for pulmonary embolism. Patient is asymptomatic today on 02/06/2017. Patient was reevaluated today on 02/07/2017, remains on a high flow O2, via air VO2, patient is actually on 45 L/m. Patient is complaining of some shortness of breath, and his chest x-ray is showing worsening congestive heart failure. This was definitely expected considering the patient was on IV fluids at 100 mL/ h, and was not receiving any diuretics. I believe his diuretics were placed on hold because of his renal failure. At any rate after reviewing the chest x-ray , I recommended that he goes back on Lasix 40 mg IV push every 12 hours, and his IV fluid is down to 50 mL per hour. CBC is relatively normal basic metabolic profile was reviewed BUN is 20 creatinine is 1.59 improved with hydration, but the patient cannot be hydrated any further, needs to actually received diuretics at this point. Patient was reevaluated today on 02/08/2017, patient developed worsening pulmonary status yesterday shortly after I saw him and I recommended Lasix at this time. Apparently patient developed worsening congestive heart failure, and he was transferred to the ICU. Given more Lasix before transfer, placed on a Lasix drip, and overnight the patient diuresed about 4 L of fluids. Today the patient is doing much better however his blood pressure is marginal, and the Lasix drip was discontinued. However he remains on Lasix at 40 mg IV push every 8 hours. Chest x-ray showed significant improvement. Renal status is worsening creatinine is up to 1.8. CBC showed a hemoglobin of 10.8. Electrolytes are normal BUN is 21 and creatinine is 1.80. Objective - Vital Signs Vital signs: Vital Signs Temp 97.8 F 02/08/17 08:00 Pulse 50 L 02/08/17 11:00 Resp 15 02/08/17 11:00 BP 83/45 02/08/17 11:00 Pulse Ox 93 L 02/08/17 11:00 Intake & Output 02/07/17 02/08/17 02/08/17 18:59 06:59 18:59 Intake Total 210 320 80 Output Total 2175 2435 320 Balance -1964 Weight 79.7 kg 79.7 kg Intake: IV 60 320 80 Furosemide 250 mg In 100 Sodium Chloride 0.9% 225 ml @ 10 MG/HR 10 mls/hr IVP .Q24H [facility] Rx#: [id number] Sodium Chloride 0.9% 1, 60 40 000 ml @ 20 mls/hr IV . Q24H [facility] Rx#:[id number] Sodium Chloride 0.9% 1, 180 80 000 ml @ 50 mls/hr IV . Q20H [facility] Rx#:[id number] Intake, IV Titration 30 Amount Furosemide 250 mg In 30 Sodium Chloride 0.9% 225 ml @ 10 MG/HR 10 mls/hr IVP .Q24H [facility] Rx#: [id number] Oral 120 Output: Urine 2175 2435 320 Other: Voiding Method Indwelling Catheter Indwelling Catheter Indwelling Catheter - Exam Physical examination revealed a 81-year-old in no form of respiratory distress. HEENT: Head is atraumatic, normocephalic. Pupils equal, round. Neck is supple. There is no elevated jugular venous pressure. HEART EXAMINATION: Heart S1 and S2 systolic murmur is heard. CHEST EXAMINATION: Minimal crackles at the bases bilaterally, no rhonchi, no wheezes. ABDOMEN: Soft, nontender. Bowel sounds are heard. No organomegaly noted. EXTREMITIES: 1+ peripheral pulses with no evidence of peripheral edema and no calf tenderness noted. NEUROLOGIC patient is awake, alert and oriented -3. - Labs CBC & Chem 7: 02/08/17 02:00 02/08/17 02:00 Labs: Abnormal Lab Results - Last 24 Hours (Table) 02/07/17 02/07/17 02/07/17 Range/Units 11:33 15:45 16:04 RBC (4.30-5.90) m/uL Hgb (13.0-17.5) gm/dL Hct (39.0-53.0) % RDW (11.5-15.5) % ABG pH 7.47 H (7.35-7.45) ABG pCO2 26 L (35-45) mmHg ABG pO2 56 L (83-108) mmHg ABG HCO3 18 L (21-25) mmol/L ABG O2 Saturation 91.0 L (94-97) % Sodium (137-145) mmol/L Carbon Dioxide (22-30) mmol/L BUN (9-20) mg/dL Creatinine (0.66-1.25) mg/dL Glucose (74-99) mg/dL POC Glucose (mg/dL) 140 H 202 H (75-99) mg/dL Calcium (8.4-10.2) mg/dL Magnesium (1.6-2.3) mg/dL 02/07/17 02/08/17 02/08/17 Range/Units 21:18 02:00 02:00 RBC 3.73 L (4.30-5.90) m/uL Hgb 10.8 L (13.0-17.5) gm/dL Hct 32.5 L (39.0-53.0) % RDW 15.6 H (11.5-15.5) % ABG pH (7.35-7.45) ABG pCO2 (35-45) mmHg ABG pO2 (83-108) mmHg ABG HCO3 (21-25) mmol/L ABG O2 Saturation (94-97) % Sodium 136 L (137-145) mmol/L Carbon Dioxide 20 L (22-30) mmol/L BUN 21 H (9-20) mg/dL Creatinine 1.80 H (0.66-1.25) mg/dL Glucose 127 H (74-99) mg/dL POC Glucose (mg/dL) 185 H (75-99) mg/dL Calcium 8.2 L (8.4-10.2) mg/dL Magnesium 1.5 L (1.6-2.3) mg/dL 02/08/17 02/08/17 Range/Units 02:24 07:18 RBC (4.30-5.90) m/uL Hgb (13.0-17.5) gm/dL Hct (39.0-53.0) % RDW (11.5-15.5) % ABG pH (7.35-7.45) ABG pCO2 (35-45) mmHg ABG pO2 (83-108) mmHg ABG HCO3 (21-25) mmol/L ABG O2 Saturation (94-97) % Sodium (137-145) mmol/L Carbon Dioxide (22-30) mmol/L BUN (9-20) mg/dL Creatinine (0.66-1.25) mg/dL Glucose (74-99) mg/dL POC Glucose (mg/dL) 119 H 106 H (75-99) mg/dL Calcium (8.4-10.2) mg/dL Magnesium (1.6-2.3) mg/dL Assessment and Plan Plan: Impression: 1 acute coronary syndrome, significant coronary artery disease and previous CABG , recent non-Q-wave myocardial infarction. 2 shortness of breath secondary to LV dysfunction, and suspect acute on chronic congestive heart failure. 3 possible underlying component of COPD however that is to be addressed on an outpatient basis. 4 history of multiple comorbidities including ischemic cardiomyopathy, chronic renal failure, hypertension, diabetes, hyperlipidemia, 5 status post balloon angioplasty of saphenous vein graft to obtuse marginal. 6 acute on chronic congestive heart failure. Recommendation: Continue to monitor the patient in the intensive care unit, continue Lasix IV push, monitor renal profile and electrolytes on a daily basis. Chest x-ray on a daily basis. Continue close monitoring of the blood pressure, may or may not have to use inotropes or pressors. At this point his blood pressure is marginal and the patient is doing clinically well. We'll continue to follow. Time with Patient: Less than 30
--- NOTE | 2017-02-08 11:52 | P.PN ---
Subjective Patient is seen in follow-up for acute kidney injury. Patient had an acute OR and was initially on IV fluids. He subsequently became quite fluid overloaded was started on a Lasix drip. Last night he became hypotensive and Lasix drip was discontinued. He is now on Lasix 40 mg IV 3 times daily. He remains nonoliguric. His ejection fraction of less than 20%. He underwent a cardiac catheterization on February 04 and February 05 and had a stent placed. He is currently resting in bed. Denies chest pain. Oral intake is good. Blood pressures remain on the lower end. Creatinine is a little worse at 1.8 today. Vital signs are stable. General: The patient appeared well nourished and normally developed. HEENT: Head exam is unremarkable. Neck is without jugular venous distension. LUNGS: Lungs are clear to auscultation and percussion. Breath sounds decreased. Scattered rhonchi at bases. HEART: Rate and Rhythm are regular. First and second heart sounds normal. No murmurs, rubs or gallops. ABDOMEN: Abdominal exam reveals normal bowel sounds. Non-tender and non- distended. No evidence of peritonitis. EXTREMITITES: No clubbing, cyanosis, or edema. Objective - Vital Signs Vital signs: Vital Signs Temp 97.8 F 02/08/17 08:00 Pulse 50 L 02/08/17 11:00 Resp 15 02/08/17 11:00 BP 83/45 02/08/17 11:00 Pulse Ox 93 L 02/08/17 11:00 Intake & Output 02/07/17 02/08/17 02/08/17 18:59 06:59 18:59 Intake Total 210 320 100 Output Total 2175 3875 370 Balance -1964 -2114 Weight 79.7 kg 79.7 kg Intake: IV 60 320 100 Furosemide 250 mg In 100 Sodium Chloride 0.9% 225 ml @ 10 MG/HR 10 mls/hr IVP .Q24H [facility] Rx#: [id number] Sodium Chloride 0.9% 1, 60 40 000 ml @ 20 mls/hr IV . Q24H [facility] Rx#:[id number] Sodium Chloride 0.9% 1, 180 100 000 ml @ 50 mls/hr IV . Q20H [facility] Rx#:[id number] Intake, IV Titration 30 Amount Furosemide 250 mg In 30 Sodium Chloride 0.9% 225 ml @ 10 MG/HR 10 mls/hr IVP .Q24H [facility] Rx#: [id number] Oral 120 Output: Urine 9053 3932 370 Other: Voiding Method Indwelling Catheter Indwelling Catheter Indwelling Catheter - Labs CBC & Chem 7: 02/08/17 02:00 02/08/17 02:00 Labs: Abnormal Lab Results - Last 24 Hours (Table) 02/07/17 02/07/17 02/07/17 Range/Units 15:45 16:04 21:18 RBC (4.30-5.90) m/uL Hgb (13.0-17.5) gm/dL Hct (39.0-53.0) % RDW (11.5-15.5) % ABG pH 7.47 H (7.35-7.45) ABG pCO2 26 L (35-45) mmHg ABG pO2 56 L (83-108) mmHg ABG HCO3 18 L (21-25) mmol/L ABG O2 Saturation 91.0 L (94-97) % Sodium (137-145) mmol/L Carbon Dioxide (22-30) mmol/L BUN (9-20) mg/dL Creatinine (0.66-1.25) mg/dL Glucose (74-99) mg/dL POC Glucose (mg/dL) 202 H 185 H (75-99) mg/dL Calcium (8.4-10.2) mg/dL Magnesium (1.6-2.3) mg/dL 02/08/17 02/08/17 02/08/17 Range/Units 02:00 02:00 02:24 RBC 3.73 L (4.30-5.90) m/uL Hgb 10.8 L (13.0-17.5) gm/dL Hct 32.5 L (39.0-53.0) % RDW 15.6 H (11.5-15.5) % ABG pH (7.35-7.45) ABG pCO2 (35-45) mmHg ABG pO2 (83-108) mmHg ABG HCO3 (21-25) mmol/L ABG O2 Saturation (94-97) % Sodium 136 L (137-145) mmol/L Carbon Dioxide 20 L (22-30) mmol/L BUN 21 H (9-20) mg/dL Creatinine 1.80 H (0.66-1.25) mg/dL Glucose 127 H (74-99) mg/dL POC Glucose (mg/dL) 119 H (75-99) mg/dL Calcium 8.2 L (8.4-10.2) mg/dL Magnesium 1.5 L (1.6-2.3) mg/dL 02/08/17 Range/Units 07:18 RBC (4.30-5.90) m/uL Hgb (13.0-17.5) gm/dL Hct (39.0-53.0) % RDW (11.5-15.5) % ABG pH (7.35-7.45) ABG pCO2 (35-45) mmHg ABG pO2 (83-108) mmHg ABG HCO3 (21-25) mmol/L ABG O2 Saturation (94-97) % Sodium (137-145) mmol/L Carbon Dioxide (22-30) mmol/L BUN (9-20) mg/dL Creatinine (0.66-1.25) mg/dL Glucose (74-99) mg/dL POC Glucose (mg/dL) 106 H (75-99) mg/dL Calcium (8.4-10.2) mg/dL Magnesium (1.6-2.3) mg/dL Assessment and Plan Plan: Assessment: #1. Nonoliguric acute kidney injury secondary to ischemic ATN secondary to acute OR and hypotension. Also concern for contrast-induced nephropathy. Creatinine up to 1.8 today. #2. Fluid overload. Improving. Off Lasix drip. #3. Systolic CHF with ejection fraction of less than 20%. #4. Acute coronary syndrome status post cardiac catheterization and stent placement on 02/05/2017. #5. Metabolic acidosis secondary to acute kidney injury. #6. Chronic kidney disease stage III with baseline creatinine near 1.5 likely secondary to diabetic kidney disease. #7. Diabetes mellitus. Plan: Continue Lasix 40 mg IV every 8 hours. May be able to decrease dose tomorrow depending on chest x-ray findings. Avoid hypotension. To hold antihypertensives if systolic blood pressure less than 100. Continue to monitor renal function and urine output. Add oral sodium bicarbonate. No urgent need for renal replacement therapy at this time.
--- NOTE | 2017-02-08 11:58 | P.PN ---
Subjective Principal diagnosis: Non-ST segment elevation [place] Acute exacerbation of chronic systolic heart failure Patient is looking much better this morning. Shortness of breath has improved. Denies chest pain. He is hypotensive and the Lasix drip is on hold. He is going to get pulse doses of IV Lasix. He is on beta [place]. MILLIE inhibitor as her on hold. Objective - Vital Signs Vital signs: Vital Signs Temp 97.8 F 02/08/17 08:00 Pulse 50 L 02/08/17 11:00 Resp 15 02/08/17 11:00 BP 83/45 02/08/17 11:00 Pulse Ox 93 L 02/08/17 11:00 Intake & Output 02/07/17 02/08/17 02/08/17 18:59 06:59 18:59 Intake Total 210 320 100 Output Total 2175 2435 370 Balance -1964 Weight 79.7 kg 79.7 kg Intake: IV 60 320 100 Furosemide 250 mg In 100 Sodium Chloride 0.9% 225 ml @ 10 MG/HR 10 mls/hr IVP .Q24H [facility] Rx#: [id number] Sodium Chloride 0.9% 1, 60 40 000 ml @ 20 mls/hr IV . Q24H [facility] Rx#:[id number] Sodium Chloride 0.9% 1, 180 100 000 ml @ 50 mls/hr IV . Q20H [facility] Rx#:[id number] Intake, IV Titration 30 Amount Furosemide 250 mg In 30 Sodium Chloride 0.9% 225 ml @ 10 MG/HR 10 mls/hr IVP .Q24H [facility] Rx#: [id number] Oral 120 Output: Urine 2175 2435 370 Other: Voiding Method Indwelling Catheter Indwelling Catheter Indwelling Catheter - Constitutional Constitutional Comment(s): Patient appears comfortable at rest. Heart rate is 50 bpm he has paced rhythm. Blood pressure is 88/64 there is a jugular venous distention chest exam reveals good air entry bilaterally there are no crackles or rhonchi heart exam reveals first and second heart sounds and a systolic murmur at the left lower sternal border abdomen is soft examination extremities did not reveal any edema per for pulses are palpable - Labs CBC & Chem 7: 02/08/17 02:00 02/08/17 02:00 Labs: Abnormal Lab Results - Last 24 Hours (Table) 02/07/17 02/07/1702/07/17 Range/Units 15:45 16:04 21:18 RBC (4.30-5.90) m/uL Hgb (13.0-17.5) gm/dL Hct (39.0-53.0) % RDW (11.5-15.5) % ABG pH 7.47 H (7.35-7.45) ABG pCO2 26 L (35-45) mmHg ABG pO2 56 L (83-108) mmHg ABG HCO3 18 L (21-25) mmol/L ABG O2 Saturation 91.0 L (94-97) % Sodium (137-145) mmol/L Carbon Dioxide (22-30) mmol/L BUN (9-20) mg/dL Creatinine (0.66-1.25) mg/dL Glucose (74-99) mg/dL POC Glucose (mg/dL) 202 H 185 H (75-99) mg/dL Calcium (8.4-10.2) mg/dL Magnesium (1.6-2.3) mg/dL 02/08/17 02/08/17 02/08/17 Range/Units 02:00 02:00 02:24 RBC 3.73 L (4.30-5.90) m/uL Hgb 10.8 L (13.0-17.5) gm/dL Hct 32.5 L (39.0-53.0) % RDW 15.6 H (11.5-15.5) % ABG pH (7.35-7.45) ABG pCO2 (35-45) mmHg ABG pO2 (83-108) mmHg ABG HCO3 (21-25) mmol/L ABG O2 Saturation (94-97) % Sodium 136 L (137-145) mmol/L Carbon Dioxide 20 L (22-30) mmol/L BUN 21 H (9-20) mg/dL Creatinine 1.80 H (0.66-1.25) mg/dL Glucose 127 H (74-99) mg/dL POC Glucose (mg/dL) 119 H (75-99) mg/dL Calcium 8.2 L (8.4-10.2) mg/dL Magnesium 1.5 L (1.6-2.3) mg/dL 02/08/17 Range/Units 07:18 RBC (4.30-5.90) m/uL Hgb (13.0-17.5) gm/dL Hct (39.0-53.0) % RDW (11.5-15.5) % ABG pH (7.35-7.45) ABG pCO2 (35-45) mmHg ABG pO2 (83-108) mmHg ABG HCO3 (21-25) mmol/L ABG O2 Saturation (94-97) % Sodium (137-145) mmol/L Carbon Dioxide (22-30) mmol/L BUN (9-20) mg/dL Creatinine (0.66-1.25) mg/dL Glucose (74-99) mg/dL POC Glucose (mg/dL) 106 H (75-99) mg/dL Calcium (8.4-10.2) mg/dL Magnesium (1.6-2.3) mg/dL Assessment and Plan Plan: Acute exacerbation of chronic systolic heart failure Non-ST segment elevation TX chronic renal insufficiency I will continue the patient in ICU. Stop the Lasix drip and started on IV Lasix. Decrease the dose of Coreg. When the blood pressure tolerates we will resume the MILLIE inhibitor if he cannot give him millie inhibitors and will go with nitrates and hydralazine
[2017-02-08] MEDS ORDERED: SODIUM BICARBONATE TAB 650 MG TAB PO SCH (12:00)
[2017-02-08] MEDS ORDERED: SENNOSIDES 8.6 MG TAB PO PRN (12:56)
[2017-02-08] MEDS ORDERED: LACTULOSE 20 GM/30 ML CUP PO SCH (13:00)
--- NOTE | 2017-02-08 13:36 | P.PN ---
Progress Note - Text Date of service: 02/08/2017 Interval history: 81-year-old patient with coronary artery disease recent stent placement showed severe disease, CHF with an EF 20% presented with central chest pain, history significant for acute NM earlier this month. 02/08/2017: Patient seen in follow-up in the ICU, transferred overnight secondary to decreasing oxygen saturations, worsening CHF exacerbation, requiring Lasix drip and BiPAP. Diuresed about 4 L of fluid. Renal status worsening. Lying in bed appears comfortable, on nasal cannula, breathing easily, daughter at the bedside , oral intake continues to be low, no BM for several days, cathartics added. 02/07/2017: The patient understands admissions has had 2 coronary interventions. The patient had been very short of breath the night before and pulmonary embolism was ruled out. Today patient is short of breath at rest feeling tired and lethargic and does state he is feeling out of sorts. Oral intake decreased Review of systems: Was done for constitutional cardiovascular GI pulmonary neuro, relevant finding as above Current medications are reviewed: Includes DuoNeb, aspirin, Coreg 3.125 by mouth twice a day, Plavix 75 mg by mouth daily, IV Lasix 40 mg every 8 hours, and Ranexa 500 mg by mouth every 12 hours. .VITAL SIGNS: Temp temperature 97.8, pulse 55, respirations 20, blood pressure 113/56, oxygen saturation 96% on high flow 10 L. GENERAL APPEARANCE: Sitting up in bed tired appearing mildly short of breath high flow oxygen in place. EYES: Pupils equal. Conjunctiva normal. NECK: JVD raised. Mass not palpable. RESPIRATORY: Respiratory effort increased, bilateral basal crackles, decreased breath sounds CARDIOVASCULAR: First and second sounds normal. No edema. ABDOMEN: Soft. Liver and spleen not palpable. No tenderness. No mass palpable. PSYCHIATRY: Awake, very tired appearing lethargic but answers questions Investigations: Hemoglobin 10.8, sodium 136, potassium 3.8, BUN 21, creatinine 1.80, magnesium 1.5. Accu-Cheks noted. Assessment: -Unstable angina patient with known triple-vessel coronary artery disease and chronic kidney disease with prior history of bypass, now with angioplasty and stent to LAD. -Acute Non-Q wave myocardial infarction on 01/10/2017, not this admission -Acute on Chronic congestive heart failure from systolic dysfunction, uncontrolled, ejection fraction 20-25% with additional diastolic dysfunction underlying coronary artery disease. -Acute kidney injury most likely acute tubular necrosis from contrast nephropathy/drug-induced, improving -Hyperkalemia associated with acute kidney injury and CHESTER inhibitor use, potassium sparing diuretics. -Coronary artery disease with diffuse disease and prior bypass. 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 -Alzheimer's dementia, late onset type. -Diabetes mellitus type 2 chronically on oral hypoglycemics. -Hyperlipidemia. -Primary osteoarthritis of multiple joints bilaterally. 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 -Pacemaker in place. -Peripheral arterial disease. -CODE STATUS: DO NOT RESUSCITATE PLAN: Remain in ICU, continue oxygen and BiPAP therapy as symptoms warrant. Lasix continue every 8 hours, may decrease dose based on patient response, hold antihypertensives for systolic less than 100, Coreg increased CHESTER inhibitor on hold and will be resumed once blood pressure is able to tolerate. If unable to tolerate Chester inhibitors and will add nitrates and hydralazine. Plan of care discussed with the patient and daughter at the bedside questions answered. We' ll continue to monitor closely. [employer] STATEMENT: Patient was seen and examined by nurse practitioner Vickie Mathur in all elements of the case discussed with attending Dr. Noriega.
--- NOTE | 2017-02-08 16:14 | PN ---
PROGRESS NOTE ADDENDUM: Addendum to assessment: Item accelerated malignant hypertension present on admission should be accelerated malignant hypertension, hypertensive emergency, present on admission. MMODL / IJN: [id number] /
[2017-02-08] MEDS: CARVEDILOL 3.125 MG TAB PO SCH (18:55)
[2017-02-08] MEDS: ISOSORBIDE MONONITRATE ER 30 MG TAB.ER.24H PO SCH (20:20)
[2017-02-08] MEDS: LACTULOSE 20 GM/30 ML CUP PO SCH (20:20)
[2017-02-08] MEDS: DONEPEZIL 10 MG TAB PO SCH (20:28)
[2017-02-08] MEDS: SODIUM BICARBONATE TAB 650 MG TAB PO SCH (20:29)
[2017-02-08 21:01] LABS: Glucose,Whole Blood 213 mg/dL (75-99)
[2017-02-08] MEDS: INSULIN DETEMIR 100 UNIT/ML 10 ML VIAL SQ SCH (21:03)
--- NOTE | 2017-02-08 22:26 | PN ---
PROGRESS NOTE DATE OF SERVICE: February 08, 2017. ATTENDING NOTE: This patient seen and examined by me. I discussed with my nurse practitioner Ms. Mathur. The patient remains in ICU. He was transferred there yesterday becoming very short of breath. Was put on a Lasix drip. Diarrhea is close to 4 L. lying in bed, tired appearing. Sister at the bedside. Eating very small amounts. EXAM: Lungs decreased breath sounds. Cardiovascular 1st and 2nd sounds are normal. INVESTIGATIONS: Show BUN 21, creatinine 1.0. ASSESSMENT: 1. Acute on chronic congestive heart failure exacerbation from systolic dysfunction, ejection fraction 20 to 25%, on controlled. The patient has been on a Lasix drip. Both systolic and diastolic dysfunction. 2. Coronary artery disease. 3. Care was discussed with patient's sister at the bedside. PROGNOSIS: Remains not good. Blood pressure medications closely being followed. Patient being followed by Critical Care, Cardiology, pulmonary. Patient rather tired. MMODL / IJN: [id number] /
[2017-02-09] MEDS: FUROSEMIDE 10 MG/ML 4 ML VIAL IV SCH ×4 (01:35→19:56)
[2017-02-09 02:08] LABS: Glucose,Whole Blood 111 mg/dL (75-99)
[2017-02-09 05:45] LABS: CH 29.6; CHCM 33.4; HCT 37.2 % (39.0-53.0); HDW 2.83; HGB 12.3 gm/dL (13.0-17.5); MCH 29.4 pg (25.0-35.0); MCV 89.1 fL (80.0-100.0); Mean Platelet Volume 8.1; RBC 4.17 m/uL (4.30-5.90); RDW 15.5 % (11.5-15.5); WBC 11.5 k/uL (3.8-10.6)
[2017-02-09 06:16] LABS: Calcium 8.8 mg/dL (8.4-10.2); Phosphorous 3.7 mg/dL (2.5-4.5); Potassium 4.1 mmol/L (3.5-5.1)
[2017-02-09 07:22] LABS: Glucose,Whole Blood 68 mg/dL (75-99)
[2017-02-09] MEDS: PANTOPRAZOLE 40 MG TABLET PO SCH (07:29)
[2017-02-09] MEDS: CARVEDILOL 3.125 MG TAB PO SCH ×2 (07:29→17:15)
[2017-02-09] MEDS: IPRATROPIUM-ALBUTEROL 3 ML NEB INHALATION SCH ×4 (07:48→19:25)
[2017-02-09] MEDS: DORZOLAMIDE-TIMOLOL 2-0.5% DROPS 10 ML BTL BOTH EYES SCH ×2 (08:35→19:56)
[2017-02-09] MEDS: ATORVASTATIN 20 MG TAB PO SCH (08:36)
[2017-02-09] MEDS: BRIMONIDINE TARTRATE 0.2% DROPS 5 ML BTL BOTH EYES SCH ×2 (08:36→19:57)
[2017-02-09] MEDS: LISINOPRIL 2.5 MG TAB PO SCH (08:36)
[2017-02-09] MEDS: ISOSORBIDE MONONITRATE ER 30 MG TAB.ER.24H PO SCH ×2 (08:36→19:56)
[2017-02-09] MEDS: CLOPIDOGREL 75 MG TAB PO SCH (08:36)
[2017-02-09] MEDS: ASPIRIN 81 MG CHEW PO SCH (08:36)
[2017-02-09] MEDS: RANOLAZINE 500 MG TAB.ER.12H PO SCH ×2 (08:36→19:56)
[2017-02-09] MEDS: SODIUM BICARBONATE TAB 650 MG TAB PO SCH ×2 (08:37→19:56)
[2017-02-09] MEDS: LACTULOSE 20 GM/30 ML CUP PO SCH ×2 (08:39→19:56)
[2017-02-09] MEDS: POLYETHYLENE GLYCOL 3350 17 GM POWD.PACK PO SCH (08:39)
[2017-02-09 10:38] VITALS: BMI 27.1
--- NOTE | 2017-02-09 10:57 | P.PN ---
<Vickie Mathur - Last Filed: 02/10/17 12:23> Progress Note - Text Date of service: 02/09/2017 HISTORY OF PRESENT ILLNESS: 81-year-old patient with coronary artery disease recent stent placement showed severe disease, CHF with an EF 20% presented with central chest pain, history significant for acute MT earlier this month. Interval history: 02/09/2017: Patient seen in follow-up in the ICU, sitting up in bed daughter at the bedside , creatinine rising, and WBCs rising. Afebrile, appears comfortable sitting up in bed on nasal cannula, breathing easily, oral intake continues to be low ate about half of his breakfast, has been able to get up and use the bedside commode with assistance, last BM 02/09/2017. 02/08/2017: Patient seen in follow-up in the ICU, transferred overnight secondary to decreasing oxygen saturations, worsening CHF exacerbation, requiring Lasix drip and BiPAP. Diuresed about 4 L of fluid. Renal status worsening. Lying in bed appears comfortable, on nasal cannula, breathing easily, daughter at the bedside , oral intake continues to be low, no BM for several days, cathartics added. 02/07/2017: The patient understands admissions has had 2 coronary interventions. The patient had been very short of breath the night before and pulmonary embolism was ruled out. Today patient is short of breath at rest feeling tired and lethargic and does state he is feeling out of sorts. Oral intake decreased Review of systems: Was done for constitutional cardiovascular GI pulmonary neuro, relevant finding as above Current medications are reviewed: Includes DuoNeb, aspirin, Coreg 3.125 by mouth twice a day, Plavix 75 mg by mouth daily, IV Lasix 40 mg every 8 hours, and Ranexa 500 mg by mouth every 12 hours. .VITAL SIGNS: Temperature 98.5, pulse 62, respiratory rate 19, blood pressure 116/65, oxygen saturation 98% on 6 L high flow GENERAL APPEARANCE: Sitting up in bed tired appearing mildly short of breath high flow oxygen in place. EYES: Pupils equal. Conjunctiva normal. NECK: JVD raised. Mass not palpable. RESPIRATORY: Respiratory effort increased, bilateral basal crackles, decreased breath sounds CARDIOVASCULAR: First and second sounds normal. No edema. ABDOMEN: Soft. Liver and spleen not palpable. No tenderness. No mass palpable. PSYCHIATRY: Awake, very tired appearing lethargic but answers questions Investigations: White blood cell count 11.5, hemoglobin 12.3, sodium 136, BUN 20 creatinine 2.00 Accu-Cheks noted. Assessment: -Unstable angina patient with known triple-vessel coronary artery disease and chronic kidney disease with prior history of bypass, now with angioplasty and stent to LAD. -Acute Non-Q wave myocardial infarction on 01/10/2017, not this admission -Acute on Chronic congestive heart failure exacerbation from systolic dysfunction, uncontrolled, ejection fraction 20-25% with additional diastolic dysfunction underlying coronary artery disease. -Acute kidney injury most likely acute tubular necrosis from contrast nephropathy/drug-induced, improving -Hyperkalemia associated with acute kidney injury and CHESTER inhibitor use, potassium sparing diuretics. -Coronary artery disease with diffuse disease and prior bypass. 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 -Alzheimer's dementia, late onset type. -Diabetes mellitus type 2 chronically on oral hypoglycemics. -Hyperlipidemia. -Primary osteoarthritis of multiple joints bilaterally. 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 -Pacemaker in place. -Peripheral arterial disease. -CODE STATUS: DO NOT RESUSCITATE PLAN: Patient stable for transfer to [facility], continue oxygen therapy and titrate down as appropriate. Lasix continue every 8 hours, may decrease dose based on patient response, hold antihypertensives for systolic less than 100, Coreg increased CHESTER inhibitor resumed today. We'll monitor blood pressure closely and If unable to tolerate Chester inhibitors and cardiology will add nitrates and hydralazine. Plan of care discussed with the patient and daughter at the bedside questions answered. We'll continue to monitor closely. ROCK SINGER STATEMENT: Patient was seen and examined by nurse practitioner Vickie Mathur in all elements of the case discussed with attending Dr. Noriega. <Guy Noriega - Last Filed: 02/10/17 13:26> Progress Note - Text Attending note. Date of service-02/09/2017 This patient was seen and examined by me . Discussed the patient with my nurse practitioner Ms. Mathur. Patient the ICU. Tired. 8 a bit more. Went to the bedside commode. On IV Lasix. On examination: Lungs-decreased breath sounds, cardiovascular first seconds are normal Investigations: Creatinine 2.0 Assessment and plan: Acute on chronic congestive heart failure exacerbation. Continue on IV Lasix. Prognosis guarded. Care discussed with the patient.
--- NOTE | 2017-02-09 11:10 | P.PN ---
Subjective Principal diagnosis: Acute coronary syndrome, chronic congestive heart failure. This is a 81-year-old white male with history of coronary artery disease, previous CABG and redo bypass surgery, history of aortic valve replacement, previous AICD placement for ischemic cardiomyopathy and LV dysfunction, history of multiple medical problems including hypertension, chronic renal failure, diabetes, paroxysmal atrial fibrillation, patient presented to the hospital mostly with midsternal chest pressure and heaviness. This was on 01/29/2017. EKG showed a left bundle branch block pattern and ST and T-wave changes in the lateral leads. Chest x-ray showed minimal subsegmental left basilar atelectasis. His labs were relatively unremarkable except for slightly elevated potassium, elevated BUN of 37 creatinine of 2.0, troponins were slightly elevated, his pain responded to 2 sublingual nitroglycerin tablets. On 02/2017, patient underwent cardiac catheterization, and angioplasty with stenting of the saphenous vein graft to the obtuse marginal. In the evening of 02/05/2017, patient developed shortness of breath, but no chest pain, chest x-ray showed mostly evidence of pulmonary vascular congestion, VQ scan was low probability for pulmonary embolism. Hence this consult was initiated. Agent is presently on AIR VO2, asymptomatic, denies any cough no wheezing no shortness of breath and no chest pain. I reviewed the chest x-ray again it showed cardiomegaly and some component of CHF. I reviewed the VQ scan at it again showed low probably for pulmonary embolism. Patient is asymptomatic today on 02/06/2017. Patient was reevaluated today on 02/07/2017, remains on a high flow O2, via air VO2, patient is actually on 45 L/m. Patient is complaining of some shortness of breath, and his chest x-ray is showing worsening congestive heart failure. This was definitely expected considering the patient was on IV fluids at 100 mL/ h, and was not receiving any diuretics. I believe his diuretics were placed on hold because of his renal failure. At any rate after reviewing the chest x-ray , I recommended that he goes back on Lasix 40 mg IV push every 12 hours, and his IV fluid is down to 50 mL per hour. CBC is relatively normal basic metabolic profile was reviewed BUN is 20 creatinine is 1.59 improved with hydration, but the patient cannot be hydrated any further, needs to actually received diuretics at this point. Patient was reevaluated today on 02/08/2017, patient developed worsening pulmonary status yesterday shortly after I saw him and I recommended Lasix at this time. Apparently patient developed worsening congestive heart failure, and he was transferred to the ICU. Given more Lasix before transfer, placed on a Lasix drip, and overnight the patient diuresed about 4 L of fluids. Today the patient is doing much better however his blood pressure is marginal, and the Lasix drip was discontinued. However he remains on Lasix at 40 mg IV push every 8 hours. Chest x-ray showed significant improvement. Renal status is worsening creatinine is up to 1.8. CBC showed a hemoglobin of 10.8. Electrolytes are normal BUN is 21 and creatinine is 1.80. Patient was reevaluated today on 02/09/2017, continues to do well, responding well to diuretics, her chest x-ray was done, but clinically the patient seems to be doing relatively better. Off Lasix drip but he is on Lasix IV push, 40 mg every 8 hours. Renal functioning is marginal with BUN of 28 creatinine of 2.0. CBC is relatively unremarkable. Clinically the patient denies any cough wheezing or shortness of breath, remains on high flow nasal cannula at 8 L. Objective - Vital Signs Vital signs: Vital Signs Temp 97.9 F 02/09/17 08:00 Pulse 58 L 02/09/17 11:01 Resp 16 02/09/17 11:00 BP 102/60 02/09/17 11:00 Pulse Ox 98 02/09/17 11:00 Intake & Output 02/08/17 02/09/17 02/09/17 18:59 06:59 18:59 Intake Total 100 80 80 Output Total 670 310 875 Balance -153 -694 -433 Weight 79.7 kg 78.7 kg 78.7 kg Intake: IV 100 80 80 KVO 30 80 Sodium Chloride 0.9% 1, 100 50 000 ml @ 50 mls/hr IV . Q20H COUNT INCLUDES THE [facility] Rx#:[id number] Output: Urine 670 310 875 Other: Voiding Method Indwelling Catheter Indwelling Catheter Indwelling Catheter # Bowel Movements 2 - Exam Physical examination revealed a 81-year-old in no form of respiratory distress. HEENT: Head is atraumatic, normocephalic. Pupils equal, round. Neck is supple. There is no elevated jugular venous pressure. HEART EXAMINATION: Heart S1 and S2 systolic murmur is heard. CHEST EXAMINATION: Minimal crackles at the bases bilaterally, no rhonchi, no wheezes. ABDOMEN: Soft, nontender. Bowel sounds are heard. No organomegaly noted. EXTREMITIES: 1+ peripheral pulses with no evidence of peripheral edema and no calf tenderness noted. NEUROLOGIC patient is awake, alert and oriented -3. - Labs CBC & Chem 7: 02/09/17 04:54 02/09/17 04:54 Labs: Abnormal Lab Results - Last 24 Hours (Table) 02/08/17 02/09/17 02/09/17 Range/Units 20:59 02:07 04:54 WBC 11.5 H (3.8-10.6) k/uL RBC 4.17 L (4.30-5.90) m/uL Hgb 12.3 L (13.0-17.5) gm/dL Hct 37.2 L (39.0-53.0) % Sodium (137-145) mmol/L Carbon Dioxide (22-30) mmol/L BUN (9-20) mg/dL Creatinine (0.66-1.25) mg/dL POC Glucose (mg/dL) 213 H 111 H (75-99) mg/dL 02/09/17 02/09/17 Range/Units 04:54 07:20 WBC (3.8-10.6) k/uL RBC (4.30-5.90) m/uL Hgb (13.0-17.5) gm/dL Hct (39.0-53.0) % Sodium 136 L (137-145) mmol/L Carbon Dioxide 20 L (22-30) mmol/L BUN 28 H (9-20) mg/dL Creatinine 2.00 H (0.66-1.25) mg/dL POC Glucose (mg/dL) 68 L (75-99) mg/dL Assessment and Plan Plan: Impression: 1 acute coronary syndrome, significant coronary artery disease and previous CABG , recent non-Q-wave myocardial infarction. 2 shortness of breath secondary to LV dysfunction, and suspect acute on chronic congestive heart failure. 3 possible underlying component of COPD however that is to be addressed on an outpatient basis. 4 history of multiple comorbidities including ischemic cardiomyopathy, chronic renal failure, hypertension, diabetes, hyperlipidemia, 5 status post balloon angioplasty of saphenous vein graft to obtuse marginal. 6 acute on chronic systolic congestive heart failure. Recommendation: Continue present medications, continue to monitor electrolytes, monitor chest x-ray every other day, patient can be transferred out of the ICU to a monitored bed on selective today. Time with Patient: Less than 30
[2017-02-09 12:09] LABS: Glucose,Whole Blood 137 mg/dL (75-99)
[2017-02-09] MEDS: LOPERAMIDE 2 MG CAP PO SCH (14:20)
--- NOTE | 2017-02-09 15:54 | P.PN ---
Subjective This is a pleasant 81-year-old gentleman who follows regularly with Dr. Strong in the office. He has a known history of coronary artery disease with prior coronary artery bypass grafting surgery as well as redo bypass, patient also had aortic valve replacement and underwent AICD for ischemic cardiomyopathy. Patient has history of diabetes, hypertension, hyperlipidemia, acute on chronic renal insufficiency, paroxysmal atrial fibrillation he is a nonsmoker. He was in the hospital earlier this month ruled in for non-Q-wave myocardial infarction. The decision at that time was made to maximize medical therapy, primarily because of his abnormal renal function. He presents to the hospital on this occasion with symptoms of midsternal chest pressure and heaviness. He also states that his blood pressure has been significantly elevated at home. He did have another episode of chest discomfort this morning , relieved with 2 sublingual nitroglycerin. His EKG on arrival here showed a normal sinus rhythm with a left bundle-branch block pattern and ST-T wave changes in the lateral leads. EKG performed this morning showed a normal sinus rhythm with left bundle branch block pattern and lateral ST-T wave changes. Chest x-ray revealed minimal subsegmental left basilar atelectasis. Blood pressure on arrival 228/96, heart rate in the 50s. Patient underwent Lexiscan scan Cardiolite revealed severe stress-induced ischemia and anterior and lateral claudio with a low ejection fraction of 29% and subsequently underwent cardiac catheterization with angioplasty and stenting of the saphenous vein graft to the OM by Dr. Strong. Owing the patient became quite short of breath and was transferred to intensive care unit. This afternoon he was doing quite a bit better, has been transferred out to telemetry unit. Objective - Vital Signs Vital signs: Vital Signs Temp 98.2 F 02/09/17 12:00 Pulse 57 L 02/09/17 12:00 Resp 21 02/09/17 12:00 BP 102/60 02/09/17 12:00 Pulse Ox 96 02/09/17 12:00 Intake & Output 02/08/17 02/09/17 02/09/17 18:59 06:59 18:59 Intake Total 100 80 80 Output Total 224 730 7081 Balance -220 -802 -9648 Weight 79.7 kg 78.7 kg 78.7 kg Intake: IV 100 80 80 KVO 30 80 Sodium Chloride 0.9% 1, 100 50 000 ml @ 50 mls/hr IV . Q20H [facility] Rx#:[id number] Output: Urine 091 497 4771 Other: Voiding Method Indwelling Catheter Indwelling Catheter Indwelling Catheter # Bowel Movements 2 - Exam PHYSICAL EXAMINATION: HEENT: Head is atraumatic, normocephalic. Pupils equal, round. Neck is supple. There is no elevated jugular venous pressure. HEART EXAMINATION: Heart sounds regular, S1 and S2 normal with a systolic murmur. CHEST EXAMINATION: Lungs faint crackles bilateral bases. No chest wall tenderness is noted on palpation or with deep breathing. ABDOMEN: Soft, nontender. Bowel sounds are heard. No organomegaly noted. EXTREMITIES: 1+ peripheral pulses with no evidence of peripheral edema and no calf tenderness noted. NEUROLOGIC patient is awake, alert and oriented x3. . - Labs CBC & Chem 7: 02/09/17 04:54 02/09/17 04:54 Labs: Abnormal Lab Results - Last 24 Hours (Table) 02/08/17 02/09/17 02/09/17 Range/Units 20:59 02:07 04:54 WBC 11.5 H (3.8-10.6) k/uL RBC 4.17 L (4.30-5.90) m/uL Hgb 12.3 L (13.0-17.5) gm/dL Hct 37.2 L (39.0-53.0) % Sodium (137-145) mmol/L Carbon Dioxide (22-30) mmol/L BUN (9-20) mg/dL Creatinine (0.66-1.25) mg/dL POC Glucose (mg/dL) 213 H 111 H (75-99) mg/dL 02/09/17 02/09/17 02/09/17 Range/Units 04:54 07:20 12:07 WBC (3.8-10.6) k/uL RBC (4.30-5.90) m/uL Hgb (13.0-17.5) gm/dL Hct (39.0-53.0) % Sodium 136 L (137-145) mmol/L Carbon Dioxide 20 L (22-30) mmol/L BUN 28 H (9-20) mg/dL Creatinine 2.00 H (0.66-1.25) mg/dL POC Glucose (mg/dL) 68 L 137 H (75-99) mg/dL Assessment and Plan Plan: Assessment and plan #1 chest discomfort suggestive of angina positive stress test, status post angioplasty with stenting of the saphenous vein graft to the OM #2 accelerated hypertension #3 known history of coronary artery disease with prior bypass grafting and stent #4 ischemic cardiomyopathy with prior AICD placement #5 acute on chronic renal failure #6 hyperkalemia #7 hypertension #8 diabetes #9 hyperlipidemia From food safety auditor perspective, medications were reviewed and will continue the same. We'll continue to follow the patient for right further recommendations accordingly. The above dictated assessment and findings were discussed with signing physician. The impression and plan of care have been directed as dictated. Charity Carey, Nurse Practitioner, acting as scribe for signing physician.
[2017-02-09 16:47] LABS: Glucose,Whole Blood 165 mg/dL (75-99)
[2017-02-09] MEDS: DONEPEZIL 10 MG TAB PO SCH (19:56)
[2017-02-09] MEDS: INSULIN DETEMIR 100 UNIT/ML 10 ML VIAL SQ SCH (19:57)
[2017-02-09 20:04] LABS: Glucose,Whole Blood 254 mg/dL (75-99)
[2017-02-09] MEDS: SODIUM CHLORIDE 0.9% 1,000 ML IV SCH (23:02)
[2017-02-09] MEDS: HEPARIN SODIUM,PORCINE/D5W PMX 25,000 UNIT in DEXTROSE/WATER 1 500ML.BAG IV SCH (23:02)
[2017-02-10 06:15] LABS: CH 28.4; CHCM 32.8; HCT 36.4 % (39.0-53.0); HDW 2.88; MCH 28.6 pg (25.0-35.0); MCHC 32.9 g/dL (31.0-37.0); Mean Platelet Volume 7.5; RBC 4.18 m/uL (4.30-5.90); RDW 14.4 % (11.5-15.5); WBC 9.2 k/uL (3.8-10.6)
[2017-02-10 06:29] LABS: Calcium 9.1 mg/dL (8.4-10.2); Magnesium 1.7 mg/dL (1.6-2.3); Phosphorous 4.3 mg/dL (2.5-4.5); Potassium 4.1 mmol/L (3.5-5.1)
[2017-02-10] MEDS: CARVEDILOL 3.125 MG TAB PO SCH ×2 (06:40→16:53)
[2017-02-10] MEDS: PANTOPRAZOLE 40 MG TABLET PO SCH (06:40)
[2017-02-10 06:44] LABS: Glucose,Whole Blood 94 mg/dL (75-99)
[2017-02-10] MEDS: IPRATROPIUM-ALBUTEROL 3 ML NEB INHALATION SCH ×4 (07:19→20:32)
[2017-02-10] MEDS: DORZOLAMIDE-TIMOLOL 2-0.5% DROPS 10 ML BTL BOTH EYES SCH ×2 (08:20→19:56)
[2017-02-10] MEDS: CLOPIDOGREL 75 MG TAB PO SCH (08:20)
[2017-02-10] MEDS: BRIMONIDINE TARTRATE 0.2% DROPS 5 ML BTL BOTH EYES SCH ×2 (08:20→19:56)
[2017-02-10] MEDS: ATORVASTATIN 20 MG TAB PO SCH (08:20)
[2017-02-10] MEDS: ASPIRIN 81 MG CHEW PO SCH (08:20)
[2017-02-10] MEDS: ISOSORBIDE MONONITRATE ER 30 MG TAB.ER.24H PO SCH ×2 (08:21→19:57)
[2017-02-10] MEDS: LISINOPRIL 2.5 MG TAB PO SCH (08:21)
[2017-02-10] MEDS: LACTULOSE 20 GM/30 ML CUP PO SCH ×2 (08:21→19:57)
[2017-02-10] MEDS: FUROSEMIDE 10 MG/ML 4 ML VIAL IV SCH ×2 (08:21→19:57)
[2017-02-10] MEDS: POLYETHYLENE GLYCOL 3350 17 GM POWD.PACK PO SCH (08:22)
[2017-02-10] MEDS: SODIUM BICARBONATE TAB 650 MG TAB PO SCH ×2 (08:22→19:57)
[2017-02-10] MEDS: RANOLAZINE 500 MG TAB.ER.12H PO SCH ×2 (08:22→19:57)
--- NOTE | 2017-02-10 09:33 | PN ---
PROGRESS NOTE Patient is seen for followup for acute kidney injury. He is status post cardiac catheterization and coronary stent placement. The patient developed CHF and was brought into the ICU. He is diuresing very well. He was temporarily on a Lasix drip. Currently maintained on Lasix 40 mg IV q.8 hours. He had about 4 L of urine output for 24 hours. The patient is being transferred out of the ICU. He currently denies any chest pain, shortness of breath, nausea, vomiting. PHYSICAL EXAMINATION: On examination, blood pressure 129/61, heart rate 58 per minute. He is afebrile. Examination of the heart S1, S2. Examination lungs bilateral breath sounds are heard. Abdomen is soft, nontender. Examination lower extremities showed no evidence of edema. COLLECTIONS REPRESENTATIVE exam is grossly intact. LAB: Shows sodium 136, potassium 4.1, serum creatinine 2.08 and BUN of 28. ASSESSMENT: 1. Acute kidney injury, acute tubular necrosis initially and then secondary to congestive heart failure and diuresis. Renal function, serum creatinine is slightly higher than yesterday. The patient is maintained on Lasix 40 IV q.8 hours. We can decrease that to q.12 hours. 2. Coronary artery disease status post coronary stent. 3. Status post acute myocardial infarction. 4. Cardiomyopathy with the ejection fraction of about 29% prior to catheterization. PLAN: Decrease Lasix to 40 mg IV q.12 hours. Repeat chest x-ray and repeat labs in a.m. JOSE MIGUEL / RENETTA: [id number] /
--- NOTE | 2017-02-10 09:33 | P.PN ---
Subjective Patient is seen for follow-up for acute kidney injury. He had developed the worsening heart failure and was transferred to the ICU. Patient was transferred out of the ICU yesterday is currently doing fairly well. He has had good urine output. Lasix was decreased to 40 mg IV every 12 hours yesterday. This morning patient is laying in bed he is comfortable he is laying flat he does not have any complaints of shortness of breath or chest pains. He has an indwelling Villalobos catheter with 24 hour urine output of about 2.8 L. Objective - Vital Signs Vital signs: Vital Signs Temp 96.7 F L 02/10/17 08:00 Pulse 57 L 02/10/17 08:00 Resp 18 02/10/17 08:00 BP 119/57 02/10/17 08:00 Pulse Ox 99 02/10/17 08:00 Intake & Output 02/09/17 02/10/17 02/10/17 18:59 06:59 18:59 Intake Total 300 490 240 Output Total 1225 1600 Balance -925 -1110 240 Weight 78.7 kg 70.9 kg Intake: IV 80 10 KVO 80 10 Oral 220 480 240 Output: Urine 1225 1600 Other: Voiding Method Indwelling Catheter Indwelling Catheter # Voids 1 # Bowel Movements 1 - Exam On examination patient is comfortable blood pressure is 119/57 heart rate 60/m he is afebrile Examination of the heart S1 and S2 Examination lungs bilateral breath sounds are heard Abdomen is soft nontender Examination lower extremities shows no evidence of edema. PHOTOGRAPHIC ARTIST exam is grossly intact. Patient is moving all 4 extremities. - Labs CBC & Chem 7: 02/10/17 05:44 02/10/17 05:44 Labs: Abnormal Lab Results - Last 24 Hours (Table) 02/09/17 02/09/17 02/09/17 Range/Units 12:07 16:33 20:03 RBC (4.30-5.90) m/uL Hgb (13.0-17.5) gm/dL Hct (39.0-53.0) % Carbon Dioxide (22-30) mmol/L BUN (9-20) mg/dL Creatinine (0.66-1.25) mg/dL POC Glucose (mg/dL) 137 H 165 H 254 H (75-99) mg/dL 09/09/17 09/09/17 Range/Units 05:44 05:44 RBC 4.18 L (4.30-5.90) m/uL Hgb 12.0 L (13.0-17.5) gm/dL Hct 36.4 L (39.0-53.0) % Carbon Dioxide 21 L (22-30) mmol/L BUN 30 H (9-20) mg/dL Creatinine 1.78 H (0.66-1.25) mg/dL POC Glucose (mg/dL) (75-99) mg/dL Assessment and Plan Plan: Assessment 1. Acute kidney injury ATN initially, nonoliguric which was improving. Recently renal function was week again secondary to CHF and diuresis. Lasix has been decreased to 40 mg IV every 12 hours. Serum creatinine is down to 1.7 today. 2. CHF with systolic heart failure ejection fraction of about 20%. 3. Coronary artery disease status post acute [place] status post cardiac catheterization and coronary stent placement. 4. Metabolic acidosis secondary to acute kidney injury currently improved 5. Chronic kidney disease stage III secondary to diabetic kidney disease with baseline creatinine about 1.5 mg/dL 6. Type 2 diabetes currently stable ex Plan Continue current dose of Lasix at 40 IV every 12 hours. We'll switch to oral Lasix tomorrow.
--- NOTE | 2017-02-10 10:00 | P.PN ---
Subjective This is a pleasant 81-year-old gentleman who follows regularly with Dr. Strong in the office. He has a known history of coronary artery disease with prior coronary artery bypass grafting surgery as well as redo bypass, patient also had aortic valve replacement and underwent AICD for ischemic cardiomyopathy. Patient has history of diabetes, hypertension, hyperlipidemia, acute on chronic renal insufficiency, paroxysmal atrial fibrillation he is a nonsmoker. He was in the hospital earlier this month ruled in for non-Q-wave myocardial infarction. The decision at that time was made to maximize medical therapy, primarily because of his abnormal renal function. He presents to the hospital on this occasion with symptoms of midsternal chest pressure and heaviness. He also states that his blood pressure has been significantly elevated at home. He did have another episode of chest discomfort this morning , relieved with 2 sublingual nitroglycerin. His EKG on arrival here showed a normal sinus rhythm with a left bundle-branch block pattern and ST-T wave changes in the lateral leads. EKG performed this morning showed a normal sinus rhythm with left bundle branch block pattern and lateral ST-T wave changes. Chest x-ray revealed minimal subsegmental left basilar atelectasis. Blood pressure on arrival 228/96, heart rate in the 50s. Patient underwent Lexiscan scan Cardiolite revealed severe stress-induced ischemia and anterior and lateral claudio with a low ejection fraction of 29% and subsequently underwent cardiac catheterization with angioplasty and stenting of the saphenous vein graft to the OM by Dr. Strong. Following this, the patient became quite short of breath and was transferred to intensive care unit. He was transferred to selective care yesterday afternoon. Today he is doing quite well. He denies complaints of shortness of breath. He has not been up much except to the bathroom but has done well with this. He denies any complaints of palpitations , chest discomfort, shortness of breath or dizziness. Objective - Vital Signs Vital signs: Vital Signs Temp 96.7 F L 02/10/17 08:00 Pulse 57 L 02/10/17 08:00 Resp 18 02/10/17 08:00 BP 119/57 02/10/17 08:00 Pulse Ox 99 02/10/17 08:00 Intake & Output 02/09/17 02/10/17 02/10/17 18:59 06:59 18:59 Intake Total 300 490 240 Output Total 1225 1600 Balance -925 1110 240 Weight 78.7 kg 70.9 kg Intake: IV 80 10 KVO 80 10 Oral 220 480 240 Output: Urine 1225 1600 Other: Voiding Method Indwelling Catheter Indwelling Catheter Indwelling Catheter # Voids 1 # Bowel Movements 1 - Exam PHYSICAL EXAMINATION: HEENT: Head is atraumatic, normocephalic. Pupils equal, round. Neck is supple. There is no elevated jugular venous pressure. HEART EXAMINATION: Heart sounds regular, S1 and S2 normal with a systolic murmur. CHEST EXAMINATION: Lungs faint crackles bilateral bases. No chest wall tenderness is noted on palpation or with deep breathing. ABDOMEN: Soft, nontender. Bowel sounds are heard. No organomegaly noted. EXTREMITIES: 1+ peripheral pulses with no evidence of peripheral edema and no calf tenderness noted. NEUROLOGIC patient is awake, alert and oriented x3. . - Labs CBC & Chem 7: 02/10/17 05:44 02/10/17 05:44 Labs: Abnormal Lab Results - Last 24 Hours (Table) 02/09/17 02/09/17 02/09/17 Range/Units 12:07 16:33 20:03 RBC (4.30-5.90) m/uL Hgb (13.0-17.5) gm/dL Hct (39.0-53.0) % Carbon Dioxide (22-30) mmol/L BUN (9-20) mg/dL Creatinine (0.66-1.25) mg/dL POC Glucose (mg/dL) 137 H 165 H 254 H (75-99) mg/dL 02/10/17 02/10/17 Range/Units 05:44 05:44 RBC 4.18 L (4.30-5.90) m/uL Hgb 12.0 L (13.0-17.5) gm/dL Hct 36.4 L (39.0-53.0) % Carbon Dioxide 21 L (22-30) mmol/L BUN 30 H (9-20) mg/dL Creatinine 1.78 H (0.66-1.25) mg/dL POC Glucose (mg/dL) (75-99) mg/dL Assessment and Plan Plan: Assessment and plan #1 chest discomfort suggestive of angina positive stress test, status post angioplasty with stenting of the saphenous vein graft to the OM #2 accelerated hypertension #3 known history of coronary artery disease with prior bypass grafting and stent #4 ischemic cardiomyopathy with prior AICD placement #5 acute on chronic renal failure #6 hyperkalemia #7 hypertension #8 diabetes #9 hyperlipidemia From tool worker perspective, medications were reviewed and will continue the same. Diuretics as directed by nephrology. We'll continue to follow the patient and provide further recommendations accordingly. The above dictated assessment and findings were discussed with signing physician. The impression and plan of care have been directed as dictated. Charity Carey, Nurse Practitioner, acting as scribe for signing physician.
--- NOTE | 2017-02-10 10:54 | XR ---
EXAMINATION TYPE: XR chest 1V portable DATE OF EXAM: 02/10/2017 HISTORY: chf. REFERENCE: Previous study dated 02/08/2017. FINDINGS: There has been a midline sternotomy. There is a multilead pacing device in place on the lef t. The heart is mildly enlarged. The lungs are now clear. Pleural spaces are clear. IMPRESSION: CARDIOMEGALY.
--- NOTE | 2017-02-10 11:33 | P.PN ---
Subjective Principal diagnosis: Acute coronary syndrome, chronic systolic congestive heart failure. This is a 81-year-old white male with history of coronary artery disease, previous CABG and redo bypass surgery, history of aortic valve replacement, previous AICD placement for ischemic cardiomyopathy and LV dysfunction, history of multiple medical problems including hypertension, chronic renal failure, diabetes, paroxysmal atrial fibrillation, patient presented to the hospital mostly with midsternal chest pressure and heaviness. This was on 01/29/2017. EKG showed a left bundle branch block pattern and ST and T-wave changes in the lateral leads. Chest x-ray showed minimal subsegmental left basilar atelectasis. His labs were relatively unremarkable except for slightly elevated potassium, elevated BUN of 37 creatinine of 2.0, troponins were slightly elevated, his pain responded to 2 sublingual nitroglycerin tablets. On 02/2017, patient underwent cardiac catheterization, and angioplasty with stenting of the saphenous vein graft to the obtuse marginal. In the evening of 02/05/2017, patient developed shortness of breath, but no chest pain, chest x-ray showed mostly evidence of pulmonary vascular congestion, VQ scan was low probability for pulmonary embolism. Hence this consult was initiated. Agent is presently on AIR VO2, asymptomatic, denies any cough no wheezing no shortness of breath and no chest pain. I reviewed the chest x-ray again it showed cardiomegaly and some component of CHF. I reviewed the VQ scan at it again showed low probably for pulmonary embolism. Patient is asymptomatic today on 02/06/2017. Patient was reevaluated today on 02/07/2017, remains on a high flow O2, via air VO2, patient is actually on 45 L/m. Patient is complaining of some shortness of breath, and his chest x-ray is showing worsening congestive heart failure. This was definitely expected considering the patient was on IV fluids at 100 mL/ h, and was not receiving any diuretics. I believe his diuretics were placed on hold because of his renal failure. At any rate after reviewing the chest x-ray , I recommended that he goes back on Lasix 40 mg IV push every 12 hours, and his IV fluid is down to 50 mL per hour. CBC is relatively normal basic metabolic profile was reviewed BUN is 20 creatinine is 1.59 improved with hydration, but the patient cannot be hydrated any further, needs to actually received diuretics at this point. Patient was reevaluated today on 02/08/2017, patient developed worsening pulmonary status yesterday shortly after I saw him and I recommended Lasix at this time. Apparently patient developed worsening congestive heart failure, and he was transferred to the ICU. Given more Lasix before transfer, placed on a Lasix drip, and overnight the patient diuresed about 4 L of fluids. Today the patient is doing much better however his blood pressure is marginal, and the Lasix drip was discontinued. However he remains on Lasix at 40 mg IV push every 8 hours. Chest x-ray showed significant improvement. Renal status is worsening creatinine is up to 1.8. CBC showed a hemoglobin of 10.8. Electrolytes are normal BUN is 21 and creatinine is 1.80. Patient was reevaluated today on 02/09/2017, continues to do well, responding well to diuretics, her chest x-ray was done, but clinically the patient seems to be doing relatively better. Off Lasix drip but he is on Lasix IV push, 40 mg every 8 hours. Renal functioning is marginal with BUN of 28 creatinine of 2.0. CBC is relatively unremarkable. Clinically the patient denies any cough wheezing or shortness of breath, remains on high flow nasal cannula at 8 L. Patient was reevaluated today on 02/20/2017, feeling much better, breathing a lot easier. No cough no wheezing no shortness of breath. CBC was reviewed relatively normal, BUN is 30 and creatinine is 1.78. Objective - Vital Signs Vital signs: Vital Signs Temp 96.7 F L 02/10/17 08:00 Pulse 57 L 02/10/17 08:00 Resp 18 02/10/17 08:00 BP 119/57 02/10/17 08:00 Pulse Ox 99 02/10/17 08:00 Intake & Output 02/09/17 02/10/17 02/10/17 18:59 06:59 18:59 Intake Total 300 490 240 Output Total 1225 1600 Balance -925 -1110 240 Weight 78.7 kg 70.9 kg Intake: IV 80 10 KVO 80 10 Oral 220 480 240 Output: Urine 1225 1600 Other: Voiding Method Indwelling Catheter Indwelling Catheter Indwelling Catheter # Voids 1 # Bowel Movements 1 - Exam Physical examination revealed a 81-year-old in no form of respiratory distress. HEENT: Head is atraumatic, normocephalic. Pupils equal, round. Neck is supple. There is no elevated jugular venous pressure. HEART EXAMINATION: Heart S1 and S2 systolic murmur is heard. CHEST EXAMINATION: Minimal crackles at the bases bilaterally, no rhonchi, no wheezes. ABDOMEN: Soft, nontender. Bowel sounds are heard. No organomegaly noted. Abdomen: Soft nontender no megaly no rebound no guarding. EXTREMITIES: 1+ peripheral pulses with no evidence of peripheral edema and no calf tenderness noted. NEUROLOGIC patient is awake, alert and oriented -3. - Labs CBC & Chem 7: 02/10/17 05:44 02/10/17 05:44 Labs: Abnormal Lab Results - Last 24 Hours (Table) 02/09/17 02/09/17 02/09/17 Range/Units 12:07 16:33 20:03 RBC (4.30-5.90) m/uL Hgb (13.0-17.5) gm/dL Hct (39.0-53.0) % Carbon Dioxide (22-30) mmol/L BUN (9-20) mg/dL Creatinine (0.66-1.25) mg/dL POC Glucose (mg/dL) 137 H 165 H 254 H (75-99) mg/dL 02/10/17 02/10/17 Range/Units 05:44 05:44 RBC 4.18 L (4.30-5.90) m/uL Hgb 12.0 L (13.0-17.5) gm/dL Hct 36.4 L (39.0-53.0) % Carbon Dioxide 21 L (22-30) mmol/L BUN 30 H (9-20) mg/dL Creatinine 1.78 H (0.66-1.25) mg/dL POC Glucose (mg/dL) (75-99) mg/dL Assessment and Plan Plan: Impression: 1 acute coronary syndrome, significant coronary artery disease and previous CABG , recent non-Q-wave myocardial infarction. 2 shortness of breath secondary to LV dysfunction, and suspect acute on chronic congestive heart failure. 3 possible underlying component of COPD however that is to be addressed on an outpatient basis. 4 history of multiple comorbidities including ischemic cardiomyopathy, chronic renal failure, hypertension, diabetes, hyperlipidemia, 5 status post balloon angioplasty of saphenous vein graft to obtuse marginal. 6 acute on chronic systolic congestive heart failure. Recommendation: Continue present medications, continue to monitor electrolytes, monitor chest x-ray every other day, patient is steadily improving. We'll continue to follow Time with Patient: Less than 30
[2017-02-10 11:58] LABS: Glucose,Whole Blood 209 mg/dL (75-99)
[2017-02-10] MEDS ORDERED: MAGNESIUM SULFATE-D5W PMX 1 GM in DEXTROSE/WATER 1 100ML.BAG IVPB ONE (12:00)
--- NOTE | 2017-02-10 12:39 | P.PN ---
Progress Note - Text Date of service: 02/10/2017 HISTORY OF PRESENT ILLNESS: 81-year-old patient with coronary artery disease recent stent placement showed severe disease, CHF with an EF 20% presented with central chest pain, history significant for acute AK earlier this month. Interval history: 02/10/2017: Patient lying in bed, flat, appears comfortable. Kidney function improving continues on Lasix IV per nephrology. Afebrile. On nasal cannula, breathing easily. Oral intake increasing about 75% of his breakfast. Ambulatory within the room, to and from the bathroom, encouraged to be out in the hallway. Last BM 02/10/2017 02/09/2017: Patient seen in follow-up in the ICU, sitting up in bed daughter at the bedside , creatinine rising, and WBCs rising. Afebrile, appears comfortable sitting up in bed on nasal cannula, breathing easily, oral intake continues to be low ate about half of his breakfast, has been able to get up and use the bedside commode with assistance, last BM 02/09/2017. 02/08/2017: Patient seen in follow-up in the ICU, transferred overnight secondary to decreasing oxygen saturations, worsening CHF exacerbation, requiring Lasix drip and BiPAP. Diuresed about 4 L of fluid. Renal status worsening. Lying in bed appears comfortable, on nasal cannula, breathing easily, daughter at the bedside , oral intake continues to be low, no BM for several days, cathartics added. 02/07/2017: The patient understands admissions has had 2 coronary interventions. The patient had been very short of breath the night before and pulmonary embolism was ruled out. Today patient is short of breath at rest feeling tired and lethargic and does state he is feeling out of sorts. Oral intake decreased Review of systems: Was done for constitutional cardiovascular GI pulmonary neuro, relevant finding as above Current medications are reviewed: Includes DuoNeb, aspirin, Coreg 3.125 by mouth twice a day, Plavix 75 mg by mouth daily, IV Lasix 40 mg every 8 hours, and Ranexa 500 mg by mouth every 12 hours. VITAL SIGNS: Temperature 96.7, pulse 57, respiratory rate 18, blood pressure 119/57, oxygen saturation 99% on 2 L GENERAL APPEARANCE: Lying flat in bed breathing easily, appears comfortable. EYES: Pupils equal. Conjunctiva normal. NECK: JVD raised. Mass not palpable. RESPIRATORY: Respiratory effort increased, bilateral basal crackles, decreased breath sounds CARDIOVASCULAR: First and second sounds normal. No edema. ABDOMEN: Soft. Liver and spleen not palpable. No tenderness. No mass palpable. PSYCHIATRY: A and O 3, more awake and participatory, mood and affect normal Investigations: Hemoglobin 12.0, BUN 30, creatinine 1.78, Accu-Cheks noted. Assessment: -Unstable angina patient with known triple-vessel coronary artery disease and chronic kidney disease with prior history of bypass, now with angioplasty and stent to LAD. -Acute Non-Q wave myocardial infarction on 01/10/2017, not this admission -Acute on Chronic congestive heart failure exacerbation from systolic dysfunction, uncontrolled, ejection fraction 20-25% with additional diastolic dysfunction underlying coronary artery disease. -Acute kidney injury most likely acute tubular necrosis from contrast nephropathy/drug-induced, improving -Hyperkalemia associated with acute kidney injury and MILLIE inhibitor use, potassium sparing diuretics. -Coronary artery disease with diffuse disease and prior bypass. 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 -Alzheimer's dementia, late onset type. -Diabetes mellitus type 2 chronically on oral hypoglycemics. -Hyperlipidemia. -Primary osteoarthritis of multiple joints bilaterally. 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 -Pacemaker in place. -Peripheral arterial disease. -CODE STATUS: DO NOT RESUSCITATE PLAN: We'll continue Lasix per nephrology recommendations at 40 mg every 12 hours and will possibly convert to oral tomorrow. Cardiac meds remain the same we'll continue to monitor patient's progress. Possible discharge planning based on patient condition for Sunday. Plan of care discussed with the patient at the bedside questions answered. We'll continue to monitor closely. TRUCK ENGINE TECHNICIAN STATEMENT: Patient was seen and examined by nurse practitioner Vickie Mathur in all elements of the case discussed with attending Dr. Noriega.
[2017-02-10 16:56] LABS: Glucose,Whole Blood 194 mg/dL (75-99)
[2017-02-10] MEDS: DONEPEZIL 10 MG TAB PO SCH (19:57)
[2017-02-10] MEDS: INSULIN DETEMIR 100 UNIT/ML 10 ML VIAL SQ SCH (21:18)
[2017-02-10 21:28] LABS: Glucose,Whole Blood 323 mg/dL (75-99)
[2017-02-11 06:20] LABS: CH 29.3; CHCM 33.4; HCT 38.1 % (39.0-53.0); HDW 2.79; HGB 12.3 gm/dL (13.0-17.5); MCH 28.5 pg (25.0-35.0); MCHC 32.4 g/dL (31.0-37.0); MCV 87.9 fL (80.0-100.0); Mean Platelet Volume 7.9; RBC 4.33 m/uL (4.30-5.90); RDW 15.4 % (11.5-15.5)
[2017-02-11] MEDS: PANTOPRAZOLE 40 MG TABLET PO SCH (06:35)
[2017-02-11] MEDS: CARVEDILOL 3.125 MG TAB PO SCH (06:35)
[2017-02-11 06:41] LABS: Calcium 9.5 mg/dL (8.4-10.2); Magnesium 1.7 mg/dL (1.6-2.3); Phosphorous 4.3 mg/dL (2.5-4.5); Potassium 4.2 mmol/L (3.5-5.1)
[2017-02-11 06:55] LABS: Glucose,Whole Blood 158 mg/dL (75-99)
[2017-02-11] MEDS: IPRATROPIUM-ALBUTEROL 3 ML NEB INHALATION SCH ×2 (07:30→11:22)
[2017-02-11] MEDS: POLYETHYLENE GLYCOL 3350 17 GM POWD.PACK PO SCH (08:02)
[2017-02-11] MEDS: LACTULOSE 20 GM/30 ML CUP PO SCH (08:03)
[2017-02-11] MEDS: DORZOLAMIDE-TIMOLOL 2-0.5% DROPS 10 ML BTL BOTH EYES SCH (08:08)
[2017-02-11] MEDS: BRIMONIDINE TARTRATE 0.2% DROPS 5 ML BTL BOTH EYES SCH (08:09)
[2017-02-11] MEDS: ATORVASTATIN 20 MG TAB PO SCH (08:09)
[2017-02-11] MEDS: CLOPIDOGREL 75 MG TAB PO SCH (08:09)
[2017-02-11] MEDS: SODIUM BICARBONATE TAB 650 MG TAB PO SCH (08:10)
[2017-02-11] MEDS: RANOLAZINE 500 MG TAB.ER.12H PO SCH (08:10)
[2017-02-11] MEDS: ASPIRIN 81 MG CHEW PO SCH (08:10)
[2017-02-11] MEDS: ISOSORBIDE MONONITRATE ER 30 MG TAB.ER.24H PO SCH (08:10)
[2017-02-11] MEDS: LISINOPRIL 2.5 MG TAB PO SCH (08:10)
[2017-02-11] MEDS: FUROSEMIDE 10 MG/ML 4 ML VIAL IV SCH (08:11)
--- NOTE | 2017-02-11 09:38 | P.PN ---
Subjective Principal diagnosis: Non-ST segment elevation NV Acute exacerbation of chronic systolic heart failure Patient is looking much better. No longer requiring oxygen. Denies difficulty in breathing or leg edema. He is stable for discharge. Objective - Vital Signs Vital signs: Vital Signs Temp 97.3 F L 02/11/17 08:00 Pulse 61 02/11/17 08:00 Resp 17 02/11/17 08:00 BP 134/60 02/11/17 08:00 Pulse Ox 94 L 02/11/17 08:00 Intake & Output 02/10/17 02/11/17 02/11/17 18:59 06:59 18:59 Intake Total 870 380 Output Total 950 3000 Balance -80 -3000 380 Weight 69.8 kg Intake: IV 10 KVO 10 Intake, IV Titration 100 Amount Magnesium Sulfate-D5w Pmx 100 1 gm In Dextrose/Water 1 100ml.bag @ 100 mls/hr IVPB ONCE ONE Rx#: [id number] Oral 760 380 Output: Urine 950 3000 Uretheral ([place]) 1000 Other: Voiding Method Indwelling Catheter Indwelling Catheter Toilet # Bowel Movements 1 - Exam Comfortable at rest vital signs are stable chest exam reveals good air entry bilaterally heart exam reveals first and second heart sounds no gallop abdomen is soft exam extremities did not reveal any edema per for pulses are palpable - Labs CBC & Chem 7: 02/11/17 05:33 02/11/17 05:31 Labs: Abnormal Lab Results - Last 24 Hours (Table) 02/10/17 02/10/17 02/10/17 Range/Units 11:48 16:46 20:45 Hgb (13.0-17.5) gm/dL Hct (39.0-53.0) % Sodium (137-145) mmol/L Chloride (98-107) mmol/L BUN (9-20) mg/dL Creatinine (0.66-1.25) mg/dL Glucose (74-99) mg/dL POC Glucose (mg/dL) 209 H 194 H 323 H (75-99) mg/dL 02/11/17 02/11/17 02/11/17 Range/Units 05:31 05:33 06:41 Hgb 12.3 L (13.0-17.5) gm/dL Hct 38.1 L (39.0-53.0) % Sodium 136 L (137-145) mmol/L Chloride 95 L (98-107) mmol/L BUN 30 H (9-20) mg/dL Creatinine 1.80 H (0.66-1.25) mg/dL Glucose 172 H (74-99) mg/dL POC Glucose (mg/dL) 158 H (75-99) mg/dL Assessment and Plan Plan: Acute exacerbation of chronic systolic heart failure Acute non-ST segment elevation NV Patient is doing much better. I'm going to change his Lasix to by mouth. He is tolerating cj inhibitors and beta blockers. We can discharge him home today. Arrange follow-up with cardiology in a week.
--- NOTE | 2017-02-11 10:45 | PN ---
PROGRESS NOTE DATE OF SERVICE: February 10, 2017. ATTENDING NOTE: This patient was seen and examined by me. I discussed this with my nurse practitioner, Ms. Mathur. The patient looks a bit more perky. Ate a bit more. EXAMINATION: On examination, LUNGS: Decreased breath sounds. CARDIOVASCULAR: First and second sounds are normal. PSYCH: A bit more perky. INVESTIGATIONS: BUN 30, creatinine 1.78. ASSESSMENT: Acute on chronic congestive heart failure exacerbation from systolic dysfunction, ejection fraction 20-25%. PLAN: Continue with IV Lasix, other medications and treatment plan. Patient encouraged to sit up on the chair. Follow electrolytes closely. MMODL / IJN: [id number] /
[2017-02-11 11:14] VITALS: BP 143/69; RESP 16; TEMP 97
[2017-02-11 11:39] VITALS: PULSE 66
[2017-02-11 11:44] LABS: Glucose,Whole Blood 306 mg/dL (75-99)
--- NOTE | 2017-02-11 11:46 | P.PN ---
Subjective Principal diagnosis: Acute coronary syndrome, chronic systolic congestive heart failure. This is a 81-year-old white male with history of coronary artery disease, previous CABG and redo bypass surgery, history of aortic valve replacement, previous AICD placement for ischemic cardiomyopathy and LV dysfunction, history of multiple medical problems including hypertension, chronic renal failure, diabetes, paroxysmal atrial fibrillation, patient presented to the hospital mostly with midsternal chest pressure and heaviness. This was on 01/29/2017. EKG showed a left bundle branch block pattern and ST and T-wave changes in the lateral leads. Chest x-ray showed minimal subsegmental left basilar atelectasis. His labs were relatively unremarkable except for slightly elevated potassium, elevated BUN of 37 creatinine of 2.0, troponins were slightly elevated, his pain responded to 2 sublingual nitroglycerin tablets. On 02/2017, patient underwent cardiac catheterization, and angioplasty with stenting of the saphenous vein graft to the obtuse marginal. In the evening of 02/05/2017, patient developed shortness of breath, but no chest pain, chest x-ray showed mostly evidence of pulmonary vascular congestion, VQ scan was low probability for pulmonary embolism. Hence this consult was initiated. Agent is presently on AIR VO2, asymptomatic, denies any cough no wheezing no shortness of breath and no chest pain. I reviewed the chest x-ray again it showed cardiomegaly and some component of CHF. I reviewed the VQ scan at it again showed low probably for pulmonary embolism. Patient is asymptomatic today on 02/06/2017. Patient was reevaluated today on 02/07/2017, remains on a high flow O2, via air VO2, patient is actually on 45 L/m. Patient is complaining of some shortness of breath, and his chest x-ray is showing worsening congestive heart failure. This was definitely expected considering the patient was on IV fluids at 100 mL/ h, and was not receiving any diuretics. I believe his diuretics were placed on hold because of his renal failure. At any rate after reviewing the chest x-ray , I recommended that he goes back on Lasix 40 mg IV push every 12 hours, and his IV fluid is down to 50 mL per hour. CBC is relatively normal basic metabolic profile was reviewed BUN is 20 creatinine is 1.59 improved with hydration, but the patient cannot be hydrated any further, needs to actually received diuretics at this point. Patient was reevaluated today on 02/08/2017, patient developed worsening pulmonary status yesterday shortly after I saw him and I recommended Lasix at this time. Apparently patient developed worsening congestive heart failure, and he was transferred to the ICU. Given more Lasix before transfer, placed on a Lasix drip, and overnight the patient diuresed about 4 L of fluids. Today the patient is doing much better however his blood pressure is marginal, and the Lasix drip was discontinued. However he remains on Lasix at 40 mg IV push every 8 hours. Chest x-ray showed significant improvement. Renal status is worsening creatinine is up to 1.8. CBC showed a hemoglobin of 10.8. Electrolytes are normal BUN is 21 and creatinine is 1.80. Patient was reevaluated today on 02/09/2017, continues to do well, responding well to diuretics, her chest x-ray was done, but clinically the patient seems to be doing relatively better. Off Lasix drip but he is on Lasix IV push, 40 mg every 8 hours. Renal functioning is marginal with BUN of 28 creatinine of 2.0. CBC is relatively unremarkable. Clinically the patient denies any cough wheezing or shortness of breath, remains on high flow nasal cannula at 8 L. Patient was reevaluated today on 02/10/2017, feeling much better, breathing a lot easier. No cough no wheezing no shortness of breath. CBC was reviewed relatively normal, BUN is 30 and creatinine is 1.78. Patient was reevaluated today on 02/11/2017, patient is doing much better, off oxygen, saturating well in the 90s without any oxygen. His last chest x-ray from yesterday showed dramatic improvement and complete resolution of his pulmonary edema. Clinically, the patient is feeling much better. His renal profile was also reviewed and his BUN is 30 creatinine is 1.80. Patient denies any cough wheezing or shortness of breath. Objective - Vital Signs Vital signs: Vital Signs Temp 97.0 F L 02/11/17 11:11 Pulse 66 02/11/17 11:38 Resp 16 02/11/17 11:11 BP 143/69 02/11/17 11:11 Pulse Ox 99 02/11/17 11:11 Intake & Output 02/10/17 02/11/17 02/11/17 18:59 06:59 18:59 Intake Total 870 380 Output Total 950 3000 Balance -80 -3000 380 Weight 69.8 kg Intake: IV 10 KVO 10 Intake, IV Titration 100 Amount Magnesium Sulfate-D5w Pmx 100 1 gm In Dextrose/Water 1 100ml.bag @ 100 mls/hr IVPB ONCE ONE Rx#: [id number] Oral 760 380 Output: Urine 950 3000 Uretheral ([place]) 1000 Other: Voiding Method Indwelling Catheter Indwelling Catheter Toilet # Voids 3 # Bowel Movements 1 - Exam Physical examination revealed a 81-year-old in no form of respiratory distress. HEENT: Head is atraumatic, normocephalic. Pupils equal, round. Neck is supple. There is no elevated jugular venous pressure. HEART EXAMINATION: Heart S1 and S2 systolic murmur is heard. CHEST EXAMINATION: Clear bilaterally, no crackles or rhonchi or wheezes. Abdomen: Soft nontender no megaly no rebound no guarding. EXTREMITIES: 1+ peripheral pulses with no evidence of peripheral edema and no calf tenderness noted. NEUROLOGIC patient is awake, alert and oriented -3. - Labs CBC & Chem 7: 02/11/17 05:33 02/11/17 05:31 Labs: Abnormal Lab Results - Last 24 Hours (Table) 02/10/17 02/10/17 02/10/17 Range/Units 11:48 16:46 20:45 Hgb (13.0-17.5) gm/dL Hct (39.0-53.0) % Sodium (137-145) mmol/L Chloride (98-107) mmol/L BUN (9-20) mg/dL Creatinine (0.66-1.25) mg/dL Glucose (74-99) mg/dL POC Glucose (mg/dL) 209 H 194 H 323 H (75-99) mg/dL 02/11/17 02/11/17 02/11/17 Range/Units 05:31 05:33 06:41 Hgb 12.3 L (13.0-17.5) gm/dL Hct 38.1 L (39.0-53.0) % Sodium 136 L (137-145) mmol/L Chloride 95 L (98-107) mmol/L BUN 30 H (9-20) mg/dL Creatinine 1.80 H (0.66-1.25) mg/dL Glucose 172 H (74-99) mg/dL POC Glucose (mg/dL) 158 H (75-99) mg/dL Assessment and Plan Plan: Impression: 1 acute coronary syndrome, significant coronary artery disease and previous CABG , recent non-Q-wave myocardial infarction. 2 shortness of breath secondary to LV dysfunction, and suspect acute on chronic systolic congestive heart failure. 3 possible underlying component of COPD however that is to be addressed on an outpatient basis. 4 history of multiple comorbidities including ischemic cardiomyopathy, chronic renal failure, hypertension, diabetes, hyperlipidemia, 5 status post balloon angioplasty of saphenous vein graft to obtuse marginal. 6 acute on chronic systolic congestive heart failure. Recommendation: Continue present medications, continue to monitor electrolytes, monitor chest x-ray every other day, patient is steadily improving. We'll continue to follow consider discharge planning in the next 24 hours. Time with Patient: Less than 30
--- NOTE | 2017-02-11 14:39 | P.DS ---
Providers Date of admission: 01/28/17 18:44 Expected date of discharge: 02/11/17 Attending physician: Guy Noriega Consults: 01/28/17 18:44 Consult Physician Urgent Consulting Provider: Milan Louis Consult Reason/Comments: cp Do you want consulting provider notified?: Yes 01/31/17 01:06 Consult Physician Routine Consulting Provider: Nae Stewart Consult Reason/Comments: Elevated BUN & CR Do you want consulting provider notified?: Yes, Notify in am 02/05/17 11:32 Consult Physician Routine Consulting Provider: [facility] Consult Reason/Comments: Post Interventional patient Do you want consulting provider notified?: Already Contacted 02/06/17 06:41 Consult Physician Urgent Consulting Provider: Lilia Moralez Consult Reason/Comments: decreased oxygen levels Do you want consulting provider notified?: Yes, Notify in am Primary care physician: [facility] Course: FINAL DIAGNOSES: -Unstable angina patient with known triple-vessel coronary artery disease and chronic kidney disease with prior history of bypass, now with angioplasty and stent to LAD. -Acute Non-Q wave myocardial infarction on 01/10/2017, not this admission -Acute on Chronic congestive heart failure exacerbation from systolic dysfunction, uncontrolled, ejection fraction 20-25% with additional diastolic dysfunction underlying coronary artery disease. -Acute kidney injury most likely acute tubular necrosis from contrast nephropathy/drug-induced, improving -Hyperkalemia associated with acute kidney injury and MILLIE inhibitor use, potassium sparing diuretics. -Coronary artery disease with diffuse disease and prior bypass. 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 -Alzheimer's dementia, late onset type. -Diabetes mellitus type 2 chronically on oral hypoglycemics. -Hyperlipidemia. -Primary osteoarthritis of multiple joints bilaterally. 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 -Pacemaker in place. -Peripheral arterial disease. -CODE STATUS: DO NOT RESUSCITATE HOSPTIAL COURSE: 81-year-old male with a history acute AK on previous admission earlier in the month, was optimized medically due to poor renal function presented with midsternal chest pain, intermittent, dull in nature. ECG revealed ST and T- wave changes in the lateral leads, also found to have elevated blood pressure and BUN and creatinine elevated. Admitted for the same, cardiology and nephrology consulted. Cardiology discontinued the MILLIE inhibitor and Aldactone adjusted Coreg, decreased aspirin, discontinue flecainide and added Norvasc. Nephrology was in agreement with these changes and also recommended ruling out chronic kidney disease by having a workup done outpatient. Patient had a new episode of chest pain that was relieved with sublingual nitro and a nitro drip was added. Troponins drawn, and were positive stress test revealed severe stress-induced ischemic changes, cardiology to take patient to the chemistry laboratory technician once nephrology cleared the patient. Nephrology recommended additional IV fluids in preparation for the catheterization. Taken to the [facility] and underwent angioplasty and stenting of the saphenous vein graft to the OM. Patient developed sudden onset shortness of breath, all diagnostic testing was negative for possibility of PE. Patient continued to decompensate continued to have shortness of breath was transferred to the ICU for closer monitoring and management, pulmonology was consulted. Patient placed on a BiPAP. Patient showing worsening congestive heart failure due to not receiving his diuretics due to his decreased kidney function, placed back on IV Lasix every 12 hours fluids reduced, high flow oxygen initiated, IV Lasix switched to a Lasix drip, diuresed about 4 L of fluid, renal status worsening creatinine bumped up, Lasix switched back to IV push 40 mg every 8 hours per nephrology and remained on high flow nasal cannula and titrated down as patient can tolerate. Condition improved patient transferred to 6 E. selective, breathing is better, kidney function improved no cough or wheezing shortness of breath on a nasal cannula at 2 L. Condition overall has stabilized, no shortness of breath no chest pain no cough or wheezing no respiratory distress, patient is tolerating his diet eating between 75 and 100% of his meals, ambulatory in the room to and from the bathroom as well as in the hallways. Moving his bowels last BM 02/10/2017. Patient has been cleared by all consultants and is stable for discharge. PHYSICAL EXAM: CARDIOVASCULAR: First and second sounds noted no edema RESPIRATORY: Respiratory effort normal, bilaterally decreased breath sounds Patient was seen and examined by nurse practitioner Vickie Mathur in all elements of the case discussed with attending Dr. Noriega DISPOSITION: Home with home care. Daughter lives close by. Patient Condition at Discharge: Serious Plan - Discharge Summary New Discharge Prescriptions: New Aspirin 81 mg PO DAILY Furosemide [Lasix] 40 mg PO BID@0900,1600 #60 tab Polyethylene Glycol 3350 [Miralax] 17 gm PO DAILY pack Sennosides [Senokot] 8.6 mg PO BID PRN tab PRN Reason: Constipation Carvedilol [Coreg] 3.125 mg PO BID-W/MEALS #60 tab Ipratropium-Albuterol Nebulize [Duoneb 0.5 mg-3 mg/3 ml Soln] 3 ml INHALATION TID #120 neb Isosorbide Mononitrate ER [Imdur] 30 mg PO BID #60 tab Ranolazine [Ranexa] 500 mg PO Q12HR #60 tab Atorvastatin Calcium [Lipitor] 40 mg PO HS #30 tablet Continue Insulin Detemir [Levemir] 22 unit SQ HS Dorzolamide HCl/Timolol Maleat [Cosopt Eye Drops] 1 drop BOTH EYES BID Pantoprazole Sodium 40 mg PO DAILY Brimonidine Tartrate [Alphagan P 0.1% Ophth Soln] 1 drops BOTH EYES BID Clopidogrel [Plavix] 75 mg PO DAILY #30 tab Donepezil [Aricept] 10 mg PO HS #30 tab Lisinopril [Zestril] 2.5 mg PO DAILY #30 tab Nitroglycerin Sl Tabs [Nitrostat] 0.4 mg SUBLINGUAL Q5M PRN #20 tab PRN Reason: Chest Pain Spironolactone [Aldactone] 25 mg PO DAILY #30 tab metFORMIN HCL 1,000 mg PO BID #60 Discontinued Atorvastatin [Lipitor] 20 mg PO DAILY Carvedilol [Coreg] 25 mg PO BID Flecainide [Tambocor] 50 mg PO BID Aspirin 325 mg PO DAILY #30 tab hydrALAZINE HCL [Apresoline] 50 mg PO TID #90 tab Isosorbide Mononitrate ER [Imdur] 60 mg PO BID #60 tab Discharge Medication List Dorzolamide HCl/Timolol Maleat [Cosopt Eye Drops] 1 drop BOTH EYES BID 07/07/15 [History] Insulin Detemir [Levemir] 22 unit SQ HS 07/07/15 [History] Brimonidine Tartrate [Alphagan P 0.1% Ophth Soln] 1 drops BOTH EYES BID [History] Pantoprazole Sodium 40 mg PO DAILY 06/04/16 [History] Clopidogrel [Plavix] 75 mg PO DAILY #30 tab 01/15/17 [Rx] Donepezil [Aricept] 10 mg PO HS #30 tab 01/15/17 [Rx] Lisinopril [Zestril] 2.5 mg PO DAILY #30 tab 01/15/17 [Rx] Nitroglycerin Sl Tabs [Nitrostat] 0.4 mg SUBLINGUAL Q5M PRN #20 tab 01/15/17 [Rx ] Spironolactone [Aldactone] 25 mg PO DAILY #30 tab 01/15/17 [Rx] metFORMIN HCL 1,000 mg PO BID #60 01/15/17 [Rx] Aspirin 81 mg PO DAILY 02/11/17 [Rx] Atorvastatin Calcium [Lipitor] 40 mg PO HS #30 tablet 02/11/17 [Rx] Carvedilol [Coreg] 3.125 mg PO BID-W/MEALS #60 tab 02/11/17 [Rx] Furosemide [Lasix] 40 mg PO BID@0900,1600 #60 tab 02/11/17 [Rx] Ipratropium-Albuterol Nebulize [Duoneb 0.5 mg-3 mg/3 ml Soln] 3 ml INHALATION TID #120 neb 02/11/17 [Rx] Isosorbide Mononitrate ER [Imdur] 30 mg PO BID #60 tab 02/11/17 [Rx] Polyethylene Glycol 3350 [Miralax] 17 gm PO DAILY pack 02/11/17 [Rx] Ranolazine [Ranexa] 500 mg PO Q12HR #60 tab 02/11/17 [Rx] Sennosides [Senokot] 8.6 mg PO BID PRN tab 02/11/17 [Rx] Follow up Appointment(s)/Referral(s): Nae Stewart MD [STAFF PHYSICIAN] - 1 Week Bruce Pierson MD [STAFF PHYSICIAN] - 1 Week iVnce Jane MD [Primary Care Provider] - 3 Days [facility], [NON-STAFF] - Lilia Moralez MD [STAFF PHYSICIAN] - 1 Week Ambulatory/Diagnostic Orders: Basic Metabolic Panel [LAB.AMB] Location: Determined By Patient Complete Blood Count w/diff [LAB.AMB] Location: Determined By Patient Patient Instructions/Handouts: Myocardial Infarction (DC), Chest Pain (DC)
--- NOTE | 2017-02-11 15:22 | PN ---
PROGRESS NOTE Patient is seen for followup for acute kidney injury. The patient is currently sitting up in bed. He is comfortable. He is not in any acute distress. He is going home today. His serum creatinine has been staying at about 1.7-1.8 mg/dL. The Lasix was decreased to 40 mg IV q.12 hours yesterday. He will be switched to p.o. Lasix today upon discharge. EXAMINATION: Blood pressure is 143/69, heart rate 66 per minute. Patient is afebrile. Examination of the heart: S1, S2. Examination of the lungs: Bilateral breath sounds are heard. Abdomen is soft, nontender. Exam lower extremity showed no evidence of edema. Skin exam is grossly intact. LABS: Sodium 136, potassium 4.2, BUN 30, serum creatinine 1.8 mg/dL. ASSESSMENT: 1. Acute kidney injury, multifactorial with an element of acute tubular necrosis from contrast nephropathy and from congestive heart failure and diuresis. Expect further improvement as outpatient once volume status stabilizes. The patient can be discharged home with oral Lasix and he will follow up with us in about 1-2 weeks time. 2. Congestive heart failure chronic with mainly systolic with ejection fraction of 20%, currently improved. 3. Chronic kidney disease stage III secondary to diabetic kidney disease with baseline creatinine about 1.5. 4. Metabolic acidosis secondary to acute kidney injury, currently improved. 5. Coronary artery disease, status post acute myocardial infarction, status post cardiac catheterization and coronary artery stent placement. PLAN: Follow up as outpatient for acute kidney injury and volume status. MMODL / IJN: [id number] /
[2017-02-11] MEDS ORDERED: FUROSEMIDE 40 MG TAB PO SCH (16:00)
--- NOTE | 2017-02-13 14:18 | DS ---
DISCHARGE SUMMARY DATE OF SERVICE: 02/11/2017 ADDENDUM DISCHARGE SUMMARY ATTENDING NOTE: This patient seen and examined by me on 02/11/2017. Discussed with my FIELD COLLECTOR, Ms. Mathur. Patient is feeling much better, up to the bathroom. Keen to go home. Eating better. ON EXAMINATION: LUNGS: Decreased breath sounds. CARDIOVASCULAR: First and second sounds normal. Labs are noted. Care was discussed. Questions were answered. Discharge planning more than 35 minutes. MMODL / IJN: [id number] /
== END 2017-02-11 14:18 | disposition home health service (06) | DRG 246 ==
LOC: EC 17:28 → 6SEL 18:44 → 6ICU 02-07 15:45 → 6SEL 02-09 12:05
PROVIDERS: ADMIT Hospitalist; ATTEND Hospitalist
PROC: B213YZZ Fluoroscopy of Multiple Coronary Artery Bypass Grafts using Other Contrast (ICD-10-PCS; 2017-02-04)
PROC: B211YZZ Fluoroscopy of Multiple Coronary Arteries using Other Contrast (ICD-10-PCS; 2017-02-04)
PROC: B218YZZ Fluoroscopy of Left Internal Mammary Bypass Graft using Other Contrast (ICD-10-PCS; 2017-02-04)
PROC: 4A023N7 Measurement of Cardiac Sampling and Pressure, Left Heart, Percutaneous Approach (ICD-10-PCS; 2017-02-04 07:30)
PROC: 027034Z Dilation of Coronary Artery, One Artery with Drug-eluting Intraluminal Device, Percutaneous Approach (ICD-10-PCS; principal; 2017-02-05 10:00)
DX: I25.110 Atherosclerotic heart disease of native coronary artery with unstable angina pectoris (principal); I50.43 Acute on chronic combined systolic (congestive) and diastolic (congestive) heart failure; J96.01 Acute respiratory failure with hypoxia; N17.0 Acute kidney failure with tubular necrosis; E87.2 Acidosis; I13.0 Hypertensive heart and chronic kidney disease with heart failure and stage 1 through stage 4 chronic kidney disease, or unspecified chronic kidney disease; J44.1 Chronic obstructive pulmonary disease with (acute) exacerbation; I16.1 Hypertensive emergency; E87.1 Hypo-osmolality and hyponatremia; I95.9 Hypotension, unspecified; E11.22 Type 2 diabetes mellitus with diabetic chronic kidney disease; E11.51 Type 2 diabetes mellitus with diabetic peripheral angiopathy without gangrene; E86.1 Hypovolemia; I48.0 Paroxysmal atrial fibrillation; I25.82 Chronic total occlusion of coronary artery; I27.2 Other secondary pulmonary hypertension; E87.5 Hyperkalemia; I25.5 Ischemic cardiomyopathy; F02.80 Dementia in other diseases classified elsewhere, unspecified severity, without behavioral disturbance, psychotic disturbance, mood disturbance, and anxiety; I25.710 Atherosclerosis of autologous vein coronary artery bypass graft(s) with unstable angina pectoris; N14.1 Nephropathy induced by other drugs, medicaments and biological substances; N18.3 Chronic kidney disease, stage 3 (moderate); Z95.1 Presence of aortocoronary bypass graft; Z95.5 Presence of coronary angioplasty implant and graft; E78.5 Hyperlipidemia, unspecified; G30.1 Alzheimer's disease with late onset; G47.33 Obstructive sleep apnea (adult) (pediatric); H40.9 Unspecified glaucoma; I25.2 Old myocardial infarction; K21.9 Gastro-esophageal reflux disease without esophagitis; M15.9 Polyosteoarthritis, unspecified; T50.8X5A Adverse effect of diagnostic agents, initial encounter; R01.1 Cardiac murmur, unspecified; T46.4X5A Adverse effect of angiotensin-converting-enzyme inhibitors, initial encounter; Z66 Do not resuscitate; Z79.02 Long term (current) use of antithrombotics/antiplatelets; Z79.4 Long term (current) use of insulin; Z79.82 Long term (current) use of aspirin; Z79.899 Other long term (current) drug therapy; Z87.891 Personal history of nicotine dependence; Z95.2 Presence of prosthetic heart valve; Z95.810 Presence of automatic (implantable) cardiac defibrillator; Z88.8 Allergy status to other drugs, medicaments and biological substances; Z82.49 Family history of ischemic heart disease and other diseases of the circulatory system; Y92.9 Unspecified place or not applicable
CPT/HCPCS: 36415; 36600; 71010; 71020; 78452; 78582; 80048; 80053; 80061; 81001; 82550; 82553; 82565; 82805; 83735; 84100; 84484; 85025; 85027; 85049; 85730; 93005; 93017; 93455; 93567; 94640; 94660; 94760; 96374; 96375; 99291

== ENCOUNTER 2017-02-11 19:31 | Observation (INO) | payer MEDICARE, BC ==
[2017-02-11 20:10] LABS: Basophils # (A) 0.1 k/uL (0-0.2); Basophils % (A) 0 %; CH 29.4; CHCM 34.1; Eosinophils % (A) 0 %; HCT 41.1 % (39.0-53.0); HDW 2.76; HGB 13.5 gm/dL (13.0-17.5); Luc # (Auto) 0.22; Luc % (Auto) 1; Lymphocytes # (A) 0.7 k/uL (1.0-4.8); Lymphocytes % (A) 5 %; MCH 28.5 pg (25.0-35.0); MCHC 32.9 g/dL (31.0-37.0); MCV 86.5 fL (80.0-100.0); Monocytes % (A) 6 %; Neutrophils # (A) 14.4 k/uL (1.3-7.7); Neutrophils % (A) 88 %; RBC 4.75 m/uL (4.30-5.90); WBC 16.4 k/uL (3.8-10.6)
[2017-02-11] MEDS ORDERED: HYDROcodone/APAP 5-325MG 1 EACH TAB PO STA (20:12)
--- NOTE | 2017-02-11 20:17 | ED ---
Chest Pain HPI - General Chief Complaint: Chest Pain Stated Complaint: Chest Pain Time Seen by Provider: 02/11/17 19:53 Source: patient Mode of arrival: wheelchair Limitations: no limitations - History of Present Illness Initial Comments: 's patient is a 81-year-old man who presents stating that he had arrived home today from being in the hospital and he noted that he was having some back and right shoulder pain. He also had some nausea and vomited. Patient states that he thought he was having the flu. Given that he had just had a stent placed recently his family became concerned and they return to have evaluation here. Patient denies dyspnea, diaphoresis, palpitations, lightheadedness or syncope. He also states that he has not had what he believes is normal urination since they took out an indwelling catheter prior to leaving the hospitals afternoon. MD Complaint: other (Right shoulder and back pain) -: hour(s) Onset: during rest Pain Location: other Severity: moderate Quality: aching Consistency: constant Improves With: nothing Worsens With: nothing Anginal Symptoms: nausea Treatments Prior to Arrival: none - Related Data Home Medications Medication Instructions Recorded Confirmed Dorzolamide HCl/Timolol Maleat 1 drop BOTH EYES BID 07/07/15 02/11/17 [Cosopt Eye Drops] Insulin Detemir [Levemir] 22 unit SQ HS 07/07/15 02/11/17 Brimonidine Tartrate [Alphagan P 1 drops BOTH EYES BID 06/04/16 02/11/17 0.1% Ophth Soln] Pantoprazole Sodium 40 mg PO DAILY 06/04/16 02/11/17 Previous Rx's Medication Instructions Recorded Clopidogrel [Plavix] 75 mg PO DAILY #30 tab 01/15/17 Donepezil [Aricept] 10 mg PO HS #30 tab 01/15/17 Lisinopril [Zestril] 2.5 mg PO DAILY #30 tab 01/15/17 Nitroglycerin Sl Tabs [Nitrostat] 0.4 mg SUBLINGUAL Q5M PRN #20 tab 01/15/17 Spironolactone [Aldactone] 25 mg PO DAILY #30 tab 01/15/17 metFORMIN HCL 1,000 mg PO BID #60 01/15/17 Aspirin 81 mg PO DAILY 02/11/17 Atorvastatin Calcium [Lipitor] 40 mg PO HS #30 tablet 02/11/17 Carvedilol [Coreg] 3.125 mg PO BID-W/MEALS #60 tab 02/11/17 Furosemide [Lasix] 40 mg PO BID@0900,1600 #60 tab 02/11/17 Ipratropium-Albuterol Nebulize 3 ml INHALATION TID #120 neb 02/11/17 [Duoneb 0.5 mg-3 mg/3 ml Soln] Isosorbide Mononitrate ER [Imdur] 30 mg PO BID #60 tab 02/11/17 Polyethylene Glycol 3350 [Miralax] 17 gm PO DAILY pack 02/11/17 Ranolazine [Ranexa] 500 mg PO Q12HR #60 tab 02/11/17 Sennosides [Senokot] 8.6 mg PO BID PRN tab 02/11/17 Allergies Allergy/AdvReac Type Severity Reaction Status Date / Time prednisone AdvReac SUGAR GOES Verified 02/11/17 19:59 UP Review of Systems ROS Statement: Those systems with pertinent positive or pertinent negative responses have been documented in the HPI. ROS Other: All systems not noted in ROS Statement are negative. Constitutional: Denies: fever, chills Respiratory: Denies: cough, dyspnea Cardiovascular: Reports: as per HPI. Denies: palpitations, edema, syncope Gastrointestinal: Reports: nausea, vomiting. Denies: abdominal pain Genitourinary: Reports: other (Decreased urination). Denies: dysuria, hematuria Musculoskeletal: Reports: as per HPI, back pain Skin: Denies: rash Neurological: Denies: headache, weakness, numbness EKG Findings - EKG Results: EKG: sinus rhythm (With premature supraventricular complexes, the rate is approximately 84 bpm) - Blocks, [place], Hypertrophy, ST Abn: QRS axis and voltage: left axis deviation (-30 to -90) Chamber hypertrophy or enlargement: left ventricular hypertrophy or enlargement (LVE) Past Medical History Past Medical History: Coronary Artery Disease (CAD), Heart Failure, COPD, Dementia, Diabetes Mellitus, Eye Disorder, GERD/Reflux, Hyperlipidemia, Hypertension, Osteoarthritis (OA), Pneumonia, Renal Disease, Vascular Disorder Additional Past Medical History / Comment(s): Ischemic cardiomyopathy, cardiac murmur, glaucoma bilateral eyes, CKD, normocytic anemia, PVD, past R great toe wound, past R upper leg cellulitis, varicosities, DJD. History of Any Multi-Drug Resistant Organisms: None Reported Past Surgical History: AICD, Cholecystectomy, Coronary Bypass/CABG, Heart Catheterization With Stent, Hernia Repair, Pacemaker Additional Past Surgical History / Comment(s): CABG performed twice STATES TOTAL OF 5 BYPASSES, bilateral fempop bypasses, BIBI CATARACT, EGD/COLONOSCOPY, picc line insertion/removed. Past Anesthesia/Blood Transfusion Reactions: No Reported Reaction Date of Last Stent Placement:: unknow Type of Cardiac Device: Permanent Pacemaker, AICD Device Placement Date:: JUL 2015 Past Psychological History: No Psychological Hx Reported Smoking Status: Former smoker Past Alcohol Use History: None Reported Past Drug Use History: None Reported - Past Family History Son(s) Family Medical History: Cancer Additional Family Medical History / Comment(s): LUNG CANCER. SON WAS A SMOKER. Mother Family Medical History: Chest Pain / Angina, Congestive Heart Failure (CHF), Diabetes Mellitus Additional Family Medical History / Comment(s): Mother in her 70's General Exam Limitations: no limitations General appearance: alert, in no apparent distress Head exam: Present: atraumatic, normocephalic Eye exam: Present: normal appearance Neck exam: Present: normal inspection Respiratory exam: Present: normal lung sounds bilaterally. Absent: respiratory distress, wheezes, rales, rhonchi, stridor Cardiovascular Exam: Present: regular rate (There are occasional extra eats), systolic murmur (Grade 1/6 systolic ejection murmur). Absent: diastolic murmur , rubs, gallop GI/Abdominal exam: Present: soft, normal bowel sounds, other (No fullness over the bladder). Absent: tenderness, guarding, rebound, rigid, mass, pulsatile mass, hernia Extremities exam: Present: normal inspection, normal capillary refill. Absent: pedal edema, calf tenderness Back exam: Present: normal inspection. Absent: CVA tenderness (R), CVA tenderness (L) Neurological exam: Present: alert Skin exam: Present: warm, dry, intact, normal color. Absent: rash Course Vital Signs 02/11/17 02/11/17 02/11/17 19:36 19:59 21:37 Temperature 98.5 F Pulse Rate 79 78 76 Respiratory 20 18 17 Rate Blood Pressure 147/77 153/87 158/93 O2 Sat by Pulse 96 98 99 Oximetry Disposition Clinical Impression: Chest pain, Elevated d-dimer Disposition: ADMITTED IP TO THIS HOSP Condition: Fair Referrals: Vince Jane MD [REFERRING] - 1-2 days
[2017-02-11 20:20] LABS: ALT 30 U/L (21-72); AST 19 U/L (17-59); Alkaline Phosphatase 119 U/L (38-126); Amylase <30 U/L (30-110); Anion Gap 16 mmol/L; Blood Urea Nitrogen 34 mg/dL (9-20); Calcium 9.8 mg/dL (8.4-10.2); Carbon Dioxide 25 mmol/L (22-30); Chloride 91 mmol/L (98-107); Glucose 315 mg/dL (74-99); Magnesium 1.5 mg/dL (1.6-2.3); Non-African American GFR(MDRD) 29 (>60 ml/min/1.73 sqM); Sodium 132 mmol/L (137-145); Total Protein 8.2 g/dL (6.3-8.2)
[2017-02-11 20:22] LABS: INR 1.1 (<1.2); Partial Thromboplastin Time 24.2 sec (22.0-30.0); Prothrombin Time 11.2 sec (9.0-12.0)
--- NOTE | 2017-02-11 20:26 | XR ---
EXAMINATION TYPE: XR chest 1V portable DATE OF EXAM: 02/11/2017 Comparison: 02/10/2017 Clinical History: 81-year-old male with chest pain Findings: Median sternotomy wires are present. Clips in the mediastinum. Left anterior chest wall AICD generato r with right atrial and right ventricular leads. Heart is normal size. Mild atherosclerotic arch calcifications. Pulmonary vasculature within normal l imits. Strandy atelectasis at the peripheral left base. No consolidation or pleural effusion seen. Impression: No acute process identified.
[2017-02-11 20:50] LABS: Creatine Kinase MB 0.9 ng/mL (0.0-2.4)
[2017-02-11 20:55] LABS: Troponin I 0.129 ng/mL (0.000-0.034)
[2017-02-11] MEDS ORDERED: HEPARIN SODIUM,PORCINE 5,000 UNIT/ML 1 ML VIAL IV ONE (20:57)
[2017-02-11] MEDS ORDERED: HEPARIN SODIUM,PORCINE 5,000 UNIT/ML 1 ML VIAL IV PRN (20:57)
[2017-02-11] MEDS ORDERED: HEPARIN SODIUM,PORCINE/D5W PMX 25,000 UNIT in DEXTROSE/WATER 1 500ML.BAG IV SCH (21:00)
[2017-02-11] MEDS ORDERED: RX INFO: IV CONTRAST WAS GIVEN 1 EACH MISC MISCELLANE PRN (22:13)
[2017-02-11] MEDS ORDERED: NITROGLYCERIN SL TABS 0.4 MG TAB SUBLINGUAL PRN (22:31)
[2017-02-11] MEDS ORDERED: SENNOSIDES 8.6 MG TAB PO PRN (22:35)
[2017-02-11] MEDS ORDERED: RANOLAZINE 500 MG TAB.ER.12H PO ONE (23:45)
[2017-02-11] MEDS ORDERED: ISOSORBIDE MONONITRATE ER 30 MG TAB.ER.24H PO STA (23:57)
[2017-02-11] MEDS ORDERED: INSULIN DETEMIR 100 UNIT/ML 10 ML VIAL SQ STA (23:59)
[2017-02-12 00:04] LABS: Glucose,Whole Blood 319 mg/dL (75-99)
[2017-02-12 00:11] VITALS: BMI 24.0
[2017-02-12 02:57] LABS: Basophils # (A) 0.1 k/uL (0-0.2); Basophils % (A) 0 %; CH 28.5; CHCM 32.2; Eosinophils % (A) 0 %; HDW 2.77; HGB 12.5 gm/dL (13.0-17.5); Luc # (Auto) 0.24; Luc % (Auto) 2; Lymphocytes # (A) 1.1 k/uL (1.0-4.8); Lymphocytes % (A) 8 %; MCH 29.3 pg (25.0-35.0); MCHC 32.9 g/dL (31.0-37.0); MCV 89.1 fL (80.0-100.0); Mean Platelet Volume 7.3; Monocytes # (A) 0.8 k/uL (0-1.0); Monocytes % (A) 5 %; Neutrophils # (A) 12.5 k/uL (1.3-7.7); Neutrophils % (A) 85 %; RBC 4.26 m/uL (4.30-5.90); RDW 14.3 % (11.5-15.5); WBC 14.7 k/uL (3.8-10.6); WBC (Perox) 15.03
[2017-02-12 03:16] LABS: Cholesterol 156 mg/dL (<200); HDL Cholesterol 30 mg/dL (40-60)
[2017-02-12 03:32] LABS: Creatine Kinase MB 1.4 ng/mL (0.0-2.4)
[2017-02-12 03:42] LABS: Troponin I 0.125 ng/mL (0.000-0.034)
[2017-02-12 06:36] LABS: Glucose,Whole Blood 248 mg/dL (75-99)
[2017-02-12] MEDS: PANTOPRAZOLE 40 MG TABLET PO SCH (06:36)
[2017-02-12] MEDS: CARVEDILOL 3.125 MG TAB PO SCH ×2 (06:36→17:22)
[2017-02-12] MEDS: IPRATROPIUM-ALBUTEROL 3 ML NEB INHALATION SCH ×3 (08:24→19:42)
[2017-02-12 08:46] LABS: Creatine Kinase MB 1.6 ng/mL (0.0-2.4)
[2017-02-12 08:57] LABS: Troponin I 0.12 ng/mL (0.000-0.034)
[2017-02-12] MEDS ORDERED: ASPIRIN 325 MG TAB PO SCH (09:00)
[2017-02-12] MEDS ORDERED: LISINOPRIL 2.5 MG TAB PO SCH (09:00)
--- NOTE | 2017-02-12 09:28 | P.CRDCN ---
History of Present Illness Consult date: 02/12/17 Consult reason: chest pain History of present illness: 81-year-old gentleman with history of coronary artery disease status post CABG status post myocardial infarction cath and angioplasty of the venous graft ischemic cardiomyopathy with recent acute exacerbation of congestive heart failure who was discharged home yesterday was at home for all of 2 hours then felt unwell came back to the ER and got admitted. His predominant symptom was in the form of not feeling well and having chills and pain all over his body. He did not have any chest pain per se and was not particularly short of breath. His troponins are in the villafuerte zone at 0.1 and have remained the same all through. I do not believe patient had another myocardial infarction. I do not think we are dealing with an episode of acute exacerbation of congestive heart failure. His white cell count is elevated I'm going to obtain blood cultures and probably UA needs to be tested given the recent hospitalization Review of Systems Constitutional: Denies chills. Denies fever. Eyes: Denies blurred vision. Denies pain. Ears, nose, mouth and throat: Denies headache. Denies sore throat. Cardiovascular: chest pain. Denies shortness of breath. Respiratory: Denies cough. Gastrointestinal: Denies abdominal pain. Denies diarrhea. Denies nausea. Denies vomiting. Musculoskeletal: Patient had generalized aches and pains felt unwell Integumentary: Denies pruritus. Denies rash. Neurological: Denies numbness. Denies weakness. Psychiatric: Denies anxiety. Denies depression. Endocrine: Denies fatigue. Denies weight change. Genitourinary: Denies burning, hematuria, frequency of urination. Hematological: No anemia or excess bleeding. Past Medical History Past Medical History: Coronary Artery Disease (CAD), Heart Failure, COPD, Dementia, Diabetes Mellitus, Eye Disorder, GERD/Reflux, Hyperlipidemia, Hypertension, Osteoarthritis (OA), Pneumonia, Renal Disease, Vascular Disorder Additional Past Medical History / Comment(s): Ischemic cardiomyopathy, cardiac murmur, glaucoma bilateral eyes, CKD, normocytic anemia, PVD, past R great toe wound, past R upper leg cellulitis, varicosities, DJD. History of Any Multi-Drug Resistant Organisms: None Reported Past Surgical History: AICD, Cholecystectomy, Coronary Bypass/CABG, Heart Catheterization With Stent, Hernia Repair, Pacemaker Additional Past Surgical History / Comment(s): CABG performed twice STATES TOTAL OF 5 BYPASSES, bilateral fempop bypasses, BIBI CATARACT, EGD/COLONOSCOPY, picc line insertion/removed. Heart Cath 02/05 stent SVG to OM Past Anesthesia/Blood Transfusion Reactions: No Reported Reaction Date of Last Stent Placement:: unknow Type of Cardiac Device: Permanent Pacemaker, AICD Device Placement Date:: JUL 2015 Past Psychological History: No Psychological Hx Reported Additional Psychological History / Comment(s): Pt resides alone. He is independent. Smoking Status: Former smoker Past Alcohol Use History: None Reported Additional Past Alcohol Use History / Comment(s): STARTED SMOKING AGE 18 (1951) , QUIT SMOKING 1978, SMOKED 1PPD Past Drug Use History: None Reported - Past Family History Son(s) Family Medical History: Cancer Additional Family Medical History / Comment(s): LUNG CANCER. SON WAS A SMOKER. Mother Family Medical History: Chest Pain / Angina, Congestive Heart Failure (CHF), Diabetes Mellitus Additional Family Medical History / Comment(s): Mother in her 70's Medications and Allergies Home Medications Medication Instructions Recorded Confirmed Type Dorzolamide HCl/Timolol Maleat 1 drop BOTH EYES BID 07/07/15 02/11/17 History [Cosopt Eye Drops] Insulin Detemir [Levemir] 22 unit SQ HS 07/07/15 02/11/17 History Brimonidine Tartrate [Alphagan P 1 drops BOTH EYES BID 06/04/16 02/11/17 History 0.1% Ophth Soln] Pantoprazole Sodium 40 mg PO DAILY 06/04/16 02/11/17 History Clopidogrel [Plavix] 75 mg PO DAILY #30 tab 01/15/17 02/11/17 Rx Donepezil [Aricept] 10 mg PO HS #30 tab 01/15/17 02/11/17 Rx Lisinopril [Zestril] 2.5 mg PO DAILY #30 tab 01/15/17 02/11/17 Rx Nitroglycerin Sl Tabs [Nitrostat] 0.4 mg SUBLINGUAL Q5M PRN #20 tab 01/15/1703/20 Rx Spironolactone [Aldactone] 25 mg PO DAILY #30 tab 01/15/17 02/11/17 Rx metFORMIN HCL 1,000 mg PO BID #60 01/15/17 02/11/17 Rx Aspirin 81 mg PO DAILY 02/11/17 02/11/17 Rx Atorvastatin Calcium [Lipitor] 40 mg PO HS #30 tablet 02/11/17 02/11/17 Rx Carvedilol [Coreg] 3.125 mg PO BID-W/MEALS #60 tab 02/11/17 02/11/17 Rx Furosemide [Lasix] 40 mg PO BID@0900,1600 #60 tab 02/11/17 02/11/17 Rx Ipratropium-Albuterol Nebulize 3 ml INHALATION TID #120 neb 02/11/17 02/11/17 Rx [Duoneb 0.5 mg-3 mg/3 ml Soln] Isosorbide Mononitrate ER [Imdur] 30 mg PO BID #60 tab 02/11/17 02/11/17 Rx Polyethylene Glycol 3350 [Miralax] 17 gm PO DAILY pack 02/11/17 02/11/17 Rx Ranolazine [Ranexa] 500 mg PO Q12HR #60 tab 02/11/17 02/11/17 Rx Sennosides [Senokot] 8.6 mg PO BID PRN tab 02/11/17 02/11/17 Rx Allergies Allergy/AdvReac Type Severity Reaction Status Date / Time prednisone AdvReac SUGAR GOES Verified 02/11/17 19:59 UP Physical Exam Vitals: Vital Signs Temp Pulse Pulse Resp BP BP BP 02/12/17 08:42 76 02/12/17 08:26 02/12/17 08:25 72 02/12/17 08:00 98.1 F 79 20 119/60 02/12/17 03:08 82 02/12/17 03:07 97.2 F L 82 16 134/68 02/12/17 00:00 71 16 02/11/17 23:28 97.3 F L 71 14 162/72 02/11/17 22:36 71 18 148/78 02/11/17 21:37 76 17 158/93 02/11/17 19:59 78 18 153/87 02/11/17 19:36 98.5 F 79 20 147/77 Pulse Ox 02/12/17 08:42 02/12/17 08:26 96 02/12/17 08:25 02/12/17 08:00 97 02/12/17 03:08 02/12/17 03:07 94 L 02/12/17 00:00 02/11/17 23:28 97 02/11/17 22:36 98 02/11/17 21:37 99 02/11/17 19:59 98 02/11/17 19:36 96 Intake and Output 02/11/17 02/12/17 02/12/17 22:59 06:59 14:59 Intake Total 129.331 Output Total 220 150 Balance -90.669 -150 Intake: Intake, IV Titration 129.331 Amount Heparin Sodium,Porcine/ 129.331 D5w Pmx 25,000 unit In Dextrose/Water 1 500ml. bag @ 12 UNITS/KG/HR 16. 98 mls/hr IV .Q24H [facility] Rx #:[id number] Output: Urine 220 150 Other: Weight 70.76 kg 70 kg General: The patient is awake and alert, in no distress, and does not appear acutely ill. Skin: Skin is warm and dry and no rashes or lesions are noted. Eye: Pupils are equal, round and reactive to light, extra-ocular movements are intact; there is normal conjunctiva bilaterally. Ears, nose, mouth and throat: There are moist mucous membranes and no oral lesions. Neck: The neck is supple, there is no tenderness or JVD. Cardiovascular: [ There is a regular rate and rhythm.] Systolic murmur at the apex Respiratory: Lungs are clear to auscultation, respirations are non-labored, breath sounds are equal. Gastrointestinal: Soft, non-distended, non-tender abdomen without masses or organomegaly noted. There is no rebound or guarding present. Bowel sounds are unremarkable. Back: There is no tenderness to palpation in the midline. There is no obvious deformity. Musculoskeletal: Normal ROM, no tenderness, There is no pedal edema. There is no calf tenderness or swelling. Extremities:[ No edema.] Vascular: [Femoral pulse is normal.][ Posterior tibial pulses are normal .][ Dorsalis pedis is palpable.] Neurological: CN II-XII intact. There are no obvious motor or sensory deficits. Speech is normal. Psychiatric: Cooperative, appropriate mood & affect, normal judgment. Results 02/12/17 02:26 02/11/17 19:59 Cardiac Enzymes 02/11/17 02/11/17 02/12/17 Range/Units 19:59 19:59 02:26 AST 19 (17-59) U/L CK-MB (CK-2) 0.9 1.4 (0.0-2.4) ng/mL Troponin I 0.129 H* 0.125 H* (0.000-0.034) ng/mL 02/12/17 Range/Units 07:45 AST (17-59) U/L CK-MB (CK-2) 1.6 (0.0-2.4) ng/mL Troponin I 0.120 H* (0.000-0.034) ng/mL Coagulation 02/11/17 02/12/17 Range/Units 19:59 02:26 PT 11.2 (9.0-12.0) sec APTT 24.2 37.4 H (22.0-30.0) sec Lipids 02/12/17 Range/Units 02:26 Triglycerides 141 (<150) mg/dL Cholesterol 156 (<200) mg/dL HDL Cholesterol 30 L (40-60) mg/dL CBC 02/11/17 02/12/17 Range/Units 19:59 02:26 WBC 16.4 H 14.7 H (3.8-10.6) k/uL RBC 4.75 4.26 L (4.30-5.90) m/uL Hgb 13.5 12.5 L (13.0-17.5) gm/dL Hct 41.1 38.0 L (39.0-53.0) % Plt Count 423 369 (150-450) k/uL Comprehensive Metabolic Panel 02/11/17 Range/Units 19:59 Sodium 132 L (137-145) mmol/L Potassium 5.0 (3.5-5.1) mmol/L Chloride 91 L (98-107) mmol/L Carbon Dioxide 25 (22-30) mmol/L BUN 34 H (9-20) mg/dL Creatinine 2.20 H (0.66-1.25) mg/dL Glucose 315 H (74-99) mg/dL Calcium 9.8 (8.4-10.2) mg/dL AST 19 (17-59) U/L ALT 30 (21-72) U/L Alkaline Phosphatase 119 (38-126) U/L Total Protein 8.2 (6.3-8.2) g/dL Albumin 4.5 (3.5-5.0) g/dL Current Medications Generic Name Dose Route Start Last Admin Trade Name Freq PRN Reason Stop Dose Admin Albuterol/Ipratropium 3 ml 02/12/17 08:00 02/12/17 08:24 Duoneb 0.5 Mg-3 Mg/3 Ml Soln INHALATION 3 ml RT-TID TEDDY Administration Aspirin 81 mg 02/12/17 09:00 Aspirin PO DAILY [facility] Atorvastatin Calcium 40 mg 02/12/17 21:00 Lipitor PO HS [facility] Brimonidine Tartrate 1 drops 02/12/17 09:00 Alphagan P 0.2% Ophth Soln BOTH EYES BID [facility] Carvedilol 3.125 mg 02/12/17 07:30 02/12/17 06:36 Coreg PO 3.125 mg BID-W/MEALS TEDDY Administration Clopidogrel Bisulfate 75 mg 02/12/17 09:00 Plavix PO DAILY [facility] Donepezil HCl 10 mg 02/12/17 21:00 Aricept PO HS [facility] Dorzolamide/Timolol 1 drops 02/12/17 09:00 Cosopt BOTH EYES BID [facility] Heparin Sodium (Porcine) 0 unit 02/11/17 20:57 02/12/17 05:13 Heparin IV 3,750 unit PER PROTOCOL PRN Administration Low PTT Protocol Heparin Sodium/Dextrose 25,000 500 mls @ 16.98 mls/hr 02/11/17 21:00 05:12 unit/ IV Solution IV 15 units/kg/hr .Q24H [facility] 21.22 mls/hr Protocol Titration 12 UNITS/KG/HR Insulin Detemir 22 unit 02/12/17 21:00 Levemir SQ HS [facility] Isosorbide Mononitrate 30 mg 02/12/17 09:00 Imdur PO BID [facility] Lisinopril 2.5 mg 02/12/17 09:00 Zestril PO DAILY [facility] Metformin HCl 1,000 mg 02/14/17 09:00 Glucophage PO BID [facility] Miscellaneous Information 1 each 02/11/17 22:13 Rx Info: Iv Contrast Was Given MISCELLANE 02/13/17 22:13 DAILY PRN Per Protocol Nitroglycerin 0.4 mg 02/11/17 22:31 Nitrostat SUBLINGUAL Q5M PRN Chest Pain Pantoprazole Sodium 40 mg 02/12/17 07:30 02/12/17 06:36 Protonix PO 40 mg [id number] TEDDY Administration Polyethylene Glycol 17 gm 02/12/17 09:00 Miralax PO DAILY [facility] Ranolazine 500 mg 02/12/17 09:00 Ranexa PO Q12HR [facility] Senna 8.6 mg 02/11/17 22:35 Senokot PO BID PRN Constipation Spironolactone 25 mg 02/12/17 09:00 Aldactone PO DAILY [facility] Intake and Output 02/11/17 02/12/17 02/12/17 22:59 06:59 14:59 Intake Total 129.331 Output Total 220 150 Balance -90.669 -150 Intake: Intake, IV Titration 129.331 Amount Heparin Sodium,Porcine/ 129.331 D5w Pmx 25,000 unit In Dextrose/Water 1 500ml. bag @ 12 UNITS/KG/HR 16. 98 mls/hr IV .Q24H [facility] Rx #:[id number] Output: Urine 220 150 Other: Weight 70.76 kg 70 kg 02/12/17 02:26 02/11/17 19:59 EKG Interpretations (text) Normal sinus rhythm with changes of left ventricular hypertrophy Assessment and Plan Plan: Atypical chest pain CAD status post CABG status post recent angioplasty of venous graft Ischemic cardiomyopathy with severe LV dysfunction History of chronic systolic heart failure Will check UA and blood cultures. Patient doesn't require further workup for the chest pain.
[2017-02-12 09:42] LABS: Glucose,Whole Blood 216 mg/dL (75-99)
--- NOTE | 2017-02-12 11:11 | NM ---
EXAMINATION TYPE: NM pul vent and perfuse DATE OF EXAM: 02/12/2017 COMPARISON: 02/05/2017 VQ scan and chest radiograph dated 02/11/2017 HISTORY: Hypoxemia. Concern for pulmonary embolus. TECHNIQUE: Utilizing inhalation of 62.2 mCi Tc 99m DTPA aerosol and intravenous injection of 4.43 mC i of Tc 99m MAA, ventilation and perfusion images are acquired post injection in multiple projections . FINDINGS: Normal radiotracer distribution is noted in the lungs. There is no evidence of mismatched defects. Ph otopenic defect is seen over the left midlung on anterior posterior projections from the left-sided c ardiac device. IMPRESSION: Unchanged exam in comparison the prior of 02/05/2017. Low probability for pulmonary embolism.
[2017-02-12] MEDS: RANOLAZINE 500 MG TAB.ER.12H PO SCH ×2 (11:24→21:19)
[2017-02-12] MEDS: ISOSORBIDE MONONITRATE ER 30 MG TAB.ER.24H PO SCH ×2 (11:24→21:19)
[2017-02-12] MEDS: ASPIRIN 81 MG PO SCH (11:25)
[2017-02-12] MEDS: CLOPIDOGREL 75 MG TAB PO SCH (11:25)
[2017-02-12] MEDS ORDERED: HYDROcodone/APAP 5-325MG 1 EACH TAB PO PRN (11:28)
[2017-02-12] MEDS: SPIRONOLACTONE 25 MG TAB PO SCH (11:29)
[2017-02-12] MEDS: DORZOLAMIDE-TIMOLOL 2-0.5% DROPS 10 ML BTL BOTH EYES SCH ×2 (11:33→21:19)
[2017-02-12] MEDS: BRIMONIDINE TARTRATE 0.2% DROPS 5 ML BTL BOTH EYES SCH ×2 (11:34→21:19)
[2017-02-12] MEDS: INSULIN LISPRO (humaLOG) 300 UNIT/3 ML VIAL SQ SCH ×3 (11:36→21:36)
[2017-02-12 11:39] LABS: Glucose,Whole Blood 201 mg/dL (75-99)
[2017-02-12 11:44] LABS: Appearance,Urine Turbid (Clear); Bacteria,Urine Many /hpf; Bilirubin,Urine Negative (Negative); Glucose,Urine (UA) 2+ (Negative); Ketones,Urine Negative (Negative); Leukocyte Esterase,Urine Large (Negative); Nitrite,Urine Negative (Negative); Particle Count 81735; Protein,Urine 2+ (Negative); RBC,Urine 71 /hpf (0-5); Specific Gravity,Urine 1.014 (1.001-1.035); UA Billing (MACRO vs. MICRO) MICRO; Urobilinogen,Urine <2.0 mg/dL (<2.0); WBC,Urine >182 /hpf (0-5)
[2017-02-12] MEDS: MAGNESIUM SULFATE-D5W PMX 1 GM in DEXTROSE/WATER 1 100ML.BAG IVPB SCH ×2 (11:46→13:08)
[2017-02-12] MEDS: POLYETHYLENE GLYCOL 3350 17 GM POWD.PACK PO SCH (14:52)
[2017-02-12 14:59] LABS: Hemoglobin A1C 8.4 % (4.2-6.1)
[2017-02-12 16:42] LABS: Glucose,Whole Blood 180 mg/dL (75-99)
[2017-02-12 20:55] LABS: Glucose,Whole Blood 148 mg/dL (75-99)
[2017-02-12] MEDS ORDERED: LEVOFLOXACIN 250MG-D5W PMX 250 MG in DEXTROSE/WATER 1 50ML.BAG IVPB SCH (21:00)
[2017-02-12] MEDS: DONEPEZIL 10 MG TAB PO SCH (21:19)
[2017-02-12] MEDS: ATORVASTATIN 40 MG TAB PO SCH (21:19)
[2017-02-12] MEDS: INSULIN DETEMIR 100 UNIT/ML 10 ML VIAL SQ SCH (21:36)
--- NOTE | 2017-02-12 22:00 | P.HPIM ---
History of Present Illness H&P Date: 02/12/17 Chief Complaint: Chest pain/UTI 81-year-old male patient of Dr. Vince Jane with extensive medical history including coronary artery disease with recent stents showing severe disease CHF with EF of 20%, dementia, diabetes, GERD, hyperlipidemia, hypertension, chronic kidney disease. Patient was discharged on 02/11/2017 and began having some back and right shoulder pain once he arrived home. Endorses nausea vomiting. Status post recent stent placement family became concerned that he was having another cardiac episode and returned to have further evaluation. Patient also complains that he was unable to urinate normally once at home as he had had an indwelling catheter prior to leaving the hospital. Endorses painful urination and foul smelling urine. Review of Systems GEN.: [ Tired appearing] EYES: [None] HEENT: Hard of hearing] NECK: [None] RESPIRATORY: [Some shortness of breath] CARDIOVASCULAR: [None] GASTROINTESTINAL: [None] GENITOURINARY: [Pain with urination, cloudy urine, foul smelling] MUSCULOSKELETAL: [Painful joints] LYMPHATICS: [None] HEMATOLOGICAL: [None] PSYCHIATRY: [Forgetful at times] NEUROLOGICAL: [None] Past Medical History Past Medical History: Coronary Artery Disease (CAD), Heart Failure, COPD, Dementia, Diabetes Mellitus, Eye Disorder, GERD/Reflux, Hyperlipidemia, Hypertension, Osteoarthritis (OA), Pneumonia, Renal Disease, Vascular Disorder Additional Past Medical History / Comment(s): Ischemic cardiomyopathy, cardiac murmur, glaucoma bilateral eyes, CKD, normocytic anemia, PVD, past R great toe wound, past R upper leg cellulitis, varicosities, DJD. History of Any Multi-Drug Resistant Organisms: None Reported Past Surgical History: AICD, Cholecystectomy, Coronary Bypass/CABG, Heart Catheterization With Stent, Hernia Repair, Pacemaker Additional Past Surgical History / Comment(s): CABG performed twice STATES TOTAL OF 5 BYPASSES, bilateral fempop bypasses, BIBI CATARACT, EGD/COLONOSCOPY, picc line insertion/removed. Heart Cath 02/05 stent SVG to OM Past Anesthesia/Blood Transfusion Reactions: No Reported Reaction Date of Last Stent Placement:: unknow Type of Cardiac Device: Permanent Pacemaker, AICD Device Placement Date:: JUL 2015 Past Psychological History: No Psychological Hx Reported Additional Psychological History / Comment(s): Pt resides alone. He is independent. Smoking Status: Former smoker Past Alcohol Use History: None Reported Additional Past Alcohol Use History / Comment(s): STARTED SMOKING AGE 18 (1952) , QUIT SMOKING 1978, SMOKED 1PPD Past Drug Use History: None Reported - Past Family History Son(s) Family Medical History: Cancer Additional Family Medical History / Comment(s): LUNG CANCER. SON WAS A SMOKER. Mother Family Medical History: Chest Pain / Angina, Congestive Heart Failure (CHF), Diabetes Mellitus Additional Family Medical History / Comment(s): Mother in her 70's Medications and Allergies Home Medications Medication Instructions Recorded Confirmed Type Dorzolamide HCl/Timolol Maleat 1 drop BOTH EYES BID 07/07/15 02/11/17 History [Cosopt Eye Drops] Insulin Detemir [Levemir] 22 unit SQ HS 07/07/15 02/11/17 History Brimonidine Tartrate [Alphagan P 1 drops BOTH EYES BID 06/04/16 02/11/17 History 0.1% Ophth Soln] Pantoprazole Sodium 40 mg PO DAILY 06/04/16 02/11/17 History Clopidogrel [Plavix] 75 mg PO DAILY #30 tab 01/15/17 02/11/17 Rx Donepezil [Aricept] 10 mg PO HS #30 tab 01/15/17 02/11/17 Rx Lisinopril [Zestril] 2.5 mg PO DAILY #30 tab 01/15/17 02/11/17 Rx Nitroglycerin Sl Tabs [Nitrostat] 0.4 mg SUBLINGUAL Q5M PRN #20 tab 01/15/1703/20 Rx Spironolactone [Aldactone] 25 mg PO DAILY #30 tab 01/15/17 02/11/17 Rx metFORMIN HCL 1,000 mg PO BID #60 01/15/17 02/11/17 Rx Aspirin 81 mg PO DAILY 02/11/17 02/11/17 Rx Atorvastatin Calcium [Lipitor] 40 mg PO HS #30 tablet 02/11/17 02/11/17 Rx Carvedilol [Coreg] 3.125 mg PO BID-W/MEALS #60 tab 02/11/17 02/11/17 Rx Furosemide [Lasix] 40 mg PO BID@0900,1600 #60 tab 02/11/17 02/11/17 Rx Ipratropium-Albuterol Nebulize 3 ml INHALATION TID #120 neb 02/11/17 02/11/17 Rx [Duoneb 0.5 mg-3 mg/3 ml Soln] Isosorbide Mononitrate ER [Imdur] 30 mg PO BID #60 tab 02/11/17 02/11/17 Rx Polyethylene Glycol 3350 [Miralax] 17 gm PO DAILY pack 02/11/17 02/11/17 Rx Ranolazine [Ranexa] 500 mg PO Q12HR #60 tab 02/11/17 02/11/17 Rx Sennosides [Senokot] 8.6 mg PO BID PRN tab 02/11/17 02/11/17 Rx Allergies Allergy/AdvReac Type Severity Reaction Status Date / Time prednisone AdvReac SUGAR GOES Verified 02/11/17 19:59 UP Physical Exam Vitals: Vital Signs Temp Pulse Pulse Resp BP BP BP 02/12/17 19:55 76 02/12/17 19:44 72 02/12/17 16:00 96.0 F L 71 16 111/55 02/12/17 13:03 80 02/12/17 12:58 80 02/12/17 11:21 97.0 F L 85 20 123/75 02/12/17 08:42 76 02/12/17 08:26 02/12/17 08:25 72 02/12/17 08:00 98.1 F 79 20 119/60 02/12/17 03:08 82 02/12/17 03:07 97.2 F L 82 16 134/68 02/12/17 00:00 71 16 02/11/17 23:28 97.3 F L 71 14 162/72 02/11/17 22:36 71 18 148/78 Pulse Ox 02/12/17 19:55 02/12/17 19:44 02/12/17 16:00 93 L 02/12/17 13:03 02/12/17 12:58 02/12/17 11:21 100 02/12/17 08:42 02/12/17 08:26 96 02/12/17 08:25 02/12/17 08:00 97 02/12/17 03:08 02/12/17 03:07 94 L 02/12/17 00:00 02/11/17 23:28 97 02/11/17 22:36 98 Intake and Output 02/12/17 02/12/17 02/12/17 06:59 14:59 22:59 Intake Total 129.331 180 Output Total 220 420 Balance -90.669 -420 180 Intake: Intake, IV Titration 129.331 Amount Heparin Sodium,Porcine/ 129.331 D5w Pmx 25,000 unit In Dextrose/Water 1 500ml. bag @ 12 UNITS/KG/HR 16. 98 mls/hr IV .Q24H [facility] Rx #:[id number] Oral 180 Output: Urine 220 420 Other: Voiding Method Urinal Weight 70 kg VITAL SIGNS: [96.0, pulse 71, respiratory rate 16, blood pressure 111/55 oxygen saturation 93% on room air.,. BMI 24.2 kg/m] GENERAL: [Thin built, sitting up, appears anxious. EYES: [Pupils equal. Conjunctiva babar]l. HEENT: [External appearance of nose and ears normal, oral cavity grossly normal] . NECK: [JVD not raised; masses not palpable]. HEART: [First and second heart sounds are normal; no edema]. LUNGS:[ Respiratory rate increased; diminished to auscultation]. ABDOMEN: [Soft, nontender, liver spleen not palpable, no masses palpable]. LYMPHATICS: [No lymph nodes palpable in the axilla and neck]. PSYCH: [Alert and oriented x3; mood and affect babar]l. NEUROLOGICAL: [Cranial nerves grossly intact; no facial asymmetry, power and sensation grossly intact]. Results CBC & Chem 7: 02/12/17 02:26 02/11/17 19:59 Labs: Abnormal Lab Results - Last 24 Hours (Table) 02/12/17 02/12/17 02/12/17 Range/Units 00:02 02:26 02:26 WBC 14.7 H (3.8-10.6) k/uL RBC 4.26 L (4.30-5.90) m/uL Hgb 12.5 L (13.0-17.5) gm/dL Hct 38.0 L (39.0-53.0) % Neutrophils # 12.5 H (1.3-7.7) k/uL APTT 37.4 H (22.0-30.0) sec POC Glucose (mg/dL) 319 H (75-99) mg/dL Hemoglobin A1c (4.2-6.1) % Troponin I (0.000-0.034) ng/mL HDL Cholesterol (40-60) mg/dL Urine Protein (Negative) Urine Glucose (UA) (Negative) Urine Blood (Negative) Ur Leukocyte Esterase (Negative) Urine RBC (0-5) /hpf Urine WBC (0-5) /hpf Urine WBC Clumps (None) /hpf Urine Bacteria (None) /hpf 02/12/17 02/12/17 02/12/17 Range/Units 02:26 02:26 06:35 WBC (3.8-10.6) k/uL RBC (4.30-5.90) m/uL Hgb (13.0-17.5) gm/dL Hct (39.0-53.0) % Neutrophils # (1.3-7.7) k/uL APTT (22.0-30.0) sec POC Glucose (mg/dL) 248 H (75-99) mg/dL Hemoglobin A1c (4.2-6.1) % Troponin I 0.125 H* (0.000-0.034) ng/mL HDL Cholesterol 30 L (40-60) mg/dL Urine Protein (Negative) Urine Glucose (UA) (Negative) Urine Blood (Negative) Ur Leukocyte Esterase (Negative) Urine RBC (0-5) /hpf Urine WBC (0-5) /hpf Urine WBC Clumps (None) /hpf Urine Bacteria (None) /hpf 02/12/17 02/12/17 02/12/17 Range/Units 07:45 09:40 09:54 WBC (3.8-10.6) k/uL RBC (4.30-5.90) m/uL Hgb (13.0-17.5) gm/dL Hct (39.0-53.0) % Neutrophils # (1.3-7.7) k/uL APTT (22.0-30.0) sec POC Glucose (mg/dL) 216 H (75-99) mg/dL Hemoglobin A1c 8.4 H (4.2-6.1) % Troponin I 0.120 H* (0.000-0.034) ng/mL HDL Cholesterol (40-60) mg/dL Urine Protein (Negative) Urine Glucose (UA) (Negative) Urine Blood (Negative) Ur Leukocyte Esterase (Negative) Urine RBC (0-5) /hpf Urine WBC (0-5) /hpf Urine WBC Clumps (None) /hpf Urine Bacteria (None) /hpf 02/12/17 02/12/17 02/12/17 Range/Units 11:15 11:36 11:44 WBC (3.8-10.6) k/uL RBC (4.30-5.90) m/uL Hgb (13.0-17.5) gm/dL Hct (39.0-53.0) % Neutrophils # (1.3-7.7) k/uL APTT 49.6 H (22.0-30.0) sec POC Glucose (mg/dL) 201 H (75-99) mg/dL Hemoglobin A1c (4.2-6.1) % Troponin I (0.000-0.034) ng/mL HDL Cholesterol (40-60) mg/dL Urine Protein 2+ H (Negative) Urine Glucose (UA) 2+ H (Negative) Urine Blood Moderate H (Negative) Ur Leukocyte Esterase Large H (Negative) Urine RBC 71 H (0-5) /hpf Urine WBC >182 H (0-5) /hpf Urine WBC Clumps Many H (None) /hpf Urine Bacteria Many H (None) /hpf 02/12/17 02/12/17 Range/Units 16:27 20:53 WBC (3.8-10.6) k/uL RBC (4.30-5.90) m/uL Hgb (13.0-17.5) gm/dL Hct (39.0-53.0) % Neutrophils # (1.3-7.7) k/uL APTT (22.0-30.0) sec POC Glucose (mg/dL) 180 H 148 H (75-99) mg/dL Hemoglobin A1c (4.2-6.1) % Troponin I (0.000-0.034) ng/mL HDL Cholesterol (40-60) mg/dL Urine Protein (Negative) Urine Glucose (UA) (Negative) Urine Blood (Negative) Ur Leukocyte Esterase (Negative) Urine RBC (0-5) /hpf Urine WBC (0-5) /hpf Urine WBC Clumps (None) /hpf Urine Bacteria (None) /hpf Microbiology - Last 24 Hours (Table) 02/12/17 11:15 Urine Culture - Preliminary Urine,Voided Thrombosis Risk Factor Assmnt - Choose All That Apply Any of the Below Risk Factors Present?: Yes Each Factor Represents 1 point: Abnormal pulmonary function (COPD) Each Risk Factor Represents 3 Points: Age 75 years or older Other congenital or acquired thrombophilia - If yes, enter type in comment: No Thrombosis Risk Factor Assessment Total Risk Factor Score: 4 Thrombosis Risk Factor Assessment Level: Moderate Risk Assessment and Plan Plan: ASSESSMENT: -Unstable angina patient with known triple-vessel coronary artery disease and chronic kidney disease with prior history of bypass, now with angioplasty and stent to LAD. -Urinary tract infection -Leukocytosis likely due to urinary tract infection -Elevated troponin likely due to decreased kidney function -Acute Non-Q wave myocardial infarction on 01/10/2017, not this admission -Acute on Chronic congestive heart failure exacerbation from systolic dysfunction, uncontrolled, ejection fraction 20-25% with additional diastolic dysfunction underlying coronary artery disease. -Acute kidney injury most likely acute tubular necrosis from contrast nephropathy/drug-induced, worsening -Coronary artery disease with diffuse disease and prior bypass. -Accelerated malignant hypertension, controlled -Alzheimer's dementia, late onset type. -Diabetes mellitus type 2 chronically on oral hypoglycemics. -Hyperlipidemia. -Primary osteoarthritis of multiple joints bilaterally. 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 -Pacemaker in place. -Peripheral arterial disease. -CODE STATUS: DO NOT RESUSCITATE PLAN: Reorder home meds cardiology consulted Accu-Cheks to be noted and followed blood cultures ordered, urinalysis sent, antibiotics initiated. Plan of care discussed with the patient at the bedside he is in agreement. We'll continue to follow closely. FRONT OFFICE DIRECTOR STATEMENT: Patient was seen and examined by nurse practitioner Vickie Mathur in all elements of the case discussed with attending Dr. Noriega.
--- NOTE | 2017-02-12 22:34 | HP ---
HISTORY AND PHYSICAL DATE OF ADMISSION: 02/11/2017 DATE OF SERVICE: 02/12/2017 ATTENDING NOTE: This patient was seen and examined by me today. I discussed with my DIRECTOR MEDICAL ECONOMICS, Ms. Mathur. This is a patient who had just been discharged home with multiple medical problems, including coronary artery disease and CHF. Patient went home, having some difficulty with urination, tired, feeling rundown. Patient was brought back to the ER. Urine has come back rather infected-appearing. ASSESSMENT: 1. Acute urinary tract infection, probably secondary to Villalobos catheter. 2. Coronary artery disease. 3. Acute non-Q-wave myocardial infarction on 01/10/17. 4. Chronic congestive heart failure from systolic dysfunction, ejective fraction 20% to 25%, with additional diastolic dysfunction. 5. Essential hypertension. 6. Alzheimer's dementia, late onset type. 7. Diabetes mellitus, type 2 on oral hypoglycemic. 8. Hyperlipidemia. 9. Primary osteoarthritis in multiple joints bilaterally. 10.Chronic kidney disease, stage III, from diabetic nephropathy and hypertensive nephrosclerosis. 11.Pacemaker. 12.Peripheral artery disease. CODE STATUS: DO NOT RESUSCITATE. PLAN: Care was discussed with the patient. Patient's ( ) will be switched to IV ceftriaxone. Other medications to continue. Care was discussed with the patient. Will have PT/OT see the patient. MMODL / IJN: [id number] /
[2017-02-13 06:15] LABS: Glucose,Whole Blood 97 mg/dL (75-99)
[2017-02-13] MEDS: INSULIN LISPRO (humaLOG) 300 UNIT/3 ML VIAL SQ SCH ×4 (06:20→21:39)
[2017-02-13] MEDS: PANTOPRAZOLE 40 MG TABLET PO SCH (06:22)
[2017-02-13] MEDS: CARVEDILOL 3.125 MG TAB PO SCH ×2 (06:22→18:45)
[2017-02-13 07:07] LABS: Basophils % (A) 0 %; CH 29.2; CHCM 33.2; Eosinophils # (A) 0.1 k/uL (0-0.7); Eosinophils % (A) 0 %; HCT 35.1 % (39.0-53.0); HDW 2.71; HGB 11.3 gm/dL (13.0-17.5); Luc # (Auto) 0.39; Luc % (Auto) 2; Lymphocytes # (A) 1.3 k/uL (1.0-4.8); Lymphocytes % (A) 8 %; MCH 28.4 pg (25.0-35.0); MCHC 32.1 g/dL (31.0-37.0); MCV 88.2 fL (80.0-100.0); Mean Platelet Volume 8.2; Monocytes # (A) 0.8 k/uL (0-1.0); Monocytes % (A) 5 %; Neutrophils # (A) 13.4 k/uL (1.3-7.7); Neutrophils % (A) 84 %; RBC 3.98 m/uL (4.30-5.90); RDW 14.5 % (11.5-15.5); WBC (Perox) 15.96
[2017-02-13] MEDS: IPRATROPIUM-ALBUTEROL 3 ML NEB INHALATION SCH ×3 (08:07→20:25)
[2017-02-13] MEDS: RANOLAZINE 500 MG TAB.ER.12H PO SCH ×2 (09:26→21:40)
[2017-02-13] MEDS: BRIMONIDINE TARTRATE 0.2% DROPS 5 ML BTL BOTH EYES SCH ×2 (09:26→21:38)
[2017-02-13] MEDS: SPIRONOLACTONE 25 MG TAB PO SCH (09:26)
[2017-02-13] MEDS: DORZOLAMIDE-TIMOLOL 2-0.5% DROPS 10 ML BTL BOTH EYES SCH ×2 (09:26→21:38)
[2017-02-13] MEDS: ASPIRIN 81 MG PO SCH (09:26)
[2017-02-13] MEDS: CLOPIDOGREL 75 MG TAB PO SCH (09:26)
[2017-02-13] MEDS: ISOSORBIDE MONONITRATE ER 30 MG TAB.ER.24H PO SCH ×2 (09:26→21:40)
[2017-02-13] MEDS: POLYETHYLENE GLYCOL 3350 17 GM POWD.PACK PO SCH (09:28)
--- NOTE | 2017-02-13 12:53 | P.PN ---
Subjective Principal diagnosis: Fever and chills This is a 81-year-old gentleman with known history of coronary artery disease and prior bypass surgery, who was recently in the hospital with non-Q-wave myocardial infarction, underwent angioplasty with stenting, history of ischemic cardiomyopathy, systolic congestive heart failure, diabetes, hypertension, hyperlipidemia, renal disease and vascular disorder. He was discharged home, and return to the hospital shortly thereafter with symptoms of chills and fever. He denied any chest pain, breathing was stable. Blood pressure 110/60, heart rate in the 70s, 96% on room air. White blood cell count 16.0, hemoglobin 11.3, platelet count 398. Objective - Vital Signs Vital signs: Vital Signs Temp 96.7 F L 02/13/17 08:00 Pulse 70 02/13/17 08:19 Resp 14 02/13/17 08:19 BP 168/75 02/13/17 08:00 Pulse Ox 98 02/13/17 08:07 Intake & Output 02/12/17 02/13/17 02/13/17 18:59 06:59 18:59 Intake Total 180 50 180 Output Total 420 700 Balance -240 -650 180 Weight 70 kg Intake: Intake, IV Titration 50 Amount Levofloxacin 250Mg-D5w 50 Pmx 250 mg In Dextrose/ Water 1 50ml.bag @ 50 mls /hr IVPB Q24HR@2100 [facility] Rx#:[id number] Oral 180 180 Output: Urine 420 700 Other: Voiding Method Urinal Urinal - Exam PHYSICAL EXAMINATION: HEENT: Head is atraumatic, normocephalic. Pupils equal, round. Neck is supple. There is no elevated jugular venous pressure. HEART EXAMINATION: Heart S1 and S2 systolic murmur is heard. CHEST EXAMINATION: Lungs are clear to auscultation and precussion. No chest wall tenderness is noted on palpation or with deep breathing. ABDOMEN: Soft, nontender. Bowel sounds are heard. No organomegaly noted. EXTREMITIES: 2+ peripheral pulses with no evidence of peripheral edema and no calf tenderness noted. NEUROLOGIC patient is awake, alert and oriented -3. . - Labs CBC & Chem 7: 02/13/17 06:41 02/11/17 19:59 Labs: Abnormal Lab Results - Last 24 Hours (Table) 02/12/17 02/12/17 02/12/17 Range/Units 09:54 16:27 20:53 WBC (3.8-10.6) k/uL RBC (4.30-5.90) m/uL Hgb (13.0-17.5) gm/dL Hct (39.0-53.0) % Neutrophils # (1.3-7.7) k/uL POC Glucose (mg/dL) 180 H 148 H (75-99) mg/dL Hemoglobin A1c 8.4 H (4.2-6.1) % 02/13/17 Range/Units 06:41 WBC 16.0 H (3.8-10.6) k/uL RBC 3.98 L (4.30-5.90) m/uL Hgb 11.3 L (13.0-17.5) gm/dL Hct 35.1 L (39.0-53.0) % Neutrophils # 13.4 H (1.3-7.7) k/uL POC Glucose (mg/dL) (75-99) mg/dL Hemoglobin A1c (4.2-6.1) % Microbiology - Last 24 Hours (Table) 02/12/17 11:15 Urine Culture - Preliminary Urine,Voided Assessment and Plan (1) Fever chills Status: Acute (2) Diabetes Status: Acute (3) HTN (hypertension) Status: Acute (4) History of automatic internal cardiac defibrillator (AICD) Status: Acute (5) Hx of CABG Status: Acute (6) Hyperlipemia Status: Acute (7) Ischemic cardiomyopathy Status: Acute Plan: From cardiology's perspective, we will continue current medications. Stable from Cardiac standpoint. DNP note has been reviewed, I agree with a documented findings and plan of care. Patient was seen and examined.
[2017-02-13 15:55] LABS: Glucose,Whole Blood 142 mg/dL (75-99)
[2017-02-13 16:36] LABS: Glucose,Whole Blood 157 mg/dL (75-99)
[2017-02-13 20:57] LABS: Glucose,Whole Blood 229 mg/dL (75-99)
[2017-02-13] MEDS: INSULIN DETEMIR 100 UNIT/ML 10 ML VIAL SQ SCH (21:39)
[2017-02-13] MEDS: ATORVASTATIN 40 MG TAB PO SCH (21:42)
[2017-02-13] MEDS: DONEPEZIL 10 MG TAB PO SCH (21:42)
--- NOTE | 2017-02-14 | PN ---
PROGRESS NOTE DATE OF SERVICE: February 13, 2017. ATTENDING NOTE: This patient seen and examined by me. I discussed with my MOLD FILLER AND DRAINER Maryse Oraciokwame. Patient admitted with acute UTI, urine symptoms getting a bit better. Diet is actually improving. Patient did walk a bit with support. Daughter is at bedside. EXAMINATION: Temperature 96.7, pulse 61, blood pressure 108/58, repeat 160/75, pulse ox 99% room air. On examination: Lungs decreased breath sounds. CARDIOVASCULAR: First and second sounds normal. INVESTIGATION: The blood cultures are pending. White count 16. ASSESSMENT: 1. Acute urinary tract infection probably secondary to Villalobos catheter with cultures growing gram-negative bacilli. 2. Coronary artery disease. 3. Chronic congestive heart failure. PLAN: At this point, continue with IV ceftriaxone and await cultures. Patient will be getting discharged to the [facility]. Care was discussed with the patient and daughter at the bedside. MMODL / IJN: [id number] /
[2017-02-14 03:36] VITALS: RESP 14
[2017-02-14 06:00] LABS: Glucose,Whole Blood 62 mg/dL (75-99)
[2017-02-14] MEDS: INSULIN LISPRO (humaLOG) 300 UNIT/3 ML VIAL SQ SCH ×2 (06:00→12:18)
[2017-02-14 06:30] LABS: Glucose,Whole Blood 74 mg/dL (75-99)
[2017-02-14 06:35] LABS: Basophils # (A) 0.1 k/uL (0-0.2); Basophils % (A) 1 %; CH 29.1; Eosinophils # (A) 0.2 k/uL (0-0.7); Eosinophils % (A) 2 %; HCT 34.1 % (39.0-53.0); HDW 2.73; HGB 11.2 gm/dL (13.0-17.5); Luc # (Auto) 0.29; Luc % (Auto) 3; Lymphocytes # (A) 1.3 k/uL (1.0-4.8); Lymphocytes % (A) 12 %; MCHC 32.9 g/dL (31.0-37.0); MCV 88.3 fL (80.0-100.0); Mean Platelet Volume 7.9; Monocytes # (A) 0.7 k/uL (0-1.0); Monocytes % (A) 7 %; Neutrophils # (A) 8.4 k/uL (1.3-7.7); Neutrophils % (A) 77 %; RBC 3.86 m/uL (4.30-5.90); RDW 14.7 % (11.5-15.5); WBC (Perox) 10.73
[2017-02-14] MEDS: PANTOPRAZOLE 40 MG TABLET PO SCH (06:53)
[2017-02-14] MEDS: CARVEDILOL 3.125 MG TAB PO SCH (06:53)
[2017-02-14] MEDS: ISOSORBIDE MONONITRATE ER 30 MG TAB.ER.24H PO SCH (08:45)
[2017-02-14] MEDS: BRIMONIDINE TARTRATE 0.2% DROPS 5 ML BTL BOTH EYES SCH (08:45)
[2017-02-14] MEDS: DORZOLAMIDE-TIMOLOL 2-0.5% DROPS 10 ML BTL BOTH EYES SCH (08:45)
[2017-02-14] MEDS: ASPIRIN 81 MG PO SCH (08:46)
[2017-02-14] MEDS: RANOLAZINE 500 MG TAB.ER.12H PO SCH (08:46)
[2017-02-14] MEDS: CLOPIDOGREL 75 MG TAB PO SCH (08:46)
[2017-02-14] MEDS: POLYETHYLENE GLYCOL 3350 17 GM POWD.PACK PO SCH (08:46)
[2017-02-14] MEDS: SPIRONOLACTONE 25 MG TAB PO SCH (08:46)
[2017-02-14 08:50] VITALS: BP 125/60; TEMP 97.4
[2017-02-14] MEDS ORDERED: metFORMIN 500 MG TAB PO SCH (09:00)
[2017-02-14] MEDS: IPRATROPIUM-ALBUTEROL 3 ML NEB INHALATION SCH (09:02)
[2017-02-14 09:21] LABS: Calcium 9.3 mg/dL (8.4-10.2); Potassium 4.5 mmol/L (3.5-5.1)
--- NOTE | 2017-02-14 09:58 | PN ---
PROGRESS NOTE DATE OF SERVICE: 02/13/2017 PRESENTING COMPLAINT: Chest pain/UTI. INTERVAL HISTORY: 02/13/2017 81-year-old male who presented with chest pain and back pain and urinary symptoms, discharged on February 11 and returned back to the emergency department on February 11. Patient lying in bed, appears comfortable. No further complaints of chest pain or back pain, however, does complain of continued urinary symptoms, currently on antibiotic therapy. Ambulating to and from the bathroom without assistance, tolerating his diet eating between 50 and 75% of his meals and moved his bowels on 02/13/2017. REVIEW OF SYSTEMS: Done for constitutional, cardiovascular, GI, pulmonary with relevant findings as above. CURRENT MEDICATIONS: Coreg 3.125 mg p.o. b.i.d. with meals, ceftriaxone 50 mL with 1000 mg, Plavix 75 mg p.o. daily, Imdur 30 mg p.o. b.i.d., Protonix 40 mg p.o. a.c. breakfast, Aldactone 25 mg p.o. daily. PHYSICAL EXAM: VITAL SIGNS: Temperature is 97.4, pulse 72, respiratory rate 16, blood pressure 108/58, oxygen saturation 96% on room air. GENERAL APPEARANCE: Thin build, sitting up, appears comfortable. EYES: Pupils equal, conjunctivae are normal. NECK: JVD not raised. Mass not palpable. HEART: First and second sounds are normal. No edema. LUNGS: Respiratory rate increased, diminished to auscultation. ABDOMEN: Soft, nontender. Liver and spleen not palpable. No masses palpable. PSYCHIATRY: Alert and oriented x3. Mood and affect are normal. INVESTIGATIONS: White blood cell count 16.0, hemoglobin 11.3, Accu-Cheks noted. ASSESSMENT: 1. Unstable angina. Patient with known triple-vessel coronary artery disease and chronic kidney disease with a prior history of bypass now with angioplasty and stent to the LAD. 2. Urinary tract infection. 3. Leukocytosis likely due to urinary tract infection. 4. Elevated troponins likely due to decreased kidney function. 5. Acute non-Q-wave myocardial infarction on 01/10/2017, not this admission. 6. Acute on chronic congestive heart failure exacerbation with systolic dysfunction, uncontrolled. Ejection fraction 20-25% with additional diastolic dysfunction, underlying coronary artery disease. 7. Acute kidney injury. Most likely acute tubular necrosis from contrast nephropathy, drug induced. 8. Coronary artery disease with diffuse disease and prior bypass. 9. Accelerated malignant hypertension, controlled. 10.Alzheimer's dementia, late onset type. 11.Diabetes mellitus, type 2. Chronically on oral hypoglycemics. 12.Hyperlipidemia. 13.Primary osteoarthritis of multiple joints bilaterally. 14.Chronic kidney disease stage 3 from diabetic nephropathy, hypertensive nephrosclerosis. 15.Pacemaker in place. 16.Peripheral arterial disease. PLAN: Blood cultures negative. Await urine culture results. Antibiotics to continue. Cardiology will continue the current medication and treatment plan. no adjustments made. Discharge planning to [facility] in the next 24-48 hours. Plan of care discussed with the patient at the bedside and he is in agreement/ Daughter was also included in this discussion. We will follow closely. CONDUIT BENDER statement: The patient was seen and examined by nurse practitioner, Vickie Mathur, and all elements of the case discussed with attending, Dr. Noriega. MMCARMELITA / RENETTA: [id number] /
[2017-02-14 11:59] LABS: Glucose,Whole Blood 151 mg/dL (75-99)
--- NOTE | 2017-02-14 12:34 | DS ---
DISCHARGE SUMMARY DATE OF ADMISSION: 02/11/2017 DATE OF DISCHARGE: 02/14/2017 FINAL DIAGNOSIS: 1. Acute urinary tract infection secondary to a Villalobos catheter growing Klebsiella pneumoniae, causing acute urinary retention. 2. Coronary artery disease with known history of coronary bypass. 3. Elevated troponins from chronic kidney disease, not acute myocardial infarction. 4. Acute non-Q-wave myocardial infarction on 01/10/2017, not on this admission. 5. Chronic congestive heart failure from systolic dysfunction. ejection fraction 20% TO 25% with diastolic dysfunction from underlying coronary artery disease. The patient did not have an acute congestive heart failure exacerbation on this admission. 6. Acute kidney injury, likely acute tubular necrosis, could be from contrast nephropathy and drug-induced with some improvement. 7. Coronary artery disease with diffuse disease, on prior bypass. 8. Accelerated malignant hypertension on presentation. 9. Alzheimer's dementia,. late onset type. 10.Diabetes mellitus type 2, chronically on oral hypoglycemic. 11.Hyperlipidemia. 12.Primary osteoarthritis of multiple joints, bilateral. 13.Chronic kidney disease stage 3 from diabetic nephropathy and hypertensive nephrosclerosis. 14.Pacemaker in place. 15.Peripheral artery disease. HOSPITAL COURSE: This patient was discharged from the hospital, went home, having trouble with her urine. Villalobos catheter was discontinued. Found to have acute UTI. Cultures did come back growing Klebsiella pneumoniae. Responded well to antibiotics but also had urinary retention, had Villalobos catheter, had to be placed. Patient also had acute renal failure. Creatinine was 2.2. Did come down to 1.7. Patient will need inpatient rehab. CONSULTATION: Dr. Estephania Escobedo from Cardiology. CURRENT LABS: Hemoglobin 11.2, BUN 29, creatinine 1.0. PHYSICAL EXAMINATION: Temperature 97.4 blood pressure 125/60, pulse of 98, pulse ox 97% room air. LUNGS: Decreased breath sounds. CARDIOVASCULAR: Heart sounds regular. PSYCH: Oriented x3. DISCHARGE MEDICATIONS: 1. Cosopt eyedrops 1 drop to both eyes b.i.d. 2. Levemir 18 units subcutaneous q.h.s. 3. Alphagan 0.1% 1 drop to both eyes b.i.d. 4. Protonix 40 mg a day. 5. Plavix 75 mg a day. 6. Aricept 10 mg p.o. q.h.s. 7. Zestril 2.5 mg p.o. daily. 8. Nitrostat 0.4 sublingual q.5 p.r.n. 9. Aldactone 25 mg a day. 10.Metformin 1000 mg p.o. b.i.d. 11.Aspirin 81 mg p.o. daily. 12.Lipitor 40 mg q.h.s. 13.Coreg 3.125 p.o. b.i.d. 14.DuoNeb q.i.d. 15.Imdur ER 30 mg p.o. b.i.d. 16.MiraLAX 17 g p.o. daily. 17.Ranexa 500 mg p.o. q.12. 18.Senokot 8.6 mg p.o. b.i.d. p.r.n. 19.[place] 5 one tablet q.6 p.r.n. 20.Ceftin 250 mg p.o. b.i.d., for 10 tablets. 21.Lasix 40 mg p.o. daily. 22.Flomax 0.4 mg p.o. q.h.s. DISPOSITION: [facility]. Follow up with Cardiology in 1 week. Follow up with Dr. Lunas. LABS: CBC, BMP in 3 days. CODE STATUS: Do not resuscitate. Discharge planning more than 35 minutes. Additionally the patient to keep the Villalobos catheter. Then a Villalobos catheter. Then a Villalobos catheter in to begin a trial of discharge in about 5 days. At the time of discontinuation in 5 days. Discharge planning more than 35 minutes. MMODL / IJN: [id number] /
[2017-02-14 13:06] VITALS: PULSE 66
[2017-02-14] MEDS ORDERED: CEFUROXIME 250 MG TAB PO SCH (21:00)
== END 2017-02-14 13:35 ==
LOC: EC 19:31 → 6SEL 22:31
PROVIDERS: ADMIT Hospitalist; ATTEND Hospitalist
DX: R07.89 Other chest pain (principal); E11.22 Type 2 diabetes mellitus with diabetic chronic kidney disease; I13.0 Hypertensive heart and chronic kidney disease with heart failure and stage 1 through stage 4 chronic kidney disease, or unspecified chronic kidney disease; N18.3 Chronic kidney disease, stage 3 (moderate); I50.43 Acute on chronic combined systolic (congestive) and diastolic (congestive) heart failure; N39.0 Urinary tract infection, site not specified; N17.9 Acute kidney failure, unspecified; K21.9 Gastro-esophageal reflux disease without esophagitis; J44.9 Chronic obstructive pulmonary disease, unspecified; I25.110 Atherosclerotic heart disease of native coronary artery with unstable angina pectoris; G30.1 Alzheimer's disease with late onset; F02.80 Dementia in other diseases classified elsewhere, unspecified severity, without behavioral disturbance, psychotic disturbance, mood disturbance, and anxiety; E78.5 Hyperlipidemia, unspecified; E11.21 Type 2 diabetes mellitus with diabetic nephropathy; I73.9 Peripheral vascular disease, unspecified; I25.5 Ischemic cardiomyopathy; H40.9 Unspecified glaucoma; I25.2 Old myocardial infarction; R01.1 Cardiac murmur, unspecified; M19.91 Primary osteoarthritis, unspecified site; Z95.5 Presence of coronary angioplasty implant and graft; Z79.4 Long term (current) use of insulin; Z79.02 Long term (current) use of antithrombotics/antiplatelets; Z79.899 Other long term (current) drug therapy; Z79.84 Long term (current) use of oral hypoglycemic drugs; Z79.82 Long term (current) use of aspirin; Z88.8 Allergy status to other drugs, medicaments and biological substances; Z95.1 Presence of aortocoronary bypass graft; Z95.810 Presence of automatic (implantable) cardiac defibrillator; Z87.891 Personal history of nicotine dependence; Z66 Do not resuscitate; Z82.49 Family history of ischemic heart disease and other diseases of the circulatory system
CPT/HCPCS: 96376 ×2; 96361; 96366 ×3; 96367 ×2; 96365; 99285; 36415; 94640 ×5; 94760 ×2; 93005; 97116 ×2; 97162; 97166; 85379; 80061; 80053; 80048; 82150; 83036; 82550 ×2; 82553 ×2; 83605; 83690; 83735 ×2; 84484 ×2; 85025 ×4; 85610; 85730 ×2; 81001; 87040; 87086; 87077; 87186; 71010; 78582; G0378 ×4; A9540; A9567; J1644 ×3; J1956; J0696 ×2; J3475